=== PATIENT | male | born 1945 | race Caucasian/White ===

== ENCOUNTER 2020-12-04 09:53 | Inpatient (IN) | payer MEDICARE, SELFPAY ==
[2020-12-04] VITALS (8 sets, daily range): BP systolic 136–178; BP diastolic 67–81; PULSE 64–77; RESP 15–20; TEMP 36.8–37.2; O2SAT 97–100; BMI 24.3
--- NOTE | ~2020-12-04 | XR_ITS ---
EXAMINATION: XR CHEST CLINICAL INFORMATION: Stroke symptoms. COMPARISON: None TECHNIQUE: Frontal view of the chest was obtained. FINDINGS: No significant abnormality is noted involving the heart, lungs, mediastinum, bony thorax or soft tissues. XR/XR chest 1V IMPRESSION: Unremarkable chest examination.
--- NOTE | ~2020-12-04 | CT_ITS ---
EXAMINATION: CT ANGIOGRAM NECK WITH CONTRAST CT ANGIOGRAM BRAIN WITH CONTRAST CLINICAL INFORMATION: Right-sided numbness. COMPARISON: Noncontrast head CT performed just prior. TECHNIQUE: Test bolus sequences followed by intravenous administration 100 mL of Omnipaque 350. Helical imaging was performed in the axial plane from the thoracic inlet to the skull vertex. Delayed postcontrast imaging of the head was also performed. The data was processed at the mechanical engineering technologist workstation for generation of MIP sequences. Angled MIPs and volume rendered reformatted images were also generated at an offline 3D workstation. Stenoses are assessed in accordance with NASCET criteria unless otherwise indicated. This CT examination was performed using dose optimization techniques as appropriate, variously including the following: *Automated exposure control *Adjustment of mA and/or kV according to patient size (this includes techniques or standardized protocols for targeted exams where dose is matched to indication/reason for exam; i.e. extremities or head) *Use of iterative reconstruction technique DLP: 1556 mGy-cm FINDINGS: Head CT: There is no intracranial hemorrhage, large acute infarction, or mass lesion. The ventricles are normal in size and configuration without evidence of hydrocephalus. No abnormal enhancement is seen. The dural venous sinuses are normally opacified. The visualized paranasal sinuses and mastoid air cells are clear. Neck CTA: The aortic arch and great vessels are patent with mild atheromatous changes noted. Mild atheromatous changes are seen at the bilateral carotid bifurcations without associated stenosis. Calcific plaque narrows the origin of the right and left vertebral artery. The cervical segments of the vertebral arteries are otherwise patent. Head CTA: The intradural vertebral arteries and basilar artery are patent. The left TRANSPORTATION SECURITY SCREENER and right TRANSPORTATION SECURITY SCREENER are patent. Atheromatous changes are seen at the bilateral carotid siphons without significant stenosis. The ACAs and MCAs are patent with symmetric collaterals. No definite aneurysm is seen. 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 There is flap reconstruction of the right tongue. No abnormal enhancing soft tissue is seen. Nonenlarged submandibular station lymph nodes are seen (submandibular gland has been resected). Bilateral palatine tonsilloliths are noted. Mild degenerative changes are seen within the spine. CT/CT angio head neck stroke IMPRESSION: CT head: No intracranial hemorrhage or large acute infarction. CTA neck: Both vertebral artery origins are narrowed. No other stenosis is seen within the neck arteries. CTA head: No large vessel occlusion or significant stenosis within the intracranial circulation. Additional findings: Postoperative changes in the right neck and in the oral cavity. No suspicious adenopathy is seen. Continued ENT follow-up is recommended. This critical result was discussed with Dr. Howard on 12/04/2020 10:34 AM, and it was ascertained that the content and urgency of the report was understood at the time of direct communication.
--- NOTE | ~2020-12-04 | CT_ITS ---
EXAMINATION: CT HEAD WITHOUT CONTRAST (STROKE PROTOCOL) CLINICAL INFORMATION: Stroke protocol. Right-sided numbness. COMPARISON: None TECHNIQUE: Contiguous axial imaging was performed from the skull base to vertex without intravenous administration of contrast. This CT examination was performed using dose optimization techniques as appropriate, variously including the following: *Automated exposure control *Adjustment of mA and/or kV according to patient size (this includes techniques or standardized protocols for targeted exams where dose is matched to indication/reason for exam; i.e. extremities or head) *Use of iterative reconstruction technique DLP: 673 mGy-cm FINDINGS: There is no intracranial hemorrhage, hematoma, or extra-axial fluid collection. The ventricles are normal in size. There is no hydrocephalus, edema, or mass effect. The barrios-white matter differentiation appears symmetric. There is no acute infarct or mass lesion. The calvarium appears intact. There is no pneumocephalus or orbital emphysema. The visualized sinuses and middle ears and mastoid air cells show no significant mucosal thickening. There are no air-fluid levels. CT/CT head for stroke IMPRESSION: No acute intracranial process seen. This critical result was discussed with ER physician Dr. Eusebia Howard by phone at 10:12 AM. It was ascertained that the content and urgency of the report was understood at the time of direct communication.
--- NOTE | ~2020-12-04 | MR_ITS ---
EXAMINATION: MRI OF THE BRAIN WITHOUT CONTRAST CLINICAL INFORMATION: Right-sided sensory loss. COMPARISON: CT scan of the head and CTA of the head and neck earlier 12/04/2020. TECHNIQUE: MRI of the brain was obtained using routine sequences without contrast. FINDINGS: There is a small focus of restricted diffusion in the left thalamus, consistent with an area of acute infarct. There is no evidence of hemorrhage. No mass effect or midline shift is seen. The ventricles and sulci are commensurately prominent consistent with diffuse volume loss. Overall, brain parenchymal signal elsewhere is unremarkable. No extra-axial fluid collections are seen. The brainstem and cerebellum are normal. No pathologic magnetic susceptibility artifact is identified on the gradient refocused acquisition. The craniovertebral junction, marrow signal, and midline structures are normal. There is a 1.8 cm mass in the subcutaneous right supraorbital region laterally. The major intracranial flow-voids at the level of the upper [place] are preserved. The dural venous sinus flow-voids are maintained. The mastoid air cells and paranasal sinuses are well-aerated. MR/MR head/brain wo con IMPRESSION: 1. There is a small area of restricted diffusion consistent with an acute infarct in the left thalamus. There is no evidence of hemorrhagic transformation. No other restricted diffusion is demonstrated, and there is no evidence of hemorrhage elsewhere. 2. There is a soft tissue mass in the subcutaneous region the right supraorbital region laterally. Correlate clinically. 3. This critical result was discussed with Jessica Garrido by telephone on 12/04/2020 at 6:55 PM and it was ascertained that the content and urgency of the report was understood at the time of direct communication.
--- NOTE | 2020-12-04 09:57 | ECG_ITS ---
Test Reason : STROKE Blood Pressure : / mmHG Vent. Rate : 080 BPM Atrial Rate : 080 BPM P-R Int : 148 ms QRS Dur : 074 ms QT Int : 410 ms P-R-T Axes : 068 000 067 degrees QTc Int : 472 ms Normal sinus rhythm Normal ECG When compared with ECG of 25-APR-2017 16:32, No significant change was found Referred By: Eusebia Howard Electronically Signed By:Angel Ag
--- NOTE | 2020-12-04 09:59 | ED.NEUROSD ---
HPI - Neuro Symptoms/Deficit General Chief Complaint: Stroke Stated Complaint: RIGHT SIDE NUMBNESS Time Seen by Provider: 12/04/20 09:56 Source: patient and EMS Mode of arrival: EMS Limitations: no limitations History of Present Illness HPI Narrative: 75 yo male with hx of tongue cancer but denies any other past medical history - had R sided numbness for 6 hours yesterday he did not seek treatment, he then was working in the [employer] and he thinks around 8am he developed nausea and didn't feel well his R side of his body from arms to legs is numb no weakness no CP, no AC therapy Onset (ago): hour(s) (?8am but started yesterday and was present for 6 hours then fully resolved) Location: right arm and right leg History of same: Yes Severity: mild Quality: numb and tingling Relieving factors: none Exacerbating factors: none Context: sudden onset On Anticoagulants: No Associated symptoms: nausea/vomiting Treatments Prior to Arrival: none Related Data Home Medications Medication Instructions Recorded Confirmed ibuprofen 400 mg PO Q6H PRN 12/04/20 12/04/20 Allergies Allergy/AdvReac Type Severity Reaction Status Date / Time No Known Allergies Allergy Mild N/A Verified 12/04/20 10:35 Review of Systems Review of Systems: Constitutional : No Weight loss, No Fever, No Chills, No Fatigue, No Malaise ENT/Mouth : No sore throat, No Rhinorrhea Eyes: No Eye Pain, No Swelling, No Redness Cardiovascular : No Chest Pain, No SOB, No Dyspnea on Exertion, No Orthopnea, No Edema, No Palpitations Respiratory : No Cough, No Sputum, No Wheezing Gastrointestinal : No Nausea, No Vomiting, No Diarrhea, No Constipation, No abdominal Pain, No Hematochezia, No Melena Genitourinary : No Dysuria, No Urinary Frequency, No Hematuria, Musculoskeletal : No joint pain, No Myalgias, No Joint Swelling Skin : No Skin Lesions, No rash Neuro : No Weakness, pos Numbness, No Dizziness, No Headache Psych : No Anxiety/Panic, No Depression Heme/Lymph: No Bruising, No Bleeding,No Lymphadenopathy Endocrine : No Polyuria, No Polydipsia All other systems reviewed and are negative [facility] Past Medical History Attestation statement: The following information was validated with the patient. Medical History (Updated 12/04/20 @ 10:57 by Eusebia Howard DO) Tongue cancer Social History Social History (Updated 12/04/20 @ 10:05 by Eusebia Howadr DO) Alcohol intake: never Patient Tobacco Use Status: Former Tobacco user Advance Directives: Yes Advance Directives Information Provided: Yes Advance Directives on File: No Physical Exam Vital Signs: Vital Signs: Last Vital Signs Temp 98.5 F 12/04/20 10:24 Pulse 77 12/04/20 10:24 Resp 19 12/04/20 10:24 Pulse Ox 100 12/04/20 10:24 Body Mass Index 24.3 Appearance: Alert. Oriented X3. No acute distress. Eyes: Pupils equal, round and reactive to light. ENT: Pharynx normal. Neck: Normal inspection. Neck supple. CVS: Normal heart rate and rhythm. Pulses normal. Respiratory: No respiratory distress. Breath sounds normal. Abdomen: Soft and nontender. Skin: Skin warm and dry. Normal skin color. Normal skin turgor. Extremities: No lower extremity edema. No calf ttp Neuro: Oriented X 3. No motor deficit. reports R sided decreased sensation to touch from RUE to RLE, no drift Course Course Course Narrative: negative on dry CT scan 1012am call from Radiology call to Neurology 1013am - discussed with Dr. Quick no tPa at this time workup in ED and admit call from Radiology 1036 - negative CTA for LVO bethel admit for futher workup MDM - Neuro Symptoms/Deficit MDM Narrative Medical decision making narrative: 75 yo male with hx of tongue cancer but denies any other past medical history - had R sided numbness for 6 hours yesterday he did not seek treatment, he then was working in the [employer] and he thinks around 8am he developed nausea and didn't feel well his R side of his body from arms to legs is numb no weakness no CP, no AC therapy - possible TIA yesterday and now with another stroke like symptom his NIH is 1, will discuss with Neurology - stat CT CTA orders put in at this time Lab Data Result diagrams: 12/04/20 10:20 12/04/20 10:20 Labs: Lab Results 12/04/20 12/04/20 12/04/20 Range/Units 10:06 10:08 10:20 WBC 7.3 (4.8-10.8) X10*3/uL RBC 4.17 L (4.60-5.80) X10*6/uL Hgb 11.8 L (14.0-18.0) g/dl Hct 36.1 L (42-52) % MCV 86.6 (80-98) fL MCH 28.3 (27.0-33.0) pg MCHC 32.7 (31.0-36.0) g/dl RDW 12.1 (11.0-16.0) % Plt Count 366 (160-400) X10*3/uL MPV 9.1 L (9.4-12.4) fL Immature Gran % (Auto) 0.5 H (0.0-0.4) % Neut % (Auto) 69.1 (45-73) % Lymph % (Auto) 19.9 L (20-40) % [place] % (Auto) 8.6 (2-11) % Eos % (Auto) 1.5 (0-4) % Baso % (Auto) 0.4 (0-2) % Lymph # (Auto) 1.5 (1.2-4.9) X10*3/uL [place] # (Auto) 0.6 (0.1-1.2) X10*3/uL Eos # (Auto) 0.1 (0.0-0.4) X10*3/uL Baso # (Auto) 0.0 (0.0-0.2) X10*3/uL Abs Immat Gran (auto) 0.04 H (0.00-0.03) X10*3/uL Absolute Neuts (auto) 5.1 (2.0-8.3) X10*3/uL Absolute Nucleated RBC 0.000 (0.0-0.012) X10*3/uL Nucleated RBC % (auto) 0.0 (0.0-0.2) /100WBC PT (10.8-13.0) SEC Whole Blood PT 11.7 (11.1-13.5) sec INR (0.9-1.1) Whole Blood INR 1.0 (0.9-1.1) APTT (24.1-38.0) SEC Sodium (135-145) mmol/L Potassium (3.3-5.1) mmol/L Chloride (96-108) mmol/L Carbon Dioxide (22-29) mmol/L Anion Gap (12-20) BUN (9-16) mg/dL Creatinine (0.5-1.4) mg/dL Estim Creat Clear Calc Estimated GFR POC Glucose 142 H (60-115) mg/dL Random Glucose (60-115) mg/dL Calcium (8.4-10.2) mg/dL Magnesium (1.6-2.6) mg/dL Total Bilirubin (0.0-1.0) mg/dL Direct Bilirubin (0.0-0.5) mg/dL AST (5-37) U/L ALT (0-40) U/L Alkaline Phosphatase (39-117) U/L Troponin I High Sens (<3.5-35.0) ng/L Total Protein (6.5-8.0) g/dL Albumin (3.5-5.0) g/dL Lipase (8-78) U/L COVID-19 (JOCE) (Negative) COVID-19 Clin Com 12/04/20 12/04/20 12/04/20 Range/Units 10:20 10:20 10:20 WBC (4.8-10.8) X10*3/uL RBC (4.60-5.80) X10*6/uL Hgb (14.0-18.0) g/dl Hct (42-52) % MCV (80-98) fL MCH (27.0-33.0) pg MCHC (31.0-36.0) g/dl RDW (11.0-16.0) % Plt Count (160-400) X10*3/uL MPV (9.4-12.4) fL Immature Gran % (Auto) (0.0-0.4) % Neut % (Auto) (45-73) % Lymph % (Auto) (20-40) % [place] % (Auto) (2-11) % Eos % (Auto) (0-4) % Baso % (Auto) (0-2) % Lymph # (Auto) (1.2-4.9) X10*3/uL [place] # (Auto) (0.1-1.2) X10*3/uL Eos # (Auto) (0.0-0.4) X10*3/uL Baso # (Auto) (0.0-0.2) X10*3/uL Abs Immat Gran (auto) (0.00-0.03) X10*3/uL Absolute Neuts (auto) (2.0-8.3) X10*3/uL Absolute Nucleated RBC (0.0-0.012) X10*3/uL Nucleated RBC % (auto) (0.0-0.2) /100WBC PT 12.3 (10.8-13.0) SEC Whole Blood PT (11.1-13.5) sec INR 1.0 (0.9-1.1) Whole Blood INR (0.9-1.1) APTT 25.9 (24.1-38.0) SEC Sodium 137 (135-145) mmol/L Potassium 4.4 (3.3-5.1) mmol/L Chloride 104 (96-108) mmol/L Carbon Dioxide 22 (22-29) mmol/L Anion Gap 15 (12-20) BUN 22 H (9-16) mg/dL Creatinine 1.04 (0.5-1.4) mg/dL Estim Creat Clear Calc 63.3 Estimated GFR > 60 POC Glucose (60-115) mg/dL Random Glucose 147 H (60-115) mg/dL Calcium 8.9 (8.4-10.2) mg/dL Magnesium 1.8 (1.6-2.6) mg/dL Total Bilirubin 0.7 (0.0-1.0) mg/dL Direct Bilirubin 0.3 (0.0-0.5) mg/dL AST 13 (5-37) U/L ALT 9 (0-40) U/L Alkaline Phosphatase 57 (39-117) U/L Troponin I High Sens < 3.5 (<3.5-35.0) ng/L Total Protein 6.0 L (6.5-8.0) g/dL Albumin 3.7 (3.5-5.0) g/dL Lipase 16 (8-78) U/L COVID-19 (JOCE) (Negative) COVID-19 Clin Com 12/04/20 Range/Units 10:20 WBC (4.8-10.8) X10*3/uL RBC (4.60-5.80) X10*6/uL Hgb (14.0-18.0) g/dl Hct (42-52) % MCV (80-98) fL MCH (27.0-33.0) pg MCHC (31.0-36.0) g/dl RDW (11.0-16.0) % Plt Count (160-400) X10*3/uL MPV (9.4-12.4) fL Immature Gran % (Auto) (0.0-0.4) % Neut % (Auto) (45-73) % Lymph % (Auto) (20-40) % [place] % (Auto) (2-11) % Eos % (Auto) (0-4) % Baso % (Auto) (0-2) % Lymph # (Auto) (1.2-4.9) X10*3/uL [place] # (Auto) (0.1-1.2) X10*3/uL Eos # (Auto) (0.0-0.4) X10*3/uL Baso # (Auto) (0.0-0.2) X10*3/uL Abs Immat Gran (auto) (0.00-0.03) X10*3/uL Absolute Neuts (auto) (2.0-8.3) X10*3/uL Absolute Nucleated RBC (0.0-0.012) X10*3/uL Nucleated RBC % (auto) (0.0-0.2) /100WBC PT (10.8-13.0) SEC Whole Blood PT (11.1-13.5) sec INR (0.9-1.1) Whole Blood INR (0.9-1.1) APTT (24.1-38.0) SEC Sodium (135-145) mmol/L Potassium (3.3-5.1) mmol/L Chloride (96-108) mmol/L Carbon Dioxide (22-29) mmol/L Anion Gap (12-20) BUN (9-16) mg/dL Creatinine (0.5-1.4) mg/dL Estim Creat Clear Calc Estimated GFR POC Glucose (60-115) mg/dL Random Glucose (60-115) mg/dL Calcium (8.4-10.2) mg/dL Magnesium (1.6-2.6) mg/dL Total Bilirubin (0.0-1.0) mg/dL Direct Bilirubin (0.0-0.5) mg/dL AST (5-37) U/L ALT (0-40) U/L Alkaline Phosphatase (39-117) U/L Troponin I High Sens (<3.5-35.0) ng/L Total Protein (6.5-8.0) g/dL Albumin (3.5-5.0) g/dL Lipase (8-78) U/L COVID-19 (JOCE) Negative (Negative) COVID-19 Clin Com See Note ECG Data Attestation: I personally reviewed and interpreted this ECG as follows: ECG interpretation date: 12/04/20 ECG interpretation time: 10:28 Interpretation: Rate: 80 Rhythm: NSR [place]: normal Normal P waves. Normal RAYMUNDO. Normal QRS complex. ST T wave : normal no LISA qTC: normal prior studies: no acute ischemia The study has been interpreted contemporaneously by me. . NIH Stroke Scale Internal: Initial- Upon Arrival Level of Consciousness: Alert Level of Consciousness Questions: Answers both questions correctly Level of Consciousness Commands: Performs both tasks correctly Best Gaze: Normal Visual: No visual loss Facial Palsy: Normal Motor Arm (Right): No drift Motor Arm (Left): No drift Motor Leg (Right): No drift Motor Leg (Left): No drift Limb Ataxia: Absent Sensory: Mild to moderate sensory loss Best Language: No aphasia Dysarthia: Normal Extinction and Inattention: No abnormality Score: 1 Discharge Plan Discharge Clinical Impression: Numbness Patient Disposition: Admitted As Inpatient Prescriptions: No Action ibuprofen 200 mg Tablet 400 mg PO Q6H PRN (Reason: Pain) RF: 0
[2020-12-04 10:12] LABS: Prothrombin Time Whole Bld POC 11.7 sec (11.1-13.5)
[2020-12-04 10:13] LABS: Glucose, Whole Blood 142 mg/dL (60-115)
[2020-12-04] MEDS: iohexoL 350 MG/ML 100 ML INFUS..BTL IV (10:16)
[2020-12-04 10:23] LABS: MANUAL DIFF FLAG NO
[2020-12-04 10:26] LABS: Basophils Percent Auto 0.4 % (0-2); Eosinophils Absolute Auto 0.1 X10*3/uL (0.0-0.4); Eosinophils Percent Auto 1.5 % (0-4); Hematocrit 36.1 % (42-52); Hemoglobin 11.8 g/dl (14.0-18.0); Imm Gran Abs Auto 0.04 X10*3/uL (0.00-0.03); Imm Gran Pct Auto 0.5 % (0.0-0.4); Lymphocytes Absolute Auto 1.5 X10*3/uL (1.2-4.9); Lymphocytes Percent Auto 19.9 % (20-40); Mean Corpuscular HGB Conc 32.7 g/dl (31.0-36.0); Mean Corpuscular Hemoglobin 28.3 pg (27.0-33.0); Mean Corpuscular Volume 86.6 fL (80-98); Mean Platelet Volume 9.1 fL (9.4-12.4); Monocytes Absolute Auto 0.6 X10*3/uL (0.1-1.2); Monocytes Percent Auto 8.6 % (2-11); Neutrophils Absolute Auto 5.1 X10*3/uL (2.0-8.3); Neutrophils Percent Auto 69.1 % (45-73); Platelet Count 366 X10*3/uL (160-400); Red Blood Count 4.17 X10*6/uL (4.60-5.80); Red Cell Distribution Width 12.1 % (11.0-16.0); White Blood Count 7.3 X10*3/uL (4.8-10.8)
[2020-12-04 10:31] LABS: Prothrombin Time 12.3 SEC (10.8-13.0)
[2020-12-04 10:34] LABS: Partial Thromboplastin Time 25.9 SEC (24.1-38.0)
--- NOTE | 2020-12-04 10:37 | MHC.STROKE ---
Addendum entered by Ligia Dupree RN 12/05/20 10:37: I MET WITH THE PATIENT AND HIS , I PROVIDED A SCREEN SHOT OF THE LEFT THALAMIC STROKE AND DISCUSSED THE LOCATION AND CORRELATING SYMPTOMS. I REVIEWED POWER POINT SLIDES AND STROKE BOOKLET IT RELATES TO WHY STROKES HAPPEN, PROGNOSIS, RISK FACTORS AND RECOVERY. I ANSWERED ALL OF THEIR QUESTIONS. I EXPLAINED WHY HE NEEDS A STATIN AND ASPIRIN AND TO FOLLOW UP WITH HIS PCP. THEY ARE BOTH MOTIVATED TO MAKE CHANGES. Addendum entered by Ligia Dupree RN 12/04/20 10:46: CTA H/N NO LVO, NO INDICATION FOR THROMBECTOMY. I EXPLAINED THE PLAN OF CARE TO THE PATIENT. Original Note: [address] BRENNER THAT SHE WAS ACTIVATING STROKE PROTOCOL . PATIENT ARRIVED SHE EMS AT 0953, PRE-NOTIFIED AT 0945 OF RIGHT SIDED NUMBNESS/TINGLING ONSET AT 0800. 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 NIHSS = 1, DIRECT TO CT (DOOR-TO-CT = 3 MINUTES, AND CTA. NO BLEED, CTA PENDING. PATIENT STATED HE HAD THE SAME SYMPTOMS YESTERDAY WHILE WORKING AND HE WENT HOME AND LAID DOWN AND AFTER 6 HOURS THE SYMPTOMS WENT AWAY. DR RIVERO WAS NOTIFIED AND DUE TO NIHSS = 1 AND NON-DISABLING SYMPTOMS, HE WILL NOT BE ELIGIBLE FOR TPA (ALTEPLASE).
--- NOTE | 2020-12-04 10:42 | PC.NURSE ---
Pt alert, oriented X3. No neuro/motor deficits, VSS, PERRLA, LSCTA, no respiratory distress, abd soft non-tender, skin warm and dry, no apparent distress. Pt reports R sided numbness, weakness, tingling, and decreased sensation to touch from RUE to RLE. Per the pt this started on Tuesday and continued on during the week. Yesterday it lasted for 6hrs. Pt reports he does not take any prescriptive meds at home. IV line established, CT scan done at 1008 followed by CTA 7 mins after. Pt in room resting quietly, No apparent distress, CT scan results pending.
[2020-12-04 10:49] LABS: Alanine Aminotransferase 9 U/L (0-40); Albumin Level 3.7 g/dL (3.5-5.0); Alkaline Phosphatase 57 U/L (39-117); Anion Gap 15 (12-20); Aspartate Amino Transferase 13 U/L (5-37); Bilirubin Direct 0.3 mg/dL (0.0-0.5); Bilirubin Total 0.7 mg/dL (0.0-1.0); Blood Urea Nitrogen 22 mg/dL (9-16); Calcium 8.9 mg/dL (8.4-10.2); Carbon Dioxide 22 mmol/L (22-29); Chloride 104 mmol/L (96-108); Creatinine Clr Calc Pharmacy 63.3; Estimated Glomerular Filt Rate > 60; Glucose Random 147 mg/dL (60-115); Lipase 16 U/L (8-78); Magnesium 1.8 mg/dL (1.6-2.6); Potassium 4.4 mmol/L (3.3-5.1); Sodium 137 mmol/L (135-145)
[2020-12-04 10:50] LABS: IDNOW Serial# 9DD0AD1C
[2020-12-04 10:51] LABS: COVID-19 Test Negative (Negative)
[2020-12-04 10:52] LABS: Troponin-I High Sensitivity < 3.5 ng/L (<3.5-35.0)
[2020-12-04 11:05] LABS: Appearance Urine CLEAR; Color Urine YELLOW; Glucose Urine UA NEG (NEG); Leukocyte Esterase Urine NEG (NEG); Nitrite Urine NEG (NEG); Specific Gravity - Urine 1.025 (1.005-1.025); Urine Blood NEG (NEG); Urine Ketones 15 MG/DL (NEG); Urine Protein 1+ MG/DL (NEG-TRACE)
[2020-12-04 11:11] LABS: Mucus Urine TRACE /LPF; RBC Urine 0 /HPF (0); Squamous Epithelial Cell Urine TRACE /LPF
[2020-12-04] MEDS: Aspirin 325 MG TABLET PO (11:20)
[2020-12-04 12:17] LABS: Immature Retic Fraction 2.6 % (2.3-13.4); Reticulocyte Percent 1.3 % (0.5-1.8); Reticulocytes Absolute 0.051 X10*6/uL (0.026-0.095)
--- NOTE | 2020-12-04 12:17 | PM.IMHP ---
History of Present Illness Date of Service: 12/04/20 Chief Complaint: numbness 75yo M with history of tongue cancer, s/p excisional and reconstructive surgery, with no other medical conditions. He hasn't seen his primary medical doctor in years and is not on any chronic medications; he just takes ibuprofen and APAP for aches and pains. 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 He is right-handed and was able to continue using a power drill and did not have any motor weakness. The symptoms resolved after 6 hours. This morning, the numbness recurred in the same location around 8:00 while working outside. He developed nausea and vomited once. He drove home from [place] to [place], but en route, he did not feel safe driving all the way, so he pulled over at the fire station; 911 was called to transport him to the hospital. In the ED, CT of the head was negative for acute disease; CTA of the head and neck did not demonstrate any large-vessel occlusion. EKG was completely normal. He continues to feel numbness of the right side of his body and his NIHSS is 1. He denies any motor weakness, incoordination, visual loss, or vertigo. He denies fever, chills, dyspnea, chest pain, or palpitations. Neurology was called and recommended admission for CVA workup; tPA was not recommended. Review of Systems Review of Systems: Yes all other systems are reviewed and are negative [facility] Medical History (Updated 12/04/20 @ 12:25 by Jessica Garrido MD) Tongue cancer Pertinent family history: father of massive [place] in his 70s; mother of melanoma Surgical History (Updated 12/04/20 @ 12:23 by Jessica Garrido MD) History of cancer surgery Social History Alcohol intake: never Patient Tobacco Use Status: Former Tobacco user Smoked in Last 30 Days: No Use of substances other than those prescribed or required for medical reasons: No Advance Directives: Yes Advance Directives Information Provided: Yes Advance Directives on File: No Meds Allergies Allergy/AdvReac Type Severity Reaction Status Date / Time No Known Allergies Allergy Mild N/A Verified 12/04/20 10:35 Active Medications: Current Medications Generic Name Dose Route Start Last Admin Trade Name Freq PRN Reason Stop Dose Admin Acetaminophen 650 mg 12/04/20 12:13 Acetaminophen Supp 650 Mg Supp.Rect IL Q6H PRN Pain, Mild (Pain Scale 1-3) Aspirin 81 mg 12/05/20 09:00 Aspirin 81 Mg Tab.Chew PO DAILY [facility] Atorvastatin Calcium 40 mg 12/04/20 21:00 Atorvastatin Calcium 40 Mg Tablet PO BEDTIME [facility] Enoxaparin Sodium 40 mg 12/04/20 12:15 Enoxaparin Sodium 40 Mg/0.4 Ml Syringe SUBCUT Q24H [facility]IM[facility] Ondansetron HCl 4 mg 12/04/20 12:13 Ondansetron Hcl 4 Mg/2 Ml Vial IVPUSH Q8H PRN Nausea and Vomiting Pharmacy Consult 1 each 12/04/20 10:14 Consult Rx Perform Med Rec MISCELLANE ONCE PRN Consult order Home Medications Medication Instructions Recorded Confirmed Last Taken Type ibuprofen 400 mg PO Q6H PRN 12/04/20 12/04/20 Unknown History Physical Exam Vital Signs and Narrative: Vital Signs: Last Vital Signs Temp 98.5 F 12/04/20 10:56 Pulse 75 12/04/20 10:56 Resp 17 12/04/20 10:56 BP 152/67 H 12/04/20 10:56 Pulse Ox 99 12/04/20 10:56 Body Mass Index 24.3 Gen: in no acute distress HEENT: sclera anicteric, moist mucus membranes Neck: supple Lungs: clear to auscultation bilaterally Heart: regular rate and rhythm, no murmurs Abd: soft, non-tender, non-distended Ext: no edema Skin: warm/well-perfused Neuro: alert and oriented x3, no facial droop, no pronator drift, no motor weakness, sensation to light touch decreased on the R side of the body and face, no dysmetria Psych: appropriate affect Results Labs CBC and Chem 7: 12/04/20 10:20 12/04/20 10:20 Labs: Laboratory Results - last 24 hr 12/04/20 12/04/20 12/04/20 10:06 10:08 10:20 MCV 86.6 MCH 28.3 MCHC 32.7 RDW 12.1 Plt Count 366 MPV 9.1 L Immature Gran % (Auto) 0.5 H Neut % (Auto) 69.1 Lymph % (Auto) 19.9 L [place] % (Auto) 8.6 Eos % (Auto) 1.5 Baso % (Auto) 0.4 Lymph # (Auto) 1.5 [place] # (Auto) 0.6 Eos # (Auto) 0.1 Baso # (Auto) 0.0 Abs Immat Gran (auto) 0.04 H Absolute Neuts (auto) 5.1 Absolute Nucleated RBC 0.000 Nucleated RBC % (auto) 0.0 PT Whole Blood PT 11.7 INR Whole Blood INR 1.0 APTT Anion Gap Estim Creat Clear Calc Estimated GFR POC Glucose 142 H Random Glucose Calcium Magnesium Total Bilirubin Direct Bilirubin AST ALT Alkaline Phosphatase Troponin I High Sens Total Protein Albumin Lipase Urine Color Urine Appearance Urine pH Ur Specific [place] Urine Protein Urine Glucose (UA) Urine Ketones Urine Blood Urine Nitrite Ur Leukocyte Esterase Urine RBC Urine WBC Ur Squamous Epith Cells Urine Bacteria Urine Mucus COVID-19 (JOCE) COVID-19 [facility] Com 12/04/20 12/04/20 12/04/20 10:20 10:20 10:20 MCV MCH MCHC RDW Plt Count MPV Immature Gran % (Auto) Neut % (Auto) Lymph % (Auto) [place] % (Auto) Eos % (Auto) Baso % (Auto) Lymph # (Auto) [place] # (Auto) Eos # (Auto) Baso # (Auto) Abs Immat Gran (auto) Absolute Neuts (auto) Absolute Nucleated RBC Nucleated RBC % (auto) PT 12.3 Whole Blood PT INR 1.0 Whole Blood INR APTT 25.9 Anion Gap 15 Estim Creat Clear Calc 63.3 Estimated GFR > 60 POC Glucose Random Glucose 147 H Calcium 8.9 Magnesium 1.8 Total Bilirubin 0.7 Direct Bilirubin 0.3 AST 13 ALT 9 Alkaline Phosphatase 57 Troponin I High Sens < 3.5 Total Protein 6.0 L Albumin 3.7 Lipase 16 Urine Color Urine Appearance Urine pH Ur Specific [place] Urine Protein Urine Glucose (UA) Urine Ketones Urine Blood Urine Nitrite Ur Leukocyte Esterase Urine RBC Urine WBC Ur Squamous Epith Cells Urine Bacteria Urine Mucus COVID-19 (JOCE) COVID-19 [facility] Com 12/04/20 12/04/20 10:20 11:00 MCV MCH MCHC RDW Plt Count MPV Immature Gran % (Auto) Neut % (Auto) Lymph % (Auto) [place] % (Auto) Eos % (Auto) Baso % (Auto) Lymph # (Auto) [place] # (Auto) Eos # (Auto) Baso # (Auto) Abs Immat Gran (auto) Absolute Neuts (auto) Absolute Nucleated RBC Nucleated RBC % (auto) PT Whole Blood PT INR Whole Blood INR APTT Anion Gap Estim Creat Clear Calc Estimated GFR POC Glucose Random Glucose Calcium Magnesium Total Bilirubin Direct Bilirubin AST ALT Alkaline Phosphatase Troponin I High Sens Total Protein Albumin Lipase Urine Color YELLOW Urine Appearance CLEAR Urine pH 6.0 Ur Specific [place] 1.025 Urine Protein 1+ H Urine Glucose (UA) NEG Urine Ketones 15 Urine Blood NEG Urine Nitrite NEG Ur Leukocyte Esterase NEG Urine RBC 0 Urine WBC 1-4 Ur Squamous Epith Cells TRACE Urine Bacteria NONE Urine Mucus TRACE COVID-19 (JOCE) Negative COVID-19 Clin Com See Note Imaging Radiologist's Impressions: Impressions Head CT 12/04/20 09:56 IMPRESSION: No acute intracranial process seen. This critical result was discussed with ER physician Dr. Eusebia Howard by phone at 10:12 AM. It was ascertained that the content and urgency of the report was understood at the time of direct communication. Chest X-Ray 12/04/20 09:57 IMPRESSION: Unremarkable chest examination. Head/Neck CTA 12/04/20 09:57 IMPRESSION: CT head: No intracranial hemorrhage or large acute infarction. CTA neck: Both vertebral artery origins are narrowed. No other stenosis is seen within the neck arteries. CTA head: No large vessel occlusion or significant stenosis within the intracranial circulation. Additional findings: Postoperative changes in the right neck and in the oral cavity. No suspicious adenopathy is seen. Continued ENT follow-up is recommended. This critical result was discussed with Dr. Howard on 12/04/2020 10:34 AM, and it was ascertained that the content and urgency of the report was understood at the time of direct communication. 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, s/p excisional/reconstructive surgery, presenting with 2 episodes of sensory loss on the right side of his body suspicious for lacunar pure sensory stroke # suspected CVA - admit to [facility], monitor on telemetry, obtain MRI, check TTE, check lipids + A1c, start aspirin + atorvastatin, consult Neuro, PT/OT evaluations # anemia, normocytic anemia - check retics, LDH, B12, FA, iron studies, FOBT; recheck CBC in am # VTE ppx - LMWH # code - full Quality Stroke Does the patient have a stroke diagnosis?: Yes Reason for No Anti-thrombotic by Day Two: N/A - Med Ordered VTE Prior VTE?: No VTE Risk Level:: Medical - moderate - high VTE Device Contraindication: N/A - Device Ordered VTE Drug Contraindication: N/A - Med Ordered
[2020-12-04 12:38] LABS: Estimated Average Glucose 114 mg/dL; Hemoglobin A1c % 5.6 %; Iron 85 mcg/dL (45-160); Lactate Dehydrogenase 135 U/L (118-273); Percent Iron Saturation 38 % (15-50); Total Iron Binding Capacity 223 mcg/dL (228-428); Unsaturated Iron Binding 138 ug/dL
[2020-12-04 12:58] LABS: Ferritin 221 ng/mL (20-250)
--- NOTE | 2020-12-04 13:44 | PC.NURSE ---
Report given to receiving nurse RICK Pascual.
[2020-12-04 14:30] LABS: Folate 14.9 ng/mL (> or = 4.0); Vitamin B12 360 pg/mL (200-900)
--- NOTE | 2020-12-04 15:32 | P.CNNE_ITS ---
History of Present Illness Data of Consult Service Date: 12/04/20 Primary Care Provider: Unknown Physician 75 years old man with past medical history of tongue cancer but no history of hypertension or diabetes came to hospital with right-sided numbness. He said that it initially started couple of days ago that got better and then restarted this morning. Hold right side was numb and tingly but not weak. There was no headache. There was no obvious speech or language problem. He was evaluated in emergency room and because of timing issues and minimal symptoms he was not considered a candidate for intravenous tPA for acute stroke. Review of Systems Review of Systems: No recent cold or flu-like illness or trauma or exposure to new medicine. He denied any significant alcohol use. [facility] Past Medical History Medical History Tongue cancer Surgical History Surgical History History of cancer surgery Social History Social History Household Members: Spouse and Children Alcohol intake: never Patient Tobacco Use Status: Former Tobacco user Smoked in Last 30 Days: No Use of substances other than those prescribed or required for medical reasons: No Have you been hit, kicked, punched, or otherwise hurt by someone within the past year? If so, by whom?: No Do you feel safe in your current relationship?: Yes Is there a partner from a previous relationship who is making you feel unsafe now?: No Are you made to feel afraid or neglected: No Spiritual Healthcare Practices: catholic on tuesday Advance Directives: No Advance Directives Information Provided: Yes Advance Directives on File: No Do you have thoughts of harming others: None Do you have a plan to hurt others: No Plan Recently lost weight without trying: No Meds Allergies Allergy/AdvReac Type Severity Reaction Status Date / Time No Known Allergies Allergy Mild N/A Verified 12/04/20 10:35 Active Medications: Current Medications Generic Name Dose Route Start Last Admin Trade Name Freq PRN Reason Stop Dose Admin Acetaminophen 650 mg 12/04/20 12:13 Acetaminophen Supp 650 Mg Supp.Rect GA Q6H PRN Pain, Mild (Pain Scale 1-3) Aspirin 81 mg 12/05/20 09:00 Aspirin 81 Mg Tab.Chew PO DAILY NIMCO Atorvastatin Calcium 40 mg 12/04/20 21:00 Atorvastatin Calcium 40 Mg Tablet PO BEDTIME NIMCO Enoxaparin Sodium 40 mg 12/04/20 12:15 Enoxaparin Sodium 40 Mg/0.4 Ml Syringe SUBCUT Q24H [facility] Ondansetron HCl 4 mg 12/04/20 12:13 Ondansetron Hcl 4 Mg/2 Ml Vial IVPUSH Q8H PRN Nausea and Vomiting Pharmacy Consult 1 each 12/04/20 10:14 Consult Rx Perform Med Rec MISCELLANE ONCE PRN Consult order Home Medications Medication Instructions Recorded Confirmed Last Taken Type ibuprofen 400 mg PO Q6H PRN 12/04/20 12/04/20 Unknown History Physical Exam Vital Signs: Vital Signs: Last Vital Signs Temp 98.8 F 12/04/20 15:18 Pulse 67 12/04/20 15:18 Resp 15 12/04/20 15:18 BP 150/74 H 12/04/20 15:18 Pulse Ox 97 12/04/20 15:18 Body Mass Index 24.3 He was alert and awake with normal spontaneity of speech fluency comprehension and affect. Pupils were equal and reactive to light and extraocular muscles were intact. Visual tolbert are full to threat. Face was symmetrical. There was no pronator drift. Deep tendon reflexes were trace to absent with flexor plantars. With double simultaneous stimulation he had noted the right-sided touch. He was able to enunciate different sounds with no significant dysarthria. His tongue revealed previous transplanted surgery. Results Labs CBC & Chem 7: 12/04/20 10:20 12/04/20 10:20 Labs: Short CBC 12/04/20 Range/Units 10:20 WBC 7.3 (4.8-10.8) X10*3/uL Hgb 11.8 L (14.0-18.0) g/dl Hct 36.1 L (42-52) % Plt Count 366 (160-400) X10*3/uL BMP 12/04/20 10:20 Sodium 137 Potassium 4.4 Chloride 104 Carbon Dioxide 22 BUN 22 H Creatinine 1.04 Calcium 8.9 Liver Function 12/04/20 Range/Units 10:20 Total Bilirubin 0.7 (0.0-1.0) mg/dL Direct Bilirubin 0.3 (0.0-0.5) mg/dL AST 13 (5-37) U/L ALT 9 (0-40) U/L Alkaline Phosphatase 57 (39-117) U/L Albumin 3.7 (3.5-5.0) g/dL Urine 12/04/20 Range/Units 11:00 Urine Color YELLOW Urine Appearance CLEAR Urine pH 6.0 (5.0-8.0) Ur Specific [place] 1.025 (1.005-1.025) Urine Protein 1+ H (NEG-TRACE) MG/DL Urine Glucose (UA) NEG (NEG) MG/DL His head CT without contrast did not reveal any significant acute or chronic abnormality. CTA revealed bilateral vertebral artery origin stenosis but otherwise no significant abnormality. Assessment and Plan (1) Stroke: Status: Acute 75 years old man who probably had a left medial thalamic small ischemic infarct. This type of infarct typically can cause hemibody numbness. CT did n ot reveal any significant abnormality. A noncontrast MRI can help to make a diagnosis. In the meantime I would recommend blood pressure control, anti- platelet agent and checking his lipid profile. Procedures Date of Service Date of Service: 12/04/20
[2020-12-04] MEDS: Enoxaparin Sodium 40 MG/0.4 ML SYRINGE SUBCUT (16:24)
[2020-12-04] MEDS: Atorvastatin Calcium 40 MG TABLET PO (21:49)
[2020-12-05 03:22] VITALS: BP 165/80; PULSE 79; RESP 17; TEMP 36.6; O2SAT 98
[2020-12-05 06:28] LABS: Hematocrit 37.8 % (42-52); Hemoglobin 12.2 g/dl (14.0-18.0); Mean Corpuscular HGB Conc 32.3 g/dl (31.0-36.0); Mean Corpuscular Hemoglobin 28.4 pg (27.0-33.0); Mean Corpuscular Volume 88.1 fL (80-98); Mean Platelet Volume 9.8 fL (9.4-12.4); Platelet Count 356 X10*3/uL (160-400); Red Blood Count 4.29 X10*6/uL (4.60-5.80); Red Cell Distribution Width 12.5 % (11.0-16.0); White Blood Count 8.3 X10*3/uL (4.8-10.8)
[2020-12-05 07:10] LABS: Cholesterol 216 mg/dL; HDL Cholesterol 50 mg/dL; LDL Cholesterol Calculated 153 mg/dl; Triglycerides 65 mg/dL
[2020-12-05 07:57] VITALS: BP 174/78; PULSE 60; RESP 20; TEMP 36.6; O2SAT 97
[2020-12-05] MEDS: Aspirin 81 MG TAB.CHEW PO (08:15)
--- NOTE | 2020-12-05 09:42 | MHC.CM.PN ---
pt lives c his in their home. he reports that he is independent in his care. 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 pt 's says his can help him should he have any needs, this will include a ride home at [place]. pt denies the need for vna at [place]. cm to cont. to follow.
[2020-12-05 11:44] VITALS: BP 152/74; PULSE 63; RESP 18; TEMP 36.7; O2SAT 97
[2020-12-05] MEDS: Enoxaparin Sodium 40 MG/0.4 ML SYRINGE SUBCUT (12:16)
--- NOTE | 2020-12-05 12:55 | CA_ITS ---
Transthoracic Echocardiogram Patient (Last, First, Middle): Cleve Burns, Gender: Male Date of : 1945 Age: 75 Procedure Date: 12/05/2020 Procedure Type: Transthoracic Echocardiogram Location: [facility] Height: 177.8 cm Weight: 76.66 kg BSA: 1.94 m2 Heart Rate: bpm BP: 165 / 80 mmHg Theatrical Variety Agent: Referring MD: Jessica Garrido MD Symptoms: CVA Study Quality: Good ECG Rhythm: Sinus Conclusions: - Normal left ventricular size, thickness, systolic function, and wall motion. - Normal right ventricular cavity size and systolic function. Findings Left Ventricle Normal left ventricular size, thickness, systolic function, and wall motion. The visually estimated ejection fraction is between 50-55%. Diastolic function is normal for age. Right Ventricle Normal right ventricular cavity size and systolic function. Atria Both atria are normal in size. Aortic Valve The aortic valve structure and function is likely normal. There is no aortic valve stenosis. There is no aortic valve regurgitation. Mitral Valve There is mild mitral annular calcification. There is no mitral valve regurgitation. There is no mitral valve stenosis. Pulmonic Valve The pulmonic valve is likely normal. Tricuspid Valve Normal tricuspid valve structure and function. There is trace tricuspid valve regurgitation. Normal right atrial pressure. There is no evidence of pulmonary hypertension. Great Vessels All visible segments of the aorta are normal in size. Venous The inferior vena cava is normal in size and collapses greater than 50% with inspiration. Pericardium/Pleural There is no evidence of pericardial effusion. Prior Study Comparison No prior study available for comparison. Measurements 2D Linear Measurements IVSd: 0.97 0.6-0.9/0.6-1.0 cm LVIDd: 4.28 3.9-5.3/4.2-5.9 cm LVIDd Index: 2.21 2.4-3.2/2.2-3.1 cm/m2 LVIDs: 2.73 2.0-3.6 cm LVPWd: 0.99 0.7-1.1 cm Ao Root: 3.30 2.1-3.5 cm LA Diam: 3.40 2.7-3.8/3.0-4.0 cm LAIDs Index: 1.75 1.5-2.3 cm/m2 LV Mass: 171.64 67-162/88-224 g LV Mass Index: 88.47 43-95/49-115 g/m2 LVOT Diam: 2.00 3.0+(-)1.3 cm Mitral Valve MV Pk E: 0.61 MV PK A: 0.81 MV Decel Time: 236.00 E/A: 0.80 E'Lateral: 6.85 E'Medial: 6.53 E/E' Med: 9.30 E/E' Lat: 8.90 PHT: 69.00 MVA PHT: 3.19 Decel Dawson: 2.58 Aortic Valve AoV Pk Marcel: 1.26 AoV Mn Marcel: 0.72 AoV VTI: 0.29 AoV Pk Grad: 6.00 Aov Mn Grad: 3.00 TAJ Cont.VTI: 2.08 LVOT LVOT Pk Marcel: 0.73 LVOT Mn Marcel: 0.43 LVOT VTI: 0.19 LVOT Pk Grad: 2.00 LVOT Mn Grad: 1.00 LVOT Diam: 2.00 LVOT Area: 3.14 Diastolic Function MV Pk E: 0.61 MV Pk A: 0.81 E/A: 0.80 E'Medial: 6.53 E/E' Med: 9.30 E' Laterial: 6.85 E/E' Lat: 8.90 Tricuspid Valve TR Pk Marcel: 2.26 TR Pk Grad: 20.00 RA Press: 3.00 RVSP: 23.00 Great Vessels Aorta Ao Root-2D: 3.30 2.0-3.7 cm Ao Asc: 3.30 2.1-3.4 cm Pulmonary Valve PV Pk Marcel: 0.86 Peak PV Grad: 3.00 Updated in Other Vendor System with Status of Final Angel Ag MD electronically signed on 12/05/2020 3:10:32 PM with status of Final
--- NOTE | 2020-12-05 14:10 | PM.DS ---
DS: Providers Provider Date of Service: 12/05/20 Date of admission: 12/04/20 12:15 Primary care physician: Jm Hastings MD Consults: 12/04/20 12:01 Consult to Neurology Routine Consulting Provider: [facility] Reason for consultation: pure sensory stroke DS: Diagnosis Discharge Diagnosis (1) Stroke: Status: Acute (2) Essential hypertension: Status: Acute (3) Hyperlipidemia: Status: Acute (4) Anemia: Status: Acute DS: Medications Discharge Medications Home Medications: Home Medications Medication Instructions Recorded Confirmed ibuprofen 400 mg PO Q6H PRN 12/04/20 12/04/20 Previous Rx's Medication Instructions Recorded aspirin 81 mg PO DAILY #30 tab 12/05/20 atorvastatin 80 mg PO BEDTIME #30 tab 12/05/20 lisinopril 5 mg PO DAILY #30 tab 12/05/20 DS: Summary Hospital Course Hospital Course: From my admission history and physical, 12/04/20: 75yo M with history of tongue cancer, s/p excisional and reconstructive surgery, with no other medical conditions. He hasn't seen his primary medical doctor in years and is not on any chronic medications; he just takes ibuprofen and APAP for aches and pains. 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 He is right-handed and was able to continue using a power drill and did not have any motor weakness. The symptoms resolved after 6 hours. This morning, the numbness recurred in the same location around 8:00 while working outside. He developed nausea and vomited once. He drove home from [place] to [place], but en route, he did not feel safe driving all the way, so he pulled over at the fire station; 911 was called to transport him to the hospital. In the ED, CT of the head was negative for acute disease; CTA of the head and neck did not demonstrate any large-vessel occlusion. EKG was completely normal. He continues to feel numbness of the right side of his body and his NIHSS is 1. He denies any motor weakness, incoordination, visual loss, or vertigo. He denies fever, chills, dyspnea, chest pain, or palpitations. Neurology was called and recommended admission for CVA workup; tPA was not recommended. The patient was [place] [facility] MRI confirmed a small thalamic infarct, neuroanatomically correlating to his stroke symptoms. His numbness improved and per PT and OT evaluations, no outpatient therapy is indicated. He was started on aspirin for secondary prevention. He did not have evidence of DM2. He does have dyslipidemia. A high-intensity statin was initiated [atorvastatin 80 mg qhs]. He also had persistently elevated blood pressure and was started on lisinopril upon discharge. He was found to have a mild normocytic anemia; workup for iron, B12, and folate deficiency was negative. He should follow up with his primary care doctor in 1-2 weeks, repeat labs [CBCd and BMP] in 2 weeks, and consider outpatient colon cancer screening. Time Spent with Patient Time attestation: Total time spent providing and/or coordinating discharge services: 45 Discharge coordination time: Greater than 30 minutes Quality: Stroke Does the patient have a stroke diagnosis?: Yes Reason for No Anti-thrombotic at DC: N/A - Med Ordered Reason for No Anticoagulant at DC: Not indicated Reason Not Initiating IV-Tpa: Drug treatment not indicated Reason for No Anti-thrombotic by Day Two: N/A - Med Ordered Reason for No Statin at DC: N/A - Med Ordered Physical Exam Vital Signs: Vital Signs: Last Vital Signs Temp 98.0 F 12/05/20 11:44 Pulse 63 12/05/20 11:44 Resp 18 12/05/20 11:44 BP 152/74 H 12/05/20 11:44 Pulse Ox 97 12/05/20 11:44 Body Mass Index 24.3 Gen: in no acute distress HEENT: sclera anicteric, moist mucus membranes Neck: supple Lungs: clear to auscultation bilaterally Heart: regular rate and rhythm, no murmurs Abd: soft, non-tender, non-distended Ext: no edema Skin: warm/well-perfused Neuro: alert and oriented x3, no facial droop, no pronator drift, no motor weakness, sensation to light touch decreased on the R side of the body and face, no dysmetria Psych: appropriate affect DS: Data Data Completed and Pending Completed studies during hospitalization [Text1]: Laboratory Results WBC 8.3 X10*3/uL (4.8-10.8) 12/05/20 05:23 RBC 4.29 X10*6/uL (4.60-5.80) L 12/05/20 05:23 Hgb 12.2 g/dl (14.0-18.0) L 12/05/20 05:23 Hct 37.8 % (42-52) L 12/05/20 05:23 MCV 88.1 fL (80-98) 12/05/20 05:23 MCH 28.4 pg (27.0-33.0) 12/05/20 05:23 MCHC 32.3 g/dl (31.0-36.0) 12/05/20 05:23 RDW 12.5 % (11.0-16.0) 12/05/20 05:23 Plt Count 356 X10*3/uL (160-400) 12/05/20 05:23 MPV 9.8 fL (9.4-12.4) 12/05/20 05:23 Immature Gran % (Auto) 0.5 % (0.0-0.4) H 12/04/20 10:20 Neut % (Auto) 69.1 % (45-73) 12/04/20 10:20 Lymph % (Auto) 19.9 % (20-40) L 12/04/20 10:20 [place] % (Auto) 8.6 % (2-11) 12/04/20 10:20 Eos % (Auto) 1.5 % (0-4) 12/04/20 10:20 Baso % (Auto) 0.4 % (0-2) 12/04/20 10:20 Lymph # (Auto) 1.5 X10*3/uL (1.2-4.9) 12/04/20 10:20 [place] # (Auto) 0.6 X10*3/uL (0.1-1.2) 12/04/20 10:20 Eos # (Auto) 0.1 X10*3/uL (0.0-0.4) 12/04/20 10:20 Baso # (Auto) 0.0 X10*3/uL (0.0-0.2) 12/04/20 10:20 Abs Immat Gran (auto) 0.04 X10*3/uL (0.00-0.03) H 12/04/20 10:20 Absolute Neuts (auto) 5.1 X10*3/uL (2.0-8.3) 12/04/20 10:20 Absolute Nucleated RBC 0.000 X10*3/uL (0.0-0.012) 12/05/20 05:23 Nucleated RBC % (auto) 0.0 /100WBC (0.0-0.2) 12/05/20 05:23 Absolute Retic 0.051 X10*6/uL (0.026-0.095) 12/04/20 10:20 Percent Retic 1.3 % (0.5-1.8) 12/04/20 10:20 Immature Retic Fraction 2.6 % (2.3-13.4) 12/04/20 10:20 Retic Hgb Equivalent 33.0 pg (30.0-35.0) 12/04/20 10:20 PT 12.3 SEC (10.8-13.0) 12/04/20 10:20 Whole Blood PT 11.7 sec (11.1-13.5) 12/04/20 10:08 INR 1.0 (0.9-1.1) 12/04/20 10:20 Whole Blood INR 1.0 (0.9-1.1) 12/04/20 10:08 APTT 25.9 SEC (24.1-38.0) 12/04/20 10:20 Sodium 137 mmol/L (135-145) 12/04/20 10:20 Potassium 4.4 mmol/L (3.3-5.1) 12/04/20 10:20 Chloride 104 mmol/L (96-108) 12/04/20 10:20 Carbon Dioxide 22 mmol/L (22-29) 12/04/20 10:20 Anion Gap 15 (12-20) 12/04/20 10:20 BUN 22 mg/dL (9-16) H 12/04/20 10:20 Creatinine 1.04 mg/dL (0.5-1.4) 12/04/20 10:20 Estim Creat Clear Calc 63.3 12/04/20 10:20 Estimated GFR > 60 12/04/20 10:20 POC Glucose 142 mg/dL (60-115) H 12/04/20 10:06 Random Glucose 147 mg/dL (60-115) H 12/04/20 10:20 Estimat Average Glucose 114 mg/dL 12/04/20 10:20 Hemoglobin A1c % 5.6 % 12/04/20 10:20 Calcium 8.9 mg/dL (8.4-10.2) 12/04/20 10:20 Magnesium 1.8 mg/dL (1.6-2.6) 12/04/20 10:20 Iron 85 mcg/dL (45-160) 12/04/20 10:20 TIBC 223 mcg/dL (228-428) L 12/04/20 10:20 % Saturation 38 % (15-50) 12/04/20 10:20 Unsat Iron Binding 138 ug/dL 12/04/20 10:20 Ferritin 221 ng/mL (20-250) 12/04/20 10:20 Total Bilirubin 0.7 mg/dL (0.0-1.0) 12/04/20 10:20 Direct Bilirubin 0.3 mg/dL (0.0-0.5) 12/04/20 10:20 AST 13 U/L (5-37) 12/04/20 10:20 ALT 9 U/L (0-40) 12/04/20 10:20 Alkaline Phosphatase 57 U/L (39-117) 12/04/20 10:20 Lactate Dehydrogenase 135 U/L (118-273) 12/04/20 10:20 Troponin I High Sens < 3.5 ng/L (<3.5-35.0) 12/04/20 10:20 Total Protein 6.0 g/dL (6.5-8.0) L 12/04/20 10:20 Albumin 3.7 g/dL (3.5-5.0) 12/04/20 10:20 Triglycerides 65 mg/dL 12/05/20 05:23 Cholesterol 216 mg/dL 12/05/20 05:23 LDL Cholesterol, Calc 153 mg/dl 12/05/20 05:23 HDL Cholesterol 50 mg/dL 12/05/20 05:23 Lipase 16 U/L (8-78) 12/04/20 10:20 Vitamin B12 360 pg/mL (200-900) 12/04/20 10:20 Folate 14.9 ng/mL (> or = 4.0) 12/04/20 10:20 Urine Color YELLOW 12/04/20 11:00 Urine Appearance CLEAR 12/04/20 11:00 Urine pH 6.0 (5.0-8.0) 12/04/20 11:00 Ur Specific [place] 1.025 (1.005-1.025) 12/04/20 11:00 Urine Protein 1+ MG/DL (NEG-TRACE) H 12/04/20 11:00 Urine Glucose (UA) NEG MG/DL (NEG) 12/04/20 11:00 Urine Ketones 15 MG/DL (NEG) 12/04/20 11:00 Urine Blood NEG (NEG) 12/04/20 11:00 Urine Nitrite NEG (NEG) 12/04/20 11:00 Ur Leukocyte Esterase NEG (NEG) 12/04/20 11:00 Urine RBC 0 /HPF (0) 12/04/20 11:00 Urine WBC 1-4 /HPF (0-4) 12/04/20 11:00 Ur Squamous Epith Cells TRACE /LPF 12/04/20 11:00 Urine Bacteria NONE /LPF 12/04/20 11:00 Urine Mucus TRACE /LPF 12/04/20 11:00 COVID-19 (JOCE) Negative (Negative) 12/04/20 10:20 COVID-19 Clin Com See Note 12/04/20 10:[address] 12/04/20 09:56 IMPRESSION: No acute intracranial process seen. This critical result was discussed with ER physician Dr. Eusebia Howard by phone at 10:12 AM. It was ascertained that the content and urgency of the report was understood at the time of direct communication. Chest X-Ray 12/04/20 09:57 IMPRESSION: Unremarkable chest examination. Head/Neck CTA 12/04/20 09:57 IMPRESSION: CT head: No intracranial hemorrhage or large acute infarction. CTA neck: Both vertebral artery origins are narrowed. No other stenosis is seen within the neck arteries. CTA head: No large vessel occlusion or significant stenosis within the intracranial circulation. Additional findings: Postoperative changes in the right neck and in the oral cavity. No suspicious adenopathy is seen. Continued ENT follow-up is recommended. This critical result was discussed with Dr. Howard on 12/04/2020 10:34 AM, and it was ascertained that the content and urgency of the report was understood at the time of direct communication. Brain MRI 12/04/20 16:57 IMPRESSION: 1. There is a small area of restricted diffusion consistent with an acute infarct in the left thalamus. There is no evidence of hemorrhagic transformation. No other restricted diffusion is demonstrated, and there is no evidence of hemorrhage elsewhere. 2. There is a soft tissue mass in the subcutaneous region the right supraorbital region laterally. Correlate clinically. 3. This critical result was discussed with Jessica Garrido by telephone on 12/04/2020 at 6:55 PM and it was ascertained that the content and urgency of the report was understood at the time of direct communication. TTE 12/05/20 - Normal left ventricular size, thickness, systolic function, and wall motion. - Normal right ventricular cavity size and systolic function. Discharge Plan Discharge Patient Disposition: Home, Self-Care Discharge Diagnosis: stroke Referrals: Jm Hastings MD [Physician] - 1 Week Discharge Medications: New aspirin 81 mg Tablet,Chewable 81 mg PO DAILY Qty: 30 RF: 0 lisinopril 5 mg tablet 5 mg PO DAILY Qty: 30 RF: 0 atorvastatin 80 mg tablet 80 mg PO BEDTIME Qty: 30 RF: 0 Continued ibuprofen 200 mg Tablet 400 mg PO Q6H PRN (Reason: Pain) RF: 0 Discharge Orders: Discharge Order (Routine); Ordered 12/05/20 Ordered By: Jessica Garrido Diet: other Activity on Discharge: As tolerated Stand Alone Forms: Patient Portal Discharge page Other Ambulatory Orders: Basic Metabolic Panel (Routine) Timeframe: 2 Weeks Facility: [facility] - Location: Laboratory Ordered By: Jessica Garrido Complete Blood Count Auto Diff (Routine) Timeframe: 2 Weeks Facility: [facility] - Location: Laboratory Ordered By: Jessica Garrido Care Plan Goals: recovery from minor stroke prevention of future strokes and other vascular events Health Concerns: stroke hyperlipidemia hypertension anemia Plan of Treatment: avoid using power tools until numbness has resolved follow a Mediterranean diet take aspirin 81 mg daily for prevention of strokes and heart attacks take atorvastatin 80 mg every night to lower cholesterol and prevent strokes and heart attacks take lisinopril 5 mg daily to lower blood pressure to prevent strokes and heart attacks; check labs [basic metabolic panel] in 1 week recheck labs [complete blood count] in 2 weeks and consider referral from primary care doctor for colonoscopy Assessment: as above Patient Instructions: Ischemic Stroke (DC), Hypertension (DC), Hyperlipidemia (DC), Mediterranean Diet (DC)
[2020-12-06 08:02] LABS: LDL Cholesterol Direct 153 mg/dL (<100)
[2020-12-06 08:51] LABS: Lyme Abs Screen <0.90 index
== END 2020-12-05 16:25 | disposition home or self-care (01) | DRG 66 ==
LOC: HO.ED 10:57 → HO.EDOVER 12:21 → HO.IMC 12:34
PROVIDERS: Admitting Provider Family Medicine; Emergency Provider Emergency Medicine; Visit Provider Family Medicine
DX: I63.89 Other cerebral infarction (principal); R20.0 Anesthesia of skin; R29.701 NIHSS score 1; D64.9 Anemia, unspecified; Z20.822 Contact with and (suspected) exposure to COVID-19; Z85.810 Personal history of malignant neoplasm of tongue; Z87.891 Personal history of nicotine dependence; Z79.1 Long term (current) use of non-steroidal anti-inflammatories (NSAID); Z79.899 Other long term (current) drug therapy
CPT/HCPCS: 36415; 70450; 70496; 70498; 70551; 71045; 80048; 80061; 80076; 81001; 82607; 82728; 82746; 82947; 83036; 83540; 83615; 83690; 83721; 83735; 84484; 85025; 85027; 85045; 85610; 85730; 86617; 86618; 87635; 93005; 93306; 97162; 97166; 99284; J1650; Q9967

== ENCOUNTER 2020-12-19 08:45 | Outpatient (REF) | payer MEDICARE, SELFPAY ==
[2020-12-19 09:21] LABS: MANUAL DIFF FLAG NO
[2020-12-19 09:24] LABS: Basophils Absolute Auto 0.1 X10*3/uL (0.0-0.2); Basophils Percent Auto 0.8 % (0-2); Eosinophils Absolute Auto 0.6 X10*3/uL (0.0-0.4); Eosinophils Percent Auto 5.6 % (0-4); Hematocrit 40.4 % (42-52); Hemoglobin 13.5 g/dl (14.0-18.0); Imm Gran Abs Auto 0.09 X10*3/uL (0.00-0.03); Imm Gran Pct Auto 0.8 % (0.0-0.4); Lymphocytes Absolute Auto 3.2 X10*3/uL (1.2-4.9); Lymphocytes Percent Auto 28.4 % (20-40); Mean Corpuscular HGB Conc 33.4 g/dl (31.0-36.0); Mean Corpuscular Hemoglobin 29.2 pg (27.0-33.0); Mean Corpuscular Volume 87.3 fL (80-98); Mean Platelet Volume 9.5 fL (9.4-12.4); Monocytes Absolute Auto 0.9 X10*3/uL (0.1-1.2); Monocytes Percent Auto 7.8 % (2-11); Neutrophils Absolute Auto 6.4 X10*3/uL (2.0-8.3); Neutrophils Percent Auto 56.6 % (45-73); Platelet Count 415 X10*3/uL (160-400); Red Blood Count 4.63 X10*6/uL (4.60-5.80); Red Cell Distribution Width 12.1 % (11.0-16.0); White Blood Count 11.4 X10*3/uL (4.8-10.8)
[2020-12-19 09:51] LABS: Anion Gap 13 (12-20); Blood Urea Nitrogen 25 mg/dL (9-16); Calcium 9.9 mg/dL (8.4-10.2); Carbon Dioxide 30 mmol/L (22-29); Chloride 104 mmol/L (96-108); Estimated Glomerular Filt Rate > 60; Glucose Random 106 mg/dL (60-115); Potassium 5.2 mmol/L (3.3-5.1); Sodium 142 mmol/L (135-145)
== END 2020-12-19 08:46 | disposition home or self-care (01) ==
LOC: HO.LAB 08:45
PROVIDERS: PCP Internal Medicine; Visit Provider Family Medicine
DX: I10 Essential (primary) hypertension (principal); D64.9 Anemia, unspecified
CPT/HCPCS: 36415; 80048; 85025

== ENCOUNTER 2024-07-30 11:27 | Observation (INO) | payer MEDICARE, SELFPAY ==
--- NOTE | ~2024-07-30 | XR_ITS ---
CLINICAL HISTORY: fall, lateral hip pain 3 view, pelvis and right hip Comparison: None Findings: AP pelvis and AP and lateral views of the right hip although images of the right femur essentially in the same projection which limits detail. As such, no apparent fracture or dislocation. No significant arthritic changes in either hip. Intact pubic rami and SI joints. Intact sacral arcuate lines. Surgical clips over the right scrotum and over the left femur. Otherwise soft tissues intact. Impression: No apparent fracture or dislocation. Technical limitation as all images of the right femur in the same projection. Surgical changes as noted. This document has been electronically signed by: Alfred Matias MD on 07/30/2024 12:24:01
--- NOTE | ~2024-07-30 | CT_ITS ---
CLINICAL HISTORY: pain, fall, unable to weight bear CT of the right hip without contrast. No prior CT. Findings: There is an acute fracture of the right pubic body extending to the adjacent portion of the superior and inferior pubic rami. There is minimal displacement. No other fractures are seen. There are mild degenerative changes in the hip. There is a 1.5 cm bladder diverticulum on the right. Impression: Acute fracture of the right pubic body as described. This document has been electronically signed by: Zan Camacho MD on 07/30/2024 16:55:08
--- NOTE | ~2024-07-30 | CT_ITS ---
CLINICAL HISTORY: fall with head strike CT cervical spine without contrast Comparison: CT - CT ANGIO HEAD NECK STROKE - 12/04/20 10:21 EDT Findings: No acute fracture or traumatic subluxation. Normal vertebral body height and precervical soft tissue thickness. Cervical lordosis maintained. Generalized degenerative changes throughout with partial sparing at C 4-5. No marked mass effect on the thecal sac at any level. No critical stenosis. No facet subluxation. No acute appearing abnormality in the included skull base structures or paracervical soft tissues. Note is made of distended upper esophagus with retained contents. Correlation for dysphagia. Distal obstruction or stricture cannot be excluded. Otherwise, no acute process evident in the apical lungs. Impression: No acute fracture or traumatic subluxation. Generalized degenerative changes. No marked mass effect on the thecal sac. Nonspecific esophageal distention and retained contents. Correlation for dysphagia. Distal stricture, achalasia or mass all considered. This document has been electronically signed by: Alfred Matias MD on 07/30/2024 12:59:17
--- NOTE | ~2024-07-30 | CT_ITS ---
CLINICAL HISTORY: fall with head strike CT head without contrast Comparison: MR - MR HEAD/BRAIN WO CON - 12/04/20 16:[address] - CT ANGIO HEAD NECK STROKE - 12/04/20 10:[address]/REG - CT HEAD FOR STROKE - 12/04/20 09:56 EDT Findings: No intra-axial mass, midline shift, hydrocephalus, or acute hemorrhage. No significant atrophy-like change or white matter disease. Slight mucoperiosteal thickening in the anterior ethmoids. Otherwise paranasal sinuses and mastoids clear. The orbits are unremarkable. There is no acute fracture. IMPRESSION: 1. No acute intracranial findings. This document has been electronically signed by: Alfred Matias MD on 07/30/2024 12:53:47
--- NOTE | 2024-07-30 11:29 | ED.GENADULT ---
HPI - General Adult General Chief complaint: Fall Stated complaint: FALL HEAD STRIKE Time Seen by Provider: 07/30/24 11:28 Source: patient, family, EMS, RN notes reviewed and old records reviewed Mode of arrival: EMS Limitations: no limitations History of Present Illness ED Provider: Nga HPI narrative: Patient is a 79-year-old male with history of HTN, HLD, anemia presenting to the emergency department with complaint of right hip pain after a slip and fall on ice prior to arrival. He fell onto his buttocks first, then hit the back of his head. Denies loss of consciousness. Not anticoagulated but on ASA. Denies head, neck or back pain, arrives in c-collar. MD complaint: hip pain Onset (ago): minute(s) Related Data Home Medications ?Medication ?Instructions ?Recorded ?Confirmed ibuprofen 200 mg tablet 400 mg PO Q6H PRN Pain 12/04/20 12/04/20 Previous Rx's ?Medication ?Instructions ?Recorded aspirin 81 mg chewable tablet 81 mg PO DAILY #30 tabs 12/05/20 atorvastatin 80 mg tablet 80 mg PO BEDTIME #30 tabs 12/05/20 lisinopril 5 mg tablet 5 mg PO DAILY #30 tabs 12/05/20 Allergies Allergy/AdvReac Type Severity Reaction Status Date / Time No Known Allergies Allergy Mild N/A Verified 07/30/24 11:36 Review of Systems Review of Systems: As per HPI Yes all other systems are reviewed and are negative Constitutional: Constitutional: Reports as per HPI [facility] Past Medical History Medical History (Updated 07/30/24 @ 16:06 by Cande Sylvester NP) Essential hypertension Stroke Numbness Tongue cancer Surgical History History of cancer surgery Social History Social History Household Members: Spouse and Children Alcohol intake: never Patient Tobacco Use Status: Former Tobacco user Smoked in Last 30 Days: No Use of substances other than those prescribed or required for medical reasons: No Advance Directives: No Advance Directives Information Provided: Yes Do you have a plan to hurt others: No Plan service: No Current occupational status: employed Physical Exam ED Vital Signs: Vital Signs - 24 hr 07/30/24 11:32 07/30/24 11:37 07/30/24 15:35 Temperature 98.1 F 98.1 F 98.6 F Pulse Rate 67 67 83 Respiratory Rate 18 18 18 Blood Pressure 126/78 126/78 99/51 L Pulse Oximetry 94 94 98 Oxygen Delivery Method Room Air Room Air Room Air BMI result Body Mass Index 27.8 Vital signs have been reviewed and appear to be correct. Blood pressure normal. Heart rate normal. Respiratory rate normal. Temperature normal. Oxygen saturation normal. Const General: cooperative, healthy appearing and no acute distress Orientation/consciousness: oriented to person, oriented to place, oriented to time and patient oriented x3 Limitations: no limitations HENMT Head: Yes normocephalic and Yes atraumatic Ears: external ears normal General nose exam: Normal external nose present Face and sinus: Yes face symmetric Mouth: oropharynx normal and moist mucous membranes Throat: Yes uvula midline Eyes Pupils: Equal, round and reactive pupils present Neck Neck: Yes normal visual inspection and Yes supple Resp Effort & Inspection: normal respiratory effort and able to speak in complete sentences Auscultation: clear to auscultation bilaterally Cardio Rate: regular rate Rhythm: regular rhythm Heart sounds: S1 normal heart sound present and S2 normal heart sound present GI Palpation (GI): Soft to palpation and nontender Auscultation: normoactive bowel sounds General: Yes no CVA tenderness Back/Spine/Pelvis Back: no CVA tenderness Cervical Spine: collar present Thoracic/Lumbar Spine: thoracic and lumbar spine normal to inspection, No thoracic spinal tenderness and No lumbar spinal tenderness Pelvis: no pain with anterior-posterior compression and no pain with lateral compression Skin General skin exam: elasticity normal and turgor normal Neuro General: oriented to person, oriented to place, oriented to time, patient oriented x3, tone normal, moves all extremities, Normal light touch and pain sensation, no focal motor deficits, CN's II-XI intact bilaterally and deep tendon reflexes 2+ bilaterally Cranial nerves: Yes Equal, round and reactive pupils present Cognition (Neuro): normal cognition Motor exam (neuro): 5/5 motor strength present throughout, Normal motor muscle tone present throughout and Motor abnormalities not present Extrem General: Yes full ROM, Yes no pedal edema and Yes no calf tenderness Right lower extremity: hip/thigh Details: tenderness Location: of the hip Location: laterally Psych Mental Status: mental status grossly normal Affect: normal affect Thought process: Normal thought process present Course Reevaluation(s) Reevaluation #1: Patient attempted ambulation after Tylenol and ibuprofen, was unable to ambulate due to pain and became nauseated. Zofran and CT hip ordered. Time: 15:46 Medications Administered Discontinued Medications Generic Name Dose Route Start Last Admin Trade Name Kyrie PRN Reason Stop Dose Admin Acetaminophen 975 mg 07/30/24 13:32 07/30/24 14:32 Acetaminophen 325 Mg Tablet PO 07/30/24 13:33 975 mg ONCE ONE Administration Ibuprofen 400 mg 07/30/24 13:32 07/30/24 14:32 Ibuprofen 400 Mg Tablet PO 07/30/24 13:33 400 mg ONCE ONE Administration Ondansetron HCl 4 mg 07/30/24 15:31 07/30/24 15:37 Ondansetron Odt 4 Mg Tab.Rapdis TRANSLINGU 07/30/24 15:32 4 mg ONCE ONE Administration Medical Decision Making Medical Decision Making [facility] Narrative: Patient is a 79-year-old male with history of HTN, HLD, anemia presenting to the emergency department with complaint of right hip pain after a slip and fall on ice prior to arrival. On exam patient is awake, A+Ox3, VS WNL, afebrile, normal neurological exam without focal deficits, physical exam findings as above. Given reported symptoms and physical exam findings, initial differential includes but is not limited to right hip fracture vs contusion, ICH, skull or cervical vertebral fracture or subluxation. CT head and c-spine notable for no evidence of ICH, skull or cervical vertebral fracture or subluxation. Xray hip without overt fracture but exam limited. My interpretation is in agreement with the radiologist's interpretation. Medicated patient with Tylenol and ibuprofen, attempted ambulation. Patient became nauseated due to pain and was unable to weight bear. CT hip ordered. Patient signed out to JAY Luque pending CT. Differential Diagnosis Differential Diagnoses: The differential diagnosis associated with the presentation includes As per [facility] Admission/Observation Consideration of admission/observation: Escalation of care including admission/observation considered Independent Interpretation I performed an independent interpretation of an: Plain X-Ray and CT Scan Radiology Impression Discussion of test interpretation with radiology: I have reviewed the radiologist's reading. Radiologist Impression: Impression: No apparent fracture or dislocation. Technical limitation as all images of the right femur in the same projection. IMPRESSION: 1. No acute intracranial findings. mpression: No acute fracture or traumatic subluxation. Generalized degenerative changes. No marked mass effect on the thecal sac. Nonspecific esophageal distention and retained contents. Correlation for dysphagia. Distal stricture, achalasia or mass all considered. Independent Historian Clinical information obtained from an independent historian. History obtained from or confirmed by: Spouse External Record Review External record reviewed: Inpatient record, Office record and Outpatient record Discharge Plan Discharge Clinical Impression: Acute pain of right hip, Fall Patient Disposition: Still a Patient Prescriptions: No Action ibuprofen 200 mg Tablet 400 mg PO Q6H PRN (Reason: Pain) aspirin 81 mg Tablet,Chewable 81 mg PO DAILY Qty: 30 0RF lisinopril 5 mg tablet 5 mg PO DAILY Qty: 30 0RF atorvastatin 80 mg tablet 80 mg PO BEDTIME Qty: 30 0RF Print Language: Hungarian
[2024-07-30 11:30] VITALS: BP 122/64; PULSE 70
[2024-07-30 11:32] VITALS: BP 126/78; PULSE 67; RESP 18; TEMP 36.7; O2SAT 94; BMI 27.8
[2024-07-30 11:37] VITALS: BP 126/78; PULSE 67; RESP 18; TEMP 36.7; O2SAT 94
--- OUTSIDE RECORDS SUMMARY | 2024-07-30 12:24 | XMS_ITS | Clinical Summary ---
Author Organization [facility] Address [address] [place] [address] Care Team Providers Care [employer]iler Name Role Phone Jm Hastings MD Primary Care Provider [phone] Allergies No known active allergies Medications No known medications Active Problems Problem Noted Date Diagnosed Date Tongue cancer 09/20/2017 Family History Medical History Relation Name Comments Cancer Mother bone Heart disease Sister Kidney disease Sister Relation Name Status Comments Father Mother Sister Alive Social History Tobacco Use Types Packs/Day Years Used Date Smoking Tobacco: Former Smokeless Tobacco: Never Alcohol Use Standard Drinks/Week Comments Yes 0 (1 standard drink = 0.6 oz pur e alcohol) Sex and Gender Information Value Date Recorded Sex Assigned at Not on file Gender Identity Not on file Sexual Orientation Not on file Last Filed Vital Signs Vital Sign Reading Time Taken Comments Blood Pressure 140/66 09/19/2017 2:08 PM EDT Pulse 71 09/19/2017 2:08 PM EDT Temperature - - Respiratory Rate - - Oxygen Saturation - - Inhaled Oxygen Concentration - - Weight 72.9 kg (160 lb 12.8 oz) 09/19/2017 2:08 PM EDT Height 177.8 cm (5' 10 ) 08/19/2017 2:05 PM EST Body Mass Index 23.07 08/19/2017 2:05 PM EST Plan of Treatment Health Maintenance Due Date Last Done Comments Hepatitis C Screening 1945 COVID-19 Vaccine (#1) 1950 Pneumococcal Vaccine (1 of 2 - PCV) 1951 Depression Screening 1957 Preventative Health Evaluation 1963 DTap / Tdap / Td (1 - Tdap) 1964 Shingrix-Zoster Vaccine (1 of 2) 1964 Fall Risk Assessment 2010 RSV Adult > 60+ Yrs or Pregn ant (1 - 1-dose 75+ series) 2020 Influenza Vaccine (#1) 2024 Hepatitis B Vaccines Aged Out No long er eligible based on patient's age to complete this topic RSV Ped < 20 months Aged Out No longe r eligible based on patient's age to complete this topic Care Teams [employer] Relationship Specialty Start Date End Date Jm Hastings MD PCP - General Internal Medicine 08/19/17
--- OUTSIDE RECORDS SUMMARY | 2024-07-30 12:24 | XMS_ITS | Clinical Summary ---
Author Organization [facility] [address] [facility] Address [address], [place] Phone Care Team Providers Care Lease Administration Supervisor Name Role Phone Jm Hatsings MD Primary Care Provider [phone] Allergies No known active allergies Medications amLODIPine (NORVASC) 2.5 mg tablet Take 1 tablet (2.5 mg total) by mouth 1 (one) time each day. 4 Active aspirin 81 mg chewable tablet Chew 1 tablet (81 mg total) 1 (one) time each day. Active lisinopriL (PRINIVIL,ZESTR IL) 20 mg tablet Take 1 tablet by mouth once daily 90 tablet 1 4 Active atorvastatin (LIPITOR) 80 mg tablet Take 1 tablet by mouth once daily 90 tablet 1 5 Active atorvastatin (LIPITOR) 80 mg tablet Take 1 tablet (80 mg total) by mouth 1 (one) time each day. 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 Tongue cancer 09/20/2017 Encounters Date Type Department Care Team Description 06/07/2024 9:30 AM EST Office Visit Adult Medicine [facility] [address], [place] [phone] Jm Hastings MD Essential hypertension (Primary Dx); Anemia, unspecified type; Hypercholesteremia; Chronic kidney disease, unspecified CKD stage; History of tongue cancer; Hyperglycemia from Last 3 Months Immunizations Name Administration Dates Next Due Influenza trivalent, 0.5mL ( Fluad) 65yo and older 03/30/2023,03/19/2022,02/20/2021,2019,05/12/2016 Pneumococcal conjugate 13 va lent (Prevnar 13, PCV13) 2mo and older 09/29/2017 Pneumococcal conjugate 20 va lent (Prevnar 20, PCV 20) 2mo and older 09/22/2022 Td Tetanus diptheria (Tdvax) 7yo and older 08/11/2017 Tdap Tetanus diptheria acell ular pertussis (Boostrix; Adacel) 7yo and older 06/21/2022,08/11/2017 Zoster recombinant (Shingrix ) 19yo and older 09/22/2022 Surgical History Surgery Date Site/Laterality Comments KNEE SURGERY PROCEDURE: HISTORICAL KNEE SURGERY OTHER SURGICAL HISTORY PROCEDURE: MN CLOSURE INTESTINAL CUTANEOUS FISTULA MOUTH SURGERY PROCEDURE: ORAL SURGERY PROCEDURE; COMMENT: tongue surgery VASECTOMY PROCEDURE: HISTORICAL VASECTOMY Medical History Medical History Date Comments Tobacco use DX:Tobacco use Family History Medical History Relation Name Comments Heart attack Father from [place] at age 72 Other: bone ca Mother Other: heart disease Sister pace francisco acuña Other: kidney disease Sister on HD Relation Name Status Comments Father Mother Sister Alive Social History Tobacco Use Types Packs/Day Years Used Date Smoking Tobacco: Former Smokeless Tobacco: Never Tobacco Cessation:Counseling Given: Not Answered Alcohol Use Standard Drinks/Week Comments Yes 0 (1 standard drink = 0.6 oz pur e alcohol) Sex and Gender Information Value Date Recorded Sex Assigned at Not on file Legal Sex Male 7:37 PM EST Gender Identity Not on file Sexual Orientation Not on file Obstetrics History Last Filed Vital Signs Vital Sign Reading Time Taken Comments Blood Pressure 122/62 06/07/2024 9:25 AM EST Pulse 80 06/07/2024 9:25 AM EST Temperature 36 ??C (96.8 ??F) 06/07/2024 9:25 AM EST Respiratory Rate 20 06/07/2024 9:25 AM EST Oxygen Saturation - - Inhaled Oxygen Concentration - - Weight 85.3 kg (188 lb) 06/07/2024 9:25 AM EST Height 175.3 cm (5' 9 ) 06/07/2024 9:25 AM EST Body Mass Index 27.76 06/07/2024 9:25 AM EST Plan of Treatment Upcoming Encounters Date Type Department Care Team (Late st Contact Info) Description 12/11/2024 8:30 AM EDT Office Visit Adult Medicine [facility] [address] [place] [phone] Jm Hastings MD [address] [place] [address] Health Maintenance Due Date Last Done Comments Hepatitis C Screening 05/22/2022 Social Influencers of Health Screening 05/22/2022 Depression Screening 01/04/2025 01/05/2024 Falls Risk Assessment 01/04/2025 01/05/2024 Medicare Annual Wellness Visit 01/04/2025 01/05/2024 Hypertension/CHF/CAD Annual BMP Blood Test 06/07/2025 06/07/2024, 01/03/2024, 01/03/2024 Cholesterol Screening (Lipid Panel) 08/02/2028 08/02/2023 DTaP,Tdap,and Td Vaccines (4 - Td or Tdap) 06/21/2032 06/21/2022, 08/11/2017, 08/11/2017 Pneumococcal Vaccine: 50+ Years Completed 09/22/2022, 09/29/2017 Zoster Vaccines Completed 11/24/2022, 09/22/2022 COVID-19 Vaccine Completed 03/14/2024, , 03/19/2022, Additional history exists Influenza Vaccine Completed 03/14/2024, , 03/19/2022, Additional history exists RSV Immunization Patients 60+ Years Old Completed 03/14/2024 HIB Vaccines Aged Out No longer eligi ble based on patient's age to complete this topic HPV Vaccines Aged Out No longer eligi ble based on patient's age to complete this topic Hepatitis A Vaccines Aged Out No long er eligible based on patient's age to complete this topic Hepatitis B Vaccines Aged Out No long er eligible based on patient's age to complete this topic IPV Vaccines Aged Out No longer eligi ble based on patient's age to complete this topic MMR Vaccines Aged Out No longer eligi ble based on patient's age to complete this topic Meningococcal ACWY Vaccine Aged Out N o longer eligible based on patient's age to complete this topic Meningococcal B Vacine Aged Out No lo nger eligible based on patient's age to complete this topic RSV Immunization Patients Under 20 months Aged Out No longer eligible based on patient's age to complete this topic Varicella Vaccines Aged Out No longer eligible based on patient's age to complete this topic Procedures Procedure Name Priority Date/Time Associated Diagnosis Comments CBC WITH AUTO DIFFERENTIAL Routine 06/07/2024 10:19 AM EST Anemia, unspecified type BASIC METABOLIC PANEL Routine 06/07/2024 10:19 AM EST Essential hypertension Chronic kidney disease, unspecified CKD stage Hyperglycemia HEMOGLOBIN A1C Routine 06/07/2024 10:19 AM EST Hyperglycemia CBC AND DIFFERENTIAL Routine 06/07/2024 10:19 AM EST Anemia, unspecified type DEPRESSION SCREENING Routine 01/05/2024 FALLS RISK ASSESSMENT Routine 01/05/2024 LIPID PANEL Routine 08/02/2023 from Last 3 Months or Most Recently Relevant to Health Maintenance Results * (ABNORMAL) CBC auto differential (06/07/2024 10:19 AM EST) WBC 11.6(H) 4.8 - 10.8 K/mcL LAB HEMETOLOGY METHOD 06/07/2024 11:51 AM EST [facility] RBC 4.70 4.50 - 5.50 M/mcL LAB HEMETOLOGY METHOD 06/07/2024 11:51 AM EST [facility] Hemoglobin 13.6 13.5 - 17.5 g/dL LAB HEMETOLOGY METHOD 06/07/2024 11:51 AM EST [facility] Hematocrit 42.0 42.0 - 54.0 % LAB HEMETOLOGY METHOD 06/07/2024 11:51 AM [facility] MCV 88.8 79.0 - 98.0 FL LAB HEMETOLOGY METHOD 06/07/2024 11:51 AM [facility] MCH 28.8 27.0 - 32.0 pcg LAB HEMETOLOGY METHOD 06/07/2024 11:51 AM [facility] MCHC 32.4 32.0 - 37.0 g/dL LAB HEMETOLOGY METHOD 06/07/2024 11:51 AM [facility] RDW 13.0 11.0 - 15.0 % LAB HEMETOLOGY METHOD 06/07/2024 11:51 AM [facility] Platelets 416(H) 130 - 400 K/mcL LAB HEMETOLOGY METHOD 06/07/2024 11:51 AM [facility] MPV 10.3 7.0 - 11.0 FL LAB HEMETOLOGY METHOD 06/07/2024 11:51 AM [facility] NRBC 0.0 <1.0 % LAB HEMETOLOGY METHOD 06/07/2024 11:51 AM [facility] NRBC Absolute 0.00 <0.10 K/mcL LAB HEMETOLOGY METHOD 06/07/2024 11:51 AM [facility] Neutrophils Relative 58.6 % LAB HEMETOLOGY METHOD 06/07/2024 11:51 AM [facility] Lymphocytes Relative 25.7 % LAB HEMETOLOGY METHOD 06/07/2024 11:51 AM [facility] Monocytes Relative 9.7 % LAB HEMETOLOGY METHOD 06/07/2024 11:51 AM [facility] Eosinophils Relative 4.6 % LAB HEMETOLOGY METHOD 06/07/2024 11:51 AM [facility] Basophils Relative 0.8 % LAB HEMETOLOGY METHOD 06/07/2024 11:51 AM EST [facility] Immature Granulocytes Relative 0.6 % LAB HEMETOLOGY METHOD 06/07/2024 11:51 AM EST [facility] Neutrophils Absolute 6.83 1.50 - 7.00 K/mcL LAB HEMETOLOGY METHOD 06/07/2024 11:51 AM EST [facility] Lymphocytes Absolute 2.99 1.00 - 5.00 K/mcL LAB HEMETOLOGY METHOD 06/07/2024 11:51 AM EST [facility] Monocytes Absolute 1.13(H) 0.20 - 1.00 K/mcL LAB HEMETOLOGY METHOD 06/07/2024 11:51 AM EST [facility] Eosinophils Absolute 0.53(H) 0.00 - 0.50 K/mcL LAB HEMETOLOGY METHOD 06/07/2024 11:51 AM EST [facility] Basophils Absolute 0.09 0.00 - 0.20 K/mcL LAB HEMETOLOGY METHOD 06/07/2024 11:51 AM EST [facility] Immature Granulocytes Absolute 0.07(H) 0.00 - 0.03 K/mcL LAB HEMETOLOGY METHOD 06/07/2024 11:51 AM EST [facility] Blood Venous blood specimen / Unknown Venipuncture / Unknown 06/07/2024 10:19 AM EST 06/07/2024 10:19 AM EST us Jm Hastings MD LAB BLOOD ORDERABLES Final Resul t [facility] [address] [place] [address], * Hemoglobin A1c (06/07/2024 10:19 AM EST) Hemoglobin A1C 6.2 <6.5 % LAB CHEMISTRY METHOD 06/07/2024 2:13 PM [facility] Mean Bld Glu Estim. 131 mg/dL LAB CHEMISTRY METHOD 06/07/2024 2:13 PM [facility] Blood Venous blood specimen / Unknown Venipuncture / Unknown 06/07/2024 10:19 AM EST 06/07/2024 10:19 AM EST us Jm Hastings MD LAB BLOOD ORDERABLES Final Resul t [facility] [address] [place] [address], [place] [phone] * (ABNORMAL) Basic metabolic panel (06/07/2024 10:19 AM EST) Sodium 144 133 - 145 mmol/L LAB CHEMISTRY METHOD 06/07/2024 12:06 PM [facility] Potassium 4.3 3.5 - 5.5 mmol/L LAB CHEMISTRY METHOD 06/07/2024 12:06 PM [facility] Chloride 110 96 - 110 mmol/L LAB CHEMISTRY METHOD 06/07/2024 12:06 PM [facility] CO2 30 21 - 32 mmol/L LAB CHEMISTRY METHOD 06/07/2024 12:06 PM [facility] Anion Gap 4 3 - 11 LAB CHEMISTRY METHOD 06/07/2024 12:06 PM [facility] Glucose 102(H) 70 - 100 mg/dL LAB CHEMISTRY METHOD 06/07/2024 12:06 PM [facility] BUN 27(H) 5 - 25 mg/dL LAB CHEMISTRY METHOD 06/07/2024 12:06 PM [facility] Creatinine 1.19 0.70 - 1.30 mg/dL LAB CHEMISTRY METHOD 06/07/2024 12:06 PM [facility] eGFR 63 >=60 mL/min/1. 73m2 LAB CHEMISTRY METHOD 06/07/2024 12:06 PM EST [facility] Comment:Calculation based on the??Chronic Kidney Disease Epidemiology Collaboration (CKD-EPI) equation refit??without adjustment for race. BUN/Creatinine Ratio 22.7 LAB CHEMISTRY METHOD 06/07/2024 12:06 PM EST [facility] Calcium 9.2 8.5 - 10.5 mg/dL LAB CHEMISTRY METHOD 06/07/2024 12:06 PM EST [facility] Blood Venous blood specimen / Unknown Venipuncture / Unknown 06/07/2024 10:19 AM EST 06/07/2024 10:19 AM EST Jm Hastings MD LAB BLOOD ORDERABLES Final Resul t [facility] [address] [place] [address], * Falls Risk Assessment (01/05/2024) Falls Risk Assessment abstracted Historical Alma Rosa [facility] Final Result * Depression Screening (01/05/2024) Depression Screening abstracted Edna Provider HEALTH MAINTENANCE Final Result * Lipid panel (08/02/2023) LDL/HDL Ratio 3 0 - 4 Triglycerides 72 0 - 150 mg/dL Cholesterol 138 0 - 200 mg/dL HDL 51 >=40 mg/dL LDL Cholesterol 73 0 - 100 mg/dL Blood Venous blood specimen / Unknown Edna St MD LAB BLOOD ORDERABLES Laine l Result from Last 3 Months or Most Recently Relevant to Health Maintenance Insurance MEDICARE [facility] Care Teams Lease Administration Supervisor Relationship Specialty Start Date End Date Jm Hastings MD [address] [place] [address] PCP - General Internal Medicine 06/28/17
[2024-07-30] MEDS: Ibuprofen 400 MG TABLET PO (14:32)
[2024-07-30] MEDS: Acetaminophen 325 MG TABLET 975 MG PO (14:32)
--- NOTE | 2024-07-30 15:31 | MHC.EDTECH ---
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
[2024-07-30 15:35] VITALS: BP 99/51; PULSE 83; RESP 18; TEMP 37; O2SAT 98
[2024-07-30] MEDS: Ondansetron ODT 4 MG TAB.RAPDIS TRANSLINGU (15:37)
[2024-07-30 17:48] LABS: Basophils Absolute Auto 0.1 X10*3/uL (0.0-0.2); Basophils Percent Auto 0.2 % (0-2); Hematocrit 37.9 % (42.0-52.0); Hemoglobin 12.8 g/dl (14.0-18.0); Imm Gran Abs Auto 0.15 X10*3/uL (0.00-0.03); Imm Gran Pct Auto 0.7 % (0.0-0.4); Lymphocytes Absolute Auto 1.3 X10*3/uL (1.2-4.9); Lymphocytes Percent Auto 6.2 % (20-40); Mean Corpuscular HGB Conc 33.8 g/dl (31.0-36.0); Mean Corpuscular Hemoglobin 29.2 pg (27.0-33.0); Mean Corpuscular Volume 86.5 fL (80.0-98.0); Mean Platelet Volume 9.1 fL (9.4-12.4); Monocytes Absolute Auto 1.5 X10*3/uL (0.1-1.2); Monocytes Percent Auto 7.5 % (2-11); Neutrophils Absolute Auto 17.3 x10*3/uL (2.0-8.3); Neutrophils Percent Auto 85.4 % (45-73); Platelet Count 319 X10*3/uL (160-400); Red Blood Count 4.38 X10*6/uL (4.60-5.80); Red Cell Distribution Width 13.2 % (11.0-16.0); SCAN SMEAR FLAG 1; White Blood Count 20.3 X10*3/uL (4.8-10.8)
[2024-07-30 17:55] LABS: Prothrombin Time 11.3 SEC (10.9-12.4)
[2024-07-30 18:04] LABS: Alanine Aminotransferase 40 U/L (0-40); Albumin Level 3.7 g/dL (3.5-5.0); Alkaline Phosphatase 83 U/L (39-117); Anion Gap 13 (12-20); Aspartate Amino Transferase 37 U/L (5-37); Bilirubin Total 0.9 mg/dL (0.0-1.0); Blood Urea Nitrogen 27 mg/dL (9-16); Calcium 9.3 mg/dL (8.4-10.2); Carbon Dioxide 23 mmol/L (22-29); Chloride 112 mmol/L (96-108); Creatinine Clr Calc Pharmacy 54.9; Estimated Glomerular Filt Rate 60; Glucose Random 115 mg/dL (60-115); Lipase 21 U/L (8-78); Potassium 5.1 mmol/L (3.3-5.1); Sodium 143 mmol/L (135-145); Total Protein 6.8 g/dL (6.5-8.0)
[2024-07-30 18:06] LABS: MANUAL DIFF FLAG SCAN
[2024-07-30 18:27] LABS: SLIDE REVIEW VERIFIED
[2024-07-30 18:39] VITALS: BP 132/71; PULSE 90; RESP 16; O2SAT 94
[2024-07-30 20:40] VITALS: BP 117/40; PULSE 90; RESP 18; O2SAT 91
--- NOTE | 2024-07-30 21:07 | PM.IMHP ---
History of Present Illness Date of Service: 07/30/24 Chief Complaint: Fall This is a 79-year-old male with pertinent history of hypertension, mixed hyperlipidemia who presents to the emergency department for evaluation after a fall. Patient states he slipped and fell on ice prior to arrival. He has been having right hip pain since the fall. Did not lose consciousness prior to the fall. No jerking movement of extremities. No tongue bite, urinary or bowel incontinence. No chest pain or palpitations prior to the fall. Patient fell on his buttocks and then hit his head. No fever, chills, chest pain, palpitations, cough, nausea, vomiting, difficulty with swallowing, abdominal pain, changes in urinary or bowel habits. In the emergency department, imaging with acute fracture of right pubic body. Orthopedic surgery was consulted who requested admission [facility] Medical History Essential hypertension Stroke Numbness Tongue cancer Pertinent family history: No family history of early CAD Surgical History History of cancer surgery Social History Household Members: Spouse and Children Alcohol intake: never Patient Tobacco Use Status: Former Tobacco user Smoked in Last 30 Days: No Use of substances other than those prescribed or required for medical reasons: No Advance Directives: No Advance Directives Information Provided: Yes Do you have a plan to hurt others: No Plan service: No Current occupational status: employed Meds Allergies Allergy/AdvReac Type Severity Reaction Status Date / Time No Known Allergies Allergy Mild N/A Verified 07/30/24 11:36 Home Medications ?Medication ?Instructions ?Recorded ?Confirmed ?Last Taken ?Type ibuprofen 200 mg tablet 400 mg PO Q6H PRN Pain 12/04/20 12/04/20 Unknown History Physical Exam Vital Signs and Narrative: Vital Signs: Last Vital Signs Temp 98.6 F 07/30/24 15:35 Pulse 90 07/30/24 20:40 Resp 18 07/30/24 20:40 BP 117/40 L 07/30/24 20:40 Pulse Ox 91 L 07/30/24 20:40 O2 Del Method Room Air 07/30/24 20:40 BMI result Body Mass Index 27.8 Middle-aged male lying in bed in no distress Neck supple, no JVD Regular rate and rhythm, S1-S2 heard Regular breath sounds bilaterally, no wheezing or crackles appreciated Abdomen soft nontender, no guarding, no rigidity Patient is awake, alert and oriented to self, place, time and person ; no focal motor deficit Psych: Normal mood No pedal edema Results Labs 07/30/24 17:40 07/30/24 17:40 Labs: Laboratory Results - last 24 hr 07/30/24 17:40 MCV 86.5 MCH 29.2 MCHC 33.8 RDW 13.2 Plt Count 319 MPV 9.1 L Immature Gran % (Auto) 0.7 H Neut % (Auto) 85.4 H Lymph % (Auto) 6.2 L [place] % (Auto) 7.5 Eos % (Auto) 0.0 Baso % (Auto) 0.2 Lymph # (Auto) 1.3 [place] # (Auto) 1.5 H Eos # (Auto) 0.0 Baso # (Auto) 0.1 Abs Immat Gran (auto) 0.15 H Absolute Neuts (auto) 17.3 H Absolute Nucleated RBC 0.000 Nucleated RBC % (auto) 0.0 Smear Tech's Comments VERIFIED PT 11.3 INR 1.0 Anion Gap 13 Estim Creat Clear Calc 54.9 Estimated GFR 60 Random Glucose 115 Calcium 9.3 D Total Bilirubin 0.9 AST 37 ALT 40 Alkaline Phosphatase 83 Total Protein 6.8 Albumin 3.7 Lipase 21 Blood Type A Negative Antibody Screen NEGATIVE Assessment and Plan (1) Closed pelvic fracture: Status: Acute Plan This is a 79-year-old male with pertinent history of hypertension, mixed hyperlipidemia who presents to the emergency department for evaluation after a fall. #. Acute right pubic body fracture due to mechanical fall: Dr. Spann, ortho was consulted in the ER who wanted the patient to be admitted and be evaluated by ortho in a.m.. Nonweightbearing. Tramadol p.r.n.. Consulted physical therapy to evaluate and treat. #. Hypertension: Continue home antihypertensives #. Mixed hyperlipidemia: On statin #. Leukocytosis, reactive: No signs or symptoms of infection. UA pending #. Nonspecific esophageal distention on imaging: Patient without dysphagia or odynophagia DVT prophylaxis: Lovenox Full code Quality Stroke Does the patient have a stroke diagnosis?: No VTE Prior VTE?: No VTE Risk Level:: Medical - moderate - high VTE Device Contraindication: Treatment Not Indicated VTE Drug Contraindication: N/A - Med Ordered
--- NOTE | 2024-07-30 22:15 | PHA.MEDREC ---
Addendum entered by Aristeo Yanes RPh 07/30/24 22:37: Reviewed by [facility] Original Note: Pharmacy Consult ? Medication Reconciliation Pharmacy has completed the medication reconciliation. Spoke with patient to confirm medications. He last took his medications yesterday night.
--- NOTE | 2024-07-30 22:38 | PC.NURSE ---
per dr madyson rush to receive Lovenox injection while admitted in hospital
[2024-07-30] MEDS: Acetaminophen 325 MG TABLET 650 MG PO (22:41)
[2024-07-30] MEDS: Enoxaparin Sodium 40 MG/0.4 ML SYRINGE SUBCUT (22:42)
[2024-07-31 02:15] VITALS: BP 129/68; PULSE 97; RESP 16; TEMP 36.9; O2SAT 92
[2024-07-31] MEDS: 0.9 % Sodium Chloride Flush 3 ML SYRINGE IVFLUSH ×5 (02:19→19:56)
[2024-07-31 03:03] VITALS: BMI 27.2
[2024-07-31 03:15] VITALS: BP 137/64; PULSE 90; RESP 16; TEMP 36.7; O2SAT 93
[2024-07-31] MEDS: traMADoL HCL 50 MG TABLET 25 MG PO ×2 (03:19→09:59)
[2024-07-31 07:18] LABS: Anion Gap 15 (12-20); Blood Urea Nitrogen 29 mg/dL (9-16); Calcium 8.9 mg/dL (8.4-10.2); Carbon Dioxide 23 mmol/L (22-29); Chloride 111 mmol/L (96-108); Estimated Glomerular Filt Rate > 60; Glucose Random 104 mg/dL (60-115); Potassium 4.6 mmol/L (3.3-5.1); Sodium 144 mmol/L (135-145)
[2024-07-31 07:40] VITALS: BP 121/67; PULSE 79; RESP 16; TEMP 36.9; O2SAT 92
--- NOTE | 2024-07-31 08:06 | P.PNIM_ITS ---
Subjective Subjective Date of Service: 07/31/24 Interval History: pelvic fracture Review of Systems has significant pain no other c/o Physical Exam 2 Vital Signs: Vital Signs: Last Vital Signs Temp 98.4 F 07/31/24 07:40 Pulse 79 07/31/24 07:40 Resp 16 07/31/24 07:40 BP 121/67 07/31/24 07:40 Pulse Ox 92 07/31/24 07:40 O2 Del Method Room Air 07/31/24 07:40 BMI result Body Mass Index 27.2 Awake alert x3 Regular rate and rhythm, S1-S2 heard Regular breath sounds bilaterally. Abdomen soft nontender, no guarding, no rigidity neuro: no focal motor deficit Psych: Normal mood No pedal graeme Objective Data Active Medications Acetaminophen (Acetaminophen 325 Mg Tablet) 650 mg PO Q6H PRN PRN Reason: Pain, Mild 1-3,fever,headache Last Admin: 07/30/24 22:41 Dose: 650 mg Documented By: ASHISH Amlodipine Besylate (Amlodipine Besylate 2.5 Mg Tablet) 2.5 mg PO BEDTIME NIMCO; Protocol Aspirin (Aspirin 81 Mg Tab.Chew) 81 mg PO BEDTIME NIMCO Atorvastatin Calcium (Atorvastatin Calcium 80 Mg Tablet) 80 mg PO BEDTIME NIMCO Calcium Carbonate (Calcium Carbonate 750 Mg Tab.Chew) 750 mg PO Q4H PRN PRN Reason: Heartburn Enoxaparin Sodium (Enoxaparin Sodium 40 Mg/0.4 Ml Syringe) 40 mg SUBCUT Q24H [facility] Last Admin: 07/30/24 22:42 Dose: 40 mg Documented By: ASHISH Lisinopril (Lisinopril 20 Mg Tablet) 20 mg PO BEDTIME NIMCO; Protocol Magnesium Hydroxide (Milk Of Magnesia 30 Ml Oral.Susp) 30 ml PO DAILY PRN PRN Reason: Constipation Melatonin (Melatonin 3 Mg Tablet) 6 mg PO BEDTIME PRN PRN Reason: Insomnia Ondansetron HCl (Ondansetron Hcl 4 Mg/2 Ml Vial) 4 mg IVPUSH Q8H PRN PRN Reason: Nausea and Vomiting Sodium Chloride (0.9 % Sodium Chloride Flush 3 Ml Syringe) 3 ml IVFLUSH QSHIFT [facility] Last Admin: 07/31/24 07:39 Dose: 3 ml Documented By: TEAGAN Tramadol HCl (Tramadol Hcl 50 Mg Tablet) 25 mg PO Q6H PRN PRN Reason: Pain, Severe (Pain Scale 7-10) Last Admin: 07/31/24 03:19 Dose: 25 mg Documented By: IMAN Labs 07/31/24 07:20 07/31/24 06:37 Labs: Laboratory Results - last 24 hr 07/30/24 07/31/24 17:40 06:37 MCV 86.5 MCH 29.2 MCHC 33.8 RDW 13.2 Plt Count 319 MPV 9.1 L Immature Gran % (Auto) 0.7 H Neut % (Auto) 85.4 H Lymph % (Auto) 6.2 L [place] % (Auto) 7.5 Eos % (Auto) 0.0 Baso % (Auto) 0.2 Lymph # (Auto) 1.3 [place] # (Auto) 1.5 H Eos # (Auto) 0.0 Baso # (Auto) 0.1 Abs Immat Gran (auto) 0.15 H Absolute Neuts (auto) 17.3 H Absolute Nucleated RBC 0.000 Nucleated RBC % (auto) 0.0 Smear Tech's Comments VERIFIED PT 11.3 INR 1.0 Anion Gap 13 15 Estim Creat Clear Calc 54.9 52.0 Estimated GFR 60 > 60 Random Glucose 115 104 Calcium 9.3 D 8.9 Total Bilirubin 0.9 AST 37 ALT 40 Alkaline Phosphatase 83 Total Protein 6.8 Albumin 3.7 Lipase 21 Blood Type A Negative Antibody Screen NEGATIVE Assessment and Plan (1) Closed pelvic fracture: Status: Acute (2) Fall: Status: Acute Assessment and Plan: 79-year-old male with pertinent history of hypertension, mixed hyperlipidemia who presents to the emergency department for evaluation after a fall. Acute right pubic body fracture due to mechanical fall: seen by ortho rec:should be toe-touch weight-bearing on right lower extremity Will likely require rehab placement, Tramadol p.r.n., po oxycodone added, Pt /ot eval Hypertension: Continue home antihypertensives Mixed hyperlipidemia: On statin Leukocytosis, reactive: No signs or symptoms of infection. UA negative wbc improving Nonspecific esophageal distention on imaging: Patient without dysphagia or odynophagia. further workup outpatient. DVT prophylaxis: Lovenox . Full code. ongoing need for stay- Acute right pubic body fracture due to mechanical fall: seen by ortho rec:should be toe-touch weight-bearing on right lower extremity: pain control, pt/ot eval. Quality Stroke Does the patient have a stroke diagnosis?: No VTE Prior VTE?: No VTE Risk Level:: Medical - moderate - high VTE Device Contraindication: Treatment Not Indicated VTE Drug Contraindication: N/A - Med Ordered
[2024-07-31 08:33] LABS: MANUAL DIFF FLAG NO
[2024-07-31 08:40] LABS: Basophils Absolute Auto 0.1 X10*3/uL (0.0-0.2); Basophils Percent Auto 0.5 % (0-2); Eosinophils Absolute Auto 0.3 X10*3/uL (0.0-0.4); Eosinophils Percent Auto 2.6 % (0-4); Hematocrit 36.5 % (42.0-52.0); Imm Gran Abs Auto 0.08 X10*3/uL (0.00-0.03); Imm Gran Pct Auto 0.6 % (0.0-0.4); Lymphocytes Absolute Auto 2.3 X10*3/uL (1.2-4.9); Mean Corpuscular HGB Conc 32.9 g/dl (31.0-36.0); Mean Corpuscular Volume 88.2 fL (80.0-98.0); Monocytes Absolute Auto 1.5 X10*3/uL (0.1-1.2); Monocytes Percent Auto 11.4 % (2-11); Neutrophils Absolute Auto 8.7 x10*3/uL (2.0-8.3); Neutrophils Percent Auto 66.9 % (45-73); Platelet Count 322 X10*3/uL (160-400); Red Blood Count 4.14 X10*6/uL (4.60-5.80); Red Cell Distribution Width 13.5 % (11.0-16.0)
[2024-07-31 08:47] LABS: Appearance Urine Clear; Color Urine Yellow; Glucose Urine UA Negative (Negative); Leukocyte Esterase Urine Negative (Negative); Nitrite Urine Negative (Negative); Specific Gravity - Urine 1.025 (1.005-1.025); Urine Blood Negative (Negative); Urine Ketones Trace mg/dL (Negative); Urine Protein Negative (Neg-Trace)
[2024-07-31 08:53] LABS: Bacteria Urine None Seen (None Seen); Hyaline Casts Urine 0-2 /LPF (0-2); RBC Urine 0-2 /HPF (0-2); Squamous Epithelial Cell Urine 0-2 /HPF (0-2); WBC Urine 0-5 /HPF (0-5)
--- NOTE | 2024-07-31 11:54 | MHC.CM.PN ---
pt lives with had no sevies referrals to acute rehabs per pt receommendation asked md for ot an[place]ina
--- NOTE | 2024-07-31 12:13 | P.CONOP_ITS ---
History of Present Illness [facility] Consult date: 07/31/24 Chief complaint: Fall Narrative: 79-year-old male admitted to the hospital after a fall X-rays and CT scan obtained in the ED revealed pubic rami fracture of the right- sided pelvis Patient does report pain in this area when medications wear off Pain otherwise well managed Patient has been nonweightbearing on the right lower extremity since injury No acute events overnight No other acute complaints or concerns at this time Review of Systems 2 Review of Systems: Yes all other systems are reviewed and are negative [facility] Past Medical History Medical History Essential hypertension Stroke Numbness Tongue cancer Surgical History Surgical History History of cancer surgery Social History Social History Household Members: Spouse and Children Alcohol intake: never Patient Tobacco Use Status: Former Tobacco user service: No Current occupational status: employed Meds Allergies Allergy/AdvReac Type Severity Reaction Status Date / Time No Known Allergies Allergy Mild N/A Verified 07/30/24 11:36 Active Medications: Current Medications Acetaminophen (Acetaminophen 325 Mg Tablet) 650 mg PO Q6H PRN PRN Reason: Pain, Mild 1-3,fever,headache Last Admin: 07/30/24 22:41 Dose: 650 mg Amlodipine Besylate (Amlodipine Besylate 2.5 Mg Tablet) 2.5 mg PO BEDTIME NIMCO; Protocol Aspirin (Aspirin 81 Mg Tab.Chew) 81 mg PO BEDTIME NIMCO Atorvastatin Calcium (Atorvastatin Calcium 80 Mg Tablet) 80 mg PO BEDTIME NIMCO Calcium Carbonate (Calcium Carbonate 750 Mg Tab.Chew) 750 mg PO Q4H PRN PRN Reason: Heartburn Enoxaparin Sodium (Enoxaparin Sodium 40 Mg/0.4 Ml Syringe) 40 mg SUBCUT Q24H NIMCO Last Admin: 07/30/24 22:42 Dose: 40 mg Lisinopril (Lisinopril 20 Mg Tablet) 20 mg PO BEDTIME NIMCO; Protocol Magnesium Hydroxide (Milk Of Magnesia 30 Ml Oral.Susp) 30 ml PO DAILY PRN PRN Reason: Constipation Melatonin (Melatonin 3 Mg Tablet) 6 mg PO BEDTIME PRN PRN Reason: Insomnia Ondansetron HCl (Ondansetron Hcl 4 Mg/2 Ml Vial) 4 mg IVPUSH Q8H PRN PRN Reason: Nausea and Vomiting Oxycodone HCl (Oxycodone Hcl Immed Release 5 Mg Tablet) 5 mg PO Q4H PRN PRN Reason: Pain, Severe (Pain Scale 7-10) Sodium Chloride (0.9 % Sodium Chloride Flush 3 Ml Syringe) 3 ml IVFLUSH QSHIFT [facility] Last Admin: 07/31/24 07:39 Dose: 3 ml Tramadol HCl (Tramadol Hcl 50 Mg Tablet) 25 mg PO Q6H PRN PRN Reason: Pain, Moderate(Pain Scale 4-6) Home Medications ?Medication ?Instructions ?Recorded ?Confirmed ?Last Taken ?Type acetaminophen 500 mg tablet 1,000 mg PO Q6H PRN Pain (Scale 07/30/24 07/30/24 Unknown History Score 1-3) amlodipine 2.5 mg tablet 2.5 mg PO BEDTIME 07/30/24 07/30/24 07/29/24 History aspirin 81 mg chewable tablet 81 mg PO BEDTIME 07/30/24 07/30/24 07/29/24 History lisinopril 20 mg tablet 20 mg PO BEDTIME 07/30/24 07/30/24 07/29/24 History Physical Exam 2 Vital Signs: Vital Signs: Last Vital Signs Temp 98.4 F 07/31/24 07:40 Pulse 79 07/31/24 07:40 Resp 16 07/31/24 07:40 BP 121/67 07/31/24 07:40 Pulse Ox 92 07/31/24 07:40 O2 Del Method Room Air 07/31/24 07:40 BMI result Body Mass Index 27.2 Extrem: Other: Patient's right hip, proximal leg, pelvic region normal to inspection No evidence of surrounding erythema, ecchymosis No evidence of infection Patient is able to flex and extend the digits of the left foot without difficulty Compartments soft, nontender Distal sensation intact Capillary refill brisk Results Labs 07/31/24 07:20 07/31/24 06:37 Labs: Abnormal lab results 07/30/24 07/31/24 07/31/24 Range/Units 17:40 06:37 07:20 WBC 20.3 H 13.0 H (4.8-10.8) X10*3/uL RBC 4.38 L 4.14 L (4.60-5.80) X10*6/uL Hgb 12.8 L 12.0 L (14.0-18.0) g/dl Hct 37.9 L 36.5 L (42.0-52.0) % MPV 9.1 L (9.4-12.4) fL Immature Gran % (Auto) 0.7 H 0.6 H (0.0-0.4) % Neut % (Auto) 85.4 H (45-73) % Lymph % (Auto) 6.2 L 18.0 L (20-40) % [place] % (Auto) 11.4 H (2-11) % [place] # (Auto) 1.5 H 1.5 H (0.1-1.2) X10*3/uL Abs Immat Gran (auto) 0.15 H 0.08 H (0.00-0.03) X10*3/uL Absolute Neuts (auto) 17.3 H 8.7 H (2.0-8.3) x10*3/uL Chloride 112 H 111 H (96-108) mmol/L BUN 27 H 29 H (9-16) mg/dL H & H 07/30/24 07/31/24 Range/Units 17:40 07:20 Hgb 12.8 L 12.0 L (14.0-18.0) g/dl Hct 37.9 L 36.5 L (42.0-52.0) % Coagulation 07/30/24 Range/Units 17:40 INR 1.0 (0.9-1.1) All other labs normal. Diagnostic results Hip x-ray: report reviewed and image reviewed Hip CT: report reviewed and image reviewed Assessment and Plan (1) Fracture of pubic ramus: Status: Acute Plan 1. Pubic rami fracture of right sided pelvis No evidence of instability Date of injury 07/30/2024 Imaging and patient are discussed with Dr. Spann, and a collaborative treatment plan was formed Patient should be toe-touch weight-bearing on right lower extremity Will likely require rehab placement Continue with all other recommendations per Medicine Procedures Date of Service Date of Service: 07/31/24
[2024-07-31] MEDS: oxyCODONE HCl Immed Release 5 MG TABLET PO ×2 (12:14→18:39)
[2024-07-31 16:00] VITALS: BP 127/78; PULSE 84; RESP 16; TEMP 36.9
[2024-07-31] MEDS: Omeprazole 20 MG CAPSULE.DR PO (16:05)
[2024-07-31 19:22] VITALS: BP 117/68; PULSE 73; RESP 20; TEMP 37.1; O2SAT 94
[2024-07-31] MEDS: amLODIPine Besylate 2.5 MG TABLET PO (19:54)
[2024-07-31] MEDS: Enoxaparin Sodium 40 MG/0.4 ML SYRINGE SUBCUT (19:55)
[2024-07-31] MEDS: Atorvastatin Calcium 80 MG TABLET PO (19:55)
[2024-07-31] MEDS: Aspirin 81 MG TAB.CHEW PO (19:55)
[2024-07-31] MEDS: lisinopriL 20 MG TABLET PO (19:55)
[2024-07-31 23:24] VITALS: BP 114/62; PULSE 78; RESP 16; TEMP 36.4; O2SAT 93
[2024-08-01] MEDS: Omeprazole 20 MG CAPSULE.DR PO (05:56)
[2024-08-01] MEDS: 0.9 % Sodium Chloride Flush 3 ML SYRINGE IVFLUSH (07:13)
[2024-08-01] MEDS: oxyCODONE HCl Immed Release 5 MG TABLET PO ×2 (07:22→12:46)
[2024-08-01 07:51] VITALS: BP 107/56; PULSE 71; RESP 16; TEMP 36.9; O2SAT 92
--- NOTE | 2024-08-01 08:37 | MHC.CM.PN ---
pt dcd [facility]
--- NOTE | 2024-08-01 11:10 | MHC.CM.PN ---
pt going to [facility] at [facility] today family is agreeable and notifed
--- NOTE | 2024-08-01 11:30 | P.DS_ITS ---
DS: Providers Provider Date of Service: 08/01/24 Date of admission: 07/30/24 21:06 Date of discharge: 08/01/24 Primary care physician: Jm Hastings MD Consults: 07/30/24 21:07 Consult to Orthopedics Routine Consulting Provider: [facility] Reason for consultation: fall, pelvic fracture Attending physician on discharge: Joana Barragan Discharging clinician: Joana Barragan DS: Diagnosis Discharge Diagnosis (1) Closed pelvic fracture: Status: Acute (2) Fall: Status: Acute DS: Summary Hospital Course Hospital Course: HPI:79-year-old male with pertinent history of hypertension, mixed hyperlipidemia who presents to the emergency department for evaluation after a fall. Patient states he slipped and fell on ice prior to arrival. He has been having right hip pain since the fall. Did not lose consciousness prior to the fall. No jerking movement of extremities. No tongue bite, urinary or bowel incontinence. No chest pain or palpitations prior to the fall. Patient fell on his buttocks and then hit his head. No fever, chills, chest pain, palpitations, cough, nausea, vomiting, difficulty with swallowing, abdominal pain, changes in urinary or bowel habits. In the emergency department, imaging with acute fracture of right pubic body. Orthopedic surgery was consulted who requested admission. Hospital course: Acute right pubic body fracture due to mechanical fall: Dr. Spann, ortho was consulted in the ER who wanted the patient to be admitted and be evaluated by ortho in a.m.. Nonweightbearing. Tramadol p.r.n.. Consulted physical therapy to evaluate and treat. Leukocytosis, reactive: improving , No signs or symptoms of infection. UA negative. Nonspecific esophageal distention on cervial spine ct imaging( please see detailed report in imaging section): Patient without dysphagia or odynophagia- further workup outpatient with pcp( discussed with GI Dr meeks -patient is asymptomatic). added po ppi. Above management discussed with the patient and his at bedside in detail length they both understand and in agreement with the above plan, time spent 40 minute. Time Attestation Total time managing care of this patient today: 40 mintues. Discharge Coordination Time (in mins): 40 min Quality: Safe Use of Opioids Does Pt have an Active Cancer Diagnosis on the Problem List?: No Quality: Stroke Does the patient have a stroke diagnosis?: No Physical Exam Vital Signs: Vital Signs: Last Vital Signs Temp 98.4 F 08/01/24 07:51 Pulse 71 08/01/24 07:51 Resp 16 08/01/24 07:51 BP 107/56 L 08/01/24 07:51 Pulse Ox 92 08/01/24 07:51 O2 Del Method Room Air 08/01/24 07:51 BMI result Body Mass Index 27.2 Appearance: Alert.? Oriented X3. cvs: rrr, [id number] . res: clear to auscultation ,no rhonchii or wheezing abd: no rebound or guarding ,nt, bs present. ext pulses present , no cyanosis ,Patient is able to flex and extend the digits of the left foot without difficulty. neuro: axo3 , nonfocal. DS: Data Additional Comments Additional comments: head ct: IMPRESSION: 1. No acute intracranial findings. c-spine ct: Impression: No acute fracture or traumatic subluxation. Generalized degenerative changes. No marked mass effect on the thecal sac. Nonspecific esophageal distention and retained contents. Correlation for dysphagia. Distal stricture, achalasia or mass all considered. hip ct: Findings: There is an acute fracture of the right pubic body extending to the adjacent portion of the superior and inferior pubic rami. There is minimal displacement. No other fractures are seen. There are mild degenerative changes in the hip. There is a 1.5 cm bladder diverticulum on the right. Impression: Acute fracture of the right pubic body as described. Discharge Plan Discharge Anticipated Discharge Date/Time: 08/01/24 11:25 Patient Disposition: Xfer Other Discharge Diagnosis: pelvic fracture -need acute rehab Referrals: [facility] [Other] - 1 Week Jm Hastings MD [Primary Care Provider] - 1 Week Discharge Medications: New acetaminophen 325 mg Tablet 650 mg PO Q6H PRN (Reason: Pain, Mild 1-3,Fever,Headache) Qty: 1 0RF tramadol 50 mg Tablet 25 mg PO Q6H PRN (Reason: Pain, Moderate(Pain Scale 4-6)) Qty: 20 0RF magnesium hydroxide [Milk of Magnesia] 400 mg/5 mL Suspension 30 ml PO DAILY PRN (Reason: Constipation) Qty: 1 0RF omeprazole 20 mg Capsule,Delayed Release(Dr/Ec) 20 mg PO BID@0630,1630 Qty: 1 0RF docusate sodium [Colace] 100 mg capsule 100 mg PO BID PRN (Reason: constipation) Qty: 1 0RF Continued atorvastatin 80 mg tablet 80 mg PO BEDTIME Qty: 30 0RF lisinopril 20 mg tablet 20 mg PO BEDTIME amlodipine 2.5 mg tablet 2.5 mg PO BEDTIME acetaminophen 500 mg Tablet 1,000 mg PO Q6H PRN (Reason: Pain (Scale Score 1-3)) aspirin 81 mg tablet,chewable 81 mg PO BEDTIME Discharge Orders: Discharge Order (Routine); Ordered 08/01/24 Ordered By: Joana Barragan Diet: Advance to usual diet Activity on Discharge: As tolerated Stand Alone Forms: Patient Portal Discharge page Print Language: Nepali Care Plan Goals: Patient admitted to the hospital status post fall mechanical-patient started on pain medication, bowel regimen and consulted Orthopedics, ortho recommended :Patient should be toe-touch weight-bearing on right lower extremity,Will likely require rehab placement. Seen by PT recommended acute rehab. Health Concerns: As above. Plan of Treatment: As above. Assessment: as above. Patient Instructions: Pelvic Fracture (DC)
[2024-08-01 15:26] VITALS: BP 135/63; PULSE 86; RESP 17; TEMP 37.4; O2SAT 93
== END 2024-08-01 15:44 | disposition other institution (70) ==
LOC: HO.ED 20:32 → HO.EDOVER 21:17 → HO.S3 07-31 02:08
PROVIDERS: Physician Assistant; Admitting Provider Student in an Organized Health Care Education/Training Program; Emergency Provider Emergency Medicine; PCP Internal Medicine; Visit Provider Internal Medicine
DX: S32.511A Fracture of superior rim of right pubis, initial encounter for closed fracture (principal); S32.591A Other specified fracture of right pubis, initial encounter for closed fracture; S09.90XA Unspecified injury of head, initial encounter; W00.0XXA Fall on same level due to ice and snow, initial encounter; Y93.9 Activity, unspecified; Y92.9 Unspecified place or not applicable; Y99.9 Unspecified external cause status; M25.551 Pain in right hip; I10 Essential (primary) hypertension; E78.5 Hyperlipidemia, unspecified; D72.829 Elevated white blood cell count, unspecified
CPT/HCPCS: 36415; 70450; 72125; 73502; 73700; 80048; 80053; 81001; 83690; 85025; 85610; 86850; 86900; 86901; 96372; 97162; 97166; 97530; 99221; 99285; J1650

== ENCOUNTER → 2024-07-30 11:38 | Outpatient (BNV) | payer MEDICARE, SELFPAY | PROVIDERS: Emergency Provider Emergency Medicine; Visit Provider Radiology Diagnostic Radiology | DX: M50.30 Other cervical disc degeneration, unspecified cervical region (principal); S32.501A Unspecified fracture of right pubis, initial encounter for closed fracture; S09.90XA Unspecified injury of head, initial encounter; W19.XXXA Unspecified fall, initial encounter | CPT/HCPCS: 73700 ==

== ENCOUNTER → 2024-07-30 21:06 | Outpatient (BNV) | payer MEDICARE, SELFPAY | PROVIDERS: Admitting Provider Student in an Organized Health Care Education/Training Program; Emergency Provider Emergency Medicine | DX: S32.591A Other specified fracture of right pubis, initial encounter for closed fracture (principal) | CPT/HCPCS: 99221 ==

== ENCOUNTER → 2024-07-30 21:06 | Outpatient (BNV) | payer MEDICARE, SELFPAY | PROVIDERS: Admitting Provider Student in an Organized Health Care Education/Training Program; Emergency Provider Emergency Medicine; Visit Provider Student in an Organized Health Care Education/Training Program | DX: S32.9XXA Fracture of unspecified parts of lumbosacral spine and pelvis, initial encounter for closed fracture (principal); W19.XXXA Unspecified fall, initial encounter | CPT/HCPCS: 99222; 99231; 99239 ==

== ENCOUNTER 2024-08-17 09:36 | Outpatient (REF) | payer MEDICARE, SELFPAY ==
--- NOTE | ~2024-08-17 | XR_ITS ---
EXAMINATION: XR PELVIS 1-2 VIEWS HISTORY: M25.559 - Pain in unspecified hip COMPARISON: Comparison is made with the prior examination dated 07/30/2024. Correlation is also made with a CT of the right hip dated 07/30/2024. FINDINGS: Single AP view of the pelvis is submitted. The patient's known fracture of the right pubis is not well visualized on plain film. Joint space is maintained. The soft tissues are unremarkable. XR/XR pelvis 1-2V IMPRESSION: The patient's known fracture of the right humerus is not well visualized. Electronically signed by: Roderick Cowan MD 08/20/2024 02:10 PM EDT
== END 2024-08-17 09:37 | disposition home or self-care (01) ==
LOC: HO.HOSX 09:36
PROVIDERS: Visit Provider Physician Assistant
DX: S32.591A Other specified fracture of right pubis, initial encounter for closed fracture (principal); M25.559 Pain in unspecified hip
CPT/HCPCS: 72170; 99202

== ENCOUNTER 2024-08-17 12:09 | Outpatient (AMB) | payer MEDICARE, SELFPAY ==
--- NOTE | 2024-08-17 12:40 | MHC.OFFVIS ---
Intake Visit Reasons: FC- Pubic Ramus Fracture 07/31/24 Intake Note: Cleve is a 79 year old male who presents today with a wheel chair and his partner for a evaluation of his right pubic ramus fracture, DOI 07/30/24. 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 He states that his pain at the moment is near his buttocks and towards his lower back. Allergies No Known Allergies Allergy (Mild, Verified 08/17/24 12:48) N/A HPI HPI FC- Pubic Ramus Fracture 07/31/24: Details: 79-year-old gentleman presents to the office today for an injury he sustained on 07/31/2024 when he fell landing on his buttock region. He was seen in the emergency department where x-rays were obtained and he was found to have a pubic rami fracture. He was referred to our office for ortho eval. [facility]LY [facility], [facility] Medical History Essential hypertension Stroke Numbness Tongue cancer Surgical History History of cancer surgery Social History Household Members: Spouse and Children Alcohol intake: never Patient Tobacco Use Status: Former Tobacco user service: No Current occupational status: employed Review of Systems Const All systems reviewed & are unremarkable except as noted in HPI and below Physical Exam Const General: cooperative and no acute distress Orientation/consciousness: patient oriented x3 Resp Effort & Inspection: normal respiratory effort and able to speak in complete sentences Cardio Peripheral pulses: Peripheral pulses 2+ throughout Neuro General: patient oriented x3 Extrem Other: Patient is resting comfortably in a wheelchair. He can perform active and passive range of motion of the right leg without pain. No tenderness to palpation along the groin region. Office Procedures AMB Fracture Care Fracture Billing Code: Fracture Billing Code Results Reviewed Results Reviewed: Impression: Acute fracture of the right pubic body as described. Assessment & Plan Assessment & Plan (1) Fracture of pubic ramus: Code(s): S32.599A - Other specified fracture of unspecified pubis, initial encounter for closed fracture Category: Medical Plan: He can weightbear as tolerated with a walker. He will work on gait training and strengthening exercises. If he develops any new symptoms such as pain or difficulty with ambulation while walking he will contact our office otherwise follow up in 4-6 weeks with x-rays. Coding Level of Care Code New Pt Level 3 (35376) Complex EM visit Add On G2211 Diagnoses Fracture of pubic ramus S32.599A CPT Codes Fracture Care - Fracture Billing Code: Fracture Billing Code ([id number])
--- OUTSIDE RECORDS SUMMARY | 2024-08-17 13:53 | XMS_ITS | Clinical Summary ---
Author Organization Unknown Care Team Providers Care Slab Polisher Name Role Phone ETELVINA GUTIERREZ ACTIVE UNTIL 12/10/2022, ZHONGPAPI Unavailable Unavailable GIANNA RN, ARACELIS Unavailable Unavailab penny SIDDIQUI PT, DEBORAH Unavailable Unavailable DICK [employer] MAKER HAND, OSIEL Unavailable Unavailable READING OT, KODAK Unavailable Unavailable CONDINO LOG MARKER/ESCOBAR, RUDOLPH Unavailable Unav ailable Payers Payer Name Policy Type Policy Number Effective Date Expira tion Date MEDICARE.NGS.PDGM [id number] Problems Condition Name Condition Details Condition Category Status Onset Date Resolution Date Last Treatment Date Treating Clinician Comments FRACTURE OF UNSP PART OF NECK OF RIGHT FEMUR, INIT Active 08-15 00:00: 00 Allergies, Adverse Reactions, Alerts Allergy Name Allergy Type Status Severity Reaction(s) Onset Date Inactive Date Treating Clinician Comments NO KNOWN ALLERGIES Propensity to adverse reactions Active 08-16 12:30: 03 Vital Signs Vital Name Observation Time Observation Value Commen ts Temperature 2024-08-16 13:15:00.000 98 [degF] BMI (%) 2024-08-16 12:54:08.000 26 kg/m2 Height 2024-08-16 12:53:52.000 69 [in_us] Pulse 2024-08-16 13:15:00.000 78 /min O2 Saturation (%) 2024-08-16 13:15:00.000 96 % Respirations 2024-08-16 13:15:00.000 18 /min Weight (lbs) 2024-08-16 12:54:08.000 179 [lb_av] Systolic Blood Pressure 2024-08-16 13:15:00.000 104 mm [Hg] Diastolic Blood Pressure 2024-08-16 13:15:00.000 60 mm [Hg] Plan of Treatment Planned Activity Planned Date Details Comments Future Scheduled Test RN TO OBSE RVE, ASSESS, EVALUATE, AND DEVELOP AN INDIVIDUALIZED PLAN OF CARE. AGENCY MAY ACCEPT ORDERS FROM CONSULTING PHYSICIANS. RN TO OBSERVE AND ASSESS, BUTTER FAT TESTER/3RD GRADE READING TEACHER TO OBSERVE FOR RISK FOR FALLS AND INSTRUCT IN FALL PREVENTION, HOME SAFETY, MEDICATION MANAGEMENT, INFECTION PREVENTION, AND NUTRITION MANAGEMENT. RN/BUTTER FAT TESTER/3RD GRADE READING TEACHER NURSE MAY PERFORM O2 SATURATION LEVEL ON ADMISSION AND PRN FOR RN TO ASSESS/BUTTER FAT TESTER TO OBSERVE PATIENT, WITH NOTIFICATION TO THE PHYSICIAN IF SATURATION IS 90% IN THE ABSENCE OF MORE SPECIFIC PARAMETERS FROM THE PHYSICIAN. AGENCY MAY PERFORM A RESUMPTION OF CARE VISIT FOLLOWING ANY HOSPITAL ADMISSION. RN/BUTTER FAT TESTER/3RD GRADE READING TEACHER TO MONITOR CO-MORBID CONDITIONS LISTED ON THE PLAN OF CARE AND ANY NEW CONDITIONS THAT PRESENT THEMSELVES DURING THIS EPISODE TO IDENTIFY CHANGES AND INTERVENE TO MINIMIZE COMPLICATIONS. [code = RN TO OBSERVE, ASSESS, EVALUATE, AND DEVELOP AN INDIVIDUALIZED PLAN OF CARE. AGENCY MAY ACCEPT ORDERS FROM CONSULTING PHYSICIANS. RN TO OBSERVE AND ASSESS, BUTTER FAT TESTER/3RD GRADE READING TEACHER TO OBSERVE FOR RISK FOR FALLS AND INSTRUCT IN FALL PREVENTION, HOME SAFETY, MEDICATION MANAGEMENT, INFECTION PREVENTION, AND NUTRITION MANAGEMENT. RN/BUTTER FAT TESTER/3RD GRADE READING TEACHER NURSE MAY PERFORM O2 SATURATION LEVEL ON ADMISSION AND PRN FOR RN TO ASSESS/BUTTER FAT TESTER TO OBSERVE PATIENT, WITH NOTIFICATION TO THE PHYSICIAN IF SATURATION IS 90% IN THE ABSENCE OF MORE SPECIFIC PARAMETERS FROM THE PHYSICIAN. AGENCY MAY PERFORM A RESUMPTION OF CARE VISIT FOLLOWING ANY HOSPITAL ADMISSION. RN/BUTTER FAT TESTER/3RD GRADE READING TEACHER TO MONITOR CO-MORBID CONDITIONS LISTED ON THE PLAN OF CARE AND ANY NEW CONDITIONS THAT PRESENT THEMSELVES DURING THIS EPISODE TO IDENTIFY CHANGES AND INTERVENE TO MINIMIZE COMPLICATIONS.] Future Scheduled Test MEDICATION MANAGEMENT; RN/BUTTER FAT TESTER/3RD GRADE READING TEACHER TO REVIEW MEDICATIONS FOR INTERACTIONS, EFFECTIVENESS OF DRUG THERAPY, AND SIGNS/SYMPTOMS OF ADVERSE REACTIONS. MAY INSTRUCT AND REINFORCE MEDICATION TEACHING RELATED TO THE USE OF MEDICATIONS, DOSAGE, FREQUENCY, PURPOSE, SIDE EFFECTS, AND TO REPORT COMPLICATIONS. [code = MEDICATION MANAGEMENT; RN/BUTTER FAT TESTER/3RD GRADE READING TEACHER TO REVIEW MEDICATIONS FOR INTERACTIONS, EFFECTIVENESS OF DRUG THERAPY, AND SIGNS/SYMPTOMS OF ADVERSE REACTIONS. MAY INSTRUCT AND REINFORCE MEDICATION TEACHING RELATED TO THE USE OF MEDICATIONS, DOSAGE, FREQUENCY, PURPOSE, SIDE EFFECTS, AND TO REPORT COMPLICATIONS.] Future Scheduled Test RISK FOR H OSPITALIZATION; RN TO ASSESS/TEACH, 3RD GRADE READING TEACHER/BUTTER FAT TESTER TO OBSERVE/TEACH PATIENT/CAREGIVER ON RISK FOR HOSPITALIZATION/EMERGENCY ROOM VISITS, TEACH SIGNS AND SYMPTOMS THAT PUT PATIENT AT RISK, WHEN TO NOTIFY NURSE/PHYSICIAN OF COMPLICATIONS/DECLINE, AND WHEN TO CALL 911. [code = RISK FOR HOSPITALIZATION; RN TO ASSESS/TEACH, 3RD GRADE READING TEACHER/BUTTER FAT TESTER TO OBSERVE/TEACH PATIENT/CAREGIVER ON RISK FOR HOSPITALIZATION/EMERGENCY ROOM VISITS, TEACH SIGNS AND SYMPTOMS THAT PUT PATIENT AT RISK, WHEN TO NOTIFY NURSE/PHYSICIAN OF COMPLICATIONS/DECLINE, AND WHEN TO CALL 911.] Future Scheduled Test CARDIOVASC ULAR SYSTEM; RN TO ASSESS/TEACH, BUTTER FAT TESTER/3RD GRADE READING TEACHER TO OBSERVE/TEACH RELATED TO ALTERED CARDIOVASCULAR STATUS TO MINIMIZE COMPLICATIONS AND REDUCE HOSPITALIZATION. [code = CARDIOVASCULAR SYSTEM; RN TO ASSESS/TEACH, BUTTER FAT TESTER/3RD GRADE READING TEACHER TO OBSERVE/TEACH RELATED TO ALTERED CARDIOVASCULAR STATUS TO MINIMIZE COMPLICATIONS AND REDUCE HOSPITALIZATION.] Future Scheduled Test HYPERTENSI ON MANAGEMENT; RN TO ASSESS AND TEACH, BUTTER FAT TESTER/3RD GRADE READING TEACHER TO OBSERVE AND TEACH WARNING SIGNS AND SYMPTOMS TO AVOID HOSPITALIZATION. [code = HYPERTENSION MANAGEMENT; RN TO ASSESS AND TEACH, BUTTER FAT TESTER/3RD GRADE READING TEACHER TO OBSERVE AND TEACH WARNING SIGNS AND SYMPTOMS TO AVOID HOSPITALIZATION.] Future Scheduled Test SKIN INTEG RITY RN TO ASSESS AND TEACH, BUTTER FAT TESTER/3RD GRADE READING TEACHER TO OBSERVE AND TEACH INTEGUMENTARY STATUS TO IDENTIFY CHANGES AND INTERVENE TO MINIMIZE COMPLICATIONS. PROVIDE SKILLED TEACHING OF GENERAL WOUND AND SKIN CARE AND PREVENTION RELATED TO ACTUAL ALTERED SKIN INTEGRITY [code = SKIN INTEGRITY RN TO ASSESS AND TEACH, BUTTER FAT TESTER/3RD GRADE READING TEACHER TO OBSERVE AND TEACH INTEGUMENTARY STATUS TO IDENTIFY CHANGES AND INTERVENE TO MINIMIZE COMPLICATIONS. PROVIDE SKILLED TEACHING OF GENERAL WOUND AND SKIN CARE AND PREVENTION RELATED TO ACTUAL ALTERED SKIN INTEGRITY ] Future Scheduled Test PAIN MANAG EMENT; RN TO ASSESS AND TEACH, 3RD GRADE READING TEACHER/BUTTER FAT TESTER TO OBSERVE AND TEACH AND PROVIDE EDUCATION ON PAIN MANAGEMENT TECHNIQUES. [code = PAIN MANAGEMENT; RN TO ASSESS AND TEACH, 3RD GRADE READING TEACHER/BUTTER FAT TESTER TO OBSERVE AND TEACH AND PROVIDE EDUCATION ON PAIN MANAGEMENT TECHNIQUES.] Future Scheduled Test FALL REDUC TION MANAGEMENT; RN TO ASSESS AND OBSERVE, BUTTER FAT TESTER/3RD GRADE READING TEACHER TO OBSERVE FALL RISK FACTORS AND EDUCATE PATIENT/CAREGIVER ON STRATEGIES TO MINIMIZE THE RISK OF FALLING. [code = FALL REDUCTION MANAGEMENT; RN TO ASSESS AND OBSERVE, BUTTER FAT TESTER/3RD GRADE READING TEACHER TO OBSERVE FALL RISK FACTORS AND EDUCATE PATIENT/CAREGIVER ON STRATEGIES TO MINIMIZE THE RISK OF FALLING.] Goal Patient Goal - G ET BACK TO BEING INDEPENDENT Goal Provider Goal - A PLAN OF CARE WILL BE ESTABLISHED THAT MEETS THE PATIENTS NEEDS. PATIENT WILL DEMONSTRATE OXYGEN SATURATION WITHIN NORMAL LIMITS OR PATIENTS OPTIMAL LEVEL ESTABLISHED BY THE PHYSICIAN THROUGHOUT CARE. CHANGES TO CO-MORBID CONDITIONS AND ANY NEW CONDITIONS WILL BE IDENTIFIED AND REPORTED TO THE PHYSICIAN. Goal Provider Goal - PATIENT/CAREGIVER TO VERBALIZE, AND CONSISTENTLY DEMONSTRATE EFFECTIVE, SAFE MANAGEMENT OF MEDICATION INCLUDING KNOWLEDGE OF EFFECTIVENESS, POTENTIAL SIDE EFFECTS AND DRUG REACTIONS AND WHEN TO CONTACT THE APPROPRIATE CARE PROVIDER. PATIENT/CAREGIVER WILL BE ABLE TO VERBALIZE UNDERSTANDING OF MEDICATION REGIMEN AND ACCURATELY TAKE MEDICATIONS PRESCRIBED WITHOUT ADVERSE EFFECTS BY EOE Goal Provider Goal - PATIENT/CAREGIVER WILL VERBALIZE UNDERSTANDING OF SIGNS AND SYMPTOMS THAT PUT THE PATIENT AT RISK FOR HOSPITALIZATION /EMERGENCY ROOM VISITS, WHEN TO NOTIFY NURSE/PHYSICIAN OF COMPLICATIONS/DECLINE AND WHEN TO CALL 911. Goal Provider Goal - PATIENT / CAREGIVER WILL VERBALIZE/DEMONSTRATE UNDERSTANDING OF MEASURES TO MANAGE ALTERED CARDIOVASCULAR STATUS BY EOE. Goal Provider Goal - PATIENT / CAREGIVER WILL VERBALIZE/DEMONSTRATE AN ABILITY TO ADHERE TO SELF-MANAGEMENT OF HTN TO MINIMIZE COMPLICATIONS AND AVOID HOSPITALIZATION BY END OF EPISODE. Goal Provider Goal - CHANGES IN SKIN INTEGRITY STATUS WILL BE IDENTIFIED AND REPORTED TO THE PHYSICIAN FOR PROMPT INTERVENTION. PATIENT / CAREGIVER WILL VERBALIZE/DEMONSTRATE ADEQUATE KNOWLEDGE OF INTEGUMENTARY STATUS AND APPROPRIATE MEASURES TO PROMOTE SKIN INTEGRITY AND PREVENT INJURY BY EOE Goal Provider Goal - PATIENT / CAREGIVER WILL VERBALIZE / DEMONSTRATE UNDERSTANDING OF PAIN CONTROL MEASURES BY EOE Goal Provider Goal - PATIENT/CAREGIVER WILL VERBALIZE/DEMONSTRATE UNDERSTANDING OF FALL RISK FACTORS AND IMPLEMENT STRATEGIES TO MINIMIZE FALL RISK. PATIENT/CAREGIVER WILL VERBALIZE/DEMONSTRATE AN ABILITY TO ADHERE TO FALL REDUCTION SELF-MANAGEMENT AND LIFE-STYLE CHANGES BY EOE Encounters Start Date/Time End Date/Time Encounter Type Admission Type Attending [facility] Care Department Encounter ID Discharge Date Discharge Status Discharge Condition Discharge Reason Percent Goals Met 2024-08-16 00:00:00 2024-10-14 00:00:00 Outpatient NEW ADMISSION HELEN KATZELLE [facility] [id number] 100.00
--- OUTSIDE RECORDS SUMMARY | 2024-08-17 13:53 | XMS_ITS ---
Author Organization [address] Address [address] [place] [id number] Phone Care Team Providers Care Airport Ramp Agent Name Role Phone Jm Hastings MD Primary Care Provider [phone] Transitional Care Management Status:Ongoing (Active) Start date:08/15/2024 Enrollment date:08/16/2024 Enrollment reason:Identified using hospital discharge data Case Team Name Relationship Phone Mirna Matta LPN Care Manager(Responsible Staf f) Continued Care and Services Coordination
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
--- OUTSIDE RECORDS SUMMARY | 2024-08-17 13:53 | XMS_ITS | Encounter Summary ---
Author Organization [facility] [place] [address] Care Team Providers Care Master Rigger Name Role Phone Jm Hastings MD Primary Care Provider [phone] Encounter Details Date Type Department Care Team (Latest Contact Info) Description 08/01/2024 4:15 PM EST - 08/15/2024 11:00 AM [facility] Hospital Encounter [facility] Inpatient Rehab [address] [place] [address] Pauline Batista, DO [address] [place] [address] Discharge Disposition: Home-Health Care Svc Social History Tobacco Use Types Packs/Day Years [...] PM EST documented as of this encounter Last Filed Vital Signs Vital Sign Reading Time Taken Comments Blood Pressure 115/72 08/15/2024 8:49 AM EST Pulse 87 08/15/2024 8:49 AM EST Temperature 36.5 ??C (97.7 ??F) 08/15/2024 8:49 AM ES T Respiratory Rate 18 08/15/2024 8:49 AM EST Oxygen Saturation 96% 08/15/2024 8:49 AM EST Inhaled Oxygen Concentration - - Weight 81.6 kg (179 lb 12.8 oz) 08/11/2024 9:15 AM EST Height - - Body Mass Index 26.63 08/01/2024 11:14 AM EST documented in this encounter Discharge Summaries * Matty Vega OT - 08/14/2024 2:36 PM EST OCCUPATIONAL THERAPY Recommending toilet safety frame If patient plans to shower in tub, recommending tub transfer bench, other valdovinos recommending sponge bathing only. Matty Vega OTR/L * JAY Sheridan - 08/14/2024 2:31 PM EST Images from the original note were not included. PHYSICAL MEDICINE AND REHABILITATION Discharge Summary Patient Name: Cleve Burns Date of : 1945 Sex: Male Admit Date/Time: 08/01/2024 4:15 PM Discharge Date: 08/15/24 HPI: From H&P: This is a 79-year-old male past medical history significant for hypertension, anemia,hyperlipidemia who presented to [facility] emergency department on 07/30/2024 for complaints of right hip pain status post slip and fall on ice prior to arrival. X-ray of the hip without overt fracture but the exam was limited so a CT of the hip was obtained. CT scan of the hip showed acute fracture of the right pubic body extending to the adjacent portion of the superior and inferior pubic rami. Minimal displacement. No other fractures were seen. Case was discussed with orthopedics Dr. Spann who recommended orthopedic evaluation And hospital admission. He was seen by the orthopedic team and was deemed to be a nonsurgical candidate they recommended toe-touch weightbearing to right lower extremity and rehab placement. He was stabilized and sent to this facility on 08/01/2024 for physical therapy, occupational therapy and nursing care. HOSPITAL COURSE: #Impaired mobility and self-care -Secondary to slip and fall and fracture -Continue PT/OT and nursing care #Right superior and inferior pubic rami fractures -evaluated by [facility] JAY Wilkerson & Dr Spann -Non surgical management -TTWB to E -continue therapies -Follow up with [facility] after discharge #Left buttock pain -CT pelvis completed 08/08 redemonstrated right superior and inferior pubic rami fracture with no additional pelvic fracture or hip fracture appreciated -continue pain control as outlined below #Pain management -Acetaminophen 975mg Q8H -Lidocaine patch daily -Oxycodone 5mg Q6H PRN --> 08/07 changed to 5 mg Q4H due to increased pain -Flexeril 5mg TID started 08/05 -Gabapentin 200 mg BID started 08/09 #Hypertension -ASA 81 mg daily -Amlodipine 2.5 mg nightly discontinued on 08/13 due to hypotension -Lisinopril 20 mg nightly #Hyperlipidemia -Atorvastatin 80 mg nightly #GERD -Protonix 40 mg daily #Bladder diverticulum -patient was noted to have a 1.5 cm bladder diverticulum on the right on CT pelvis 07/30/[address] [facility] --> redemonstrated on CT pelvis 08/08/24 -Patient will need to follow-up with PCP after discharge for further management #Bowel management -Colace 100mg BID -Senna 2 tabs QHS #DVT ppx: Lovenox 40mg daily (will need to continue until follow up with Ortho after discharge due to TTWB to RLE) PHYSICAL EXAMINATION: Vitals: 08/13/24 2157 08/13/24 2327 08/14/24 0843 08/14/24 1242 BP: (!) 152/81 (!) 146/99 134/75 97/72 BP Location: Right arm Right arm Patient Position: Lying Sitting Lying Pulse: 81 88 Resp: 16 16 Temp: 36.5 ??C (97.7 ??F) 36.5 ??C (97.7 ??F) TempSrc: Oral Oral SpO2: 96% 100% Weight: General: Alert, in no acute cardiopulmonary distress. Mental Status: Oriented to person, place and time. Normal affect. Head: Normocephalic. Eyes: Extraocular muscles grossly intact. Ear, Nose and Throat: Oropharynx clear, mucous membranes moist. Ears and nose without masses, lesions or deformities. Neck: Supple, Trachea midline. Respiratory: Clear to auscultation and percussion. No wheezing, rales or rhonchi. Cardiovascular: Heart sounds normal. No thrills. Regular rate and rhythm, no murmurs, rubs or gallops. Gastrointestinal: Abdomen soft, non-tender, non-distended. Normal bowel sounds. Neurologic: Cranial nerves II-XII grossly intact. Negative clonus bilaterally. Moves all extremities spontaneously. Sensation intact bilaterally. Skin: No rashes or lesions. No petechiae or purpura. No edema. Musculoskeletal: No cyanosis or clubbing. No gross deformities. Normal range of motion. Antigravitystrength all 4 extremities. FUNCTIONAL STATUS: PT: PT PLAN: Patient discharged from this level of care, therapist recommending home PT once discharged from this level of care. Pt has progressed to mod I mobility, using RW for household distances and wheelchair for community mobility and negotiating ramp. Pt is limited by pain in left buttock/hip with prolonged standing and gait, due to TTWB RLE and previous impairments to LLE. Recommending home PT services to continue to progress strength, balance and mobility. OT: Plan Treatment Interventions: ADL retraining, Functional transfer training, UE strengthening/ROM, Endurance training OT Plan: Skilled OT OT Frequency : 5-7 days per week OT Duration of Sessions: 90 min per day OT Treatments per day: 1 time per day OT - Evaluation Status: Complete OT Discharge Recommendations: (TBD at d/c) Equipment Recommended: (TBD at d/c) LABS: Lab Results Component Value Date WBC 9.2 08/07/2024 RBC 3.80 (L) 08/07/2024 HGB 11.0 (L) 08/07/2024 HCT 33.3 (L) 08/07/2024 MCV 88.1 08/07/2024 MCHC 33.0 08/07/2024 RDW 13.2 08/07/2024 PLT 392 08/07/2024 MPV 9.5 08/07/2024 NRBC 0.0 08/07/2024 DIFF Lab Results Component Value Date LYMPHOPCT 23.7 08/02/2024 NEUTROABS 6.90 08/02/2024 LYMPHSABS 2.91 08/02/2024 MONOABS 1.40 (H) 08/02/2024 EOSABS 0.85 (H) 08/02/2024 BASOSABS 0.09 08/02/2024 IMMGRANABS 0.14 (H) 08/02/2024 RETIC No results found for: RETIC , RETICCTPCT Lab Results Component Value Date NA 138 08/07/2024 K 4.6 08/07/2024 CL 106 08/07/2024 CO2 30 08/07/2024 GLUCOSE 105 (H) 08/07/2024 BUN 17 08/07/2024 CREATININE 1.11 08/07/2024 CALCIUM 9.0 08/07/2024 PROT 6.3 08/02/2024 ALBUMIN 3.1 (L) 08/02/2024 BILITOT 1.2 08/02/2024 AST 21 08/02/2024 ALT 28 08/02/2024 ALKPHOS 75 08/02/2024 EGFR 68 08/07/2024 IMAGING: CT Pelvis wo Contrast [[id number]] Collected: 08/08/24 1627 Order Status: Completed Updated: 08/08/24 1637 Narrative: History: Left buttock pain status post fall. Known right pubic fracture. Comparison: There are no comparison images available at this time. Technique: Helical volumetric imaging of the bony pelvis was performed, to include both hips. DLP: 648.85 mGy/cm [employer] VCT Iterative reconstruction technique Findings: Acute, nondisplaced fractures of the right superior and inferior pubic rami are noted. The pelvic bones are otherwise intact. No sacral fracture is identified. The sacroiliac joints are well-maintained. There is moderate loss of cartilage space in both hips. The femoral head contours are smooth. Thereis no evidence of a hip fracture. There is no significant hematoma formation associated with the right pubic ramus fractures. A smallbladder diverticulum is noted and there is mild, diffuse thickening of the bladder wall, a finding suggesting chronic bladder outlet obstruction. The prostate is enlarged. Diverticulosis of the partially imaged colon is noted. Impression: Impression: 1. Acute, nondisplaced right pubic ramus fractures. 2. No additional pelvic fracture identified. 3. No evidence of hip fracture. DISCHARGE MEDICATIONS: Your medication list ASK your doctor about these medications Instructions Last Dose Given Next Dose Due acetaminophen 325 mg tablet Commonly known as: TYLENOL Take 2 tablets (650 mg total) by mouth every 6 (six) hours if needed for mild pain. amLODIPine 2.5 mg tablet Commonly known as: NORVASC Take 1 tablet (2.5 mg total) by mouth at bedtime. aspirin 81 mg chewable tablet Chew 1 tablet (81 mg total) at bedtime. atorvastatin 80 mg tablet Commonly known as: LIPITOR Take 1 tablet by mouth once daily docusate sodium 100 mg capsule Commonly known as: COLACE Take 1 capsule (100 mg total) by mouth 2 (two) times a day if needed for constipation. lisinopriL 20 mg tablet Commonly known as: PRINIVIL,ZESTRIL Take 1 tablet by mouth once daily magnesium hydroxide 400 mg/5 mL suspension Commonly known as: MILK OF MAGNESIA Take 30 mL by mouth 1 (one) time each day if needed for constipation. omeprazole OTC 20 mg EC tablet Commonly known as: PriLOSEC OTC Take 1 tablet (20 mg total) by mouth 2 (two) times a day. Do not crush, chew, or split. traMADoL 25 mg tablet Take 25 mg by mouth every 6 (six) hours if needed (mod pain). Max Daily Amount: 100 mg DISCHARGE RECOMMENDATIONS: Code Status: Full Code - Default Diet: regular Weight Bearing Precautions: right lower extremity toe touch weight bearing Wound Care Instructions: n/a Patient/PCP Follow Up Instructions: Lovenox has been sent to your pharmacy, continue this medication until your follow up with orthopedics DISCHARGE FOLLOW UP APPOINTMENTS: Go to [facility] Tuesday 10:15am [address] [facility] phone [phone] fax [phone] Aug 27 Hospital Follow-Up with Viviana Hastings MD Tuesday 1:30 PM (Arrive by 1:15 PM) [address] [address] Dec 11 Follow-Up with Viviana Hastings MD Tuesday 8:30 AM (Arrive by 8:15 AM) Please bring your insurance card and/or Information, photo ID, a copy of your current medication list and a copayment if required by your insurance company [address] [address] Cosigned by Pauline Batista DO at 08/15/2024 10:08 AM EST Associated attestation - Pauline Batista DO - 08/15/2024 10:08 AM EST Patient hemodynamically and functionally stable for discharge. Agree with discharge summary as documented by PA aside from the following: Medication list and discharge summary is incorrect. The following medications will be continued on discharge: Tylenol 975 every 8 hours Aspirin 81 mg nightly Atorvastatin 80 mg nightly Cyclobenzaprine 5 mg 3 times daily Colace 100 mg twice daily Enoxaparin 40 mg daily Gabapentin 200 mg twice daily Lidocaine patch daily Lisinopril 20 mg nightly Pantoprazole 40 mg daily Senna 2 tabs nightly Oxycodone 5 mg every 4 hours as needed x 5 days Patient was incidentally noted to have a 1.5 cm bladder diverticulum on CT pelvis 07/[address] [facility]. This was redemonstrated on CT pelvis completed 08/08. Patient will need to follow-up with PCP after discharge for further management. Continuing [facility]ustodial Medical Care [facility] Services: Home Health Services Address: [address] [place] [address], [address], [address], [facility] [address] Instructions: [facility] will contact you within 24-48hrs to schedule a home visit, If you do not hear from [facility] please call [phone]. Services: Long-Term,Occupational Therapy,Physical therapy and a Home Health Aide. documented in this encounter Discharge Instructions * Attachments The following attachments cannot be sent through Care Everywhere. * Enoxaparin Injectable Solution (ENOXAPARIN - INJECTION) (Lithuanian) documented in this encounter Medications at Time of Discharge acetaminophen (TYLENOL) 325 mg tablet Take 3 tablets (975 mg total) by mouth every 8 (eight) hours for 10 days. 30 tablet 08/14/2024 5 aspirin 81 mg chewable tabletIndications:pr evention of cerebrovascular accident Chew 1 tablet (81 mg total) at bedtime. 30 each 08/14/2024 5 atorvastatin (LIPITOR) 80 mg tablet Take 1 tablet (80 mg total) by mouth at bedtime. 30 each 08/14/2024 5 cyclobenzaprine (FLEXERIL) 5 mg tablet Take 1 tablet (5 mg total) by mouth 3 (three) times a day. 30 tablet 08/14/2024 5 docusate sodium (COLACE) 100 mg capsule Take 1 capsule (100 mg total) by mouth 2 (two) times a day. 60 each 08/14/2024 5 enoxaparin (LOVENOX) 40 mg/0.4 mL syringeIndications:d eep vein thrombosis prevention Inject 0.4 mL (40 mg total) under the skin 1 (one) time each day for 2 days. 2 each 08/15/2024 5 gabapentin (NEURONTIN) 100 mg capsule Take 2 capsules (200 mg total) by mouth 2 (two) times a day. 120 each 11 08/14/2024 6 lidocaine 4 % patch Apply 1 patch topically 1 (one) time each day. 30 each 08/15/2024 5 lisinopriL (PRINIVIL,ZESTRIL) 20 mg tablet Take 1 tablet (20 mg total) by mouth at bedtime. 30 each 08/14/2024 5 oxyCODONE (ROXICODONE) 5 mg immediate release tablet Take 1 tablet (5 mg total) by mouth every 4 (four) hours if needed for severe pain or moderate pain for up to 5 days. Max Daily Amount: 30 mg 15 tablet 08/14/2024 5 pantoprazole (PROTONIX) 40 mg EC tablet Take 1 tablet (40 mg total) by mouth 1 (one) time each day before breakfast. Do not crush, chew, or split. 30 each 08/15/2024 5 senna (SENOKOT) 8.6 mg tablet Take 2 tablets (17.2 mg total) by mouth at bedtime. 60 each 08/14/2024 6 documented as of this encounter Ordered Prescriptions Prescription Sig Dispense Quantity Refills Last Filled Start Date End Date senna (SENOKOT) 8.6 mg tablet Take 2 tablets (17.2 mg total) by mouth at bedtime. 60 each 08/14/2024 6 oxyCODONE (ROXICODONE) 5 mg immediate release tablet Take 1 tablet (5 mg total) by mouth every 4 (four) hours if needed for severe pain or moderate pain for up to 5 days. Max Daily Amount: 30 mg 15 tablet 08/14/2024 5 lidocaine 4 % patch Apply 1 patch topically 1 (one) time each day. 30 each 08/15/2024 5 gabapentin (NEURONTIN) 100 mg capsule Take 2 capsules (200 mg total) by mouth 2 (two) times a day. 120 each 08/14/2024 6 enoxaparin (LOVENOX) 40 mg/0.4 mL syringeIndications:d eep vein thrombosis prevention Inject 0.4 mL (40 mg total) under the skin 1 (one) time each day for 2 days. 2 each 08/15/2024 5 cyclobenzaprine (FLEXERIL) 5 mg tablet Take 1 tablet (5 mg total) by mouth 3 (three) times a day. 30 tablet 08/14/2024 5 pantoprazole (PROTONIX) 40 mg EC tablet Take 1 tablet (40 mg total) by mouth 1 (one) time each day before breakfast. Do not crush, chew, or split. 30 each 08/15/2024 5 lisinopriL (PRINIVIL,ZESTRIL) 20 mg tablet Take 1 tablet (20 mg total) by mouth at bedtime. 30 each 08/14/2024 5 docusate sodium (COLACE) 100 mg capsule Take 1 capsule (100 mg total) by mouth 2 (two) times a day. 60 each 08/14/2024 5 atorvastatin (LIPITOR) 80 mg tablet Take 1 tablet (80 mg total) by mouth at bedtime. 30 each 08/14/2024 5 aspirin 81 mg chewable tabletIndications:pr evention of cerebrovascular accident Chew 1 tablet (81 mg total) at bedtime. 30 each 08/14/2024 5 acetaminophen (TYLENOL) 325 mg tablet Take 3 tablets (975 mg total) by mouth every 8 (eight) hours for 10 days. 30 tablet 08/14/2024 5 documented in this encounter Discharge Disposition Disposition Code Departure Means Destination Comment s [place] [facility] documented in this encounter Progress Notes * JAY Sheridan - 08/14/2024 2:31 PM EST Images from the original note were not included. PHYSICAL MEDICINE AND REHABILITATION Documentation of Face to Face Encounter Patient Name: Cleve Burns Date of : 1945 Sex: Male Addendum to Home Health Plan of Care 1. Date of Face to Face Encounter: I certify that this patient is under my care and that I, or an allowed non-physician practitioner working with me, had a [id number] encounter with the patient on the date specified below. Medicare's allowed non-physician practitioners are PAs, sanding line operator, CNSs, and nurse midwives. Month/Day/Year: 08/14/24 2. The encounter with the patient was in whole, or in part, for the following medical condition, which is the primary reason for home health care. List Medical Conditions: hypertension, anemia, hyperlipidemia , recent right superior and inferioirpubic rami fx 3. Based on clinical findings of this encounter, I certify the following services are medically necessary. [ X ] Nursing [X ] Physical Therapy [ X] Occupational Therapy [ ] Speech Therapy [ X ] Home Health Aide [ ] Hha 4. Based on clinical findings of this encounter, the patient has a need for these skilled services because: [ ] Wound assessment and/or care. [ X ] Monitoring anticoagulant therapy. [ X ] Medication management. [ ] Teaching: Heart failure management. [ ] Teaching: Diabetes mellitus management. [ ] Teaching: COPD management. [ X ] Assessment of functional deficits and home safety evaluation. [ ] Therapeutic exercises. [ X ] Gait training. [ X ] ADL training. [ ] Therapeutic exercise to improve swallowing. [ ] Therapeutic exercise to improve language function. [ ] Therapeutic exercise to improve cognitive function. [ ] Intermediation in the delivery of necessary services. [X ] Assessment of home and social environment and its conduciveness toward promoting health, safety, and wellbeing. 5. Based on clinical findings of this encounter, I certify this patient meets the definition of homebound (i.e. absences from home require considerable & taxing effort, are infrequent and of short duration, usually related to medical reasons/mu-ism services) because: [X ] Unsteady gait with significant risk of falls. [ ] Requires assistive device for safe ambulation [ ] Requires assistance of another person for safe ambulation. [ ] Nonambulatory: Confined to bed or chair. [ ] Dyspnea with minimal exertion. [ X ] Limited endurance secondary to medical conditions listed above. [ ] Cognitive impairment. Cosigned by Pauline Batista DO at 08/15/2024 10:08 AM EST Associated attestation - Pauline Batista DO - 08/15/2024 10:08 AM EST Agree with face to face note as documented by JAY. * JAY Sheridan - 08/14/2024 12:43 PM EST Images from the original note were not included. [facility] Daily Progress Note Patient name: Cleve Burns : 1945 SUBJECTIVE: Patient seen and examined at bedside today. No acute events overnight. Denies headaches, dizziness,shortness of breath, chest pain, nausea, constipation. Reports that pain is stable. Today patient has not been complaining of dizziness and has felt much better after amlodipine was stopped. Offers no complaints at this time and is beyond excited to go home OBJECTIVE: Vitals: 08/13/24 2157 08/13/24 2327 08/14/24 0843 08/14/24 1242 BP: (!) 152/81 (!) 146/99 134/75 97/72 BP Location: Right arm Right arm Patient Position: Lying Sitting Lying Pulse: 81 88 Resp: 16 16 Temp: 36.5 ??C (97.7 ??F) 36.5 ??C (97.7 ??F) TempSrc: Oral Oral SpO2: 96% 100% Weight: Physical Examination: General: Alert, in no acute cardiopulmonary distress. Mental Status: Oriented to person, place and time. Normal affect. Head: Normocephalic. Eyes: Extraocular muscles grossly intact. Ear, Nose and Throat: Oropharynx clear, mucous membranes moist. Ears and nose without masses, lesions or deformities. Neck: Supple, Trachea midline. Respiratory: Clear to auscultation and percussion. No wheezing, rales or rhonchi. Cardiovascular: Heart sounds normal. No thrills. Regular rate and rhythm, no murmurs, rubs or gallops. Gastrointestinal: Abdomen soft, non-tender, non-distended. Normal bowel sounds. Neurologic: Cranial nerves II-XII grossly intact. Negative clonus bilaterally. Moves all extremities spontaneously. Sensation intact bilaterally. Skin: No rashes or lesions. No petechiae or purpura. No edema. Musculoskeletal: No cyanosis or clubbing. No gross deformities. Normal range of motion. Antigravitystrength all 4 extremities. CURRENT INPATIENT MEDICATIONS: Current Facility-Administered Medications: acetaminophen (TYLENOL) tablet 975 mg, 975 mg, oral, q8h NIMCO, Pauline Batista DO, 975 mg at 08/14/24 0537 aspirin chewable tablet 81 mg, 81 mg, oral, Nightly, Magdi Torres, PA, 81 mg at 08/13/242155 atorvastatin (LIPITOR) tablet 80 mg, 80 mg, oral, Nightly, Magdi Torres, PA, 80 mg at 08/13/24 2156 bisacodyL (DULCOLAX) suppository 10 mg, 10 mg, rectal, Daily PRN, Magdi Torres, PA, 10 mg at 08/02/242017 cyclobenzaprine (FLEXERIL) tablet 5 mg, 5 mg, oral, TID, Kymberly Segal, CORE JAVA ENGINEER, 5 mg at 08/14/24 0848 docusate sodium (COLACE) capsule 100 mg, 100 mg, oral, BID, Magdi Torres, PA, 100 mg at 848 enoxaparin (LOVENOX) injection 40 mg, 40 mg, subcutaneous, Daily, Magdi Torres, PA, 40 mg at 08/14/24 0848 gabapentin (NEURONTIN) capsule 200 mg, 200 mg, oral, BID, Magdi Torres, PA, 200 mg at 08/14/24 0848 lidocaine 4 % patch 1 patch, 1 patch, Topical, Daily, Pauline Batista DO, 1 patch at 08/14/24 0849 lisinopriL (PRINIVIL,ZESTRIL) tablet 20 mg, 20 mg, oral, Nightly, Magdi Torres, PA, 20 mg at 08/13/24 2157 magnesium hydroxide (MILK OF MAGNESIA) 400 mg/5 mL suspension 30 mL, 30 mL, oral, Daily PRN, Magdi Torres, PA, 30 mL at 08/02/24 0855 ondansetron ODT (ZOFRAN-ODT) disintegrating tablet 4 mg, 4 mg, oral, q8h PRN, Magdi Torres, PA, 4 mg at 08/02/24 1328 oxyCODONE (ROXICODONE) immediate release tablet 5 mg, 5 mg, oral, q4h PRN, JAY Sheridan, 5 mg at 08/14/24 0848 pantoprazole (PROTONIX) EC tablet 40 mg, 40 mg, oral, q AM AC, JAY Sheridan, 40 mg at 08/14/24 0537 senna (SENOKOT) tablet 17.2 mg, 2 tablet, oral, Nightly, Pauline Batista DO, 17.2 mg at 08/13/24 2158 LABS: Lab Results Component Value Date WBC 9.2 08/07/2024 RBC 3.80 (L) 08/07/2024 HGB 11.0 (L) 08/07/2024 HCT 33.3 (L) 08/07/2024 MCV 88.1 08/07/2024 MCHC 33.0 08/07/2024 RDW 13.2 08/07/2024 PLT 392 08/07/2024 MPV 9.5 08/07/2024 NRBC 0.0 08/07/2024 DIFF Lab Results Component Value Date LYMPHOPCT 23.7 08/02/2024 NEUTROABS 6.90 08/02/2024 LYMPHSABS 2.91 08/02/2024 MONOABS 1.40 (H) 08/02/2024 EOSABS 0.85 (H) 08/02/2024 BASOSABS 0.09 08/02/2024 IMMGRANABS 0.14 (H) 08/02/2024 RETIC No results found for: RETIC , RETICCTPCT Lab Results Component Value Date NA 138 08/07/2024 K 4.6 08/07/2024 CL 106 08/07/2024 CO2 30 08/07/2024 GLUCOSE 105 (H) 08/07/2024 BUN 17 08/07/2024 CREATININE 1.11 08/07/2024 CALCIUM 9.0 08/07/2024 PROT 6.3 08/02/2024 ALBUMIN 3.1 (L) 08/02/2024 BILITOT 1.2 08/02/2024 AST 21 08/02/2024 ALT 28 08/02/2024 ALKPHOS 75 08/02/2024 EGFR 68 08/07/2024 IMPRESSION & PLAN: #Impaired mobility and self-care -Secondary to slip and fall and fracture -Continue PT/OT and nursing care #Right superior and inferior pubic rami fractures -evaluated by [facility] JAY Wilkerson & Dr Spann -Non surgical management -TTWB to RLE -continue therapies -Follow up with [facility] after discharge #Left buttock pain -CT pelvis completed 08/08 redemonstrated right superior and inferior pubic rami fracture with no additional pelvic fracture or hip fracture appreciated -continue pain control as outlined below #Pain management -Acetaminophen 975mg Q8H -Lidocaine patch daily -Oxycodone 5mg Q6H PRN --> 08/07 changed to 5 mg Q4H due to increased pain -Flexeril 5mg TID started 08/05 -Gabapentin 200 mg BID started 08/09 #Hypertension -ASA 81 mg daily -Amlodipine 2.5 mg nightly discontinued on 08/13 due to hypotension -Lisinopril 20 mg nightly #Hyperlipidemia -Atorvastatin 80 mg nightly #GERD -Protonix 40 mg daily #Bladder diverticulum -patient was noted to have a 1.5 cm bladder diverticulum on the right on CT pelvis 07/30/[address] [facility] --> redemonstrated on CT pelvis 08/08/24 -Patient will need to follow-up with PCP after discharge for further management #Bowel management -Colace 100mg BID -Senna 2 tabs QHS #DVT ppx: Lovenox 40mg daily (will need to continue until follow up with Ortho after discharge due to TTWB to RLE) Cosigned by Pauline Batista DO at 08/14/2024 4:20 PM EST Associated attestation - Pauline Batista DO - 08/14/2024 4:20 PM EST Agree with progress note, assessment, and plan as documented by PA. * Matty Vega OT - 08/14/2024 12:30 PM EST [facility] Occupational Therapy Discharge Note 08/14/24 Patient: Cleve Burns : 1945 Age: 79 y.o. Gender: male Diagnosis: Pubic bone fracture (CMS/HCC) Primary Rehab (Etiologic) Diagnosis: Patient Active Problem List Diagnosis Anemia Essential hypertension Hypercholesteremia Thalamic stroke (CMS/HCC) Tongue cancer (CMS/HCC) Pubic bone fracture (CMS/HCC) PMH: Past Medical History: Diagnosis Date CVA (cerebral vascular accident) (CMS/HCC) Tobacco use DX:Tobacco use Tongue cancer (CMS/HCC) PSH: Past Surgical History: Procedure Laterality Date KNEE SURGERY PROCEDURE: HISTORICAL KNEE SURGERY MOUTH SURGERY PROCEDURE: ORAL SURGERY PROCEDURE; COMMENT: tongue surgery OTHER SURGICAL HISTORY PROCEDURE: LA CLOSURE INTESTINAL CUTANEOUS FISTULA VASECTOMY PROCEDURE: HISTORICAL VASECTOMY Allergies: has No Known Allergies. Precautions: Precautions Medical Precautions: Fall Risk Safety Interventions: Call arevalo within reach RUE Weight Bearing Status: Full LUE Weight Bearing Status: Full RLE Weight Bearing Status: Toe Touch LLE Weight Bearing Status: Full Vitals: BP: 132/75 Heart Rate: (!) 116 Pain: Pain Assessment: 0-10 Pain Score: 3 Pain Type: Acute pain Pain Location: Buttocks Pain Orientation: Left Patient Subjective: I don't know if she got the frame yet. Session Summary from 08/14/24 D/c julietaal completed, see below. CAMS Discharge Is there evidence of an acute change in mental status from the patient's baseline?: No (08/14/24 1230 : Matty Vega OT) Inattention: Behavior not present (08/14/24 1230 : Matty Vega OT) Disorganized thinking: Behavior not present (08/14/24 1230 : Matty Vega OT) Altered level of consciousness: Behavior not present (08/14/24 1230 : Matty Vega OT) BIMS Discharge 12 (08/14/24 1230 : Matty Vega OT) Hearing, Speech, and Vision- Discharge Hearing, Speech, and Vision Ability to Hear: Adequate Ability to See in Adequate Light: Adequate Expression of Ideas and Wants: Without difficulty Understanding Verbal and Non-Verbal Content: Understands FUNCTIONAL STATUS ADL ASSIST Eating Assistance Needed: Independent Oral Hygiene Oral Hygiene Assistance Needed: Independent CARE Score - Oral Hygiene: 6 Toileting Toileting Hygiene Assistance Needed: Independent Physical Assistance Level: No physical assistance Comment: safety frame and RW CARE Score - Toileting Hygiene: 6 Bathing Shower/Bathe Self Assistance Needed: Independent Physical Assistance Level: No physical assistance Comment: sponge bathing from w/c level. CARE Score - Shower/Bathe Self: 6 UE Dressing Upper Body Dressing Assistance Needed: Independent CARE Score - Upper Body Dressin LE Dressing Lower Body Dressing Assistance Needed: Independent Physical Assistance Level: No physical assistance Comment: RW for UE support during stand. CARE Score - Lower Body Dressin Footwear Putting On/Taking Off Footwear Assistance Needed: Independent Physical Assistance Level: No physical assistance CARE Score - Putting On/Taking Off Footwear: 6 Toilet Transfer Assistance Needed: Independent Tub/Shower Transfer S with use of tub bench Equipment Provided: recommended toilet safety frame, pt unsure if obtained yesterday, educatedon obtaining from [employer] or [employer] as an option prior to d/c. Pt opting to sponge bath at home, thus declining tub bench at this time. ADL Comments: Pt has progressed to mod I with ADLs including sponge bathing. Pt able to perform light greyson prep/snack retrieval from w/c, recommending assist for heavy meal prep from , pt agreeable. Vision: no changes in vision since admission. Perception: Perception Inattention/Neglect: Appears intact Initiation: Appears intact Motor Planning: Appears intact Proprioception: Proprioception Proprioception: No apparent deficits Sensation: Sensation Light Touch: No apparent deficits Sensation Comments: pt reports no numbness or tingling anywhere. Hand Function: Hand Function Gross Grasp: Functional Coordination: Coordination Coordination: Functional Balance: Static sitting balance Static Sitting Balance Static Sitting-Level of Assistance: Independent Dynamic sitting balance Dynamic Sitting Balance Dynamic Sitting-Level of Assistance: Independent Static standing balance Static Standing Balance Static Standing-Level of Assistance: Independent Dynamic standing balance Dynamic Standing Balance Dynamic Standing-Level of Assistance: Independent UPPER EXTREMITY ASSESSMENTS RUE Assessment RUE Assessment: Within Functional Limits RUE Strength R Shoulder Flexion: 4+/5 R Shoulder ABduction: 4+/5 R Elbow Flexion: 5/5 R Elbow Extension: 5/5 R Wrist Flexion: 4+/5 R Wrist Extension: 4+/5 LUE Assessment LUE Assessment: Within Functional Limits LUE Strength L Shoulder Flexion: 4+/5 L Shoulder ABduction: 4+/5 L Elbow Flexion: 5/5 L Elbow Extension: 5/5 L Wrist Flexion: 4+/5 L Wrist Extension: 4+/5 STANDARDIZED TESTS Right Hand Strength - Social Services (lbs) Handle Setting 2: 84 lbs Right Hand Strength - Pinch (lbs) Lateral: 19 lbs Three Jaw Sajan: 17.5 lbs Left Hand Strength - Social Services (lbs) Handle Setting 2: 87 lbs Left Hand Strength - Pinch (lbs) Lateral: 16 lbs Three Jaw Sajan: 18 lbs Procedures/Interventions: D/c re-eval - 15 minutes ADLs/IADLs Self Care/Home Management (ADLs) Time Entry: 45 Pt in elevated supine upon arrival agreeable to participation. Elevated supine>sit mod I. SPT noAD with cues for TDWB R LE. Pt propelled self to shower stall. Functional amb at RW >< showerstall mod I. Pt doffed pants and shirt with mod I with use of RW in stand. Pt bathed entirely seated with use of hand held shower with S, weight shifting to bathe buttocks. Post shower, STS at RW, with cues for use of RW, to dry buttocks. Once back in room pt retrieved clothing from closet mod I w/c level. Pt donned shirt mod I, and LB clothing mod I, with use of RW in stand. Vitals assessed postshower, see above. Pt propelled self from room><gym mod I. Once back in room pt set self up at bed and performed SPT no AD mod I. Sit>supine mod I. Bed alarm on and call arevalo in reach. Therapeutic Exercise Therapeutic Exercise Time Entry: 30 Pt engaged in UB there ex to increase Overall strength and endurance for ADL/IADLs and functional mobility. Pt performed 10 reps x4 of shoulder abduction, overhead press, elbow flexion, overhead elbow extension, and shoulder flexion, with use of 3 lb dumbbells. Rest breaks taken throughout. OT Plan OT Discharge Recommendations: Home OT Equipment Recommended: Toilet safety frame, Tub transfer bench OT - OK to Discharge: Yes Goals: Encounter Problems Encounter Problems (Active) Template: Occupational Therapy Problem: OT Short Term Goals Dates: Start: 08/02/24 Goal: Patient will perform toileting with STAND BY ASSIST without adaptive devices as appropriate. Dates: Start: 08/02/24 Expected End: 08/09/24 Outcomes Date/Time User Outcome 08/09/24 123Tona Vega OT Progressing Goal: Patient will perform bathing with STAND BY ASSIST without adaptive devices as appropriate. Dates: Start: 08/02/24 Expected End: 08/09/24 Outcomes Date/Time User Outcome 08/09/24 Calin Vega OT Progressing Goal: Patient will perform Lower body dressing with MINIMAL ASSIST using adaptive/assistive devicesas appropriate. (Resolved) Dates: Start: 08/02/24 Expected End: 08/09/24 Resolved: 08/09/24 Outcomes Date/Time User Outcome 08/09/24 123Tona Vega OT Completed Goal: Patient will complete toilet transfers with with MINIMAL ASSIST using least restrictive assistive device (Resolved) Dates: Start: 08/02/24 Expected End: 08/09/24 Resolved: 08/09/24 Outcomes Date/Time User Outcome 08/09/24 123Tona Vega OT Completed Goal: Patient will complete Tub Transfer with with MODERATE ASSIST using least restrictive assistive device (Resolved) Dates: Start: 08/02/24 Expected End: 08/09/24 Resolved: 08/09/24 Outcomes Date/Time User Outcome 08/09/24 1235 Matty Vega OT Completed Encounter Problems (Resolved) Template: Occupational Therapy Problem: OT Template Fitter Goals Dates: Start: 08/02/24 Resolved: 08/14/24 Goal: Patient will perform toileting at a MODIFIED INDEPENDENT level without adaptive devices as appropriate. (Resolved) Dates: Start: 08/02/24 Expected End: 08/16/24 Resolved: 08/14/24 Outcomes Date/Time User Outcome 08/14/24 1301 Matty Vega OT Completed Goal: Patient will perform bathing at a MODIFIED INDEPENDENT level using adaptive devices as appropriate. (Resolved) Dates: Start: 08/02/24 Expected End: 08/16/24 Resolved: 08/14/24 Outcomes Date/Time User Outcome 08/14/24 1301 Matty Vega OT Completed Goal: Patient will perform Lower body dressing at a MODIFIED INDEPENDENT level using adaptive/assistive devices as appropriate. (Resolved) Dates: Start: 08/02/24 Expected End: 08/16/24 Resolved: 08/14/24 Outcomes Date/Time User Outcome 08/14/24 1301 Matty Vega OT Completed Goal: Patient will complete toilet transfers with at a MODIFIED INDEPENDENT level using least restrictive assistive device (Resolved) Dates: Start: 08/02/24 Expected End: 08/16/24 Resolved: 08/14/24 Outcomes Date/Time User Outcome 08/14/24 1301 Matty Vega OT Completed Goal: Patient will complete Tub Transfer with with SUPERVISION using least restrictive assistive device (Resolved) Dates: Start: 08/02/24 Expected End: 08/16/24 Resolved: 08/14/24 Outcomes Date/Time User Outcome 08/14/24 1301 Matty Vega OT Completed OT Assessment OT Assessment OT Assessment Results: Decreased ADL status, Decreased endurance, Decreased functional mobility, Decreased IADLs Prognosis: Good Evaluation/Treatment Tolerance: Patient tolerated treatment well Comments: (pt has progressed to mod I with ADLs including sponge bathing. reccomending toilet safety frame. pt declining tub bench, agreeable to sponge bathing only.) Medical Staff Made Aware: No Comments: request for pain meds. Education Documentation How to Obtain Needed DME, taught by Matty Vega OT at 08/14/2024 1:34 PM. Learner: Patient Readiness: Acceptance Method: Explanation, Demonstration Response: Verbalizes Understanding, Demonstrated Understanding Body Mechanics, taught by Matty Vega OT at 08/14/2024 1:34 PM. Learner: Patient Readiness: Acceptance Method: Explanation, Demonstration Response: Verbalizes Understanding, Demonstrated Understanding Precautions, taught by Matty Vega OT at 08/14/2024 1:34 PM. Learner: Patient Readiness: Acceptance Method: Explanation, Demonstration Response: Verbalizes Understanding, Demonstrated Understanding ADL Training, taught by Matty Vega OT at 08/14/2024 1:34 PM. Learner: Patient Readiness: Acceptance Method: Explanation, Demonstration Response: Verbalizes Understanding, Demonstrated Understanding Education Comments No comments found. 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 * Yesenia Vasquez PT - 08/14/2024 8:30 AM EST [facility] Physical Therapy Discharge Evaluation Note 08/14/24 Patient: Cleve Burns : 1945 Age: 79 y.o. Gender: male Primary Language: Lithuanian Diagnosis: Pubic bone fracture (CMS/HCC) HPI: see EMR Past Medical History: Diagnosis Date CVA (cerebral vascular accident) (CMS/HCC) Tobacco use DX:Tobacco use Tongue cancer (CMS/HCC) Past Surgical History: Procedure Laterality Date KNEE SURGERY PROCEDURE: HISTORICAL KNEE SURGERY MOUTH SURGERY PROCEDURE: ORAL SURGERY PROCEDURE; COMMENT: tongue surgery OTHER SURGICAL HISTORY PROCEDURE: LA CLOSURE INTESTINAL CUTANEOUS FISTULA VASECTOMY PROCEDURE: HISTORICAL VASECTOMY Allergies: has No Known Allergies. Precautions: Medical Precautions: Fall Risk Safety Interventions: Call arevalo within reach RUE Weight Bearing Status: Full LUE Weight Bearing Status: Full RLE Weight Bearing Status: Toe Touch LLE Weight Bearing Status: Full SUBJECTIVE I'm excited to be back home Home Living: Type of Home: House Lives With: Spouse, Son (Pts son lives with them part-time (T,W,R) pts son spends other days with his gf) Home Adaptive Equipment: Crutches Home Layout: Two level Home Access: Stairs to enter without rails Entrance Stairs-Rails: None Entrance Stairs-Number of Steps: 3 Bathroom Shower/Tub: Tub/shower unit (on first floor) Bathroom Toilet: Handicapped height Bathroom Equipment: Grab bars in shower Pain: Pain Assessment: 0-10 Pain Score: 2 Pain Location: Hip Pain Orientation: Left OBJECTIVE General Observation: Pt in bed upon arrival, agreeable to PT. Cognition/Communication: Orientation Level: Oriented X4 Vitals: BP: 134/75 Heart Rate: 88 SpO2: 100 % Skin: Defer to nursing documentation Sensation: Light Touch: No apparent deficits Proprioception: Proprioception: No apparent deficits Perception: Inattention/Neglect: Appears intact Coordination: Coordination: Functional Balance: Static Sitting Balance Static Sitting-Level of Assistance: Supervision or touching assistance Dynamic Sitting Balance Dynamic Sitting-Level of Assistance: Supervision or touching assistance Static Standing Balance Static Standing-Level of Assistance: Partial/moderate assistance Dynamic Standing Balance Dynamic Standing-Level of Assistance: Partial/moderate assistance Strength: RLE NT- TTWB, at least 3/5 with full movement against gravity LLE grossly 4/5 Range of Motion: WFL Edema: none QUALITY INDICATORS SCORING: Bed Mobility Roll Left and Right Assistance Needed: Independent Physical Assistance Level: No physical assistance CARE Score - Roll Left and Right: 6 Sit to Lying Assistance Needed: Independent Physical Assistance Level: No physical assistance CARE Score - Sit to Lyin Lying to Sitting on Side of Bed Assistance Needed: Independent Physical Assistance Level: No physical assistance CARE Score - Lying to Sitting on Side of Bed: 6 Transfers Sit to Stand Assistance Needed: Independent Physical Assistance Level: No physical assistance Comment: RW CARE Score - Sit to Stand: 6 Chair/Bhm-sv-Gkhej Transfer Assistance Needed: Independent Physical Assistance Level: No physical assistance Comment: RW CARE Score - Chair/Gcs-ld-Tfhbm Transfer: 6 Toilet Transfer Assistance Needed: Independent Physical Assistance Level: No physical assistance Comment: RW CARE Score - Toilet Transfer: 6 Car Transfer Assistance Needed: Independent Comment: RW CARE Score - Car Transfer: 6 Ambulation Walk 10 Feet Assistance Needed: Independent Physical Assistance Level: No physical assistance Comment: RW Reason if not Attempted: Safety concerns CARE Score - Walk 10 Feet: 6 Walk 50 Feet with Two Turns Assistance Needed: Independent Physical Assistance Level: No physical assistance Comment: RW Reason if not Attempted: Safety concerns CARE Score - Walk 50 Feet with Two Turns: 6 Walk 150 Feet Comment: pt tolerating up to 70', limite by pain with further distances Reason if not Attempted: Refused to perform CARE Score - Walk 150 Feet: 7 Walking 10 Feet on Uneven Surfaces Assistance Needed: Independent Physical Assistance Level: No physical assistance Comment: RW CARE Score - Walking 10 Feet on Uneven Surfaces: 6 Stairs 1 Step (Curb) Assistance Needed: Physical assistance Physical Assistance Level: 25% or less Comment: RW CARE Score - 1 Step (Curb): 3 4 Steps Comment: unable to maintain TTWB RLE Reason if not Attempted: Safety concerns CARE Score - 4 Steps: 88 12 Steps Comment: unable to maintain TTWB RLE Reason if not Attempted: Safety concerns CARE Score - 12 Steps: 88 Concession Manager Object Picking Up Object Assistance Needed: Independent Physical Assistance Level: No physical assistance 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 Uses a Wheelchair/Scooter?: Yes Wheel 50 Feet with Two Turns Assistance Needed: Independent CARE Score - Wheel 50 Feet with Two Turns: 6 Type of Wheelchair/Scooter: Manual Wheel 150 Feet Assistance Needed: Independent CARE Score - Wheel 150 Feet: 6 Type of Wheelchair/Scooter: Manual PT TREATMENT PROVIDED TODAY: Therapeutic Activity Therapeutic Activity Time Entry: 60 Pt received in bed, agreeable to PT. Supine > sit mod I. Pt donning pants mod I, standing to RW to hike over hips. Mod I transfer with RW to wheelchair. Mod I wheelchair mobility to the gym. Mod Itransfer with RW to mat table. Sit <> supine mod I. Gait with RW x90' to hallway bench, pt able to reach one hand back to sit on low surface, decreased eccentric control noted due to low height. Pt completing toileting mod I, able to negotiate small threshold in bathroom, no safety frame overtoilet but pt using L grab bar. Wheelchair mobility to patient lounge. Pt ambulating with RW on carpeting, releasing one UE to reach for objects to challenge standing balance, completed supervision. Pt transferring in and out of recliner, mod I. Wheelchair > room. Mod I SPT no AD to bed. Sit > supine mod I. Pt left in bed with alarm set, call arevalo within reach and all needs met. Therapeutic Exercise Therapeutic Exercise Therapeutic Exercise Time Entry: 15 3x10 hip abd/add AROM 3x10 heel slides AROM 3x10 LAQ AROM PT ASSESSMENT: Pt has progressed to mod I mobility, using RW for household distances and wheelchair for community mobility and negotiating ramp. Pt is limited by pain in left buttock/hip with prolonged standing andgait, due to TTWB RLE and previous impairments to LLE. Recommending home PT services to continue toprogress strength, balance and mobility. PT PLAN: Patient discharged from this level of care, therapist recommending home PT once discharged from this level of care. Goals: Encounter Problems Encounter Problems (Active) There are no active problems. Encounter Problems (Resolved) Template: Physical Therapy Problem: PT Template Fitter Goals Dates: Start: 08/02/24 Resolved: 08/14/24 Goal: Mod I bed mobility (Resolved) Dates: Start: 08/02/24 Expected End: 08/16/24 Resolved: 08/13/24 Outcomes Date/Time User Outcome 08/13/24 Esau Vasquez PT Completed Goal: Mod I transfers LRAD (Resolved) Dates: Start: 08/02/24 Expected End: 08/16/24 Resolved: 08/14/24 Outcomes Date/Time User Outcome 08/14/24 08Jaqueline Vasquez PT Completed Goal: Mod I gait x10' with RW (Resolved) Dates: Start: 08/02/24 Expected End: 08/16/24 Resolved: 08/14/24 Outcomes Date/Time User Outcome 08/14/24 08Jaqueline Vasquez PT Completed Goal: Mod I wheelchair mobility x150' (Resolved) Dates: Start: 08/02/24 Expected End: 08/16/24 Resolved: 08/13/24 Outcomes Date/Time User Outcome 08/13/24 08Guanako Vasquez PT Completed Goal: Pt will negotiate x3 stairs no railings partial A (Resolved) Dates: Start: 08/02/24 Expected End: 08/16/24 Resolved: 08/14/24 Outcomes Date/Time User Outcome 08/14/24 08Jaqueline Vasquez PT Adequate for Discharge Problem: PT Short Term Goals Dates: Start: 08/02/24 Resolved: 08/14/24 Goal: Supervision bed mobility (Resolved) Dates: Start: 08/02/24 Expected End: 08/09/24 Resolved: 08/14/24 Outcomes Date/Time User Outcome 08/14/24 08Jaqueline Vasquez PT Completed Goal: Steadying A transfers LRAD (Resolved) Dates: Start: 08/02/24 Expected End: 08/09/24 Resolved: 08/05/24 Outcomes Date/Time User Outcome 08/05/24 1533 Yesenia Vasquez PT Completed Goal: Assess gait (Resolved) Dates: Start: 08/02/24 Expected End: 08/09/24 Resolved: 08/05/24 Outcomes Date/Time User Outcome 08/05/24 1533 Yesenia Vasquez PT Completed Goal: Assess stairs (Resolved) Dates: Start: 08/02/24 Expected End: 08/09/24 Resolved: 08/05/24 Outcomes Date/Time User Outcome 08/05/24 1533 Yesenia Vasquez PT Completed Goal: Supervision transfers LRAD (Resolved) Dates: Start: 08/05/24 Expected End: 08/12/24 Resolved: 08/13/24 Description: Outcomes Date/Time User Outcome 08/13/24 0812 Yesenia Vasquez PT Completed Goal: Supervision gait x20' (Resolved) Dates: Start: 08/05/24 Expected End: 08/12/24 Resolved: 08/13/24 Description: Outcomes Date/Time User Outcome 08/13/24 0812 Yesenia Vasquez PT Completed Education Documentation Precautions, taught by Yesenia Vasquez PT at 08/14/2024 10:01 AM. Learner: Patient Readiness: Eager Method: Explanation, Demonstration Response: Verbalizes Understanding, Demonstrated Understanding Comment: Gait, standing balance, transfers, TTWB Mobility Training, taught by Yesenia Vasquez PT at 08/14/2024 10:01 AM. Learner: Patient Readiness: Eager Method: Explanation, Demonstration Response: Verbalizes Understanding, Demonstrated Understanding Comment: Gait, standing balance, transfers, TTWB Education Comments No comments found. Session Start/Stop Time: 829 1000 Therapy Minutes Physical Therapy PT Individual: 90 * Pauline Batista DO - 08/13/2024 9:55 PM EST Images from the original note were not included. [facility] Daily Progress Note Patient name: Cleve Burns : 1945 SUBJECTIVE: Patient seen and examined at bedside today. No acute events overnight. Denies headaches, dizziness,shortness of breath, chest pain, nausea, constipation. Reports that pain is stable. Episode of dizziness with PT today. BP in the 70s. Quickly improved to 120s upon laying down. Amlodipine discontinued and PO fluids recommended. TEAM CONFERENCE: I was present and participated in team meeting today. I agree with team conferenceplan as documented in alternate note today. Please refer to team conference note for further details. OBJECTIVE: Vitals: 08/13/24 1235 08/13/24 1246 08/13/24 1249 08/13/24 1611 BP: 108/57 106/58 121/71 137/86 BP Location: Patient Position: Lying Sitting Standing Pulse: 74 83 98 78 Resp: 18 Temp: 36.6 ??C (97.9 ??F) TempSrc: SpO2: 98% 99% 99% 99% Weight: Physical Examination: General: Alert, in no acute cardiopulmonary distress. Mental Status: Oriented to person, place and time. Normal affect. Head: Normocephalic. Eyes: Extraocular muscles grossly intact. Ear, Nose and Throat: Oropharynx clear, mucous membranes moist. Ears and nose without masses, lesions or deformities. Neck: Supple, Trachea midline. Respiratory: Clear to auscultation and percussion. No wheezing, rales or rhonchi. Cardiovascular: Heart sounds normal. No thrills. Regular rate and rhythm, no murmurs, rubs or gallops. Gastrointestinal: Abdomen soft, non-tender, non-distended. Normal bowel sounds. Neurologic: Cranial nerves II-XII grossly intact. Negative clonus bilaterally. Moves all extremities spontaneously. Sensation intact bilaterally. Skin: No rashes or lesions. No petechiae or purpura. No edema. Musculoskeletal: No cyanosis or clubbing. No gross deformities. Normal range of motion. Antigravitystrength all 4 extremities. CURRENT INPATIENT MEDICATIONS: Current Facility-Administered Medications: acetaminophen (TYLENOL) tablet 975 mg, 975 mg, oral, q8h [facility], 975 mg at 08/13/24 1427 aspirin chewable tablet 81 mg, 81 mg, oral, Nightly, JAY Sheridan, 81 mg at 08/12/24 2201 atorvastatin (LIPITOR) tablet 80 mg, 80 mg, oral, Nightly, Magdi Dominguezbb, PA, 80 mg at 08/12/242158 bisacodyL (DULCOLAX) suppository 10 mg, 10 mg, rectal, Daily PRN, Magdi Dominguezbb, PA, 10 mg at 08/02/242017 cyclobenzaprine (FLEXERIL) tablet 5 mg, 5 mg, oral, TID, Kymberly Segal, CORE JAVA ENGINEER, 5 mg at 08/13/24 1427 docusate sodium (COLACE) capsule 100 mg, 100 mg, oral, BID, Magdi Torres, PA, 100 mg at 803 enoxaparin (LOVENOX) injection 40 mg, 40 mg, subcutaneous, Daily, Magdi Torres, PA, 40 mg at 08/13/24 0803 gabapentin (NEURONTIN) capsule 200 mg, 200 mg, oral, BID, Magdi Torres, PA, 200 mg at 08/13/24 0803 lidocaine 4 % patch 1 patch, 1 patch, Topical, Daily, Pauline Batista, , 1 patch at 08/13/24 0803 lisinopriL (PRINIVIL,ZESTRIL) tablet 20 mg, 20 mg, oral, Nightly, Magdi Torres, PA, 20 mg at 08/12/24 215 magnesium hydroxide (MILK OF MAGNESIA) 400 mg/5 mL suspension 30 mL, 30 mL, oral, Daily PRN, Magdi Torres, PA, 30 mL at 08/02/24 0855 ondansetron ODT (ZOFRAN-ODT) disintegrating tablet 4 mg, 4 mg, oral, q8h PRN, Magdi Dominguezbb, PA, 4 mg at 08/02/24 1328 oxyCODONE (ROXICODONE) immediate release tablet 5 mg, 5 mg, oral, q4h PRN, Magdi Dominguezbb, PA, 5 mg at 08/13/24 0803 pantoprazole (PROTONIX) EC tablet 40 mg, 40 mg, oral, q AM AC, Magdi Dominguezbb, PA, 40 mg at 08/13/24 0534 senna (SENOKOT) tablet 17.2 mg, 2 tablet, oral, Nightly, Pauline Molina Lynne, DO, 17.2 mg at 08/12/242 LABS: Lab Results Component Value Date WBC 9.2 08/07/2024 RBC 3.80 (L) 08/07/2024 HGB 11.0 (L) 08/07/2024 HCT 33.3 (L) 08/07/2024 MCV 88.1 08/07/2024 MCHC 33.0 08/07/2024 RDW 13.2 08/07/2024 PLT 392 08/07/2024 MPV 9.5 08/07/2024 NRBC 0.0 08/07/2024 DIFF Lab Results Component Value Date LYMPHOPCT 23.7 08/02/2024 NEUTROABS 6.90 08/02/2024 LYMPHSABS 2.91 08/02/2024 MONOABS 1.40 (H) 08/02/2024 EOSABS 0.85 (H) 08/02/2024 BASOSABS 0.09 08/02/2024 IMMGRANABS 0.14 (H) 08/02/2024 RETIC No results found for: RETIC , RETICCTPCT Lab Results Component Value Date NA 138 08/07/2024 K 4.6 08/07/2024 CL 106 08/07/2024 CO2 30 08/07/2024 GLUCOSE 105 (H) 08/07/2024 BUN 17 08/07/2024 CREATININE 1.11 08/07/2024 CALCIUM 9.0 08/07/2024 PROT 6.3 08/02/2024 ALBUMIN 3.1 (L) 08/02/2024 BILITOT 1.2 08/02/2024 AST 21 08/02/2024 ALT 28 08/02/2024 ALKPHOS 75 08/02/2024 EGFR 68 08/07/2024 IMPRESSION & PLAN: #Impaired mobility and self-care -Secondary to slip and fall and fracture -Continue PT/OT and nursing care #Right superior and inferior pubic rami fractures -evaluated by [facility] JAY Wilkerson & Dr Spann -Non surgical management -TTWB to RLE -continue therapies -Follow up with [facility] after discharge #Left buttock pain -CT pelvis completed 08/08 redemonstrated right superior and inferior pubic rami fracture with no additional pelvic fracture or hip fracture appreciated -continue pain control as outlined below #Pain management -Acetaminophen 975mg Q8H -Lidocaine patch daily -Oxycodone 5mg Q6H PRN --> 08/07 changed to 5 mg Q4H due to increased pain -Flexeril 5mg TID started 08/05 -Gabapentin 200 mg BID started 08/09 #Hypertension -ASA 81 mg daily -Amlodipine 2.5 mg nightly discontinued on 08/13 due to hypotension -Lisinopril 20 mg nightly #Hyperlipidemia -Atorvastatin 80 mg nightly #GERD -Protonix 40 mg daily #Bladder diverticulum -patient was noted to have a 1.5 cm bladder diverticulum on the right on CT pelvis 07/30/[address] [facility] --> redemonstrated on CT pelvis 08/08/24 -Patient will need to follow-up with PCP after discharge for further management #Bowel management -Colace 100mg BID -Senna 2 tabs QHS #DVT ppx: Lovenox 40mg daily (will need to continue until follow up with Ortho after discharge due to TTWB to RLE) * Marquez Yancey LCSW - 08/13/2024 3:11 PM EST Team Meeting: Met with pt at bedside to review post team recommendations. No barriers identified in team meeting.Pt will discharge home on Tuesday 08/15 with [facility] for RN PT OT and [employer]ING [employer] services. Family training completed today and car transfer training with no issues. Pt is SUPV approaching MOD I. Wheel chair has been ordered and will be delivered to home address. Pt had no questions or concerns at this time. Pt looking forward to discharge. * Queta Soto, PT - 08/13/2024 1:09 PM EST [facility] Physical Therapy Treatment Note 08/13/2024 Patient: Cleve Burns : 1945 Age: 79 y.o. Gender: male Primary Language: Lithuanian Diagnosis: Pubic bone fracture ([facility]/HCC) Past Medical History: Diagnosis Date CVA (cerebral vascular accident) ([facility]/HCC) Tobacco use DX:Tobacco use Tongue cancer ([facility]/HCC) Past Surgical History: Procedure Laterality Date KNEE SURGERY PROCEDURE: HISTORICAL KNEE SURGERY MOUTH SURGERY PROCEDURE: ORAL SURGERY PROCEDURE; COMMENT: tongue surgery OTHER SURGICAL HISTORY PROCEDURE: LA CLOSURE INTESTINAL CUTANEOUS FISTULA VASECTOMY PROCEDURE: HISTORICAL VASECTOMY Allergies: has No Known Allergies. Precautions: Medical Precautions: Fall Risk Safety Interventions: Call arevalo within reach RUE Weight Bearing Status: Full LUE Weight Bearing Status: Full RLE Weight Bearing Status: Toe Touch LLE Weight Bearing Status: Full SUBJECTIVE Pt report: Thanks for coming by Pain: Pain Assessment: 0-10 Pain Score: 0 - No pain OBJECTIVE General Observation: Supine in bed agreeable to participating. Vitals: BP: 121/71 Heart Rate: 98 SpO2: 99 % Procedure/Treatment: Therapeutic Activities: Therapeutic Activity Time Entry: 15 Pt supine in bed agreeable to PT session. Therapist assessing orthostatic vital signs. Per pt he rarely gets dizzy like this, reporting every couple of months. Pt completed bed mobility, supine to sitting EOB, SUP. Pt completed STS to RW ,SUP adherence to WB precaution in standing. Defer to flow sheet and grid for orthostatic BP. Pt educated to ring call arevalo or alert staff if he feels lightheaded or dizzy. Pt verbalized understanding. SUP for sit to supine. PT left supine in bed, call arevalo in reach, bed alarm on, all needs met. Therapist updating RICK Spencer on vital signs, and primary therapistYesenia PT. Position BP HR O2 Sats Supine 108/57 74 98% RA Sitting 106/58 83 99% RA Standing 121/71 100 98% RA Comments: Pt asymptomatic, reporting no dizziness or lightheadedness. Education: Education Documentation Precautions, taught by Queta Soto PT at 08/13/2024 1:18 PM. Learner: Patient Readiness: Acceptance Method: Explanation, Demonstration Response: Demonstrated Understanding, Verbalizes Understanding Comment: Orthostatic BP Mobility Training, taught by Queta Soto PT at 08/13/2024 1:18 PM. Learner: Patient Readiness: Acceptance Method: Explanation, Demonstration Response: Demonstrated Understanding, Verbalizes Understanding Comment: Orthostatic BP Education Comments No comments found. ASSESSMENT Pt did not demonstrate orthostatic hypotension during assessment. Equipment: TBD Plan of Care Plan Treatment/Interventions: Functional transfer training, LE strengthening/ROM, Endurance training, Patient/family training, Bed mobility, Gait training, Balance training PT Plan: Skilled PT PT Frequency: 5 days per week PT Duration of Sessions: 90 min per day PT Treatments per day: 1 time per day Problems/Goals Goals: Encounter Problems Encounter Problems (Active) Template: Physical Therapy Problem: PT Chcf Goals Dates: Start: 08/02/24 Goal: Mod I bed mobility (Resolved) Dates: Start: 08/02/24 Expected End: 08/16/24 Resolved: 08/13/24 Outcomes Date/Time User Outcome 08/13/24 08Guanako Vasquez, PT Completed Goal: Mod I transfers LRAD Dates: Start: 08/02/24 Expected End: 08/16/24 Outcomes Date/Time User Outcome 08/13/24 08Guanako Vasquez PT Progressing Goal: Mod I gait x10' with RW Dates: Start: 08/02/24 Expected End: 08/16/24 Outcomes Date/Time User Outcome 08/13/24 08Guanako Vasquez PT Progressing Goal: Mod I wheelchair mobility x150' (Resolved) Dates: Start: 08/02/24 Expected End: 08/16/24 Resolved: 08/13/24 Outcomes Date/Time User Outcome 08/13/24 08Guanako Vasquez, PT Completed Goal: Pt will negotiate x3 stairs no railings partial A Dates: Start: 08/02/24 Expected End: 08/16/24 Outcomes Date/Time User Outcome 08/13/24 08Guanako Vasquez PT Progressing Problem: PT Short Term Goals Dates: Start: 08/02/24 Goal: Supervision bed mobility Dates: Start: 08/02/24 Expected End: 08/09/24 Outcomes Date/Time User Outcome 08/13/24 08Guanako Vasquez, PT Progressing Goal: Steadying A transfers LRAD (Resolved) Dates: Start: 08/02/24 Expected End: 08/09/24 Resolved: 08/05/24 Outcomes Date/Time User Outcome 08/05/24 1533 Yesenia Vasquez PT Completed Goal: Assess gait (Resolved) Dates: Start: 08/02/24 Expected End: 08/09/24 Resolved: 08/05/24 Outcomes Date/Time User Outcome 08/05/24 1533 Yesenia Vasquez PT Completed Goal: Assess stairs (Resolved) Dates: Start: 08/02/24 Expected End: 08/09/24 Resolved: 08/05/24 Outcomes Date/Time User Outcome 08/05/24 1533 Yesenia Vasquez PT Completed Goal: Supervision transfers LRAD (Resolved) Dates: Start: 08/05/24 Expected End: 08/12/24 Resolved: 08/13/24 Description: Outcomes Date/Time User Outcome 08/13/24 0812 Yesenia Vasquez PT Completed Goal: Supervision gait x20' (Resolved) Dates: Start: 08/05/24 Expected End: 08/12/24 Resolved: 08/13/24 Description: Outcomes Date/Time User Outcome 08/13/24 08Guanako Vasquez PT Completed Encounter Problems (Resolved) There are no resolved problems. Session Start/Stop Time: 1235 1250 Therapy Minutes Physical Therapy PT Individual: 15 * Yesenia Vasquez PT - 08/13/2024 9:20 AM EST [facility] Physical Therapy Treatment Note 08/13/2024 Patient: Cleve Burns : 1945 Age: 79 y.o. Gender: male Primary Language: Lithuanian Diagnosis: Pubic bone fracture (CMS/HCC) Past Medical History: Diagnosis Date CVA (cerebral vascular accident) (CMS/HCC) Tobacco use DX:Tobacco use Tongue cancer (CMS/HCC) Past Surgical History: Procedure Laterality Date KNEE SURGERY PROCEDURE: HISTORICAL KNEE SURGERY MOUTH SURGERY PROCEDURE: ORAL SURGERY PROCEDURE; COMMENT: tongue surgery OTHER SURGICAL HISTORY PROCEDURE: LA CLOSURE INTESTINAL CUTANEOUS FISTULA VASECTOMY PROCEDURE: HISTORICAL VASECTOMY Allergies: has No Known Allergies. Precautions: Medical Precautions: Fall Risk Safety Interventions: Call arevalo within reach RUE Weight Bearing Status: Full LUE Weight Bearing Status: Full RLE Weight Bearing Status: Toe Touch LLE Weight Bearing Status: Full SUBJECTIVE Pt report: I'm getting very dizzy Pain: Pain Assessment: 0-10 Pain Score: 3 Pain Location: Buttocks Pain Orientation: Left OBJECTIVE General Observation: Pt received Vitals: BP: 112/64 Heart Rate: 97 SpO2: 96 % Procedure/Treatment: Therapeutic Activities: Therapeutic Activity Time Entry: 90 Pt received in bed, his present for family training. Confirmed equipment order for [employer] and Get for wheelchair, anticipated delivery to patient's home tomorrow. Supine > sit mod I. Transfer with RW to wheelchair supervision. Pt propelling wheelchair downstairs. Completed car transfer with RW supervision/mod I. Returned to room, standing at walker to remove coat, supervision, keeping one hand on walker while removing coat, adhering to TTWB RLE. Mod I wheelchair mobility to the gym. Ptambulating over mat to simulate uneven surfaces, supervision with RW. Pt using straw hat machine operator to picking table worker object from ground, mod I in standing at walker. Pt ambulating with RW x70' supervision/mod I, limited by pain in left buttock region with further distances. Pt participating in standing balance activity playing game of [employer], releasing LUE from walker to throw bradford bags, completed supervision while adhering to TTWB RLE throughout. Completed second round, releasing LUE from walker to picking table worker bradford bag, passing to right hand, then using right hand to throw, supervision. Pt with improving tolerance for pain with static standing and improving standing balance, able to stand with either RUE or LUE support. Pt completing seated therex, 3x10 LAQ, AP and hip flexion. Pt reporting onset of dizziness and feeling clammy, pt looking pale. Pt transported back to room, steadying A SPT to bed. Sit >supine supervision. BP 78/54, HR 65, pt nauseous, improving with supine positioning x3 min. BP improved to 112/64, HR 97. RN and Dr. Batista notified. Pt left in bed with alarm set, call arevalo within reach and all needs met. Education: Education Documentation Precautions, taught by Yesenia Vasquez PT at 08/13/2024 11:21 AM. Learner: Family, Patient Readiness: Acceptance Method: Explanation, Demonstration Response: Verbalizes Understanding, Demonstrated Understanding, Needs Reinforcement Comment: bed mobility, car transfers, gait, standing balance, TTWB RLE Mobility Training, taught by Yesenia Vasquez PT at 08/13/2024 11:21 AM. Learner: Family, Patient Readiness: Acceptance Method: Explanation, Demonstration Response: Verbalizes Understanding, Demonstrated Understanding, Needs Reinforcement Comment: bed mobility, car transfers, gait, standing balance, TTWB RLE Education Comments No comments found. ASSESSMENT PT Assessment PT Assessment Results: Decreased strength, Decreased range of motion, Decreased endurance, Impairedbalance, Decreased mobility, Impaired gait, Orthopedic restrictions, Pain Prognosis: Good Evaluation/Treatment Tolerance: Patient limited by pain Comments: Pt with improved pain tolerance today, however towards end of session pt orthostatic. Equipment: TBD Plan of Care Plan Treatment/Interventions: Functional transfer training, LE strengthening/ROM, Endurance training, Patient/family training, Bed mobility, Gait training, Balance training PT Plan: Skilled PT PT Frequency: 5 days per week PT Duration of Sessions: 90 min per day PT Treatments per day: 1 time per day Problems/Goals Goals: Encounter Problems Encounter Problems (Active) Template: Physical Therapy Problem: PT Template Fitter Goals Dates: Start: 08/02/24 Goal: Mod I bed mobility (Resolved) Dates: Start: 08/02/24 Expected End: 08/16/24 Resolved: 08/13/24 Outcomes Date/Time User Outcome 08/13/24 Esau Vasquez PT Completed Goal: Mod I transfers LRAD Dates: Start: 08/02/24 Expected End: 08/16/24 Outcomes Date/Time User Outcome 08/13/24 Esau Vasquez, PT Progressing Goal: Mod I gait x10' with RW Dates: Start: 08/02/24 Expected End: 08/16/24 Outcomes Date/Time User Outcome 08/13/24 Esau Vasquez PT Progressing Goal: Mod I wheelchair mobility x150' (Resolved) Dates: Start: 08/02/24 Expected End: 08/16/24 Resolved: 08/13/24 Outcomes Date/Time User Outcome 08/13/24 Esau Vasquez PT Completed Goal: Pt will negotiate x3 stairs no railings partial A Dates: Start: 08/02/24 Expected End: 08/16/24 Outcomes Date/Time User Outcome 08/13/24 08Guanako Vasquez PT Progressing Problem: PT Short Term Goals Dates: Start: 08/02/24 Goal: Supervision bed mobility Dates: Start: 08/02/24 Expected End: 08/09/24 Outcomes Date/Time User Outcome 08/13/24 0812 Yesenia Vasquez PT Progressing Goal: Steadying A transfers LRAD (Resolved) Dates: Start: 08/02/24 Expected End: 08/09/24 Resolved: 08/05/24 Outcomes Date/Time User Outcome 08/05/24 1533 Yesenia Vasquez PT Completed Goal: Assess gait (Resolved) Dates: Start: 08/02/24 Expected End: 08/09/24 Resolved: 08/05/24 Outcomes Date/Time User Outcome 08/05/24 1533 Yesenia Vasquez PT Completed Goal: Assess stairs (Resolved) Dates: Start: 08/02/24 Expected End: 08/09/24 Resolved: 08/05/24 Outcomes Date/Time User Outcome 08/05/24 1533 Yesenia Vasquez PT Completed Goal: Supervision transfers LRAD (Resolved) Dates: Start: 08/05/24 Expected End: 08/12/24 Resolved: 08/13/24 Description: Outcomes Date/Time User Outcome 08/13/24 08Guanako Vasquez PT Completed Goal: Supervision gait x20' (Resolved) Dates: Start: 08/05/24 Expected End: 08/12/24 Resolved: 08/13/24 Description: Outcomes Date/Time User Outcome 08/13/24 08Guanako Vasquez PT Completed Encounter Problems (Resolved) There are no resolved problems. Session Start/Stop Time: 919 1050 Therapy Minutes Physical Therapy PT Individual: 90 * Ebony Marquis - 08/13/2024 8:45 AM EST Social Work Note Integrated Photo Checker And Assembler: DX: Adjustment DO: Met with PT this morning briefly as his was in for her visit and training. He reports to be feeling better and the pain is minimizing which is great. He was in good spirits and is looking forward to going home in two days. Will monitor. Ebony Marquis MS Clinician * Matty Vega OT - 08/13/2024 7:00 AM EST [facility] Occupational Therapy Treatment Note 08/13/24 Patient: Cleve Burns : 1945 Age: 79 y.o. Gender: male Diagnosis: Pubic bone fracture (CMS/HCC) Primary Rehab (Etiologic) Diagnosis: Patient Active Problem List Diagnosis Anemia Essential hypertension Hypercholesteremia Thalamic stroke (CMS/HCC) Tongue cancer (CMS/HCC) Pubic bone fracture (CMS/HCC) PMH: Past Medical History: Diagnosis Date CVA (cerebral vascular accident) (CMS/HCC) Tobacco use DX:Tobacco use Tongue cancer (CMS/HCC) PSH: Past Surgical History: Procedure Laterality Date KNEE SURGERY PROCEDURE: HISTORICAL KNEE SURGERY MOUTH SURGERY PROCEDURE: ORAL SURGERY PROCEDURE; COMMENT: tongue surgery OTHER SURGICAL HISTORY PROCEDURE: LA CLOSURE INTESTINAL CUTANEOUS FISTULA VASECTOMY PROCEDURE: HISTORICAL VASECTOMY Allergies: has No Known Allergies. Precautions: Precautions Medical Precautions: Fall Risk Safety Interventions: Call arevalo within reach RUE Weight Bearing Status: Full LUE Weight Bearing Status: Full RLE Weight Bearing Status: Toe Touch LLE Weight Bearing Status: Full Vitals: BP: 125/74 Heart Rate: 72 Pain: Pain Assessment Pain Assessment: 0-10 Pain Score: 3 Pain Type: Acute pain Pain Location: Buttocks Pain Orientation: Left Subjective: no pain right now (in bed). Procedures/Interventions: ADLs/IADLs Self Care/Home Management (ADLs) Time Entry: 90 Pt in elevated supine upon arrival agreeable to participation. Vitals assessed see above. Elevated supine>Sit EOB mod I. SPT at RW with S. Pt performed oral hygiene from w/c mod I. Pt propelled self into bathroom despite cues for amb to simulate home. SPT w/c><toilet with simulated safety frame, at RW with S. Toileting performed with distant S. Pt propelled self room >< shower mod I. SPT w/c><shower chair at RW with S. Pt doffed UB clothing mod I, and LB clothing with S, sitting to remove from around feet. Pt bathed entirely seated with use of hand held shower, weight shifting to bathe buttocks. At end of shower STS with UE support on grab bar verbal cues for maintaining TDWB on R LE, pt able to correct. Once back in room pt retrieved clothing mod I w/c level. UB dressing mod I. LB dressing partial A this date for balance, as pt removed B UE from walker to hike pants, despite cues, with posterior LB.Educated on important of sustained unilateral UE support on walker during LB self care. Pt engaged in medication management task with use of pill box, recommending use of pill box due to increased number of medications as pt taking previously. Educated on strategies for medications that he already placed into pill box as an indicator that they have already been placed. Withuse of AM/PM pill box pt placed all pills into pill box with use of printed medication list/schedule with 100% accuracy. Educated that one AM med was to be taken prior to breakfast. Pt reports that he does have a pill box at home. Pt one TID afternoon medication, reporting he will keep separate. RN in for medication administration. Pt able to recall purpose of all medications except for2, education provided on purpose. End of session SPT no AD S with UE support on arm rest/bed rail. Sit>Supine mod I. Bed alarm on and call arevalo in reach. OT Assessment OT Assessment OT Assessment Results: Decreased ADL status, Decreased endurance, Decreased IADLs, Decreased functional mobility Prognosis: Good Evaluation/Treatment Tolerance: Patient tolerated treatment well Comments: Pt progressing to mod I with ADLs. pt reports that looking to obtain toilet safety frame today. Pt reports plan to wait to obtain tub bench and do sponge bathing, and can obtain if he changes his mind. initial cues for maintaining TDWB during STS. Medical Staff Made Aware: Yes Comments: request for pain meds. OT Plan Plan Treatment Interventions: ADL retraining, Functional transfer training, UE strengthening/ROM, Endurance training OT Plan: Skilled OT OT Frequency : 5-7 days per week OT Duration of Sessions: 90 min per day OT Treatments per day: 1 time per day OT - Evaluation Status: Complete OT Discharge Recommendations: (TBD at d/c) Equipment Recommended: (TBD at d/c) Goals: Encounter Problems Encounter Problems (Active) Template: Occupational Therapy Problem: OT Chcf Goals Dates: Start: 08/02/24 Goal: Patient will perform toileting at a MODIFIED INDEPENDENT level without adaptive devices as appropriate. Dates: Start: 08/02/24 Expected End: 08/16/24 Goal: Patient will perform bathing at a MODIFIED INDEPENDENT level using adaptive devices as appropriate. Dates: Start: 08/02/24 Expected End: 08/16/24 Goal: Patient will perform Lower body dressing at a MODIFIED INDEPENDENT level using adaptive/assistive devices as appropriate. Dates: Start: 08/02/24 Expected End: 08/16/24 Goal: Patient will complete toilet transfers with at a MODIFIED INDEPENDENT level using least restrictive assistive device Dates: Start: 08/02/24 Expected End: 08/16/24 Goal: Patient will complete Tub Transfer with with SUPERVISION using least restrictive assistive device Dates: Start: 08/02/24 Expected End: 08/16/24 Problem: OT Short Term Goals Dates: Start: 08/02/24 Goal: Patient will perform toileting with STAND BY ASSIST without adaptive devices as appropriate. Dates: Start: 08/02/24 Expected End: 08/09/24 Outcomes Date/Time User Outcome 08/09/24 1235 Matty Vega OT Progressing Goal: Patient will perform bathing with STAND BY ASSIST without adaptive devices as appropriate. Dates: Start: 08/02/24 Expected End: 08/09/24 Outcomes Date/Time User Outcome 08/09/24 1235 Matty Vega OT Progressing Goal: Patient will perform Lower body dressing with MINIMAL ASSIST using adaptive/assistive devicesas appropriate. (Resolved) Dates: Start: 08/02/24 Expected End: 08/09/24 Resolved: 08/09/24 Outcomes Date/Time User Outcome 08/09/24 1235 Matty Vega OT Completed Goal: Patient will complete toilet transfers with with MINIMAL ASSIST using least restrictive assistive device (Resolved) Dates: Start: 08/02/24 Expected End: 08/09/24 Resolved: 08/09/24 Outcomes Date/Time User Outcome 08/09/24 1235 Matty Vega OT Completed Goal: Patient will complete Tub Transfer with with MODERATE ASSIST using least restrictive assistive device (Resolved) Dates: Start: 08/02/24 Expected End: 08/09/24 Resolved: 08/09/24 Outcomes Date/Time User Outcome 08/09/24 1235 Matty Vega OT Completed Encounter Problems (Resolved) There are no resolved problems. Education Documentation ADL Training, taught by Matty Vega OT at 08/13/2024 8:18 AM. Learner: Patient Readiness: Acceptance Method: Explanation, Demonstration, Handout Response: Verbalizes Understanding, Demonstrated Understanding, Needs Reinforcement Precautions, taught by Matty Vega OT at 08/13/2024 8:18 AM. Learner: Patient Readiness: Acceptance Method: Explanation, Demonstration, Handout Response: Verbalizes Understanding, Demonstrated Understanding, Needs Reinforcement Body Mechanics, taught by Matty Vega OT at 08/13/2024 8:18 AM. Learner: Patient Readiness: Acceptance Method: Explanation, Demonstration, Handout Response: Verbalizes Understanding, Demonstrated Understanding, Needs Reinforcement Home Safety, taught by Matty Vega OT at 08/13/2024 8:18 AM. Learner: Patient Readiness: Acceptance Method: Explanation, Demonstration, Handout Response: Verbalizes Understanding, Demonstrated Understanding, Needs Reinforcement Use of Pill Box, taught by Matty Vega OT at 08/13/2024 8:18 AM. Learner: Patient Readiness: Acceptance Method: Explanation, Demonstration, Handout Response: Verbalizes Understanding, Demonstrated Understanding, Needs Reinforcement Discharge Medications Including Name, Dose, Route, Use, Side Effects and Managment of Missed Doses,taught by Matty Vega OT at 08/13/2024 8:18 AM. Learner: Patient Readiness: Acceptance Method: Explanation, Demonstration, Handout Response: Verbalizes Understanding, Demonstrated Understanding, Needs Reinforcement Education Comments No comments found. Start/Stop Time OT Time Calculation OT Start Time: 0700 OT Stop Time: 0830 OT Time Calculation (min): 90 min Therapy Minutes: Occupational Therapy OT Individual: 90 * SHAWN Figueroa - 08/12/2024 12:24 PM EST [facility] Occupational Therapy Treatment Note 08/12/24 Patient: Cleve Burns : 1945 Age: 79 y.o. Gender: male Diagnosis: Pubic bone fracture (CMS/HCC) Primary Rehab (Etiologic) Diagnosis: Patient Active Problem List Diagnosis Anemia Essential hypertension Hypercholesteremia Thalamic stroke (CMS/HCC) Tongue cancer (CMS/HCC) Pubic bone fracture (CMS/HCC) PMH: Past Medical History: Diagnosis Date CVA (cerebral vascular accident) (CMS/HCC) Tobacco use DX:Tobacco use Tongue cancer (CMS/HCC) PSH: Past Surgical History: Procedure Laterality Date KNEE SURGERY PROCEDURE: HISTORICAL KNEE SURGERY MOUTH SURGERY PROCEDURE: ORAL SURGERY PROCEDURE; COMMENT: tongue surgery OTHER SURGICAL HISTORY PROCEDURE: LA CLOSURE INTESTINAL CUTANEOUS FISTULA VASECTOMY PROCEDURE: HISTORICAL VASECTOMY Allergies: has No Known Allergies. Precautions: Precautions Medical Precautions: Fall Risk Safety Interventions: Call arevalo within reach RUE Weight Bearing Status: Full LUE Weight Bearing Status: Full RLE Weight Bearing Status: Toe Touch LLE Weight Bearing Status: Full Vitals: BP: 117/82 Heart Rate: 110 Pain: Pain Assessment Pain Assessment: No/denies pain Pain Score: 0 - No pain Subjective: I want to stay off my leg as much as possible today to not induce pain in my buttocks region. Procedures/Interventions: Pt sitting in w/c at start of session, amenable to therapy at this time. Vitals taken in sitting, see above. Pt propelled self independently to gym, able to navigate obstacles independently. Pt participated in there-ex, see below for details. Pt propelled self back to room, requested to return to bed for rest break before PT, completed SPT with use of arm rests of chair and bed railings with SBA.Pt completed bed mobility with supervision. Call arevalo and bed alarm in place at end of session, allneeds met at this time. Therapeutic Exercise Therapeutic Exercise Time Entry: 30 Therapeutic Exercise Activity 1: 3 sets of 10 reps of throwing 5# medicine ball, focusing on core engagement. Pt able to throw and catch in all directions. Therapeutic Exercise Activity 2: 5 # dowel, shoulder press, 10 reps each side, 3 sets each side Therapeutic Exercise Activity 3: 5# dumbbell bicep curl, 10 reps each side, 3 sets each side Therapeutic Exercise Activity 4: 5 # shoulder horizontal abduction/adduction, 10 reps each side, 1 set each side. OT Assessment OT Assessment OT Assessment Results: Decreased ADL status, Decreased endurance, Decreased IADLs, Decreased functional mobility Prognosis: Good Evaluation/Treatment Tolerance: Patient tolerated treatment well Comments: Pt progressing with ALDs, cues X1 for maintaining TDWB. [facility], pt provided with printed handout. Medical Staff Made Aware: Yes Comments: request for pain meds OT Plan Plan Treatment Interventions: ADL retraining, Functional transfer training, UE strengthening/ROM, Endurance training OT Plan: Skilled OT OT Frequency : 5-7 days per week OT Duration of Sessions: 90 min per day OT Treatments per day: 1 time per day OT - Evaluation Status: Complete OT Discharge Recommendations: (TBD at d/c) Equipment Recommended: (TBD at d/c) Goals: Encounter Problems Encounter Problems (Active) Template: Occupational Therapy Problem: OT Template Fitter Goals Dates: Start: 08/02/24 Goal: Patient will perform toileting at a MODIFIED INDEPENDENT level without adaptive devices as appropriate. Dates: Start: 08/02/24 Expected End: 08/16/24 Goal: Patient will perform bathing at a MODIFIED INDEPENDENT level using adaptive devices as appropriate. Dates: Start: 08/02/24 Expected End: 08/16/24 Goal: Patient will perform Lower body dressing at a MODIFIED INDEPENDENT level using adaptive/assistive devices as appropriate. Dates: Start: 08/02/24 Expected End: 08/16/24 Goal: Patient will complete toilet transfers with at a MODIFIED INDEPENDENT level using least restrictive assistive device Dates: Start: 08/02/24 Expected End: 08/16/24 Goal: Patient will complete Tub Transfer with with SUPERVISION using least restrictive assistive device Dates: Start: 08/02/24 Expected End: 08/16/24 Problem: OT Short Term Goals Dates: Start: 08/02/24 Goal: Patient will perform toileting with STAND BY ASSIST without adaptive devices as appropriate. Dates: Start: 08/02/24 Expected End: 08/09/24 Outcomes Date/Time User Outcome 08/09/24 1235 Matty Vega OT Progressing Goal: Patient will perform bathing with STAND BY ASSIST without adaptive devices as appropriate. Dates: Start: 08/02/24 Expected End: 08/09/24 Outcomes Date/Time User Outcome 08/09/24 1235 Matty Vega OT Progressing Goal: Patient will perform Lower body dressing with MINIMAL ASSIST using adaptive/assistive devicesas appropriate. (Resolved) Dates: Start: 08/02/24 Expected End: 08/09/24 Resolved: 08/09/24 Outcomes Date/Time User Outcome 08/09/24 123Tona Vega OT Completed Goal: Patient will complete toilet transfers with with MINIMAL ASSIST using least restrictive assistive device (Resolved) Dates: Start: 08/02/24 Expected End: 08/09/24 Resolved: 08/09/24 Outcomes Date/Time User Outcome 08/09/24 1235 Matty Vega OT Completed Goal: Patient will complete Tub Transfer with with MODERATE ASSIST using least restrictive assistive device (Resolved) Dates: Start: 08/02/24 Expected End: 08/09/24 Resolved: 08/09/24 Outcomes Date/Time User Outcome 08/09/24 1235 Matty Vega OT Completed Encounter Problems (Resolved) There are no resolved problems. Education Documentation Home Exercise Program, taught by SHAWN Figueroa at 08/12/2024 12:24 PM. Learner: Patient Readiness: Acceptance Method: Explanation, Demonstration Response: Verbalizes Understanding, Demonstrated Understanding Precautions, taught by SHAWN Figueroa at 08/12/2024 12:24 PM. Learner: Patient Readiness: Acceptance Method: Explanation, Demonstration Response: Verbalizes Understanding, Demonstrated Understanding Body Mechanics, taught by SHAWN Figueroa at 08/12/2024 12:24 PM. Learner: Patient Readiness: Acceptance Method: Explanation, Demonstration Response: Verbalizes Understanding, Demonstrated Understanding Education Comments No comments found. Start/Stop Time OT Time Calculation OT Start Time: 0930 OT Stop Time: 1000 OT Time Calculation (min): 30 min Therapy Minutes: Occupational Therapy OT Individual: 30 * Jaylen Landeros, TAIL EDGER - 08/12/2024 11:35 AM EST [facility] Physical Therapy Treatment Note 08/12/2024 Patient: Cleve Burns : 1945 Age: 79 y.o. Gender: male Primary Language: Lithuanian Diagnosis: Pubic bone fracture (CMS/HCC) Past Medical History: Diagnosis Date CVA (cerebral vascular accident) (CMS/HCC) Tobacco use DX:Tobacco use Tongue cancer (CMS/HCC) Past Surgical History: Procedure Laterality Date KNEE SURGERY PROCEDURE: HISTORICAL KNEE SURGERY MOUTH SURGERY PROCEDURE: ORAL SURGERY PROCEDURE; COMMENT: tongue surgery OTHER SURGICAL HISTORY PROCEDURE: LA CLOSURE INTESTINAL CUTANEOUS FISTULA VASECTOMY PROCEDURE: HISTORICAL VASECTOMY Allergies: has No Known Allergies. Precautions: Medical Precautions: Fall Risk Safety Interventions: Call arevalo within reach, Bed alarm, Chair alarm RUE Weight Bearing Status: Full LUE Weight Bearing Status: Full RLE Weight Bearing Status: Toe Touch LLE Weight Bearing Status: Full NURSING RECOMMENDATIONS Bed Mobility: Transfers: Ambulation: SUBJECTIVE Pt report: I don't mind doing a little bit on the weekend. OBJECTIVE General Observation: Patient sleeping in bed, easily woken and willing to participate. General/Functional Assessments: Procedure/Treatment: Therapeutic Activities: Therapeutic Activity Time Entry: 30 Supine to sit with SBA. Sit to stand and gait with RW with close supervision 25' x 3. Seated bilateral LAQs 3 x 10. Sit to supine with SBA. Supine ankle pumps, hip/knee flexion/extension - 3 x 10. ASSESSMENT Good adherence to R TTWB during gait. Equipment: TBD Plan of Care Plan Treatment/Interventions: Functional transfer training, LE strengthening/ROM, Endurance training, Patient/family training, Bed mobility, Gait training, Balance training PT Plan: Skilled PT PT Frequency: 5 days per week PT Duration of Sessions: 90 min per day PT Treatments per day: 1 time per day Problems/Goals Goals: Encounter Problems Encounter Problems (Active) Template: Physical Therapy Problem: PT Chcf Goals Dates: Start: 08/02/24 Goal: Mod I bed mobility Dates: Start: 08/02/24 Expected End: 08/16/24 Outcomes Date/Time User Outcome 08/05/24 1533 Yesenia Vasquez, PT Progressing Goal: Mod I transfers LRAD Dates: Start: 08/02/24 Expected End: 08/16/24 Outcomes Date/Time User Outcome 08/05/24 1533 Yesenia Vasquez PT Progressing Goal: Mod I gait x10' with RW Dates: Start: 08/02/24 Expected End: 08/16/24 Outcomes Date/Time User Outcome 08/05/24 1533 Yesenia Vasquez PT Progressing Goal: Mod I wheelchair mobility x150' Dates: Start: 08/02/24 Expected End: 08/16/24 Outcomes Date/Time User Outcome 08/05/24 1533 Yesenia Vasquez PT Progressing Goal: Pt will negotiate x3 stairs no railings partial A Dates: Start: 08/02/24 Expected End: 08/16/24 Outcomes Date/Time User Outcome 08/05/24 1533 Yesenia Vasquez, PT Progressing Problem: PT Short Term Goals Dates: Start: 08/02/24 Goal: Supervision bed mobility Dates: Start: 08/02/24 Expected End: 08/09/24 Outcomes Date/Time User Outcome 08/05/24 1533 Yesenia Vasquez, PT Progressing Goal: Steadying A transfers LRAD (Resolved) Dates: Start: 08/02/24 Expected End: 08/09/24 Resolved: 08/05/24 Outcomes Date/Time User Outcome 08/05/24 1533 Yesenia Vasquez, PT Completed Goal: Assess gait (Resolved) Dates: Start: 08/02/24 Expected End: 08/09/24 Resolved: 08/05/24 Outcomes Date/Time User Outcome 08/05/24 1533 Yesenia Vasquez, PT Completed Goal: Assess stairs (Resolved) Dates: Start: 08/02/24 Expected End: 08/09/24 Resolved: 08/05/24 Outcomes Date/Time User Outcome 08/05/24 1533 Yesenia Vasquez, PT Completed Goal: Supervision transfers LRAD Dates: Start: 08/05/24 Expected End: 08/12/24 Description: Goal: Supervision gait x20' Dates: Start: 08/05/24 Expected End: 08/12/24 Description: Encounter Problems (Resolved) There are no resolved problems. Session Start/Stop Time: 1100 1130 Therapy Minutes Physical Therapy PT Individual: 30 * Catie Swan PT - 08/11/2024 12:24 PM EST [facility] Physical Therapy Treatment Note 08/11/2024 Patient: Cleve Burns : 1945 Age: 79 y.o. Gender: male Lithuanian Diagnosis: Pubic bone fracture (CMS/HCC) Past Medical History: Diagnosis Date CVA (cerebral vascular accident) (CMS/HCC) Tobacco use DX:Tobacco use Tongue cancer (CMS/HCC) Past Surgical History: Procedure Laterality Date KNEE SURGERY PROCEDURE: HISTORICAL KNEE SURGERY MOUTH SURGERY PROCEDURE: ORAL SURGERY PROCEDURE; COMMENT: tongue surgery OTHER SURGICAL HISTORY PROCEDURE: LA CLOSURE INTESTINAL CUTANEOUS FISTULA VASECTOMY PROCEDURE: HISTORICAL VASECTOMY Allergies: has No Known Allergies. Precautions: Medical Precautions: Fall Risk Safety Interventions: Call arevalo within reach, Bed alarm, Chair alarm RUE Weight Bearing Status: Full LUE Weight Bearing Status: Full RLE Weight Bearing Status: Toe Touch LLE Weight Bearing Status: Full SUBJECTIVE Pt report: I am feeling ready to go home when they release me in a few days Pain: Pain Assessment: 0-10 Pain Score: 5 - Moderate pain Pain Location: Buttocks Pain Orientation: Left Pain Descriptors: Aching OBJECTIVE General Observation: Patient lying in bed, agreeable to participating in PT General/Functional Assessments: Activity Tolerance Endurance: Endurance does not limit participation in activity Procedure/Treatment: Therapeutic Activities: Therapeutic Activity Time Entry: 30 Bed mobility supine to sit at EOB Ind Patient donning pants at EOB with sup and Sup to stand at walker level to pull up pants Transfer sit to stand from w/c and bed with sup Stand pivot transfers to left and Right with sup GT with wwalker approx 25 x 3 with sup-patient keeping right LE hooked behind on left during gait and Ind uncrosses before sitting as instructed 08/10/24 Education: Education Documentation No documentation found. Education Comments No comments found. ASSESSMENT PT Assessment Evaluation/Treatment Tolerance: Patient tolerated treatment well Patient progressing well with functional mobility Equipment: tbd Plan of Care Plan Treatment/Interventions: Functional transfer training, LE strengthening/ROM, Endurance training, Patient/family training, Bed mobility, Gait training, Balance training PT Plan: Skilled PT PT Frequency: 5 days per week PT Duration of Sessions: 90 min per day PT Treatments per day: 1 time per day Problems/Goals Goals: Encounter Problems Encounter Problems (Active) Template: Physical Therapy Problem: PT Chcf Goals Dates: Start: 08/02/24 Goal: Mod I bed mobility Dates: Start: 08/02/24 Expected End: 08/16/24 Outcomes Date/Time User Outcome 08/05/24 1533 Yesenia Vasquez PT Progressing Goal: Mod I transfers LRAD Dates: Start: 08/02/24 Expected End: 08/16/24 Outcomes Date/Time User Outcome 08/05/24 1533 Yesenia Vasquez, PT Progressing Goal: Mod I gait x10' with RW Dates: Start: 08/02/24 Expected End: 08/16/24 Outcomes Date/Time User Outcome 08/05/24 1533 Yesenia Vasquez PT Progressing Goal: Mod I wheelchair mobility x150' Dates: Start: 08/02/24 Expected End: 08/16/24 Outcomes Date/Time User Outcome 08/05/24 John Vasquez PT Progressing Goal: Pt will negotiate x3 stairs no railings partial A Dates: Start: 08/02/24 Expected End: 08/16/24 Outcomes Date/Time User Outcome 08/05/24 153Morgan Vasquez PT Progressing Problem: PT Short Term Goals Dates: Start: 08/02/24 Goal: Supervision bed mobility Dates: Start: 08/02/24 Expected End: 08/09/24 Outcomes Date/Time User Outcome 08/05/24 John Vasquez PT Progressing Goal: Steadying A transfers LRAD (Resolved) Dates: Start: 08/02/24 Expected End: 08/09/24 Resolved: 08/05/24 Outcomes Date/Time User Outcome 08/05/24 153Mogran Vasquez PT Completed Goal: Assess gait (Resolved) Dates: Start: 08/02/24 Expected End: 08/09/24 Resolved: 08/05/24 Outcomes Date/Time User Outcome 08/05/24 John Vasquez PT Completed Goal: Assess stairs (Resolved) Dates: Start: 08/02/24 Expected End: 08/09/24 Resolved: 08/05/24 Outcomes Date/Time User Outcome 08/05/24 John Vasquez PT Completed Goal: Supervision transfers LRAD Dates: Start: 08/05/24 Expected End: 08/12/24 Description: Goal: Supervision gait x20' Dates: Start: 08/05/24 Expected End: 08/12/24 Description: Encounter Problems (Resolved) There are no resolved problems. Session Start/Stop Time: 829 09 Therapy Minutes Physical Therapy PT Individual: 30 * Yluissa Patel RN - 08/11/2024 2:31 AM EST Pt used call arevalo and stated I wanted too long to use the urinal. Pt incontinent urine onto underwear and juan ramon shirt. Pt requested to use BR. Pt required walker and supervision to ambulate putting right foot behind left leg. Pt did not bear any weight onto RLE, though TTWB. Pt given clean shirt/underwear and donned independently. Pt independent with skin care. Denies pain. SCD boots on. Bed alarm on. Call arevalo within reach. * Maribel Pritchard PTA - 08/10/2024 4:18 PM EST [facility] Physical Therapy Treatment Note 08/10/2024 Patient: Cleve Burns : 1945 Age: 79 y.o. Gender: male Primary Language: Lithuanian Diagnosis: Pubic bone fracture (CMS/HCC) Past Medical History: Diagnosis Date CVA (cerebral vascular accident) (CMS/HCC) Tobacco use DX:Tobacco use Tongue cancer (CMS/HCC) Past Surgical History: Procedure Laterality Date KNEE SURGERY PROCEDURE: HISTORICAL KNEE SURGERY MOUTH SURGERY PROCEDURE: ORAL SURGERY PROCEDURE; COMMENT: tongue surgery OTHER SURGICAL HISTORY PROCEDURE: LA CLOSURE INTESTINAL CUTANEOUS FISTULA VASECTOMY PROCEDURE: HISTORICAL VASECTOMY Allergies: has No Known Allergies. Precautions: Medical Precautions: Fall Risk Safety Interventions: Call arevalo within reach, Chair alarm RUE Weight Bearing Status: Full LUE Weight Bearing Status: Full RLE Weight Bearing Status: Toe Touch LLE Weight Bearing Status: Full SUBJECTIVE Pt report: ok,Im ready. Pain: Pain Assessment: 0-10 Pain Score: 3 Pain Type: Acute pain Pain Location: Back Pain Orientation: Left Procedure/Treatment: Therapeutic Activities: Therapeutic Activity Time Entry: 60 Therapeutic Activity 1: pt in bed t beginning of session, Mod I bed mob supine to sit. Ind donlauraker sitting on EOB. bed to w/c to left without AD steadying assist maintaining TTWB. In w/c mobroom to/from gym and to/form porch over threshold. xfers sit to stand to w/w steadying and pt amb with w/w steadying 15-20' x 5, pt hookling right foot behind LLE during amb, cues to uncross LEs before sitting. xfers w/c to/from armchair without AD steadying x 4 and cues for hand placements. w/c tobed without AD steadying assist. and Therapeutic Exercise: Therapeutic Exercise Time Entry: 30 Therapeutic Exercise Activity 1: supine APs x 20, QS 3 x 10 reps, using glide sheet BLE knee flex 3x 10 reps, ABD/ADDs 2 x 10 reps, sitting 3# RLE active LLE LAQs 3 x 10 reps, with orange theraband ABDs 3 x 10 reps, with green theraband knee flex 3 x 10 reps. Education: Education Documentation Precautions, taught by Maribel Pritchard PTA at 08/10/2024 4:18 PM. Learner: Patient Readiness: Acceptance Method: Explanation, Demonstration Response: Verbalizes Understanding, Demonstrated Understanding, Needs Reinforcement Mobility Training, taught by Maribel Pritchard PTA at 08/10/2024 4:18 PM. Learner: Patient Readiness: Acceptance Method: Explanation, Demonstration Response: Verbalizes Understanding, Demonstrated Understanding, Needs Reinforcement Education Comments No comments found. ASSESSMENT PT Assessment Comments: reinforcement for hand placements and safety during xfers without AD. Plan of Care Plan Treatment/Interventions: Functional transfer training, LE strengthening/ROM, Endurance training, Patient/family training, Bed mobility, Gait training, Balance training PT Plan: Skilled PT PT Frequency: 5 days per week PT Duration of Sessions: 90 min per day PT Treatments per day: 1 time per day Problems/Goals Goals: Encounter Problems Encounter Problems (Active) Template: Physical Therapy Problem: PT Chcf Goals Dates: Start: 08/02/24 Goal: Mod I bed mobility Dates: Start: 08/02/24 Expected End: 08/16/24 Outcomes Date/Time User Outcome 08/05/24 1533 Yesenia Vasquez PT Progressing Goal: Mod I transfers LRAD Dates: Start: 08/02/24 Expected End: 08/16/24 Outcomes Date/Time User Outcome 08/05/24 153 Yesenia Vasquez PT Progressing Goal: Mod I gait x10' with RW Dates: Start: 08/02/24 Expected End: 08/16/24 Outcomes Date/Time User Outcome 08/05/24 153 Yesenia Vasquez PT Progressing Goal: Mod I wheelchair mobility x150' Dates: Start: 08/02/24 Expected End: 08/16/24 Outcomes Date/Time User Outcome 08/05/24 153Morgan Vasquez PT Progressing Goal: Pt will negotiate x3 stairs no railings partial A Dates: Start: 08/02/24 Expected End: 08/16/24 Outcomes Date/Time User Outcome 08/05/24 153Morgan Vasquez PT Progressing Problem: PT Short Term Goals Dates: Start: 08/02/24 Goal: Supervision bed mobility Dates: Start: 08/02/24 Expected End: 08/09/24 Outcomes Date/Time User Outcome 08/05/24 153Morgan Vasquez PT Progressing Goal: Steadying A transfers LRAD (Resolved) Dates: Start: 08/02/24 Expected End: 08/09/24 Resolved: 08/05/24 Outcomes Date/Time User Outcome 08/05/24 1533 Yesenia Vasquez PT Completed Goal: Assess gait (Resolved) Dates: Start: 08/02/24 Expected End: 08/09/24 Resolved: 08/05/24 Outcomes Date/Time User Outcome 08/05/24 153Morgan Vasquez PT Completed Goal: Assess stairs (Resolved) Dates: Start: 08/02/24 Expected End: 08/09/24 Resolved: 08/05/24 Outcomes Date/Time User Outcome 08/05/24 153Morgan Vasquez PT Completed Goal: Supervision transfers LRAD Dates: Start: 08/05/24 Expected End: 08/12/24 Description: Goal: Supervision gait x20' Dates: Start: 08/05/24 Expected End: 08/12/24 Description: Encounter Problems (Resolved) There are no resolved problems. Session Start/Stop Time: 1330 1500 Therapy Minutes Physical Therapy PT Individual: 90 * JAY Watts - 08/10/2024 12:50 PM EST Images from the original note were not included. PEGGY CONSULT PROGRESS NOTE Date: 08/10/2024 Author: JAY Watts Patient ID: Cleve Burns is a 79 y.o. male : 1945 MR#: [id number] SUBJECTIVE Subjective Pt seen, no c/o Moving bowels Pain improved ALL: Patient has no known allergies. REVIEW OF SYSTEMS: Review of Systems ROS: CHEST: no sob, coughing HEART: no chest pain, orthopnea GI: no abd pain, or N/V. : No dysuria or frequency EXT: no leg pain or swelling Current Medications: acetaminophen, 975 mg, oral, q8h NMICO amLODIPine, 2.5 mg, oral, Nightly aspirin, 81 mg, oral, Nightly atorvastatin, 80 mg, oral, Nightly cyclobenzaprine, 5 mg, oral, TID docusate sodium, 100 mg, oral, BID enoxaparin, 40 mg, subcutaneous, Daily gabapentin, 200 mg, oral, BID lidocaine, 1 patch, Topical, Daily lisinopriL, 20 mg, oral, Nightly pantoprazole, 40 mg, oral, q AM AC senna, 2 tablet, oral, Nightly PRN medications: bisacodyL, magnesium hydroxide, ondansetron (ZOFRAN-ODT) disintegrating tablet, oxyCODONE OBJECTIVE Objective PHYSICAL EXAM Physical Exam General: conscious alert no acute distress HEENT: pupils are equal round and reactive. extraocular movements are grossly intact lungs clear to auscultation, no wheezing or crackles noted heart regular rate and rhythm, no murmur or rubs abdomen soft nontender nondistended positive bowel sounds Musculoskeletal: No gross deformity to joints extremities without edema, erythema or calf tenderness neuro: non-focal skin: no rashes or lesions. psych: mood stable appearing, good eye contact. Last Recorded Vitals: BP 110/74 (BP Location: Right arm, Patient Position: Sitting) Pulse 95 Temp 36.6 ??C (97.9 ??F)(Oral) Resp 16 Wt 83.7 kg (184 lb 9.6 oz) BMI 27.34 kg/m?? Lab Results: LABS HEMATOLOGY Lab Results Component Value Date WBC 9.2 08/07/2024 HGB 11.0 (L) 08/07/2024 HCT 33.3 (L) 08/07/2024 MCV 88.1 08/07/2024 PLT 392 08/07/2024 CHEMISTRY Lab Results Component Value Date GLUCOSE 105 (H) 08/07/2024 NA 138 08/07/2024 K 4.6 08/07/2024 CO2 30 08/07/2024 CL 106 08/07/2024 BUN 17 08/07/2024 CREATININE 1.11 08/07/2024 EGFR 68 08/07/2024 CALCIUM 9.0 08/07/2024 ANIONGAP 2 (L) 08/07/2024 No results found for: TROPONINT Imaging: Last Images reviewed CT Pelvis wo Contrast Narrative: History: Left buttock pain status post fall. Known right pubic fracture. Comparison: There are no comparison images available at this time. Technique: Helical volumetric imaging of the bony pelvis was performed, to include both hips. DLP: 648.85 mGy/cm [employer] VCT Iterative reconstruction technique Findings: Acute, nondisplaced fractures of the right superior and inferior pubic rami are noted. The pelvic bones are otherwise intact. No sacral fracture is identified. The sacroiliac joints are well-maintained. There is moderate loss of cartilage space in both hips. The femoral head contours are smooth. Thereis no evidence of a hip fracture. There is no significant hematoma formation associated with the right pubic ramus fractures. A smallbladder diverticulum is noted and there is mild, diffuse thickening of the bladder wall, a finding suggesting chronic bladder outlet obstruction. The prostate is enlarged. Diverticulosis of the partially imaged colon is noted. Impression: Impression: 1. Acute, nondisplaced right pubic ramus fractures. 2. No additional pelvic fracture identified. 3. No evidence of hip fracture. Telebatool THOMPSON ([id number]) -------- FINAL REPORT -------- Dictated By: Cece Meade Dictated Date: 08/08/2024 16:27 ET Assigned Physician: Cece Meade Reviewed and Electronically Signed By: Cece Meade Signed Date: 08/08/2024 16:32 ET Workstation ID: [id number] Transcribed By: Self Edit Transcribed Date: 08/08/2024 16:27 ET ASSESSMENT & PLAN Pelvic fracture right pubic rami Mechanical fall on the ice States pain is well-controlled when not moving Left buttock pain ongoing pain limiting his therapy Defer to Dr. Batista Will likely need further imaging to assess area Pain medication oxycodone, Flexeril lidocaine patch CT of the pelvis no new fractures noted on the left side Known right sided pelvic fracture New onset nausea with pain episode Zofran as needed Presume related to constipation as well as tramadol/milk of magnesia on an empty stomach resolved Closed head injury Patient reports that he hit his head when he fell. No LOC. Clinically appropriate No headaches no nausea CT of the head no acute intracranial findings. CT of the C-spine showed nonspecific esophageal distention and retained contents. Correlation for dysphagia. Distal stricture or achalasia or mass are all considered. No evidence of dysphagia. Recommend follow-up with PCP for further management Hypertension Lisinopril 20mg qd Norvasc 2.5mg qd Stable range Hyperlipidemia Continue statin Chronic anemia H/H stable Prerenal azotemia BUN 26 creatinine 1.28 Resolved 1.11 Mild leukocytosis Resolved, WBC 9.2 Likely reactive. Lovenox 40mg sc daily DAILY CARE CHECKLIST VTE Prophylaxis: On Lovenox per PMR Diet: Dietary Orders (From admission, onward) Start Ordered 08/01/24 170 Adult diet [facility]; General; Regular Diet effective now Question Answer Comment Location [facility] Diet Type (req) General General Diet Regular 08/01/241706 Resuscitation: Full Code - Default PCP: MD Rosemary Wright PA * Pauline Batista, DO - 08/10/2024 11:43 AM EST Images from the original note were not included. [facility] Daily Progress Note Patient name: Cleve Burns : 1945 SUBJECTIVE: Patient seen and examined at bedside today. No acute events overnight. Denies headaches, dizziness,shortness of breath, chest pain, nausea, constipation. Reports continued left buttock pain. CT pelvis results reviewed with him today. Participating in therapies: Gait with RW 10'x3 and 20'x1 supervision, adhering to TTWB RLE throughout. Pt with improved eccentric control sitting, able to reach both hands back to arm rests. OBJECTIVE: Vitals: 08/09/24 2144 08/09/24 2326 08/10/24 0852 08/10/24 0933 BP: 125/63 (!) 142/78 133/72 110/74 BP Location: Right arm Right arm Patient Position: Sitting Sitting Pulse: 84 99 95 Resp: 16 Temp: 36.5 ??C (97.7 ??F) 36.6 ??C (97.9 ??F) TempSrc: Oral Oral SpO2: 97% 97% Weight: Physical Examination: General: Alert, in no acute cardiopulmonary distress. Mental Status: Oriented to person, place and time. Normal affect. Head: Normocephalic. Eyes: Extraocular muscles grossly intact. Ear, Nose and Throat: Oropharynx clear, mucous membranes moist. Ears and nose without masses, lesions or deformities. Neck: Supple, Trachea midline. Respiratory: Clear to auscultation and percussion. No wheezing, rales or rhonchi. Cardiovascular: Heart sounds normal. No thrills. Regular rate and rhythm, no murmurs, rubs or gallops. Gastrointestinal: Abdomen soft, non-tender, non-distended. Normal bowel sounds. Neurologic: Cranial nerves II-XII grossly intact. Negative clonus bilaterally. Moves all extremities spontaneously. Sensation intact bilaterally. Skin: No rashes or lesions. No petechiae or purpura. No edema. Musculoskeletal: No cyanosis or clubbing. No gross deformities. Normal range of motion. Antigravitystrength all 4 extremities. CURRENT INPATIENT MEDICATIONS: Current Facility-Administered Medications: acetaminophen (TYLENOL) tablet 975 mg, 975 mg, oral, q8h [facility], Pauline Batista DO, 975 mg at 08/10/24 05 amLODIPine (NORVASC) tablet 2.5 mg, 2.5 mg, oral, Nightly, JAY Sheridan, 2.5 mg at 08/09/242143 aspirin chewable tablet 81 mg, 81 mg, oral, Nightly, JAY Sheridan, 81 mg at 08/09/24 214 atorvastatin (LIPITOR) tablet 80 mg, 80 mg, oral, Nightly, JAY Sheridan, 80 mg at 08/09/242141 bisacodyL (DULCOLAX) suppository 10 mg, 10 mg, rectal, Daily PRN, JAY Sheridan, 10 mg at 08/02/242017 cyclobenzaprine (FLEXERIL) tablet 5 mg, 5 mg, oral, TID, Kymberly Segal NP, 5 mg at 08/10/24 0932 docusate sodium (COLACE) capsule 100 mg, 100 mg, oral, BID, Magdi Torres, PA, 100 mg at enoxaparin (LOVENOX) injection 40 mg, 40 mg, subcutaneous, Daily, Magdi Torres, PA, 40 mg at 08/10/24 0931 gabapentin (NEURONTIN) capsule 200 mg, 200 mg, oral, BID, Magdi Torres, PA, 200 mg at 08/10/24 0932 lidocaine 4 % patch 1 patch, 1 patch, Topical, Daily, Pauline Batista DO, 1 patch at 08/10/24 0933 lisinopriL (PRINIVIL,ZESTRIL) tablet 20 mg, 20 mg, oral, Nightly, Magdi Torres, PA, 20 mg at 08/09/24 214 magnesium hydroxide (MILK OF MAGNESIA) 400 mg/5 mL suspension 30 mL, 30 mL, oral, Daily PRN, Magdi Torres, PA, 30 mL at 08/02/24 0855 ondansetron ODT (ZOFRAN-ODT) disintegrating tablet 4 mg, 4 mg, oral, q8h PRN, Magdi Torres, PA, 4 mg at 08/02/24 1328 oxyCODONE (ROXICODONE) immediate release tablet 5 mg, 5 mg, oral, q4h PRN, Magdi Torres, PA, 5 mg at 08/10/24 0932 pantoprazole (PROTONIX) EC tablet 40 mg, 40 mg, oral, q AM AC, Magdi Torres, PA, 40 mg at 08/10/24 0513 senna (SENOKOT) tablet 17.2 mg, 2 tablet, oral, Nightly, Pauline Batista DO, 17.2 mg at 08/09/24 2141 LABS: Lab Results Component Value Date WBC 9.2 08/07/2024 RBC 3.80 (L) 08/07/2024 HGB 11.0 (L) 08/07/2024 HCT 33.3 (L) 08/07/2024 MCV 88.1 08/07/2024 MCHC 33.0 08/07/2024 RDW 13.2 08/07/2024 PLT 392 08/07/2024 MPV 9.5 08/07/2024 NRBC 0.0 08/07/2024 DIFF Lab Results Component Value Date LYMPHOPCT 23.7 08/02/2024 NEUTROABS 6.90 08/02/2024 LYMPHSABS 2.91 08/02/2024 MONOABS 1.40 (H) 08/02/2024 EOSABS 0.85 (H) 08/02/2024 BASOSABS 0.09 08/02/2024 IMMGRANABS 0.14 (H) 08/02/2024 RETIC No results found for: RETIC , RETICCTPCT Lab Results Component Value Date NA 138 08/07/2024 K 4.6 08/07/2024 CL 106 08/07/2024 CO2 30 08/07/2024 GLUCOSE 105 (H) 08/07/2024 BUN 17 08/07/2024 CREATININE 1.11 08/07/2024 CALCIUM 9.0 08/07/2024 PROT 6.3 08/02/2024 ALBUMIN 3.1 (L) 08/02/2024 BILITOT 1.2 08/02/2024 AST 21 08/02/2024 ALT 28 08/02/2024 ALKPHOS 75 08/02/2024 EGFR 68 08/07/2024 IMPRESSION & PLAN: #Impaired mobility and self-care -Secondary to slip and fall and fracture -Continue PT/OT and nursing care #Right superior and inferior pubic rami fractures -evaluated by [facility] JAY Wilkerson & Dr Spann -Non surgical management -TTWB to RLE -continue therapies -Follow up with [facility] after discharge #Left buttock pain -CT pelvis completed 08/08 redemonstrated right superior and inferior pubic rami fracture with no additional pelvic fracture or hip fracture appreciated -continue pain control as outlined below #Pain management -Acetaminophen 975mg Q8H -Lidocaine patch daily -Oxycodone 5mg Q6H PRN --> 08/07 changed to 5 mg Q4H due to increased pain -Flexeril 5mg TID started 08/05 -Gabapentin 200 mg BID started 08/09 #Hypertension -ASA 81 mg daily -Amlodipine 2.5 mg nightly -Lisinopril 20 mg nightly #Hyperlipidemia -Atorvastatin 80 mg nightly #GERD -Protonix 40 mg daily #Bladder diverticulum -patient was noted to have a 1.5 cm bladder diverticulum on the right on CT pelvis 07/30/[address] [facility] --> redemonstrated on CT pelvis 08/08/24 -Patient will need to follow-up with PCP after discharge for further management #Bowel management -Colace 100mg BID -Senna 2 tabs QHS #DVT ppx: Lovenox 40mg daily (will need to continue until follow up with Ortho after discharge due to TTWB to RLE) * Tobias Harden RN - 08/10/2024 10:19 AM EST Step by step lovenox education provided, hand out provided to pt * Matty Vega OT - 08/10/2024 8:30 AM EST [facility] Occupational Therapy Treatment Note 08/10/24 Patient: Cleve Burns : 1945 Age: 79 y.o. Gender: male Diagnosis: Pubic bone fracture (CMS/HCC) Primary Rehab (Etiologic) Diagnosis: Patient Active Problem List Diagnosis Anemia Essential hypertension Hypercholesteremia Thalamic stroke (CMS/HCC) Tongue cancer (CMS/HCC) Pubic bone fracture (CMS/HCC) PMH: Past Medical History: Diagnosis Date CVA (cerebral vascular accident) (CMS/HCC) Tobacco use DX:Tobacco use Tongue cancer (CMS/HCC) PSH: Past Surgical History: Procedure Laterality Date KNEE SURGERY PROCEDURE: HISTORICAL KNEE SURGERY MOUTH SURGERY PROCEDURE: ORAL SURGERY PROCEDURE; COMMENT: tongue surgery OTHER SURGICAL HISTORY PROCEDURE: LA CLOSURE INTESTINAL CUTANEOUS FISTULA VASECTOMY PROCEDURE: HISTORICAL VASECTOMY Allergies: has No Known Allergies. Precautions: Precautions Medical Precautions: Fall Risk Safety Interventions: Call arevalo within reach, Chair alarm RUE Weight Bearing Status: Full LUE Weight Bearing Status: Full RLE Weight Bearing Status: Toe Touch LLE Weight Bearing Status: Full Vitals: BP: 133/72 Heart Rate: 99 Pain: Pain Assessment Pain Assessment: 0-10 Pain Score: 5 - Moderate pain Pain Location: Hip Pain Orientation: Left Subjective: My pain is not too bad yet, I haven't had pain meds. Procedures/Interventions: ADLs/IADLs Self Care/Home Management (ADLs) Time Entry: 60 Pt in elevated supine upon arrival, agreeable to planned shower. Elevated supine>Sit EOB S. STS at RW S with good carryover of hand placement. Functional amb into bathroom at S. Toileting including txfer with simulated safety frame with S. From w/c level pt performed oral hygiene with mod I. Pt confirming able to sit on toilet to brush teeth at home. Pt propelled self from room><gym mod I. Short distance amb into ADL bathroom S with RW. Tub txfer with use of tub bench S. Pt doffed LB clothing with S in stand, seated to remove from around feet. doffed UB clothing with clean up A. Pt bathed entirely seated on tub bench with use of hand held shower, weight shifting to bathe buttocks. Pt dressed in joel to return to room. Txfer out of tub via tub bench S. Seated pt donned Socks with ZALDIVAR. STS from tub bench with verbal cues for maintaining TDWB R LE. Short distance amb back to w/c S with RW. Seated rest break taken. Once back in room pt reporting that will set clothing out at home for him and he will retreivethem from w/c level. Pt retrieved clothing from closet w/c level mod I. UB dressing mod I. LB dressing with overall S in stand to hike over hips. Pt requesting pain medication, due to increased pain.RN notified and in to medicate pt. Pt provided with handout for toilet safety frame as recommendingone for home to increase safety and ensure adherence to TDWB. Pt educated on where to obtain from including local community resources. Pt agreeable. Therapeutic Exercise Therapeutic Exercise Time Entry: 30 Pt provided with printed HEP to perform UB there ex in down time from therapy with theraband. Pt already issued a blue level 4 theraband. Pt able to read and interpret HEP with min verbal cues for initial reps for achieving target movement/correct body mechanics. Pt able to carryover, post initial cues. Pt performed 10 reps X3 of shoulder horizontal abd, shoulder flexion, and shoulder diagonals. 10 reps X1 of elbow flexion and elbow extension due to time. End of session SPT w/c>bed no AD UE support on arm rest and bed rail with S. Sit>Supine S. Bed alarm on and call arevalo in reach. OT Assessment OT Assessment OT Assessment Results: Decreased ADL status, Decreased endurance, Decreased IADLs, Decreased functional mobility Prognosis: Good Evaluation/Treatment Tolerance: Patient limited by pain, Patient tolerated treatment well Comments: Pt progressing with ALDs, cues X1 for maintaining TDWB. [facility], pt provided with printed handout. Medical Staff Made Aware: Yes Comments: request for pain meds OT Plan Plan Treatment Interventions: ADL retraining, Functional transfer training, UE strengthening/ROM, Endurance training OT Plan: Skilled OT OT Frequency : 5-7 days per week OT Duration of Sessions: 90 min per day OT Treatments per day: 1 time per day OT - Evaluation Status: Complete OT Discharge Recommendations: (TBD at d/c) Equipment Recommended: (TBD at d/c) Goals: Encounter Problems Encounter Problems (Active) Template: Occupational Therapy Problem: OT Template Fitter Goals Dates: Start: 08/02/24 Goal: Patient will perform toileting at a MODIFIED INDEPENDENT level without adaptive devices as appropriate. Dates: Start: 08/02/24 Expected End: 08/16/24 Goal: Patient will perform bathing at a MODIFIED INDEPENDENT level using adaptive devices as appropriate. Dates: Start: 08/02/24 Expected End: 08/16/24 Goal: Patient will perform Lower body dressing at a MODIFIED INDEPENDENT level using adaptive/assistive devices as appropriate. Dates: Start: 08/02/24 Expected End: 08/16/24 Goal: Patient will complete toilet transfers with at a MODIFIED INDEPENDENT level using least restrictive assistive device Dates: Start: 08/02/24 Expected End: 08/16/24 Goal: Patient will complete Tub Transfer with with SUPERVISION using least restrictive assistive device Dates: Start: 08/02/24 Expected End: 08/16/24 Problem: OT Short Term Goals Dates: Start: 08/02/24 Goal: Patient will perform toileting with STAND BY ASSIST without adaptive devices as appropriate. Dates: Start: 08/02/24 Expected End: 08/09/24 Outcomes Date/Time User Outcome 08/09/24 123Tona Vega OT Progressing Goal: Patient will perform bathing with STAND BY ASSIST without adaptive devices as appropriate. Dates: Start: 08/02/24 Expected End: 08/09/24 Outcomes Date/Time User Outcome 08/09/24 123Tona Vega OT Progressing Goal: Patient will perform Lower body dressing with MINIMAL ASSIST using adaptive/assistive devicesas appropriate. (Resolved) Dates: Start: 08/02/24 Expected End: 08/09/24 Resolved: 08/09/24 Outcomes Date/Time User Outcome 08/09/24 Calin Vega OT Completed Goal: Patient will complete toilet transfers with with MINIMAL ASSIST using least restrictive assistive device (Resolved) Dates: Start: 08/02/24 Expected End: 08/09/24 Resolved: 08/09/24 Outcomes Date/Time User Outcome 08/09/24 123Tona Vega OT Completed Goal: Patient will complete Tub Transfer with with MODERATE ASSIST using least restrictive assistive device (Resolved) Dates: Start: 08/02/24 Expected End: 08/09/24 Resolved: 08/09/24 Outcomes Date/Time User Outcome 08/09/24 Calin Vega OT Completed Encounter Problems (Resolved) There are no resolved problems. Education Documentation Safe Use of DME, taught by Matty Vega OT at 08/10/2024 9:31 AM. Learner: Patient Readiness: Acceptance Method: Handout Response: Verbalizes Understanding, Demonstrated Understanding The Cost of DME, Purchase and Rental, taught by Matty Vega OT at 08/10/2024 9:31 AM. Learner: Patient Readiness: Acceptance Method: Handout Response: Verbalizes Understanding, Demonstrated Understanding How to Obtain Needed DME, taught by Matty Vega OT at 08/10/2024 9:31 AM. Learner: Patient Readiness: Acceptance Method: Handout Response: Verbalizes Understanding, Demonstrated Understanding Home Exercise Program, taught by Matty Vega OT at 08/10/2024 9:31 AM. Learner: Patient Readiness: Acceptance Method: Handout Response: Verbalizes Understanding, Demonstrated Understanding Home Safety, taught by Matty Vega OT at 08/10/2024 9:31 AM. Learner: Patient Readiness: Acceptance Method: Handout Response: Verbalizes Understanding, Demonstrated Understanding Body Mechanics, taught by Matty Vega OT at 08/10/2024 9:31 AM. Learner: Patient Readiness: Acceptance Method: Handout Response: Verbalizes Understanding, Demonstrated Understanding Precautions, taught by Matty Vega OT at 08/10/2024 9:31 AM. Learner: Patient Readiness: Acceptance Method: Handout Response: Verbalizes Understanding, Demonstrated Understanding ADL Training, taught by Matty Vega OT at 08/10/2024 9:31 AM. Learner: Patient Readiness: Acceptance Method: Handout Response: Verbalizes Understanding, Demonstrated Understanding Education Comments No comments found. Start/Stop Time OT Time Calculation OT Start Time: 0830 OT Stop Time: 1000 OT Time Calculation (min): 90 min Therapy Minutes: Occupational Therapy OT Individual: 90 * Yulissa Patel RN - 08/10/2024 1:18 AM EST Pt awake, watching TV. States states usually awake until midnight. SCD boots on. Denies pain. Bed alarm on. Call arevalo within reach. * Spike Barlow RN - 08/09/2024 12:46 PM EST Oxycodone given 1245. Pt noted left buttocks pain 08/20. Pt was on the way to therapy. Lorraine S. * JAY Sheridan - 08/09/2024 12:45 PM EST Images from the original note were not included. [facility] Daily Progress Note Patient name: Cleve Burns : 1945 SUBJECTIVE: Patient seen and examined at bedside today. No acute events overnight. Denies headaches, dizziness,shortness of breath, chest pain, nausea, constipation. Patient continues to complain of left buttocks pain that comes on suddenly and when it comes on it prevents him from moving due to severity of pain. I again went over CT results with him and educated that there were no new findings. Discussed pain control options will try gabapentin 200 mg BID OBJECTIVE: Vitals: 08/08/24 1530 08/08/24 2100 08/09/24 0518 08/09/24 1234 BP: 109/61 126/68 121/70 116/65 BP Location: Right arm Right arm Right arm Patient Position: Lying Pulse: 83 85 77 87 Resp: 18 16 Temp: 36.9 ??C (98.4 ??F) 36.5 ??C (97.7 ??F) 36.5 ??C (97.7 ??F) TempSrc: Temporal Oral Oral SpO2: 95% 97% 95% Weight: Physical Examination: General: Alert, in no acute cardiopulmonary distress. Mental Status: Oriented to person, place and time. Normal affect. Head: Normocephalic. Eyes: Extraocular muscles grossly intact. Ear, Nose and Throat: Oropharynx clear, mucous membranes moist. Ears and nose without masses, lesions or deformities. Neck: Supple, Trachea midline. Respiratory: Clear to auscultation and percussion. No wheezing, rales or rhonchi. Cardiovascular: Heart sounds normal. No thrills. Regular rate and rhythm, no murmurs, rubs or gallops. Gastrointestinal: Abdomen soft, non-tender, non-distended. Normal bowel sounds. Neurologic: Cranial nerves II-XII grossly intact. Negative clonus bilaterally. Moves all extremities spontaneously. Sensation intact bilaterally. Skin: No rashes or lesions. No petechiae or purpura. No edema. Musculoskeletal: No cyanosis or clubbing. No gross deformities. Normal range of motion. Antigravitystrength all 4 extremities. CURRENT INPATIENT MEDICATIONS: Current Facility-Administered Medications: acetaminophen (TYLENOL) tablet 975 mg, 975 mg, oral, q8h Pauline RINALDI DO, 975 mg at 08/09/24 0536 amLODIPine (NORVASC) tablet 2.5 mg, 2.5 mg, oral, Nightly, Magdi Torres, PA, 2.5 mg at 08/08/242111 aspirin chewable tablet 81 mg, 81 mg, oral, Nightly, Prestonta Melissa, PA, 81 mg at 08/08/242110 atorvastatin (LIPITOR) tablet 80 mg, 80 mg, oral, Nightly, Magdi Torres, PA, 80 mg at 08/08/242110 bisacodyL (DULCOLAX) suppository 10 mg, 10 mg, rectal, Daily PRN, Magdi Torres, PA, 10 mg at 08/02/242017 cyclobenzaprine (FLEXERIL) tablet 5 mg, 5 mg, oral, TID, Kymberly Segal, CORE JAVA ENGINEER, 5 mg at 08/09/24817 docusate sodium (COLACE) capsule 100 mg, 100 mg, oral, BID, Magdi Torres, PA, 100 mg at 818 enoxaparin (LOVENOX) injection 40 mg, 40 mg, subcutaneous, Daily, Magdi Torres, PA, 40 mg at 08/09/24 0819 lidocaine 4 % patch 1 patch, 1 patch, Topical, Daily, Pauline Batista, DO, 1 patch at 08/09/2418 lisinopriL (PRINIVIL,ZESTRIL) tablet 20 mg, 20 mg, oral, Nightly, Magdi Torres, PA, 20 mg at 08/08/242111 magnesium hydroxide (MILK OF MAGNESIA) 400 mg/5 mL suspension 30 mL, 30 mL, oral, Daily PRN, Magdi Torres, PA, 30 mL at 08/02/24 0855 ondansetron ODT (ZOFRAN-ODT) disintegrating tablet 4 mg, 4 mg, oral, q8h PRN, Magdi Dominguezbb, PA, 4 mg at 08/02/24 1328 oxyCODONE (ROXICODONE) immediate release tablet 5 mg, 5 mg, oral, q4h PRN, Magdi Torres, PA, 5 mg at 08/09/24 1243 pantoprazole (PROTONIX) EC tablet 40 mg, 40 mg, oral, q AM AC, JAY Sheridan, 40 mg at 08/09/24 0537 senna (SENOKOT) tablet 17.2 mg, 2 tablet, oral, Nightly, Pauline Batista DO, 17.2 mg at 08/08/24 2111 LABS: Lab Results Component Value Date WBC 9.2 08/07/2024 RBC 3.80 (L) 08/07/2024 HGB 11.0 (L) 08/07/2024 HCT 33.3 (L) 08/07/2024 MCV 88.1 08/07/2024 MCHC 33.0 08/07/2024 RDW 13.2 08/07/2024 PLT 392 08/07/2024 MPV 9.5 08/07/2024 NRBC 0.0 08/07/2024 DIFF Lab Results Component Value Date LYMPHOPCT 23.7 08/02/2024 NEUTROABS 6.90 08/02/2024 LYMPHSABS 2.91 08/02/2024 MONOABS 1.40 (H) 08/02/2024 EOSABS 0.85 (H) 08/02/2024 BASOSABS 0.09 08/02/2024 IMMGRANABS 0.14 (H) 08/02/2024 RETIC No results found for: RETIC , RETICCTPCT Lab Results Component Value Date NA 138 08/07/2024 K 4.6 08/07/2024 CL 106 08/07/2024 CO2 30 08/07/2024 GLUCOSE 105 (H) 08/07/2024 BUN 17 08/07/2024 CREATININE 1.11 08/07/2024 CALCIUM 9.0 08/07/2024 PROT 6.3 08/02/2024 ALBUMIN 3.1 (L) 08/02/2024 BILITOT 1.2 08/02/2024 AST 21 08/02/2024 ALT 28 08/02/2024 ALKPHOS 75 08/02/2024 EGFR 68 08/07/2024 IMPRESSION & PLAN: #Impaired mobility and self-care -Secondary to slip and fall and fracture -Continue PT/OT and nursing care #Right superior and inferior pubic rami fractures -evaluated by [facility] JAY Wilkerson & Dr Spann -Non surgical management -TTWB to RLE -continue therapies -Follow up with [facility] after discharge #Left buttock pain -CT pelvis completed 08/08 redemonstrated right superior and inferior pubic rami fracture with no additional pelvic fracture or hip fracture appreciated -continue pain control as outlined below #Pain management -Acetaminophen 975mg Q8H -Lidocaine patch daily -Oxycodone 5mg Q6H PRN --> 08/07 changed to 5 mg Q4H due to increased pain -Flexeril 5mg TID started 08/05 -Gabapentin 200 mg BID started 08/09 #Hypertension -ASA 81 mg daily -Amlodipine 2.5 mg nightly -Lisinopril 20 mg nightly #Hyperlipidemia -Atorvastatin 80 mg nightly #GERD -Protonix 40 mg daily #Bladder diverticulum -patient was noted to have a 1.5 cm bladder diverticulum on the right on CT pelvis 07/30/[address] [facility] --> redemonstrated on CT pelvis 08/08/24 -Patient will need to follow-up with PCP after discharge for further management #Bowel management -Colace 100mg BID -Senna 2 tabs QHS #DVT ppx: Lovenox 40mg daily Cosigned by Pauline Batista DO at 08/09/2024 9:58 PM EST Associated attestation - Pauline Batista DO - 08/09/2024 9:58 PM EST Agree with progress note, assessment, and plan as documented by PA. * Matty Vega OT - 08/09/2024 12:30 PM EST [facility] Occupational Therapy Treatment Note 08/09/24 Patient: Cleve Burns : 1945 Age: 79 y.o. Gender: male Diagnosis: Pubic bone fracture (CMS/HCC) Primary Rehab (Etiologic) Diagnosis: Patient Active Problem List Diagnosis Anemia Essential hypertension Hypercholesteremia Thalamic stroke (CMS/HCC) Tongue cancer (CMS/HCC) Pubic bone fracture (CMS/HCC) PMH: Past Medical History: Diagnosis Date CVA (cerebral vascular accident) (CMS/HCC) Tobacco use DX:Tobacco use Tongue cancer (CMS/HCC) PSH: Past Surgical History: Procedure Laterality Date KNEE SURGERY PROCEDURE: HISTORICAL KNEE SURGERY MOUTH SURGERY PROCEDURE: ORAL SURGERY PROCEDURE; COMMENT: tongue surgery OTHER SURGICAL HISTORY PROCEDURE: LA CLOSURE INTESTINAL CUTANEOUS FISTULA VASECTOMY PROCEDURE: HISTORICAL VASECTOMY Allergies: has No Known Allergies. Precautions: Precautions Medical Precautions: Fall Risk Safety Interventions: Call arevalo within reach, Chair alarm RUE Weight Bearing Status: Full LUE Weight Bearing Status: Full RLE Weight Bearing Status: Toe Touch LLE Weight Bearing Status: Full Pain: Pain Assessment Pain Assessment: 0-10 Pain Score: 3 Pain Type: Acute pain Pain Location: Buttocks Pain Orientation: Left Subjective: Yes I am getting a ramp. Procedures/Interventions: ADLs/IADLs Self Care/Home Management (ADLs) Time Entry: 30 Pt in elevated supine upon arrival, agreeable to participation. Elevated supine>Sit EOB S. Functional amb at RW from bed>bathroom SBA with verbal cues for hand placement during STS. Pt txfer totoilet with ue of grab bar S. SBA clothing management. While seated pt able to void. STS from toilet with use of simulated toilet safety frame S. Pt releasing B UE from walker to hike pants, cues forunilateral UE support on maintain TDWB R LE. Once seated on bed RN present for pain medication administration. SPT from bed>w/c at RW with S while maintaining TDWB. Pt reports that tub bench will fit into bathroom and handout was given to his . Pt report that he may not purchase tub bench, and sponge bathe only at home. Therapeutic Activity Therapeutic Activity Time Entry: 30 Pt engaged in there act to target standing balance and adherence to TDWB with unilateral UE releasefrom walker to simulate skills for LB self care tasks. In stand at RW, pt tasked with assembling magnetic puzzle on vertical white board with unilateral supported. Pt able to maintain TDWB/NWB R LE, even with R UE release from RW. Pt with max standing tolerance of 2 min 50 seconds across trials. Nomore than close S for balance. Pt engaged in additional task to target endurance with ambulation on carpeted surfaces with RW. In lounge pt engaged in scavenger groves at RW with 1 seated rest break and retrieved rings placed outside MARCELA, therapist transporting gathered rings. No more than S for balance. Pt propelled self back to room, mod I. SPT w/c>bed with UE support on arm rest/bed rail S. Sit>Supine with S. Bed alarm on and call arevalo in reach. Therapeutic Exercise Therapeutic Exercise Time Entry: 30 In gym pt engaged in UB there ex to increased UB strength and overall endurance as pt relies heavily on UB strength for mobility with RW. With 2 lb dumbbells, pt performed 10 reps X3 of over head press, shoulder flexion, shoulder abduction and 20 alternating punches (chest press). With 3 lb dumbbells pt performed 10 reps X3 of elbow flexion. Rest breaks taken throughout. OT Assessment OT Assessment OT Assessment Results: Decreased ADL status, Decreased safe judgment during ADL, Decreased endurance, Decreased functional mobility, Decreased IADLs Prognosis: Good Evaluation/Treatment Tolerance: Patient tolerated treatment well Comments: pt limited by pain initially, thus acitivty modifications utilized. Pt with plan to shower tomorrow. OT Plan Plan Treatment Interventions: ADL retraining, Functional transfer training, UE strengthening/ROM, Endurance training OT Plan: Skilled OT OT Frequency : 5-7 days per week OT Duration of Sessions: 90 min per day OT Treatments per day: 1 time per day OT - Evaluation Status: Complete OT Discharge Recommendations: (TBD at d/c) Equipment Recommended: (TBD at d/c) Goals: Encounter Problems Encounter Problems (Active) Template: Occupational Therapy Problem: OT Chcf Goals Dates: Start: 08/02/24 Goal: Patient will perform toileting at a MODIFIED INDEPENDENT level without adaptive devices as appropriate. Dates: Start: 08/02/24 Expected End: 08/16/24 Goal: Patient will perform bathing at a MODIFIED INDEPENDENT level using adaptive devices as appropriate. Dates: Start: 08/02/24 Expected End: 08/16/24 Goal: Patient will perform Lower body dressing at a MODIFIED INDEPENDENT level using adaptive/assistive devices as appropriate. Dates: Start: 08/02/24 Expected End: 08/16/24 Goal: Patient will complete toilet transfers with at a MODIFIED INDEPENDENT level using least restrictive assistive device Dates: Start: 08/02/24 Expected End: 08/16/24 Goal: Patient will complete Tub Transfer with with SUPERVISION using least restrictive assistive device Dates: Start: 08/02/24 Expected End: 08/16/24 Problem: OT Short Term Goals Dates: Start: 08/02/24 Goal: Patient will perform toileting with STAND BY ASSIST without adaptive devices as appropriate. Dates: Start: 08/02/24 Expected End: 08/09/24 Outcomes Date/Time User Outcome 08/09/24 1235 Matty Vega OT Progressing Goal: Patient will perform bathing with STAND BY ASSIST without adaptive devices as appropriate. Dates: Start: 08/02/24 Expected End: 08/09/24 Outcomes Date/Time User Outcome 08/09/24 1235 Matty Vega OT Progressing Goal: Patient will perform Lower body dressing with MINIMAL ASSIST using adaptive/assistive devicesas appropriate. (Resolved) Dates: Start: 08/02/24 Expected End: 08/09/24 Resolved: 08/09/24 Outcomes Date/Time User Outcome 08/09/24 1235 Matty Vega OT Completed Goal: Patient will complete toilet transfers with with MINIMAL ASSIST using least restrictive assistive device (Resolved) Dates: Start: 08/02/24 Expected End: 08/09/24 Resolved: 08/09/24 Outcomes Date/Time User Outcome 08/09/24 1235 Matty Vega OT Completed Goal: Patient will complete Tub Transfer with with MODERATE ASSIST using least restrictive assistive device (Resolved) Dates: Start: 08/02/24 Expected End: 08/09/24 Resolved: 08/09/24 Outcomes Date/Time User Outcome 08/09/24 1235 Matty Vega OT Completed Encounter Problems (Resolved) There are no resolved problems. Education Documentation How to Obtain Needed DME, taught by Matty Vega OT at 08/09/2024 1:09 PM. Learner: Patient Readiness: Acceptance Method: Explanation, Demonstration Response: Verbalizes Understanding, Demonstrated Understanding ADL Training, taught by Matty Vega OT at 08/09/2024 1:09 PM. Learner: Patient Readiness: Acceptance Method: Explanation, Demonstration Response: Verbalizes Understanding, Demonstrated Understanding Precautions, taught by Matty Vega OT at 08/09/2024 1:09 PM. Learner: Patient Readiness: Acceptance Method: Explanation, Demonstration Response: Verbalizes Understanding, Demonstrated Understanding Body Mechanics, taught by Matty Vega OT at 08/09/2024 1:09 PM. Learner: Patient Readiness: Acceptance Method: Explanation, Demonstration Response: Verbalizes Understanding, Demonstrated Understanding Home Safety, taught by Matty Vega OT at 08/09/2024 1:09 PM. Learner: Patient Readiness: Acceptance Method: Explanation, Demonstration Response: Verbalizes Understanding, Demonstrated Understanding Education Comments No comments found. Start/Stop Time OT Time Calculation OT Start Time: 1230 OT Stop Time: 1400 OT Time Calculation (min): 90 min Therapy Minutes: Occupational Therapy OT Individual: 90 * Ebony Marquis - 08/09/2024 10:30 AM EST Social Work Note Integrated Photo Checker And Assembler: DX: Adjustment DO: Met with PT this morning introduced self and the services. Met pt at bedside. Assessed the PT mood and behaviors, he denied any SI or self harm thoughts or behaviors. PT also denied any anxiety or depression. He reports that things have been going well with the exception of the pain he feels in hisback side. He sleeps ok and eats fairly no concerns at this time. Will monitor. Ebony Marquis MS Clinician * Yesenia Vasquez, PT - 08/09/2024 8:30 AM EST [facility] Physical Therapy Treatment Note 08/09/2024 Patient: Cleve Burns : 1945 Age: 79 y.o. Gender: male Primary Language: Lithuanian Diagnosis: Pubic bone fracture (CMS/HCC) Past Medical History: Diagnosis Date CVA (cerebral vascular accident) (CMS/HCC) Tobacco use DX:Tobacco use Tongue cancer (CMS/HCC) Past Surgical History: Procedure Laterality Date KNEE SURGERY PROCEDURE: HISTORICAL KNEE SURGERY MOUTH SURGERY PROCEDURE: ORAL SURGERY PROCEDURE; COMMENT: tongue surgery OTHER SURGICAL HISTORY PROCEDURE: LA CLOSURE INTESTINAL CUTANEOUS FISTULA VASECTOMY PROCEDURE: HISTORICAL VASECTOMY Allergies: has No Known Allergies. Precautions: Medical Precautions: Fall Risk Safety Interventions: Call arevalo within reach, Chair alarm RUE Weight Bearing Status: Full LUE Weight Bearing Status: Full RLE Weight Bearing Status: Toe Touch LLE Weight Bearing Status: Full SUBJECTIVE Pt report: I'll just have my son build the ramp Pain: Pain Assessment: 0-10 Pain Score: 7 Pain Location: Pelvis Pain Orientation: Left OBJECTIVE General Observation: Pt in bed, agreeable to PT. Vitals: BP: 115/64 Heart Rate: 89 SpO2: 96 % Procedure/Treatment: Therapeutic Activities: Therapeutic Activity Time Entry: 90 Pt received in bed. Supine > sit supervision. Pt dez mace IND. Supervision transfer with RW to wheelchair. Mod I wheelchair mobility to the gym. Pt providing measurements for steps at secondary entrance, 28 depth for platform step. Pt unable to fit wheelchair on platform step. Recommended either smaller chair with armrests to allow pt to stand to walker on step, or using ramp. Pt deciding to use ramp for home, reporting he will have his son put together existing ramp prior to discharge. Pt to follow up with family to ensure everything is set prior to discharge. Brought pt downstairs, pt able to both descend and ascend ramp in wheelchair mod I, reporting his ramp at home is appro ximately same incline. Pt returning to gym. Gait with RW 10'x3 and 20'x1 supervision, adhering to TTWB RLE throughout. Pt with improved eccentric control sitting, able to reach both hands back to armrests. Pt completing LE exercises, 3x10 LAQ, unable to tolerate hip flexion due to pain in left buttocks. Pt returning back to room. Supervision stand pivot transfer no AD to bed. Sit > supine partial A for lower extremities. At end of session, pt left in bed with alarm set, call arevalo within reach and all needs met. Education: Education Documentation Precautions, taught by Yesenia Vasquez PT at 08/09/2024 12:27 PM. Learner: Patient Readiness: Acceptance Method: Explanation, Demonstration Response: Verbalizes Understanding, Demonstrated Understanding, Needs Reinforcement Comment: ramps, stairs, transfers, standing balance Mobility Training, taught by Yesenia Vasquez PT at 08/09/2024 12:27 PM. Learner: Patient Readiness: Acceptance Method: Explanation, Demonstration Response: Verbalizes Understanding, Demonstrated Understanding, Needs Reinforcement Comment: ramps, stairs, transfers, standing balance Education Comments No comments found. ASSESSMENT PT Assessment PT Assessment Results: Decreased strength, Decreased range of motion, Decreased endurance, Impairedbalance, Decreased mobility, Impaired gait, Orthopedic restrictions, Pain Prognosis: Good Evaluation/Treatment Tolerance: Patient limited by pain Comments: Ongoing problem solving for stairs, determined ramp is safest and easiest option for home Equipment: TBD Plan of Care Plan Treatment/Interventions: Functional transfer training, LE strengthening/ROM, Endurance training, Patient/family training, Bed mobility, Gait training, Balance training PT Plan: Skilled PT PT Frequency: 5 days per week PT Duration of Sessions: 90 min per day PT Treatments per day: 1 time per day Problems/Goals Goals: Encounter Problems Encounter Problems (Active) Template: Physical Therapy Problem: PT Template Fitter Goals Dates: Start: 08/02/24 Goal: Mod I bed mobility Dates: Start: 08/02/24 Expected End: 08/16/24 Outcomes Date/Time User Outcome 08/05/24 1533 Yesenia Vasquez PT Progressing Goal: Mod I transfers LRAD Dates: Start: 08/02/24 Expected End: 08/16/24 Outcomes Date/Time User Outcome 08/05/24 153 Yesenia Vasquez, PT Progressing Goal: Mod I gait x10' with RW Dates: Start: 08/02/24 Expected End: 08/16/24 Outcomes Date/Time User Outcome 08/05/24 1533 Yesenia Vasquez PT Progressing Goal: Mod I wheelchair mobility x150' Dates: Start: 08/02/24 Expected End: 08/16/24 Outcomes Date/Time User Outcome 08/05/24 1533 Yesenia Vasquez PT Progressing Goal: Pt will negotiate x3 stairs no railings partial A Dates: Start: 08/02/24 Expected End: 08/16/24 Outcomes Date/Time User Outcome 08/05/24 153 Yesenia Vasquez PT Progressing Problem: PT Short Term Goals Dates: Start: 08/02/24 Goal: Supervision bed mobility Dates: Start: 08/02/24 Expected End: 08/09/24 Outcomes Date/Time User Outcome 08/05/24 1533 Yesenia Vasquez PT Progressing Goal: Steadying A transfers LRAD (Resolved) Dates: Start: 08/02/24 Expected End: 08/09/24 Resolved: 08/05/24 Outcomes Date/Time User Outcome 08/05/24 1533 Yesenia Vasquez PT Completed Goal: Assess gait (Resolved) Dates: Start: 08/02/24 Expected End: 08/09/24 Resolved: 08/05/24 Outcomes Date/Time User Outcome 08/05/24 1533 Yesenia Vasquez PT Completed Goal: Assess stairs (Resolved) Dates: Start: 08/02/24 Expected End: 08/09/24 Resolved: 08/05/24 Outcomes Date/Time User Outcome 08/05/24 1533 Yesenia Vasquez PT Completed Goal: Supervision transfers LRAD Dates: Start: 08/05/24 Expected End: 08/12/24 Description: Goal: Supervision gait x20' Dates: Start: 08/05/24 Expected End: 08/12/24 Description: Encounter Problems (Resolved) There are no resolved problems. Session Start/Stop Time: 829 1000 Therapy Minutes Physical Therapy PT Individual: 90 * Yulissa Patel RN - 08/09/2024 1:58 AM EST Pt awake, watching TV while this RN rounding at 0000. SCD boots on. Call arevalo within reach. Bed alarm on. * Pauline Batista DO - 08/08/2024 8:11 PM EST Images from the original note were not included. [facility] Daily Progress Note Patient name: Cleve Burns : 1945 SUBJECTIVE: Patient seen and examined at bedside today. No acute events overnight. Denies headaches, dizziness,shortness of breath, chest pain, nausea, constipation. Reporting continued left buttock pain. Due to patient's continued left buttock pain which remains severe and limits his ability to progress in therapies CT pelvis ordered to assess for left pelvic fracture. CT pelvis completed today and redemonstrated right superior and inferior pubic rami fracturewith no additional pelvic fracture or hip fracture appreciated. Participating in therapies: Completed stand pivot transfer to wheelchair on platform step to simulate doorway step at home, pt requiring max A, not adhering to TTWB OBJECTIVE: Vitals: 08/08/24 0554 08/08/24 0705 08/08/24 0840 08/08/24 1530 BP: (!) 142/70 123/73 105/57 109/61 BP Location: Left arm Patient Position: Sitting Pulse: 73 96 83 Resp: 18 18 Temp: 36.4 ??C (97.5 ??F) 36.9 ??C (98.4 ??F) TempSrc: Oral Temporal SpO2: 97% 95% Weight: Physical Examination: General: Alert, in no acute cardiopulmonary distress. Mental Status: Oriented to person, place and time. Normal affect. Head: Normocephalic. Eyes: Extraocular muscles grossly intact. Ear, Nose and Throat: Oropharynx clear, mucous membranes moist. Ears and nose without masses, lesions or deformities. Neck: Supple, Trachea midline. Respiratory: Clear to auscultation and percussion. No wheezing, rales or rhonchi. Cardiovascular: Heart sounds normal. No thrills. Regular rate and rhythm, no murmurs, rubs or gallops. Gastrointestinal: Abdomen soft, non-tender, non-distended. Normal bowel sounds. Neurologic: Cranial nerves II-XII grossly intact. Negative clonus bilaterally. Moves all extremities spontaneously. Sensation intact bilaterally. Skin: No rashes or lesions. No petechiae or purpura. No edema. Musculoskeletal: No cyanosis or clubbing. No gross deformities. Normal range of motion. Antigravitystrength all 4 extremities. CURRENT INPATIENT MEDICATIONS: Current Facility-Administered Medications: acetaminophen (TYLENOL) tablet 975 mg, 975 mg, oral, q8h Pauline RINALDI DO, 975 mg at 08/08/24 1425 amLODIPine (NORVASC) tablet 2.5 mg, 2.5 mg, oral, Nightly, JAY Sheridan, 2.5 mg at 08/07/24 2203 aspirin chewable tablet 81 mg, 81 mg, oral, Nightly, Magdi Torres, PA, 81 mg at 08/07/242202 atorvastatin (LIPITOR) tablet 80 mg, 80 mg, oral, Nightly, Magdi Torres, PA, 80 mg at 08/07/242202 bisacodyL (DULCOLAX) suppository 10 mg, 10 mg, rectal, Daily PRN, Magdi Torres, PA, 10 mg at 08/02/242017 cyclobenzaprine (FLEXERIL) tablet 5 mg, 5 mg, oral, TID, Kymberly Segal, CORE JAVA ENGINEER, 5 mg at 08/08/24 1425 docusate sodium (COLACE) capsule 100 mg, 100 mg, oral, BID, Magdi Torres PA, 100 mg at 844 enoxaparin (LOVENOX) injection 40 mg, 40 mg, subcutaneous, Daily, Magdi Torres, PA, 40 mg at 08/08/24 0844 lidocaine 4 % patch 1 patch, 1 patch, Topical, Daily, Pauline Batista, DO, 1 patch at 08/08/24 0843 lisinopriL (PRINIVIL,ZESTRIL) tablet 20 mg, 20 mg, oral, Nightly, Magdi Torres PA, 20 mg at 08/07/24 220 magnesium hydroxide (MILK OF MAGNESIA) 400 mg/5 mL suspension 30 mL, 30 mL, oral, Daily PRN, Magdi Torres PA, 30 mL at 08/02/24 0855 ondansetron ODT (ZOFRAN-ODT) disintegrating tablet 4 mg, 4 mg, oral, q8h PRN, Magdi Torres, PA, 4 mg at 08/02/24 1328 oxyCODONE (ROXICODONE) immediate release tablet 5 mg, 5 mg, oral, q4h PRN, Magdi Torres, PA, 5 mg at 08/08/24 0554 pantoprazole (PROTONIX) EC tablet 40 mg, 40 mg, oral, q AM AC, Magdi Torres, PA, 40 mg at 08/08/24 0554 senna (SENOKOT) tablet 17.2 mg, 2 tablet, oral, Nightly, Pauline Batista, DO, 17.2 mg at 08/07/24 2203 LABS: Lab Results Component Value Date WBC 9.2 08/07/2024 RBC 3.80 (L) 08/07/2024 HGB 11.0 (L) 08/07/2024 HCT 33.3 (L) 08/07/2024 MCV 88.1 08/07/2024 MCHC 33.0 08/07/2024 RDW 13.2 08/07/2024 PLT 392 08/07/2024 MPV 9.5 08/07/2024 NRBC 0.0 08/07/2024 DIFF Lab Results Component Value Date LYMPHOPCT 23.7 08/02/2024 NEUTROABS 6.90 08/02/2024 LYMPHSABS 2.91 08/02/2024 MONOABS 1.40 (H) 08/02/2024 EOSABS 0.85 (H) 08/02/2024 BASOSABS 0.09 08/02/2024 IMMGRANABS 0.14 (H) 08/02/2024 RETIC No results found for: RETIC , RETICCTPCT Lab Results Component Value Date NA 138 08/07/2024 K 4.6 08/07/2024 CL 106 08/07/2024 CO2 30 08/07/2024 GLUCOSE 105 (H) 08/07/2024 BUN 17 08/07/2024 CREATININE 1.11 08/07/2024 CALCIUM 9.0 08/07/2024 PROT 6.3 08/02/2024 ALBUMIN 3.1 (L) 08/02/2024 BILITOT 1.2 08/02/2024 AST 21 08/02/2024 ALT 28 08/02/2024 ALKPHOS 75 08/02/2024 EGFR 68 08/07/2024 IMPRESSION & PLAN: #Impaired mobility and self-care -Secondary to slip and fall and fracture -Continue PT/OT and nursing care #Right superior and inferior pubic rami fractures -evaluated by [facility] JAY Wilkerson & Dr Spann -Non surgical management -TTWB to RLE -continue therapies -Follow up with [facility] after discharge #Left buttock pain -CT pelvis completed 08/08 redemonstrated right superior and inferior pubic rami fracture with no additional pelvic fracture or hip fracture appreciated -continue pain control as outlined below #Pain management -Acetaminophen 975mg Q8H -Lidocaine patch daily -Oxycodone 5mg Q6H PRN --> 08/07 changed to 5 mg Q4H due to increased pain -Flexeril 5mg TID started 08/05 #Hypertension -ASA 81 mg daily -Amlodipine 2.5 mg nightly -Lisinopril 20 mg nightly #Hyperlipidemia -Atorvastatin 80 mg nightly #GERD -Protonix 40 mg daily #Bladder diverticulum -patient was noted to have a 1.5 cm bladder diverticulum on the right on CT pelvis 07/30/[address] [facility] --> redemonstrated on CT pelvis 08/08/24 -Patient will need to follow-up with PCP after discharge for further management #Bowel management -Colace 100mg BID -Senna 2 tabs QHS #DVT ppx: Lovenox 40mg daily * Rosemary Daly RD - 08/08/2024 5:27 PM EST 08/08/2024 @ 5:27 PM EST Nutrition Initial Assessment Reason for RD Intervention: Assessment Type: Nutrition Trigger Reason for Assessment: LOS Anthropometrics: Weight: 83.7 kg (184 lb 9.6 oz) Weight Method: Actual BMI (Calculated): 27.3 BMI Class: Overweight IBW (lbs): 160 Current Diet and Supplements: Dietary Orders (From admission, onward) Start Ordered 08/01/241706 Adult diet [facility]; General; Regular Diet effective now Question Answer Comment Location [facility] Diet Type (req) General General Diet Regular 08/01/241706 History of presenting illness: Patient is a 79 y.o. male with a history of Past Medical History: Diagnosis Date CVA (cerebral vascular accident) (CMS/HCC) Tobacco use DX:Tobacco use Tongue cancer (CMS/HCC) Past Surgical History: Procedure Laterality Date KNEE SURGERY PROCEDURE: HISTORICAL KNEE SURGERY MOUTH SURGERY PROCEDURE: ORAL SURGERY PROCEDURE; COMMENT: tongue surgery OTHER SURGICAL HISTORY PROCEDURE: LA CLOSURE INTESTINAL CUTANEOUS FISTULA VASECTOMY PROCEDURE: HISTORICAL VASECTOMY admitted 08/01/2024 with Pubic bone fracture (CMS/HCC). Food/Nutrition History: Previous Diet / Nutrition Education / Counseling: Pt reports fair appetite and intake at home. Usually eats 2 meals per day and grazes later at night. Does not follow therapeutic diet restrictions. No reported food allergies. Denies issues with chewing/swallowing. States weight has been stable at ~183 lb. Appetite TAIL EDGER: Good Intake TAIL EDGER: Stable Weight History: Wt Readings from Last 10 Encounters: 08/05/24 83.7 kg (184 lb 9.6 oz) 06/07/24 85.3 kg (188 lb) 01/05/24 83.9 kg (185 lb) 08/23/23 83 kg (183 lb) 08/04/23 84.4 kg (186 lb) 06/30/23 87.2 kg (192 lb 3.2 oz) 02/23/23 82.6 kg (182 lb) 12/23/22 84.8 kg (187 lb) 06/21/22 84.3 kg (185 lb 12.8 oz) 12/10/21 81.6 kg (179 lb 14.4 oz) Subjective Assessment: Pt seen for length of stay assessment. Pt admitted for pelvic fracture after having a mechanical fall on ice. PO intake improved over past several days- consuming 100% of meals per courier delivery driver. Reviewed preferences with pt and updated in [place]. Last BM 08/07. Nutrition-Related Lab Values: Results from last 7 days Lab Units 08/07/24 0613 08/04/24 0603 08/02/24 0547 SODIUM mmol/L 138 < > 137 POTASSIUM mmol/L 4.6 < > 4.3 CHLORIDE mmol/L 106 < > 104 CO2 mmol/L 30 < > 29 BUN mg/dL 17 < > 26* CREATININE mg/dL 1.11 < > 1.28 EGFR mL/min/1.73m2 68 < > 57* CALCIUM mg/dL 9.0 < > 8.6 BILIRUBIN TOTAL mg/dL -- -- 1.2 ALK PHOS unit/L -- -- 75 ALT unit/L -- -- 28 AST unit/L -- -- 21 GLUCOSE mg/dL 105* < > 99 WBC AUTO K/mcL 9.2 < > 12.3* < > = values in this interval not displayed. No results found for: LIPASE Medications: acetaminophen, 975 mg, oral, q8h NIMCO amLODIPine, 2.5 mg, oral, Nightly aspirin, 81 mg, oral, Nightly atorvastatin, 80 mg, oral, Nightly cyclobenzaprine, 5 mg, oral, TID docusate sodium, 100 mg, oral, BID enoxaparin, 40 mg, subcutaneous, Daily lidocaine, 1 patch, Topical, Daily lisinopriL, 20 mg, oral, Nightly pantoprazole, 40 mg, oral, q AM AC senna, 2 tablet, oral, Nightly CONTINUOUS: PRN medications: bisacodyL, magnesium hydroxide, ondansetron (ZOFRAN-ODT) disintegrating tablet, oxyCODONE Food/Nutrition-Current Status: Intake Type: P.O. Appetite: Good Intake Amount (%): 75-100% Intake Assessment: Adequate Nutrition Focused Physical Findings: Overall Appearance: No findings of muscle or fat depletion Nerves and Cognition: Alert, Oriented Skin: Skin intact per courier delivery driver Nutrition Diagnosis: Code Type: None Identified Status: New Diagnosis: No Acute Nutrition Dx Nutrition Interventions: Diet Order, Meals/Snacks -Continue with regular diet -Monitor adequacy of PO intake; consider offering snacks/supplements if pt consuming <65% of meals on follow up. - Encouraged pt to select meals with commercial loan assistant daily to optimize PO intake -Follow weights, labs, I/O. Goals: Patient will consume greater than or equal to 75% meals., Monitor/control glucose levels, Electrolytes within normal range., Maintain weight., Stooling appropriately., and Maintain skin integrity. Monitoring/Evaluation: Fluid/Beverage Intake, Food Intake, Weight, Diet Order, Gastrointestinal Profile Follow Up: Nutrition Priority Level: Low Please consult nutrition if needed sooner. RD remains available and will continue to follow. Signature: Rosemary Daly RD * Pauline Batista DO - 08/08/2024 12:56 PM EST Imaging reports from [facility] obtained. Patient underwent pelvic x-ray on 07/30/2024. No apparent fracture or dislocation. Technical limitation in all images noted. Patient underwent right hip CT on 07/30/2024. Showed acute fracture of the right pubic body extending to the adjacent portion of the superior and inferior pubic rami with minimal displacement. Due to patient's continued left buttock pain which remains severe and limits his ability to progress in therapies we will obtain CT of the pelvis for further evaluation. Patient and his were in agreement with this when discussed at bedside today. Of note patient was noted to have a 1.5 cm bladder diverticulum on the right on CT pelvis 07/30/2024. Will need to follow-up with PCP after discharge for further management. * Yesenia Vasquez, PT - 08/08/2024 9:30 AM EST [facility] Physical Therapy Treatment Note 08/08/2024 Patient: Cleve Burns : 1945 Age: 79 y.o. Gender: male Primary Language: Lithuanian Diagnosis: Pubic bone fracture (CMS/HCC) Past Medical History: Diagnosis Date CVA (cerebral vascular accident) (CMS/HCC) Tobacco use DX:Tobacco use Tongue cancer (CMS/HCC) Past Surgical History: Procedure Laterality Date KNEE SURGERY PROCEDURE: HISTORICAL KNEE SURGERY MOUTH SURGERY PROCEDURE: ORAL SURGERY PROCEDURE; COMMENT: tongue surgery OTHER SURGICAL HISTORY PROCEDURE: LA CLOSURE INTESTINAL CUTANEOUS FISTULA VASECTOMY PROCEDURE: HISTORICAL VASECTOMY Allergies: has No Known Allergies. Precautions: Medical Precautions: Fall Risk Safety Interventions: Call arevalo within reach, Chair alarm RUE Weight Bearing Status: Full LUE Weight Bearing Status: Full RLE Weight Bearing Status: Toe Touch LLE Weight Bearing Status: Full SUBJECTIVE Pt report: I'll do whatever you tell me to do Pain: Pain Assessment: 0-10 Pain Score: 3 Pain Location: Pelvis Pain Orientation: Left OBJECTIVE General Observation: Pt in bed, agreeable to PT. Vitals: BP: 115/64 Heart Rate: 89 SpO2: 96 % Procedure/Treatment: Therapeutic Activities: Therapeutic Activity Time Entry: 90 Pt received in bed. Supine > sit supervision. Pt dez mace IND. Steadying A SPT bed >wheelchair no AD. Mod I wheelchair mobility to the gym. Pt able to remove leg rests. Pt using RW tocomplete posterior step up to 3 step, then sitting on chair no armrests on platform step behind, steadying A. Pt requiring partial A to stand from chair no armrests. Pt reporting he will be able to fit walker at an angle to get it closer, repositioned walker, pt able to stand partial A but safer and better adherence to TTWB RLE. Step down with RW, transfer to wheelchair steadying A. Pt then transferring to chair no armrests with RW, partial A to lower to chair due to poor eccentric control with no armrests. Completed stand pivot transfer to wheelchair on platform step to simulate doorway step at home, pt requiring max A, not adhering to TTWB. Pt using RW to stand from wheelchair to floor, transfer to wheelchair steadying A. Discussed alternative methods for stairs, not recommending pt complete pivot transfers for 3 AYAZ due to poor ability to stand from chair no armrests and adhere to WB restrictions. Recommended either ramp, 2 person bump up steps in wheelchair, or trialing differententrance with posterior step up with RW and sitting back in wheelchair on doorway. Called pt's , she was agreeable to clearing space to use alternative entrance with 2 AYAZ. Pt then completing post erior step up to 6 platform step, steadying A to step up, however partial Ax2 for balance when transitioning walker up/down step, pt unable to adhere to TTWB. Requested measurements of stairs for secondary entrance, ongoing training and recommendations for stairs to occur. Arranged family trainingMon 08/13 at 9:30 for PT. Mod I wheelchair mobility back to room. Pt remaining up in wheelchair with c hair alarm set call arevalo within reach, and all needs met. Education: Education Documentation Precautions, taught by Yesenia Vasquez PT at 08/08/2024 2:27 PM. Learner: Patient Readiness: Acceptance Method: Demonstration, Explanation Response: Verbalizes Understanding, Demonstrated Understanding, Needs Reinforcement Comment: stairs, transfers, standing balance Mobility Training, taught by Yesenia Vasquez PT at 08/08/2024 2:27 PM. Learner: Patient Readiness: Acceptance Method: Demonstration, Explanation Response: Verbalizes Understanding, Demonstrated Understanding, Needs Reinforcement Comment: stairs, transfers, standing balance Education Comments No comments found. ASSESSMENT PT Assessment PT Assessment Results: Decreased strength, Decreased range of motion, Decreased endurance, Impairedbalance, Decreased mobility, Impaired gait, Orthopedic restrictions, Pain Prognosis: Good Evaluation/Treatment Tolerance: Patient limited by pain Comments: Pt's biggest barrier is stairs, ongoing problem solving to occur to determine safest method for stairs. Equipment: TBD Plan of Care Plan Treatment/Interventions: Functional transfer training, LE strengthening/ROM, Endurance training, Patient/family training, Bed mobility, Gait training, Balance training PT Plan: Skilled PT PT Frequency: 5 days per week PT Duration of Sessions: 90 min per day PT Treatments per day: 1 time per day Problems/Goals Goals: Encounter Problems Encounter Problems (Active) Template: Physical Therapy Problem: PT Chcf Goals Dates: Start: 08/02/24 Goal: Mod I bed mobility Dates: Start: 08/02/24 Expected End: 08/16/24 Outcomes Date/Time User Outcome 08/05/24 1533 Yesenia Vasquez, PT Progressing Goal: Mod I transfers LRAD Dates: Start: 08/02/24 Expected End: 08/16/24 Outcomes Date/Time User Outcome 08/05/24 1533 Yesenia Vasquez, PT Progressing Goal: Mod I gait x10' with RW Dates: Start: 08/02/24 Expected End: 08/16/24 Outcomes Date/Time User Outcome 08/05/24 153Morgan Vasquez, PT Progressing Goal: Mod I wheelchair mobility x150' Dates: Start: 08/02/24 Expected End: 08/16/24 Outcomes Date/Time User Outcome 08/05/24 153Morgan Vasquez, PT Progressing Goal: Pt will negotiate x3 stairs no railings partial A Dates: Start: 08/02/24 Expected End: 08/16/24 Outcomes Date/Time User Outcome 08/05/24 1533 Yesenia Vasquez, PT Progressing Problem: PT Short Term Goals Dates: Start: 08/02/24 Goal: Supervision bed mobility Dates: Start: 08/02/24 Expected End: 08/09/24 Outcomes Date/Time User Outcome 08/05/24 1533 Yesenia Vasquez, PT Progressing Goal: Steadying A transfers LRAD (Resolved) Dates: Start: 08/02/24 Expected End: 08/09/24 Resolved: 08/05/24 Outcomes Date/Time User Outcome 08/05/24 1533 Yesenia Vasquez PT Completed Goal: Assess gait (Resolved) Dates: Start: 08/02/24 Expected End: 08/09/24 Resolved: 08/05/24 Outcomes Date/Time User Outcome 08/05/24 1533 Yesenia Vasquez PT Completed Goal: Assess stairs (Resolved) Dates: Start: 08/02/24 Expected End: 08/09/24 Resolved: 08/05/24 Outcomes Date/Time User Outcome 08/05/24 1533 Yesenia Vasquez PT Completed Goal: Supervision transfers LRAD Dates: Start: 08/05/24 Expected End: 08/12/24 Description: Goal: Supervision gait x20' Dates: Start: 08/05/24 Expected End: 08/12/24 Description: Encounter Problems (Resolved) There are no resolved problems. Session Start/Stop Time: 0930 1100 Therapy Minutes Physical Therapy PT Individual: 90 * Yesenia Vasquez PT - 08/08/2024 7:58 AM EST Images from the original note were not included. [facility] [address] [place] [id number] Dept: [phone] Patient: Cleve Burns : 1945 Age: 79 y.o. Gender: male Room Number: [id number] Diagnosis: Pubic bone fracture (CMS/HCC) No diagnosis found. Past Medical History: Diagnosis Date CVA (cerebral vascular accident) (CMS/HCC) Tobacco use DX:Tobacco use Tongue cancer (CMS/HCC) Past Surgical History: Procedure Laterality Date KNEE SURGERY PROCEDURE: HISTORICAL KNEE SURGERY MOUTH SURGERY PROCEDURE: ORAL SURGERY PROCEDURE; COMMENT: tongue surgery OTHER SURGICAL HISTORY PROCEDURE: LA CLOSURE INTESTINAL CUTANEOUS FISTULA VASECTOMY PROCEDURE: HISTORICAL VASECTOMY Allergies: has No Known Allergies. Precautions: Medical Precautions: Fall Risk Safety Interventions: Call arevalo within reach, Chair alarm RUE Weight Bearing Status: Full LUE Weight Bearing Status: Full RLE Weight Bearing Status: Toe Touch LLE Weight Bearing Status: Full Patient presenting to IRF with pubic bone fracture. Patient to benefit from use of wheelchair upon discharge from this level of care to navigate household distances and complete ADLs upon discharge from this level of care. Patient is unable to safely ambulate household distances with no device, axillary crutches, single point cane, quad cane, rolling walker or rollator. Patient to benefit from 18 inch wide wheelchair, with elevating leg rests, removable arm rests , and gel-foam cushion . * Matty Vega, OT - 08/08/2024 7:00 AM EST [facility] Occupational Therapy Treatment Note 08/08/24 Patient: Cleve Burns : 1945 Age: 79 y.o. Gender: male Diagnosis: Pubic bone fracture (CMS/HCC) Primary Rehab (Etiologic) Diagnosis: Patient Active Problem List Diagnosis Anemia Essential hypertension Hypercholesteremia Thalamic stroke (CMS/HCC) Tongue cancer (CMS/HCC) Pubic bone fracture (CMS/HCC) PMH: Past Medical History: Diagnosis Date CVA (cerebral vascular accident) (CMS/HCC) Tobacco use DX:Tobacco use Tongue cancer (CMS/HCC) PSH: Past Surgical History: Procedure Laterality Date KNEE SURGERY PROCEDURE: HISTORICAL KNEE SURGERY MOUTH SURGERY PROCEDURE: ORAL SURGERY PROCEDURE; COMMENT: tongue surgery OTHER SURGICAL HISTORY PROCEDURE: LA CLOSURE INTESTINAL CUTANEOUS FISTULA VASECTOMY PROCEDURE: HISTORICAL VASECTOMY Allergies: has No Known Allergies. Precautions: Precautions Medical Precautions: Fall Risk Safety Interventions: Call arevalo within reach, Chair alarm RUE Weight Bearing Status: Full LUE Weight Bearing Status: Full RLE Weight Bearing Status: Toe Touch LLE Weight Bearing Status: Full Vitals: BP: 123/73 Heart Rate: 73 Pain: Pain Assessment Pain Assessment: 0-10 Pain Score: 4 Pain Type: Acute pain Pain Location: (posterior L pelvis) Subjective: I don't have much pain since I haven't moved yet. Procedures/Interventions: ADLs/IADLs Self Care/Home Management (ADLs) Time Entry: 60 Pt awake in elevated supine upon arrival, vitals assess, see above. Elevated supine>Sit EOB S. SPT from bed>w/c with steadying A at RW, verbal cues for safe hand placement. Pt retrieved clothing from w/c level mod I. Pt propelled self into bathroom and positioned self at toilet S. SPT at RW steadying A, with use of toilet safety frame, while adhering to TDWB R LE. In stand pt able to hike pa nts down with steadying A. Seated on toilet pt donned/doffed UB clothing with mod I. Pt thread B LEs through pants while seated. STS from toilet steadying A, and pt hiked pants over hips with L UE with increased time. Pt with good carryover of hiking pants up prior to stand. From w/c pt washed faceand performed oral hygiene with mod I. Pt propelled self to ADL kitchen to make tea from w/c level. Pt reports that his microwave is aboveoven, however will assist as needed. Educated on placing commonly used items within reach fromw/c level. With all items placed within reach, pt tasked with making cup of tea in microwave. Cues X1 for locking breaks while reaching, with good carryover following initial cue. Assist to open micro wave when water began to boil over. Assist to transport hot tea to table. Pt educated on recommendation of having assist to transport hot items, but able to transport small packaged items INDEPENDENTLY from w/c. While pt ate breakfast, education provided on current medications. Pt able to recall 4 medication that he was taking prior and their scheduled, however unable to recall names of medications. Education provided on name, dose, and schedule. Deferred questions regarding medications to RN. Educated thtRN will provided updated printout of meds prior to d/c and that pt will remain on same schedule when he discharges and any changes will be made by PCP. Pt educated that he will be responsible for obtaining tub txfer bench for home, provided with printed handout, and educated on options for purchase/obtaining through online or community resources. [facility] be able to use during txfer to toilet. Functional amb into bathroom, txfer to toilet with RW and R UE support on grab bar. Pt relying heavily on grab bar during sit, educated that [facility] may not offer that much support. STS from toilet with R UE support on grab bar, steadying A, maintaining TDWB. Trial second trial with pushing from toilet bobbi LUE and R UE on grab bar, pt reporting difficulty maintaining TDWB. Therapeutic Activity Therapeutic Activity Time Entry: 30 Pt engaged in there act to target dynamic standing balance with unilateral UE release while maintaining TDWB R LE. In stand pt tasked with retrieving bradford bag posteriorly/and from w/c seat, then tossing to anterior target. Steadying A throughout, pt able to maintain TDWB RLE. Standing tolerance limited by pain. Pt increased to 6/10. Pt tossing bradfodr bags with L UE to allow R UE support on RW to maintain TDWB. During second trial pt retrieved bradford bags from outside MARCELA on L with steadying A, one instance of tipping walker, steadying A to correct. Pt propelled self to room mod I. Pt tasked with performing Squat pivot txfer from w/c>bed with LUE on arm rest and R UE on bed rail with partial A, pt able to maintain R LE TDWB. Sit>supine with partial A for L LE. Bed in elevated supine bed alarm on and call arevalo in reach. OT Assessment OT Assessment OT Assessment Results: Decreased ADL status, Decreased safe judgment during ADL, Decreased endurance, Decreased functional mobility, Decreased IADLs Prognosis: Good Evaluation/Treatment Tolerance: Patient tolerated 90 min treatment session well. Pt appears to havemore pain with static standing than with ambulation. Ongoing assessment for mook CUI. Recommending tub txfer bench. OT Plan Plan Treatment Interventions: ADL retraining, Functional transfer training, UE strengthening/ROM, Endurance training OT Plan: Skilled OT OT Frequency : 5-7 days per week OT Duration of Sessions: 90 min per day OT Treatments per day: 1 time per day OT - Evaluation Status: Complete OT Discharge Recommendations: (TBD at d/c) Equipment Recommended: (TBD at d/c) Goals: Encounter Problems Encounter Problems (Active) Template: Occupational Therapy Problem: OT Chcf Goals Dates: Start: 08/02/24 Goal: Patient will perform toileting at a MODIFIED INDEPENDENT level without adaptive devices as appropriate. Dates: Start: 08/02/24 Expected End: 08/16/24 Goal: Patient will perform bathing at a MODIFIED INDEPENDENT level using adaptive devices as appropriate. Dates: Start: 08/02/24 Expected End: 08/16/24 Goal: Patient will perform Lower body dressing at a MODIFIED INDEPENDENT level using adaptive/assistive devices as appropriate. Dates: Start: 08/02/24 Expected End: 08/16/24 Goal: Patient will complete toilet transfers with at a MODIFIED INDEPENDENT level using least restrictive assistive device Dates: Start: 08/02/24 Expected End: 08/16/24 Goal: Patient will complete Tub Transfer with with SUPERVISION using least restrictive assistive device Dates: Start: 08/02/24 Expected End: 08/16/24 Problem: OT Short Term Goals Dates: Start: 08/02/24 Goal: Patient will perform toileting with STAND BY ASSIST without adaptive devices as appropriate. Dates: Start: 08/02/24 Expected End: 08/09/24 Goal: Patient will perform bathing with STAND BY ASSIST without adaptive devices as appropriate. Dates: Start: 08/02/24 Expected End: 08/09/24 Goal: Patient will perform Lower body dressing with MINIMAL ASSIST using adaptive/assistive devicesas appropriate. Dates: Start: 08/02/24 Expected End: 08/09/24 Goal: Patient will complete toilet transfers with with MINIMAL ASSIST using least restrictive assistive device Dates: Start: 08/02/24 Expected End: 08/09/24 Goal: Patient will complete Tub Transfer with with MODERATE ASSIST using least restrictive assistive device Dates: Start: 08/02/24 Expected End: 08/09/24 Encounter Problems (Resolved) There are no resolved problems. Education Documentation Safe Use of DME, taught by Matty Vega OT at 08/08/2024 12:28 PM. Learner: Patient Readiness: Acceptance Method: Explanation, Demonstration Response: Verbalizes Understanding, Demonstrated Understanding The Cost of DME, Purchase and Rental, taught by Matty Vega OT at 08/08/2024 12:28 PM. Learner: Patient Readiness: Acceptance Method: Explanation, Demonstration Response: Verbalizes Understanding, Demonstrated Understanding How to Obtain Needed DME, taught by Matty Vega OT at 08/08/2024 12:28 PM. Learner: Patient Readiness: Acceptance Method: Explanation, Demonstration Response: Verbalizes Understanding, Demonstrated Understanding Home Safety, taught by Matty Vega OT at 08/08/2024 12:28 PM. Learner: Patient Readiness: Acceptance Method: Explanation, Demonstration Response: Verbalizes Understanding, Demonstrated Understanding Home Modifications, taught by Matty Vega OT at 08/08/2024 12:28 PM. Learner: Patient Readiness: Acceptance Method: Explanation, Demonstration Response: Verbalizes Understanding, Demonstrated Understanding Use of Pill Box, taught by Matty Vega OT at 08/08/2024 12:28 PM. Learner: Patient Readiness: Acceptance Method: Explanation, Demonstration Response: Verbalizes Understanding, Demonstrated Understanding Discharge Medications Including Name, Dose, Route, Use, Side Effects and Managment of Missed Doses,taught by Matty Vega OT at 08/08/2024 12:28 PM. Learner: Patient Readiness: Acceptance Method: Explanation, Demonstration Response: Verbalizes Understanding, Demonstrated Understanding Body Mechanics, taught by Matty Vega OT at 08/08/2024 12:28 PM. Learner: Patient Readiness: Acceptance Method: Explanation, Demonstration Response: Verbalizes Understanding, Demonstrated Understanding Precautions, taught by Matty Vega OT at 08/08/2024 12:28 PM. Learner: Patient Readiness: Acceptance Method: Explanation, Demonstration Response: Verbalizes Understanding, Demonstrated Understanding ADL Training, taught by Matty Vega OT at 08/08/2024 12:28 PM. Learner: Patient Readiness: Acceptance Method: Explanation, Demonstration Response: Verbalizes Understanding, Demonstrated Understanding Education Comments No comments found. Start/Stop Time OT Time Calculation OT Start Time: 0700 OT Stop Time: 0830 OT Time Calculation (min): 90 min Therapy Minutes: Occupational Therapy OT Individual: 90 * JAY Sheridan - 08/07/2024 2:19 PM EST Images from the original note were not included. [facility] Daily Progress Note Patient name: Cleve Burns : 1945 SUBJECTIVE: Patient seen and examined at bedside today. No acute events overnight. Denies headaches, dizziness,shortness of breath, chest pain, nausea, constipation. Reports left buttock pain and feels like he isnt making progress he would like me to revaluate his pain regimen. I explained to him I can change is 5 mg oxycodone from 5 mg Q6 H to 5 mg Q 4 H. He is also on flexeril and acetaminophen for pain. Will continue to monitor Labs from today 08/07 reviewed showing no acute abnormalities. OBJECTIVE: Vitals: 08/06/24 2041 08/07/24 0534 08/07/24 0729 08/07/24 1230 BP: 121/67 128/71 133/75 121/62 BP Location: Right arm Right arm Right arm Patient Position: Sitting Lying Lying Pulse: 72 72 75 83 Resp: 16 16 Temp: 36.9 ??C (98.4 ??F) 36.4 ??C (97.5 ??F) TempSrc: Oral Oral SpO2: 95% 96% Weight: Physical Examination: General: Alert, in no acute cardiopulmonary distress. Mental Status: Oriented to person, place and time. Normal affect. Head: Normocephalic. Eyes: Extraocular muscles grossly intact. Ear, Nose and Throat: Oropharynx clear, mucous membranes moist. Ears and nose without masses, lesions or deformities. Neck: Supple, Trachea midline. Respiratory: Clear to auscultation and percussion. No wheezing, rales or rhonchi. Cardiovascular: Heart sounds normal. No thrills. Regular rate and rhythm, no murmurs, rubs or gallops. Gastrointestinal: Abdomen soft, non-tender, non-distended. Normal bowel sounds. Neurologic: Cranial nerves II-XII grossly intact. Negative clonus bilaterally. Moves all extremities spontaneously. Sensation intact bilaterally. Skin: No rashes or lesions. No petechiae or purpura. No edema. Musculoskeletal: No cyanosis or clubbing. No gross deformities. Normal range of motion. Antigravitystrength all 4 extremities. CURRENT INPATIENT MEDICATIONS: Current Facility-Administered Medications: acetaminophen (TYLENOL) tablet 975 mg, 975 mg, oral, q8h Pauline RINALDI DO, 975 mg at 08/07/24 1405 amLODIPine (NORVASC) tablet 2.5 mg, 2.5 mg, oral, Nightly, JAY Sheridan, 2.5 mg at 08/06/242041 aspirin chewable tablet 81 mg, 81 mg, oral, Nightly, JAY Sheridan, 81 mg at 08/06/242041 atorvastatin (LIPITOR) tablet 80 mg, 80 mg, oral, Nightly, Magdi Torres, PA, 80 mg at 08/06/242040 bisacodyL (DULCOLAX) suppository 10 mg, 10 mg, rectal, Daily PRN, Magdi Torres, PA, 10 mg at 08/02/242017 cyclobenzaprine (FLEXERIL) tablet 5 mg, 5 mg, oral, TID, Kymberly Segal, CORE JAVA ENGINEER, 5 mg at 08/07/24 1405 docusate sodium (COLACE) capsule 100 mg, 100 mg, oral, BID, Magdi Torres, PA, 100 mg at 808 enoxaparin (LOVENOX) injection 40 mg, 40 mg, subcutaneous, Daily, Magdi Torres, PA, 40 mg at 08/07/24 0808 lidocaine 4 % patch 1 patch, 1 patch, Topical, Daily, Pauline Batista DO, 1 patch at 08/07/24 0807 lisinopriL (PRINIVIL,ZESTRIL) tablet 20 mg, 20 mg, oral, Nightly, Magdi Torres, PA, 20 mg at 08/06/24 204 magnesium hydroxide (MILK OF MAGNESIA) 400 mg/5 mL suspension 30 mL, 30 mL, oral, Daily PRN, Magdi Torres, PA, 30 mL at 08/02/24 0855 ondansetron ODT (ZOFRAN-ODT) disintegrating tablet 4 mg, 4 mg, oral, q8h PRN, Magdi Torres, PA, 4 mg at 08/02/24 1328 oxyCODONE (ROXICODONE) immediate release tablet 5 mg, 5 mg, oral, q4h PRN, Magdi Torres, PA, 5 mg at 08/07/24 1410 pantoprazole (PROTONIX) EC tablet 40 mg, 40 mg, oral, q AM AC, Magdi Torres, PA, 40 mg at 08/07/24 0519 senna (SENOKOT) tablet 17.2 mg, 2 tablet, oral, Nightly, Pauline Batista DO, 17.2 mg at 08/06/242040 LABS: Lab Results Component Value Date WBC 9.2 08/07/2024 RBC 3.80 (L) 08/07/2024 HGB 11.0 (L) 08/07/2024 HCT 33.3 (L) 08/07/2024 MCV 88.1 08/07/2024 MCHC 33.0 08/07/2024 RDW 13.2 08/07/2024 PLT 392 08/07/2024 MPV 9.5 08/07/2024 NRBC 0.0 08/07/2024 DIFF Lab Results Component Value Date LYMPHOPCT 23.7 08/02/2024 NEUTROABS 6.90 08/02/2024 LYMPHSABS 2.91 08/02/2024 MONOABS 1.40 (H) 08/02/2024 EOSABS 0.85 (H) 08/02/2024 BASOSABS 0.09 08/02/2024 IMMGRANABS 0.14 (H) 08/02/2024 RETIC No results found for: RETIC , RETICCTPCT Lab Results Component Value Date NA 138 08/07/2024 K 4.6 08/07/2024 CL 106 08/07/2024 CO2 30 08/07/2024 GLUCOSE 105 (H) 08/07/2024 BUN 17 08/07/2024 CREATININE 1.11 08/07/2024 CALCIUM 9.0 08/07/2024 PROT 6.3 08/02/2024 ALBUMIN 3.1 (L) 08/02/2024 BILITOT 1.2 08/02/2024 AST 21 08/02/2024 ALT 28 08/02/2024 ALKPHOS 75 08/02/2024 EGFR 68 08/07/2024 IMPRESSION & PLAN: #Impaired mobility and self-care -Secondary to slip and fall and fracture -Continue PT/OT and nursing care #Right pubic body fracture -evaluated by [facility] JAY Wilkerson & Dr Spann -Non surgical management -TTWB to RLE -continue therapies -Follow up with [facility] after discharge #Pain management -Acetaminophen 975mg Q8H -Lidocaine patch daily -Oxycodone 5mg Q6H PRN --> 08/07 changed to 5 mg Q4H due to increased pain -Flexeril 5mg TID started 08/05 #Hypertension -ASA 81 mg daily -Amlodipine 2.5 mg nightly -Lisinopril 20 mg nightly #Hyperlipidemia -Atorvastatin 80 mg nightly #GERD -Protonix 40 mg daily #Bowel management -Colace 100mg BID -Senna 2 tabs QHS #DVT ppx: Lovenox 40mg daily Cosigned by Pauline Batista DO at 08/08/2024 8:54 AM EST Associated attestation - Pauline Batista DO - 08/08/2024 8:54 AM EST Agree with progress note, assessment, and plan as documented by PA. 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 Rounding Reason for Visit: Spiritual/Emotional Support and Spiritual Assessment Time Spent: 15 Minutes Location: [address] [place] [address] Sacramental Encounters: Spiritual Distress Assessment: Spiritual Distress Assessment at beginning of visit Meaning - Overall Life Balance: No evidence of unmet spiritual need Transcendence: No evidence of unmet spiritual need Values - Acknowledgement: No evidence of unmet spiritual need Values - Control: No evidence of unmet spiritual need Psycho-Social Identity: No evidence of unmet spiritual need SDAT Beginning of Visit Average Score: 0 Spiritual Distress Assessment at end of visit Meaning - Overall Life Balance: No evidence of unmet spiritual need Transcendence: No evidence of unmet spiritual need Values - Acknowledgement: No evidence of unmet spiritual need Values - Control: No evidence of unmet spiritual need Psycho-Social Identity: No evidence of unmet spiritual need SDAT End of Visit Average Score: 0 Spiritual Assessment/Distress Spiritual Care Assessment: Assessment: Cleve, was awake, alert and resting in bed at the time of visit. Very cheerful as the visit progress. Raised no concern. Voiced family support and love. Voiced hope and with to get better with the help of therapy, return to normal daily activities. Prayed for recovery and good health. Thankful for the visit. Intervention: NE Spiritual Care Interventions : provided support, explored hope, and listened empathically Outcomes: expressed gratitude and expressed peace Plan of Care: Visit as needed *Reference: Spiritual Distress Assessment Tool: The SDAT is a clinical tool used by chaplains to identify unmet spiritual and emotional needs that can impact Goals of Care in the following categories: Spiritual Distress Assessment Legend Spiritual Needs Related Questions Meaning Are you having difficulties coping with what is happening to your now? Does your hospitalization have any repercussions on the way you live usually? Transcendence Do you have a particular nondenominational, karina, or spirituality? Is your nondenominational/spirituality/karina challenged by what is happening to you now? Values Do you think that the health professionals caring for you know you well enough? Do you feel that you are participating in the decisions made about your care? Psycho-Social Identity Do you have any worries or difficulties regarding your family or other persons close to you? Do you feel lonely? Do you have links to your karina community? SCALE 0= no evidence of unmet spiritual needs 1= some evidence of unmet spiritual needs 2= substantial evidence of unmet spiritual needs 3= evidence of severe unmet spiritual needs * Matty Vega OT - 08/07/2024 12:30 PM EST [facility] Occupational Therapy Treatment Note 08/07/24 Patient: Cleve Burns : 1945 Age: 79 y.o. Gender: male Diagnosis: Pubic bone fracture (CMS/HCC) Primary Rehab (Etiologic) Diagnosis: Patient Active Problem List Diagnosis Anemia Essential hypertension Hypercholesteremia Thalamic stroke (CMS/HCC) Tongue cancer (CMS/HCC) Pubic bone fracture (CMS/HCC) PMH: Past Medical History: Diagnosis Date CVA (cerebral vascular accident) (CMS/HCC) Tobacco use DX:Tobacco use Tongue cancer (CMS/HCC) PSH: Past Surgical History: Procedure Laterality Date KNEE SURGERY PROCEDURE: HISTORICAL KNEE SURGERY MOUTH SURGERY PROCEDURE: ORAL SURGERY PROCEDURE; COMMENT: tongue surgery OTHER SURGICAL HISTORY PROCEDURE: LA CLOSURE INTESTINAL CUTANEOUS FISTULA VASECTOMY PROCEDURE: HISTORICAL VASECTOMY Allergies: has No Known Allergies. Precautions: Precautions Medical Precautions: Fall Risk Safety Interventions: Call arevalo within reach, Chair alarm RUE Weight Bearing Status: Full LUE Weight Bearing Status: Full RLE Weight Bearing Status: Toe Touch LLE Weight Bearing Status: Full Vitals: BP: 121/62 Heart Rate: 83 Elevated supine Pain: Pain Assessment Pain Assessment: 0-10 Pain Score: 6 Pain Type: Acute pain Pain Location: (posterio L pelvis) Pain Orientation: Left Subjective: the pain is all in my left leg. Procedures/Interventions: ADLs/IADLs Self Care/Home Management (ADLs) Time Entry: 60 Pt in elevated supine, agreeable to shower. Vitals assessed, see above. Elevated supine>sit EOB S. Pt reporting that pain has decreased since PT session. SPT at RW from bed>w/c partial A, cues for TDWB. Pt backed self into bathroom with appropriate positioning of w/c at toilet. SPT w/c><toilet partial A. Pt able to hike pants down steadying A, with L UE. Pt voided while seated. Verbalcues to hike pants up while seated to avoid bending in stand. In stand partial A to hike on R side due to pain. Pt reporting increased pain on L posterior pelvis in stand. Hand hygiene performed w/c level at sink. Pt propelled self from room><shower stall S. SPT from w/c>shower chair partial A for uplift. In stand to able to hike pants down. Verbal cues for hand placement during sit. Pt bathed entierly seated with use of hand held shower, weight shifting to bathe buttocks. Pt audibly SHORTNESS OF BREATH, pt reporting not SHORTNESS OF BREATH, however due to pain. SPT back to w/c with partial A, cues for UE support on grab bar, partial A for controlled lower. Once back in room seated rest break taken. Pt donned T shirt with ZALDIVAR. Pt able to thread B Les whileseated. Pt dressed LB with steadying A in stand to hike over hips with alternating UE support on walker. Partial A for controlled lower to seated position. Pt propelled self from room><gym no more than S. Once in gym vitals assess, HR 90 and O2 100%. One back in room, pt requesting to return to bed. SPT from w/c>bed at with partial A while transitioning B Ues from arm rest to walker. Pt hiked pants down in stand steadying A. Assist to remove pants from around feet. Sit>Supine partial A for L LE. Bed alarm on, all needs met, and call arevalo in reach. Therapeutic Exercise Therapeutic Exercise Time Entry: 30 Pt engaged in UB there ex to increase UB strength and overall endurance as pt relies greatly on UB for mobility at . Pt performed 10 reps X3 off B shoulder flexion, Elbow flexion, over head press, and alternating punches. Rest breaks taken throughout for energy conservation. During rest break dicussed house set up and plan for light beverage prep during tomorrows session. OT Assessment OT Assessment OT Assessment Results: Decreased ADL status, Decreased safe judgment during ADL, Decreased endurance, Decreased functional mobility, Decreased IADLs Prognosis: Good Evaluation/Treatment Tolerance: Patient tolerated treatment well Comments: (Completed 90 min session, pain present throughout. Pt noted to have increased difficulty transitioning UE to walker during Sit>stand this date. Plan to address w/c mobility in kitchen during tomorrows session). OT Plan Plan Treatment Interventions: ADL retraining, Functional transfer training, UE strengthening/ROM, Endurance training OT Plan: Skilled OT OT Frequency : 5-7 days per week OT Duration of Sessions: 90 min per day OT Treatments per day: 1 time per day OT - Evaluation Status: Complete OT Discharge Recommendations: (TBD at d/c) Equipment Recommended: (TBD at d/c) Goals: Encounter Problems Encounter Problems (Active) Template: Occupational Therapy Problem: OT Chcf Goals Dates: Start: 08/02/24 Goal: Patient will perform toileting at a MODIFIED INDEPENDENT level without adaptive devices as appropriate. Dates: Start: 08/02/24 Expected End: 08/16/24 Goal: Patient will perform bathing at a MODIFIED INDEPENDENT level using adaptive devices as appropriate. Dates: Start: 08/02/24 Expected End: 08/16/24 Goal: Patient will perform Lower body dressing at a MODIFIED INDEPENDENT level using adaptive/assistive devices as appropriate. Dates: Start: 08/02/24 Expected End: 08/16/24 Goal: Patient will complete toilet transfers with at a MODIFIED INDEPENDENT level using least restrictive assistive device Dates: Start: 08/02/24 Expected End: 08/16/24 Goal: Patient will complete Tub Transfer with with SUPERVISION using least restrictive assistive device Dates: Start: 08/02/24 Expected End: 08/16/24 Problem: OT Short Term Goals Dates: Start: 08/02/24 Goal: Patient will perform toileting with STAND BY ASSIST without adaptive devices as appropriate. Dates: Start: 08/02/24 Expected End: 08/09/24 Goal: Patient will perform bathing with STAND BY ASSIST without adaptive devices as appropriate. Dates: Start: 08/02/24 Expected End: 08/09/24 Goal: Patient will perform Lower body dressing with MINIMAL ASSIST using adaptive/assistive devicesas appropriate. Dates: Start: 08/02/24 Expected End: 08/09/24 Goal: Patient will complete toilet transfers with with MINIMAL ASSIST using least restrictive assistive device Dates: Start: 08/02/24 Expected End: 08/09/24 Goal: Patient will complete Tub Transfer with with MODERATE ASSIST using least restrictive assistive device Dates: Start: 08/02/24 Expected End: 08/09/24 Encounter Problems (Resolved) There are no resolved problems. Education Documentation Safe Use of DME, taught by Matty Vega OT at 08/07/2024 2:12 PM. Learner: Patient Readiness: Acceptance Method: Explanation, Demonstration Response: Verbalizes Understanding, Demonstrated Understanding ADL Training, taught by Matty Vega OT at 08/07/2024 2:12 PM. Learner: Patient Readiness: Acceptance Method: Explanation, Demonstration Response: Verbalizes Understanding, Demonstrated Understanding Home Exercise Program, taught by Matty Vega OT at 08/07/2024 2:12 PM. Learner: Patient Readiness: Acceptance Method: Explanation, Demonstration Response: Verbalizes Understanding, Demonstrated Understanding Precautions, taught by Matty Vega OT at 08/07/2024 2:12 PM. Learner: Patient Readiness: Acceptance Method: Explanation, Demonstration Response: Verbalizes Understanding, Demonstrated Understanding Body Mechanics, taught by Matty Vega OT at 08/07/2024 2:12 PM. Learner: Patient Readiness: Acceptance Method: Explanation, Demonstration Response: Verbalizes Understanding, Demonstrated Understanding Education Comments No comments found. Start/Stop Time OT Time Calculation OT Start Time: 1230 OT Stop Time: 1400 OT Time Calculation (min): 90 min Therapy Minutes: Occupational Therapy OT Individual: 90 * JAY Watts - 08/07/2024 12:00 PM EST Images from the original note were not included. PEGGY CONSULT PROGRESS NOTE Date: 08/07/2024 Author: JAY Watts Patient ID: Cleve Burns is a 79 y.o. male : 1945 MR#: [id number] SUBJECTIVE Subjective Staff and pt complaining of muscle spasms in left leg likely from over use and pain left buttock- feels pain is poorly controlled. Has pain with therapy ALL: Patient has no known allergies. REVIEW OF SYSTEMS: Review of Systems ROS: CHEST: no sob, coughing HEART: no chest pain, orthopnea GI: no abd pain, or N/V. : No dysuria or frequency EXT: no leg pain or swelling Current Medications: acetaminophen, 975 mg, oral, q8h NIMCO amLODIPine, 2.5 mg, oral, Nightly aspirin, 81 mg, oral, Nightly atorvastatin, 80 mg, oral, Nightly cyclobenzaprine, 5 mg, oral, TID docusate sodium, 100 mg, oral, BID enoxaparin, 40 mg, subcutaneous, Daily lidocaine, 1 patch, Topical, Daily lisinopriL, 20 mg, oral, Nightly pantoprazole, 40 mg, oral, q AM AC senna, 2 tablet, oral, Nightly PRN medications: bisacodyL, magnesium hydroxide, ondansetron (ZOFRAN-ODT) disintegrating tablet, oxyCODONE OBJECTIVE Objective PHYSICAL EXAM Physical Exam General: conscious alert no acute distress HEENT: pupils are equal round and reactive. extraocular movements are grossly intact lungs clear to auscultation, no wheezing or crackles noted heart regular rate and rhythm, no murmur or rubs abdomen soft nontender nondistended positive bowel sounds Musculoskeletal: No gross deformity to joints extremities without edema, erythema or calf tenderness neuro: non-focal skin: no rashes or lesions. psych: mood stable appearing, good eye contact. Last Recorded Vitals: BP 133/75 (BP Location: Right arm, Patient Position: Lying) Pulse 75 Temp 36.4 ??C (97.5 ??F) (Oral) Resp 16 Wt 83.7 kg (184 lb 9.6 oz) BMI 27.34 kg/m?? Lab Results: LABS HEMATOLOGY Lab Results Component Value Date WBC 9.2 08/07/2024 HGB 11.0 (L) 08/07/2024 HCT 33.3 (L) 08/07/2024 MCV 88.1 08/07/2024 PLT 392 08/07/2024 CHEMISTRY Lab Results Component Value Date GLUCOSE 105 (H) 08/07/2024 NA 138 08/07/2024 K 4.6 08/07/2024 CO2 30 08/07/2024 CL 106 08/07/2024 BUN 17 08/07/2024 CREATININE 1.11 08/07/2024 EGFR 68 08/07/2024 CALCIUM 9.0 08/07/2024 ANIONGAP 2 (L) 08/07/2024 No results found for: TROPONINT Imaging: Last Images reviewed RADIOLOGIC EXAM CHEST 2 VIEWS CHEST, TWO VIEWS HISTORY: Dyspnea on exertion . TECHNIQUE: Frontal and lateral views of the chest. PRIOR: No previous outside images are able to be located. FINDINGS: The lungs are clear. No pleural effusion is seen. No pneumothorax is seen. The cardiac diameter is within normal limits. No aggressive appearing bony abnormalities are seen. There is mild curvature of the spine. There are bridging and partially bridging osteophytes of the thoracic spine. There is moderate wedging of the approximately T12 vertebral body. IMPRESSION: IMPRESSION: No acute pulmonary pathology. Moderate compression fracture of T12 vertebral body of unknown chronicity. ASSESSMENT & PLAN Pelvic fracture Mechanical fall on the ice States pain is well-controlled when not moving He denies any other issues Patient is moving his bowels No further lightheaded and dizziness vital signs stable developing overuse left leg on flexeril Still with discomfort- defer to PMR New onset nausea with pain episode will add Zofran Presume related to constipation as well as tramadol/milk of magnesia on an empty stomach resolved Closed head injury No Headaches dizziness visual impairments Patient is appropriate with staff engaged in therapy Nausea x 1 in the context of pain meds on empty stomach resolved Hypertension Lisinopril 20mg qd Norvasc 2.5mg qd Stable range Hyperlipidemia Continue statin Chronic anemia H/H stable Prerenal azotemia BUN 26 creatinine 1.28 Resolved 1.11 Mild leukocytosis Resolved, WBC 9.2 Likely reactive. Lovenox 40mg sc daily DAILY CARE CHECKLIST VTE Prophylaxis: On Lovenox per PMR Diet: Dietary Orders (From admission, onward) Start Ordered 08/01/241706 Adult diet [facility]; General; Regular Diet effective now Question Answer Comment Location [facility] Diet Type (req) General General Diet Regular 08/01/241706 Resuscitation: Full Code - Default PCP: MD Rosemary Wright PA * Yesenia Vasquez PT - 08/07/2024 11:00 AM EST [facility] Physical Therapy Treatment Note 08/07/2024 Patient: Cleve Burns : 1945 Age: 79 y.o. 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 Precautions: Medical Precautions: Fall Risk Safety Interventions: Call arevalo within reach, Chair alarm RUE Weight Bearing Status: Full LUE Weight Bearing Status: Full RLE Weight Bearing Status: Toe Touch LLE Weight Bearing Status: Full SUBJECTIVE Pt report: I walked to the bathroom earlier and the spasms didn't come back in my leg. Pain: Pain Assessment: 0-10 Pain Score: 6 Pain Location: Buttocks Pain Orientation: Left OBJECTIVE General Observation: Pt in bed, agreeable to PT. Vitals: BP: 115/64 Heart Rate: 89 SpO2: 96 % Procedure/Treatment: Therapeutic Activities: Therapeutic Activity Time Entry: 15 and Pt received in bed, agreeable to PT. Supine > sit supervision. Pt donning left sneaker. Attempted STS from standard bed height, pt unable to come to stand, requesting bed height be elevated. Raised bed height, completed stand partial A, difficulty transitioning hands to RW, LOB with pt WB through RLE. Once standing, pt adhering to TTWB, gait x20' steadying A. Pt taking seated rest break, unable to tolerate further mobility at this time due to pain. Sit > supine supervision, pt using upperextremities to lift lower extremities onto bed. At end of session, pt left in bed with alarm set, call aervalo within reach and all needs met. Therapeutic Exercise: Therapeutic Exercise Time Entry: 15 2x10 supine hip abd/add AROM 2x10 heel slides AROM Education: Education Documentation Precautions, taught by Yesenia Vasquez PT at 08/07/2024 11:23 AM. Learner: Patient Readiness: Acceptance Method: Demonstration, Explanation Response: Verbalizes Understanding, Demonstrated Understanding, Needs Reinforcement Comment: bed mobility, transfers, gait, LE exercises for ROM and strengthening Mobility Training, taught by Yesenia Vasquez, PT at 08/07/2024 11:23 AM. Learner: Patient Readiness: Acceptance Method: Demonstration, Explanation Response: Verbalizes Understanding, Demonstrated Understanding, Needs Reinforcement Comment: bed mobility, transfers, gait, LE exercises for ROM and strengthening Education Comments No comments found. ASSESSMENT PT Assessment PT Assessment Results: Decreased strength, Decreased range of motion, Decreased endurance, Impairedbalance, Decreased mobility, Impaired gait, Orthopedic restrictions, Pain Prognosis: Good Evaluation/Treatment Tolerance: Patient limited by pain Comments: Pt tolerating 1 walk, then needing to return to bed to relieve pain. Equipment: TBD Plan of Care Plan Treatment/Interventions: Functional transfer training, LE strengthening/ROM, Endurance training, Patient/family training, Bed mobility, Gait training, Balance training PT Plan: Skilled PT PT Frequency: 5 days per week PT Duration of Sessions: 90 min per day PT Treatments per day: 1 time per day Problems/Goals Goals: Encounter Problems Encounter Problems (Active) Template: Physical Therapy Problem: PT Chcf Goals Dates: Start: 08/02/24 Goal: Mod I bed mobility Dates: Start: 08/02/24 Expected End: 08/16/24 Outcomes Date/Time User Outcome 08/05/24 1533 Yesenia Vasquez PT Progressing Goal: Mod I transfers LRAD Dates: Start: 08/02/24 Expected End: 08/16/24 Outcomes Date/Time User Outcome 08/05/24 1533 Yesenia Vasquez PT Progressing Goal: Mod I gait x10' with RW Dates: Start: 08/02/24 Expected End: 08/16/24 Outcomes Date/Time User Outcome 08/05/24 1533 Yesenia Vasquez PT Progressing Goal: Mod I wheelchair mobility x150' Dates: Start: 08/02/24 Expected End: 08/16/24 Outcomes Date/Time User Outcome 08/05/24 1533 Yesenia Vasquez PT Progressing Goal: Pt will negotiate x3 stairs no railings partial A Dates: Start: 08/02/24 Expected End: 08/16/24 Outcomes Date/Time User Outcome 08/05/24 1533 Yesenia Vasquez PT Progressing Problem: PT Short Term Goals Dates: Start: 08/02/24 Goal: Supervision bed mobility Dates: Start: 08/02/24 Expected End: 08/09/24 Outcomes Date/Time User Outcome 08/05/24 1533 Yesenia Vasquez PT Progressing Goal: Steadying A transfers LRAD (Resolved) Dates: Start: 08/02/24 Expected End: 08/09/24 Resolved: 08/05/24 Outcomes Date/Time User Outcome 08/05/24 1533 Yesenia Vasquez, PT Completed Goal: Assess gait (Resolved) Dates: Start: 08/02/24 Expected End: 08/09/24 Resolved: 08/05/24 Outcomes Date/Time User Outcome 08/05/24 1533 Yesenia Vasquez PT Completed Goal: Assess stairs (Resolved) Dates: Start: 08/02/24 Expected End: 08/09/24 Resolved: 08/05/24 Outcomes Date/Time User Outcome 08/05/24 1533 Yesenia Vasquez, PT Completed Goal: Supervision transfers LRAD Dates: Start: 08/05/24 Expected End: 08/12/24 Description: Goal: Supervision gait x20' Dates: Start: 08/05/24 Expected End: 08/12/24 Description: Encounter Problems (Resolved) There are no resolved problems. Session Start/Stop Time: 1100 1130 Therapy Minutes Physical Therapy PT Individual: 30 * Yesenia Vasquez PT - 08/07/2024 8:00 AM EST [facility] Physical Therapy Treatment Note 08/07/2024 Patient: Cleve Burns : 1945 Age: 79 y.o. Gender: male Primary Language: Lithuanian Diagnosis: Pubic bone fracture (CMS/HCC) Past Medical History: Diagnosis Date CVA (cerebral vascular accident) (CMS/HCC) Tobacco use DX:Tobacco use Tongue cancer (CMS/HCC) Past Surgical History: Procedure Laterality Date KNEE SURGERY PROCEDURE: HISTORICAL KNEE SURGERY MOUTH SURGERY PROCEDURE: ORAL SURGERY PROCEDURE; COMMENT: tongue surgery OTHER SURGICAL HISTORY PROCEDURE: LA CLOSURE INTESTINAL CUTANEOUS FISTULA VASECTOMY PROCEDURE: HISTORICAL VASECTOMY Allergies: has No Known Allergies. Precautions: Medical Precautions: Fall Risk Safety Interventions: Call arevalo within reach, Chair alarm RUE Weight Bearing Status: Full LUE Weight Bearing Status: Full RLE Weight Bearing Status: Toe Touch LLE Weight Bearing Status: Full SUBJECTIVE Pt report: It's too painful to stand on that left leg. The pain just keeps building up the more I do. Pain: Pain Assessment: 0-10 Pain Score: 6 Pain Location: Buttocks Pain Orientation: Left OBJECTIVE General Observation: Pt in bed, agreeable to PT. Vitals: BP: 115/64 Heart Rate: 89 SpO2: 96 % Procedure/Treatment: Therapeutic Activities: Therapeutic Activity Time Entry: 60 Pt received in bed, agreeable to PT. Supine > sit supervision. STS to RW steadying A, pt with poor adherence to TTWB RLE. Gait with RW to bathroom, poor adherence to TTWB demonstrated by releasingboth upper extremities from RW to pull down pants, cued to keep one hand on RW and maintain TTWB. Pt getting dressed in sitting supervision. STS to hike pants over hips, keeping one hand on arm rest and appearing to maintain TTWB. Partial A SPT no AD to wheelchair, poor eccentric control to sit. Mod I wheelchair mobility to the gym. Pt participating in standing balance and endurance activity, playing game while standing at RW, releasing one UE from RW. Crackers taped to bottom of R foot for external cue for TTWB RLE. Pt standing x1.5 min before needing to sit due to pain in L buttock region, able to briefly release one hand from RW. Crackers intact, pt adhering to TTWB, however poor standing tolerance. Pt getting spasms throughout LLE following activity. Trialed different positioning of LLE and heat pack to leg, nothing improving spasms/pain at this time. Pt propelling wheelchair back to room. Attempted walker transfer, max A to stand to RW, R hand reaching for walker but missing, maxA to lower back down to wheelchair, pt WB through RLE. Transitioned to stand pivot transfer, partial A. Sit > supine partial A for lower extremities. Session ended early due to poor pain tolerance, pt agreeable to this report writer coming by later this morning to finish session. Pt left in bed with alarm set, call arevalo within reach and all needs met. Education: Education Documentation Precautions, taught by Yesenia Vasquez PT at 08/07/2024 9:01 AM. Learner: Patient Readiness: Acceptance Method: Explanation, Demonstration Response: Verbalizes Understanding, Needs Reinforcement, Demonstrated Understanding Comment: TTWB, transfers, standing balance, pain management Mobility Training, taught by Yesenia Vasquez PT at 08/07/2024 9:01 AM. Learner: Patient Readiness: Acceptance Method: Explanation, Demonstration Response: Verbalizes Understanding, Needs Reinforcement, Demonstrated Understanding Comment: TTWB, transfers, standing balance, pain management Education Comments No comments found. ASSESSMENT PT Assessment PT Assessment Results: Decreased strength, Decreased range of motion, Decreased endurance, Impairedbalance, Decreased mobility, Impaired gait, Orthopedic restrictions, Pain Prognosis: Good Evaluation/Treatment Tolerance: Patient limited by pain Comments: Pt only tolerating x60 min session, significant increase in pain with standing, worseningspasms throughout LLE. Equipment: Wheelchair, RW Plan of Care Plan Treatment/Interventions: Functional transfer training, LE strengthening/ROM, Endurance training, Patient/family training, Bed mobility, Gait training, Balance training PT Plan: Skilled PT PT Frequency: 5 days per week PT Duration of Sessions: 90 min per day PT Treatments per day: 1 time per day Problems/Goals Goals: Encounter Problems Encounter Problems (Active) Template: Physical Therapy Problem: PT Chcf Goals Dates: Start: 08/02/24 Goal: Mod I bed mobility Dates: Start: 08/02/24 Expected End: 08/16/24 Outcomes Date/Time User Outcome 08/05/24 John Vasquez PT Progressing Goal: Mod I transfers LRAD Dates: Start: 08/02/24 Expected End: 08/16/24 Outcomes Date/Time User Outcome 08/05/24 153Morgan Vasquez PT Progressing Goal: Mod I gait x10' with RW Dates: Start: 08/02/24 Expected End: 08/16/24 Outcomes Date/Time User Outcome 08/05/24 1533 Yesenia Vasquez PT Progressing Goal: Mod I wheelchair mobility x150' Dates: Start: 08/02/24 Expected End: 08/16/24 Outcomes Date/Time User Outcome 08/05/24 153Morgan Vasquez PT Progressing Goal: Pt will negotiate x3 stairs no railings partial A Dates: Start: 08/02/24 Expected End: 08/16/24 Outcomes Date/Time User Outcome 08/05/24 153Morgan Vasquez PT Progressing Problem: PT Short Term Goals Dates: Start: 08/02/24 Goal: Supervision bed mobility Dates: Start: 08/02/24 Expected End: 08/09/24 Outcomes Date/Time User Outcome 08/05/24 153Morgan Vasquez PT Progressing Goal: Steadying A transfers LRAD (Resolved) Dates: Start: 08/02/24 Expected End: 08/09/24 Resolved: 08/05/24 Outcomes Date/Time User Outcome 08/05/24 153Morgan Vasquez PT Completed Goal: Assess gait (Resolved) Dates: Start: 08/02/24 Expected End: 08/09/24 Resolved: 08/05/24 Outcomes Date/Time User Outcome 08/05/24 153Morgan Vasquez PT Completed Goal: Assess stairs (Resolved) Dates: Start: 08/02/24 Expected End: 08/09/24 Resolved: 08/05/24 Outcomes Date/Time User Outcome 08/05/24 153Morgan Vasquez PT Completed Goal: Supervision transfers LRAD Dates: Start: 08/05/24 Expected End: 08/12/24 Description: Goal: Supervision gait x20' Dates: Start: 08/05/24 Expected End: 08/12/24 Description: Encounter Problems (Resolved) There are no resolved problems. Session Start/Stop Time: 0800 0900 Therapy [facility] PT Individual: 60 * Pauline Batista, DO - 08/06/2024 8:25 PM EST Images from the original note were not included. [facility] Daily Progress Note Patient name: Cleve Burns : 1945 SUBJECTIVE: Patient seen and examined at bedside today. No acute events overnight. Denies headaches, dizziness,shortness of breath, chest pain, nausea, constipation. Reports continued left buttock pain yet continues to make progress in therapies. Started on Flexeril yesterday. TEAM CONFERENCE: I was present and participated in team meeting today. I agree with team conferenceplan as documented in alternate note today. Please refer to team conference note for further details. OBJECTIVE: Vitals: 08/05/24 2211 08/06/24 0548 08/06/24 0718 08/06/24 1521 BP: 117/71 (!) 150/73 116/59 104/68 BP Location: Right arm Right arm Left arm Patient Position: Lying Lying Lying Pulse: 71 67 69 Resp: 17 16 18 Temp: 36.6 ??C (97.9 ??F) 36.5 ??C (97.7 ??F) 36.9 ??C (98.4 ??F) TempSrc: Oral Oral Oral SpO2: 95% 98% 99% Weight: Physical Examination: General: Alert, in no acute cardiopulmonary distress. Mental Status: Oriented to person, place and time. Normal affect. Head: Normocephalic. Eyes: Extraocular muscles grossly intact. Ear, Nose and Throat: Oropharynx clear, mucous membranes moist. Ears and nose without masses, lesions or deformities. Neck: Supple, Trachea midline. Respiratory: Clear to auscultation and percussion. No wheezing, rales or rhonchi. Cardiovascular: Heart sounds normal. No thrills. Regular rate and rhythm, no murmurs, rubs or gallops. Gastrointestinal: Abdomen soft, non-tender, non-distended. Normal bowel sounds. Neurologic: Cranial nerves II-XII grossly intact. Negative clonus bilaterally. Moves all extremities spontaneously. Sensation intact bilaterally. Skin: No rashes or lesions. No petechiae or purpura. No edema. Musculoskeletal: No cyanosis or clubbing. No gross deformities. Normal range of motion. Antigravitystrength all 4 extremities. CURRENT INPATIENT MEDICATIONS: Current Facility-Administered Medications: acetaminophen (TYLENOL) tablet 975 mg, 975 mg, oral, q8h NIMCO, Pauline Batista DO, 975 mg at 08/06/24 1323 amLODIPine (NORVASC) tablet 2.5 mg, 2.5 mg, oral, Nightly, Magdi Torres PA, 2.5 mg at 08/05/24 221 aspirin chewable tablet 81 mg, 81 mg, oral, Nightly, Magdi Torres, PA, 81 mg at 08/05/24 221 atorvastatin (LIPITOR) tablet 80 mg, 80 mg, oral, Nightly, Magdi Torres, PA, 80 mg at 08/05/242209 bisacodyL (DULCOLAX) suppository 10 mg, 10 mg, rectal, Daily PRN, Magdi Torres PA, 10 mg at 08/02/242017 cyclobenzaprine (FLEXERIL) tablet 5 mg, 5 mg, oral, TID, Kymberly Segal, CORE JAVA ENGINEER, 5 mg at 08/06/24 132 docusate sodium (COLACE) capsule 100 mg, 100 mg, oral, BID, Magdi Torres, PA, 100 mg at 842 enoxaparin (LOVENOX) injection 40 mg, 40 mg, subcutaneous, Daily, Magdi Torres, PA, 40 mg at 08/06/24 0842 lidocaine 4 % patch 1 patch, 1 patch, Topical, Daily, Pauline Batista DO, 1 patch at 08/06/24 0842 lisinopriL (PRINIVIL,ZESTRIL) tablet 20 mg, 20 mg, oral, Nightly, Magdi Torres, PA, 20 mg at 08/05/24 221 magnesium hydroxide (MILK OF MAGNESIA) 400 mg/5 mL suspension 30 mL, 30 mL, oral, Daily PRN, Magdi Torres, PA, 30 mL at 08/02/24 0855 ondansetron ODT (ZOFRAN-ODT) disintegrating tablet 4 mg, 4 mg, oral, q8h PRN, Magdi Torres, PA, 4 mg at 08/02/24 1328 oxyCODONE (ROXICODONE) immediate release tablet 5 mg, 5 mg, oral, q6h PRN, Pauline Batista, DO,5 mg at 08/06/24 1223 pantoprazole (PROTONIX) EC tablet 40 mg, 40 mg, oral, q AM AC, Magdi Torres, PA, 40 mg at 08/06/24 0600 senna (SENOKOT) tablet 17.2 mg, 2 tablet, oral, Nightly, Pauline Batista, DO, 17.2 mg at 08/05/24 2210 LABS: Lab Results Component Value Date WBC 11.7 (H) 08/05/2024 RBC 3.80 (L) 08/05/2024 HGB 11.1 (L) 08/05/2024 HCT 34.1 (L) 08/05/2024 MCV 89.0 08/05/2024 MCHC 32.6 08/05/2024 RDW 13.2 08/05/2024 PLT 364 08/05/2024 MPV 10.0 08/05/2024 NRBC 0.0 08/05/2024 DIFF Lab Results Component Value Date LYMPHOPCT 23.7 08/02/2024 NEUTROABS 6.90 08/02/2024 LYMPHSABS 2.91 08/02/2024 MONOABS 1.40 (H) 08/02/2024 EOSABS 0.85 (H) 08/02/2024 BASOSABS 0.09 08/02/2024 IMMGRANABS 0.14 (H) 08/02/2024 RETIC No results found for: RETIC , RETICCTPCT Lab Results Component Value Date NA 140 08/04/2024 K 5.1 08/04/2024 CL 107 08/04/2024 CO2 28 08/04/2024 GLUCOSE 108 (H) 08/04/2024 BUN 23 08/04/2024 CREATININE 1.24 08/04/2024 CALCIUM 8.7 08/04/2024 PROT 6.3 08/02/2024 ALBUMIN 3.1 (L) 08/02/2024 BILITOT 1.2 08/02/2024 AST 21 08/02/2024 ALT 28 08/02/2024 ALKPHOS 75 08/02/2024 EGFR 59 (L) 08/04/2024 IMPRESSION & PLAN: #Impaired mobility and self-care -Secondary to slip and fall and fracture -Continue PT/OT and nursing care #Right pubic body fracture -evaluated by [facility] JAY Wilkerson & Dr Spann -Non surgical management -TTWB to RLE -continue therapies -Follow up with [facility] after discharge #Pain management -Acetaminophen 975mg Q8H -Lidocaine patch daily -Oxycodone 5mg Q6H PRN -Flexeril 5mg TID started 08/05 #Hypertension -ASA 81 mg daily -Amlodipine 2.5 mg nightly -Lisinopril 20 mg nightly #Hyperlipidemia -Atorvastatin 80 mg nightly #GERD -Protonix 40 mg daily #Bowel management -Colace 100mg BID -Senna 2 tabs QHS #DVT ppx: Lovenox 40mg daily * Marquez Yancey LCSW - 08/06/2024 3:22 PM EST Team Meeting: Met with pt and at bedside to review post team recommendations. Discussed 2 week goals to be MOD I with ADLS, partial assist on stairs. Discussed tentative discharge set for Tuesday 08/15. Discussed returning home with VNA for RN PT OT and FISHING VESSEL CAPTAIN services. Pt and in agreement with plan, no preference on VNA. to assist with stair management. Therapy to schedule family training. Pt is cu rrently partial assist with ADLS. Therapy recommending a tub bench and wheel chair for home. Pt andwife in agreement with plan. Pt had no questions or concerns at this time. * Sita Palencia RN - 08/06/2024 2:31 PM EST Goals: Identify possible barriers to meeting goals/advancing plan of care: pain, , weakness in both legs. WB is TDWB RLE Stability of the patient: Moderately Stable - Low risk of patient condition declining or worsening End of Shift Summary: Pt accepting pain med and states pain is tolerable at level 4. Pt fully motivated and states his goal is to keep trying to walk . Pt exhibits safety awareness. * Yesenia Vasquez, PT - 08/06/2024 1:33 PM EST [facility] Physical Therapy Treatment Note 08/06/2024 Patient: Cleve Burns : 1945 Age: 79 y.o. Gender: male Primary Language: Lithuanian Diagnosis: Pubic bone fracture (CMS/HCC) Past Medical History: Diagnosis Date CVA (cerebral vascular accident) ([facility]/HCC) Tobacco use DX:Tobacco use Tongue cancer ([facility]/HCC) Past Surgical History: Procedure Laterality Date KNEE SURGERY PROCEDURE: HISTORICAL KNEE SURGERY MOUTH SURGERY PROCEDURE: ORAL SURGERY PROCEDURE; COMMENT: tongue surgery OTHER SURGICAL HISTORY PROCEDURE: LA CLOSURE INTESTINAL CUTANEOUS FISTULA VASECTOMY PROCEDURE: HISTORICAL VASECTOMY Allergies: has No Known Allergies. Precautions: Medical Precautions: Fall Risk Safety Interventions: Call arevalo within reach, Chair alarm RUE Weight Bearing Status: Full LUE Weight Bearing Status: Full RLE Weight Bearing Status: Toe Touch LLE Weight Bearing Status: Full SUBJECTIVE Pt report: The spasms are better, but I still get pain when I pivot Pain: Pain Assessment: 0-10 Pain Score: 6 Pain Location: Buttocks Pain Orientation: Left OBJECTIVE General Observation: Pt in bed, agreeable to PT. Procedure/Treatment: Therapeutic Activities: Therapeutic Activity Time Entry: 45 Pt received in bed. Supine > sit supervision, pt using upper extremities to assist brining LLE over EOB. Stand pivot transfer wheelchair > bed partial A, pain in L buttock region during pivot. Mod I wheelchair mobility to the gym. Pt's present to observe. Demonstrated anticipated method for stair negotiation: posterior step up with RW to 1st step, sitting on chair on 2nd step, completing stand pivot to wheelchair up through doorway step. Pt's reporting that method will work and will try it out at home to make sure there is enough space. Pt practicing stand pivot transfers no AD both directions, partial A, difficulty transitioning hand to reach across to pivot due to poor balance on LLE. Worsening pain with pivot transfers. Mod I wheelchair mobility back to room. Partial A SPT to bed. Sit > supine partial A for lower extremities. Pt left in bed with alarm set, call arevalo within reach and all needs met. Education: Education Documentation Mobility Training, taught by Yesenia Vasquez PT at 08/06/2024 1:30 PM. Learner: Patient Readiness: Acceptance Method: Explanation, Demonstration Response: Verbalizes Understanding, Demonstrated Understanding Comment: transfers, gait, stairs, balance Education Comments No comments found. ASSESSMENT PT Assessment PT Assessment Results: Decreased strength, Decreased range of motion, Decreased endurance, Impairedbalance, Decreased mobility, Impaired gait, Orthopedic restrictions, Pain Prognosis: Good Evaluation/Treatment Tolerance: Patient limited by pain Comments: Pt with significant increase in pain when completing stand pivot transfers with no AD. Equipment: TBD Plan of Care Plan Treatment/Interventions: Functional transfer training, LE strengthening/ROM, Endurance training, Patient/family training, Bed mobility, Gait training, Balance training PT Plan: Skilled PT PT Frequency: 5 days per week PT Duration of Sessions: 90 min per day PT Treatments per day: 1 time per day Problems/Goals Goals: Encounter Problems Encounter Problems (Active) Template: Physical Therapy Problem: PT Chcf Goals Dates: Start: 08/02/24 Goal: Mod I bed mobility Dates: Start: 08/02/24 Expected End: 08/16/24 Outcomes Date/Time User Outcome 08/05/24 1533 Yesenia Vasquez PT Progressing Goal: Mod I transfers LRAD Dates: Start: 08/02/24 Expected End: 08/16/24 Outcomes Date/Time User Outcome 08/05/24 1533 Yesenia Vasquez PT Progressing Goal: Mod I gait x10' with RW Dates: Start: 08/02/24 Expected End: 08/16/24 Outcomes Date/Time User Outcome 08/05/24 1533 Yesenia Vasquez PT Progressing Goal: Mod I wheelchair mobility x150' Dates: Start: 08/02/24 Expected End: 08/16/24 Outcomes Date/Time User Outcome 08/05/24 1533 Yesenia Vasquez PT Progressing Goal: Pt will negotiate x3 stairs no railings partial A Dates: Start: 08/02/24 Expected End: 08/16/24 Outcomes Date/Time User Outcome 08/05/24 1533 Yesenia Vasquez PT Progressing Problem: PT Short Term Goals Dates: Start: 08/02/24 Goal: Supervision bed mobility Dates: Start: 08/02/24 Expected End: 08/09/24 Outcomes Date/Time User Outcome 08/05/24 1533 Yesenia Vasquez PT Progressing Goal: Steadying A transfers LRAD (Resolved) Dates: Start: 08/02/24 Expected End: 08/09/24 Resolved: 08/05/24 Outcomes Date/Time User Outcome 08/05/24 1533 Yesenia Vasquez PT Completed Goal: Assess gait (Resolved) Dates: Start: 08/02/24 Expected End: 08/09/24 Resolved: 08/05/24 Outcomes Date/Time User Outcome 08/05/24 1533 Yesenia Vasquez PT Completed Goal: Assess stairs (Resolved) Dates: Start: 08/02/24 Expected End: 08/09/24 Resolved: 08/05/24 Outcomes Date/Time User Outcome 08/05/24 1533 Yesenia Vasquez PT Completed Goal: Supervision transfers LRAD Dates: Start: 08/05/24 Expected End: 08/12/24 Description: Goal: Supervision gait x20' Dates: Start: 08/05/24 Expected End: 08/12/24 Description: Encounter Problems (Resolved) There are no resolved problems. Session Start/Stop Time: 1230 1315 Therapy [facility] PT Individual: 45 * Matty Vega OT - 08/06/2024 9:30 AM EST [facility] Occupational Therapy Treatment Note 08/06/24 Patient: Cleve Burns : 1945 Age: 79 y.o. Gender: male Diagnosis: Pubic bone fracture (CMS/HCC) Primary Rehab (Etiologic) Diagnosis: Patient Active Problem List Diagnosis Anemia Essential hypertension Hypercholesteremia Thalamic stroke (CMS/HCC) Tongue cancer (CMS/HCC) Pubic bone fracture (CMS/HCC) PMH: Past Medical History: Diagnosis Date CVA (cerebral vascular accident) (CMS/HCC) Tobacco use DX:Tobacco use Tongue cancer (CMS/HCC) PSH: Past Surgical History: Procedure Laterality Date KNEE SURGERY PROCEDURE: HISTORICAL KNEE SURGERY MOUTH SURGERY PROCEDURE: ORAL SURGERY PROCEDURE; COMMENT: tongue surgery OTHER SURGICAL HISTORY PROCEDURE: LA CLOSURE INTESTINAL CUTANEOUS FISTULA VASECTOMY PROCEDURE: HISTORICAL VASECTOMY Allergies: has No Known Allergies. Precautions: Precautions Medical Precautions: Fall Risk Safety Interventions: Call arevalo within reach, Chair alarm RUE Weight Bearing Status: Full LUE Weight Bearing Status: Full RLE Weight Bearing Status: Toe Touch LLE Weight Bearing Status: Full Subjective: I feel good Procedures/Interventions: ADLs/IADLs Self Care/Home Management (ADLs) Time Entry: 15 Pt seated in w/c upon arrival, pt tasked with performing toilet txfers X2. Pt propelled self into bathroom S. SPT w/c>toilet partial A for uplift, verbal cues for UE placement on grab bar and adjacent commode frame. SPT 2nd trial from w/c><toilet with 3-in-1 commode frame to increase INDEPENDENCE, with steadying A with good carryover of hand placement. Education provided on tub bench for tub txfer for adherence to TDWB. Therapeutic Activity Therapeutic Activity Time Entry: 15 Pt performed functional amb across gym at with good adherence to TDWB, maintaining mostly NWB, Steadying A. Pt slightly SOB, O2 96%, HR 122 post amb. Pt propelled self back to room S. Seated in w/c HR 92. Chair alarm on and call arevalo in reach. OT Assessment OT Assessment OT Assessment Results: Decreased ADL status, Decreased safe judgment during ADL, Decreased endurance, Decreased functional mobility, Decreased IADLs Prognosis: Good Evaluation/Treatment Tolerance: Patient tolerated treatment well. Pt with good adherence to WB restrictions during session. OT Plan Plan Treatment Interventions: ADL retraining, Functional transfer training, UE strengthening/ROM, Endurance training OT Plan: Skilled OT OT Frequency : 5-7 days per week OT Duration of Sessions: 90 min per day OT Treatments per day: 1 time per day OT - Evaluation Status: Complete OT Discharge Recommendations: (TBD at d/c) Equipment Recommended: (TBD at d/c) Goals: Encounter Problems Encounter Problems (Active) Template: Occupational Therapy Problem: OT Chcf Goals Dates: Start: 08/02/24 Goal: Patient will perform toileting at a MODIFIED INDEPENDENT level without adaptive devices as appropriate. Dates: Start: 08/02/24 Expected End: 08/16/24 Goal: Patient will perform bathing at a MODIFIED INDEPENDENT level using adaptive devices as appropriate. Dates: Start: 08/02/24 Expected End: 08/16/24 Goal: Patient will perform Lower body dressing at a MODIFIED INDEPENDENT level using adaptive/assistive devices as appropriate. Dates: Start: 08/02/24 Expected End: 08/16/24 Goal: Patient will complete toilet transfers with at a MODIFIED INDEPENDENT level using least restrictive assistive device Dates: Start: 08/02/24 Expected End: 08/16/24 Goal: Patient will complete Tub Transfer with with SUPERVISION using least restrictive assistive device Dates: Start: 08/02/24 Expected End: 08/16/24 Problem: OT Short Term Goals Dates: Start: 08/02/24 Goal: Patient will perform toileting with STAND BY ASSIST without adaptive devices as appropriate. Dates: Start: 08/02/24 Expected End: 08/09/24 Goal: Patient will perform bathing with STAND BY ASSIST without adaptive devices as appropriate. Dates: Start: 08/02/24 Expected End: 08/09/24 Goal: Patient will perform Lower body dressing with MINIMAL ASSIST using adaptive/assistive devicesas appropriate. Dates: Start: 08/02/24 Expected End: 08/09/24 Goal: Patient will complete toilet transfers with with MINIMAL ASSIST using least restrictive assistive device Dates: Start: 08/02/24 Expected End: 08/09/24 Goal: Patient will complete Tub Transfer with with MODERATE ASSIST using least restrictive assistive device Dates: Start: 08/02/24 Expected End: 08/09/24 Encounter Problems (Resolved) There are no resolved problems. Education Documentation Body Mechanics, taught by Matty Vega OT at 08/06/2024 2:31 PM. Learner: Patient Readiness: Acceptance Method: Explanation, Demonstration Response: Verbalizes Understanding, Demonstrated Understanding Precautions, taught by Matty Vega OT at 08/06/2024 2:31 PM. Learner: Patient Readiness: Acceptance Method: Explanation, Demonstration Response: Verbalizes Understanding, Demonstrated Understanding ADL Training, taught by Matty Vega OT at 08/06/2024 2:31 PM. Learner: Patient Readiness: Acceptance Method: Explanation, Demonstration Response: Verbalizes Understanding, Demonstrated Understanding Education Comments No comments found. Start/Stop Time OT Time Calculation OT Start Time: 0930 OT Stop Time: 1000 OT Time Calculation (min): 30 min Therapy Minutes: Occupational Therapy OT Individual: 30 * SHAWN Figueroa - 08/05/2024 12:49 PM EST [facility] Occupational Therapy Treatment Note 08/05/24 Patient: Cleve Burns : 1945 Age: 79 y.o. Gender: male Diagnosis: Pubic bone fracture (CMS/HCC) Primary Rehab (Etiologic) Diagnosis: Patient Active Problem List Diagnosis Anemia Essential hypertension Hypercholesteremia Thalamic stroke (CMS/HCC) Tongue cancer (CMS/HCC) Pubic bone fracture (CMS/HCC) PMH: Past Medical History: Diagnosis Date CVA (cerebral vascular accident) (CMS/HCC) Tobacco use DX:Tobacco use Tongue cancer (CMS/HCC) PSH: Past Surgical History: Procedure Laterality Date KNEE SURGERY PROCEDURE: HISTORICAL KNEE SURGERY MOUTH SURGERY PROCEDURE: ORAL SURGERY PROCEDURE; COMMENT: tongue surgery OTHER SURGICAL HISTORY PROCEDURE: LA CLOSURE INTESTINAL CUTANEOUS FISTULA VASECTOMY PROCEDURE: HISTORICAL VASECTOMY Allergies: has No Known Allergies. Precautions: Precautions Medical Precautions: Fall Risk Safety Interventions: Call arevalo within reach, Chair alarm RUE Weight Bearing Status: Full LUE Weight Bearing Status: Full RLE Weight Bearing Status: Toe Touch LLE Weight Bearing Status: Full Vitals: BP: 134/74 Heart Rate: 73 SpO2: 96 % Pain: Pain Assessment Pain Assessment: 0-10 Pain Score: 4 Pain Type: Acute pain Pain Location: Buttocks Pain Orientation: Left Pain Descriptors: Sharp Pain Interventions: Medication (See MAR) Subjective: I would like to use the bathroom. Procedures/Interventions: Pt semi-supine at start of session, amenable to therapy at this time. Vitals taken, see above. Pt completed bed mobility with supervision. Pt completed SPT from EOB to w/c with use of RW, mod A and cues for maintaing precautions. Pt completed SPT w/c<>toilet with mod A and use of grab bars. Pt completed toileting and toilet hygiene with supervision, noting some incontinence during transfer.Pt completed oral hygiene and UB bathing sitting sinkside with supervision. Pt dressed UB with supervision, LB with min A for steadying A in standing and pulling up back of pants. Pt wheeled self to gym, able to safely navigate obstacles in hallway. Pt participated in therapeutic activity and there-ex, see details below. Pt wheeled self back to room. Pt completed sit<> stand with RW and modA so that nursing could inspect skin integrity and apply lidocaine patch for pain management. Call arevalo and chair alarm in place at end of session. ADLs/IADLs Self Care/Home Management (ADLs) Time Entry: 30 ADL/ IADL Performed: Grooming, Oral Hygiene, Bathing, Dressing, Toileting, Toilet Transfers Therapeutic Activity Therapeutic Activity Time Entry: 30 Therapeutic Activity 1: Pt participated in [employer] card activity in standing at elevated table, focusing on standing endurance and maintaince of TTWB of R LE. Pt was able to stand twice for approximately 3 minutes each stand. No fatigue reported, rest breaks for pain management. Pain reported on L hip/buttocks area during stand, no pain reported on R side. Pt able to maintain TTWB with no cues. Therapeutic Exercise Therapeutic Exercise Time Entry: 30 Therapeutic Exercise Activity 1: Pt participated in 15 minutes of arm bike, sittiing in w/c at table. No exessice fatigue noted, pt reported slight pulling of R shoulder towards end of activity. Pt participated in SROM of scap after bike, no pain noted. OT Assessment OT Assessment OT Assessment Results: Decreased ADL status, Decreased safe judgment during ADL, Decreased endurance, Decreased functional mobility, Decreased IADLs Prognosis: Good Evaluation/Treatment Tolerance: Patient tolerated treatment well Comments: (Completed 90min session.) Medical Staff Made Aware: Yes Comments: (RICK Chan and CORE JAVA ENGINEER Kymberly present during nausea/vomiting episode. Vitals reassesed, WNL.) OT Plan Plan Treatment Interventions: ADL retraining, Functional transfer training, UE strengthening/ROM, Endurance training OT Plan: Skilled OT OT Frequency : 5-7 days per week OT Duration of Sessions: 90 min per day OT Treatments per day: 1 time per day OT - Evaluation Status: Complete OT Discharge Recommendations: (TBD at d/c) Equipment Recommended: (TBD at d/c) Goals: Encounter Problems Encounter Problems (Active) Template: Occupational Therapy Problem: OT Template Fitter Goals Dates: Start: 08/02/24 Goal: Patient will perform toileting at a MODIFIED INDEPENDENT level without adaptive devices as appropriate. Dates: Start: 08/02/24 Expected End: 08/16/24 Goal: Patient will perform bathing at a MODIFIED INDEPENDENT level using adaptive devices as appropriate. Dates: Start: 08/02/24 Expected End: 08/16/24 Goal: Patient will perform Lower body dressing at a MODIFIED INDEPENDENT level using adaptive/assistive devices as appropriate. Dates: Start: 08/02/24 Expected End: 08/16/24 Goal: Patient will complete toilet transfers with at a MODIFIED INDEPENDENT level using least restrictive assistive device Dates: Start: 08/02/24 Expected End: 08/16/24 Goal: Patient will complete Tub Transfer with with SUPERVISION using least restrictive assistive device Dates: Start: 08/02/24 Expected End: 08/16/24 Problem: OT Short Term Goals Dates: Start: 08/02/24 Goal: Patient will perform toileting with STAND BY ASSIST without adaptive devices as appropriate. Dates: Start: 08/02/24 Expected End: 08/09/24 Goal: Patient will perform bathing with STAND BY ASSIST without adaptive devices as appropriate. Dates: Start: 08/02/24 Expected End: 08/09/24 Goal: Patient will perform Lower body dressing with MINIMAL ASSIST using adaptive/assistive devicesas appropriate. Dates: Start: 08/02/24 Expected End: 08/09/24 Goal: Patient will complete toilet transfers with with MINIMAL ASSIST using least restrictive assistive device Dates: Start: 08/02/24 Expected End: 08/09/24 Goal: Patient will complete Tub Transfer with with MODERATE ASSIST using least restrictive assistive device Dates: Start: 08/02/24 Expected End: 08/09/24 Encounter Problems (Resolved) There are no resolved problems. Education Documentation Body Mechanics, taught by SHAWN Figueroa at 08/05/2024 12:48 PM. Learner: Patient Readiness: Acceptance Method: Explanation, Demonstration Response: Verbalizes Understanding, Demonstrated Understanding Precautions, taught by SHAWN Figueroa at 08/05/2024 12:48 PM. Learner: Patient Readiness: Acceptance Method: Explanation, Demonstration Response: Verbalizes Understanding, Demonstrated Understanding ADL Training, taught by SHAWN Figueroa at 08/05/2024 12:48 PM. Learner: Patient Readiness: Acceptance Method: Explanation, Demonstration Response: Verbalizes Understanding, Demonstrated Understanding Education Comments No comments found. Start/Stop Time OT Time Calculation OT Start Time: 0800 OT Stop Time: 929 OT Time Calculation (min): 90 min Therapy Minutes: Occupational Therapy OT Individual: 90 * Yesenia Vasquez, PT - 08/05/2024 10:00 AM EST [facility] Physical Therapy Treatment Note 08/05/2024 Patient: Cleve Burns : 1945 Age: 79 y.o. Gender: male Primary Language: Lithuanian Diagnosis: Pubic bone fracture (CMS/HCC) Past Medical History: Diagnosis Date CVA (cerebral vascular accident) (CMS/HCC) Tobacco use DX:Tobacco use Tongue cancer ([facility]/HCC) Past Surgical History: Procedure Laterality Date KNEE SURGERY PROCEDURE: HISTORICAL KNEE SURGERY MOUTH SURGERY PROCEDURE: ORAL SURGERY PROCEDURE; COMMENT: tongue surgery OTHER SURGICAL HISTORY PROCEDURE: LA CLOSURE INTESTINAL CUTANEOUS FISTULA VASECTOMY PROCEDURE: HISTORICAL VASECTOMY Allergies: has No Known Allergies. Precautions: Medical Precautions: Fall Risk Safety Interventions: Call arevalo within reach, Chair alarm RUE Weight Bearing Status: Full LUE Weight Bearing Status: Full RLE Weight Bearing Status: Toe Touch LLE Weight Bearing Status: Full SUBJECTIVE Pt report: I didn't have a great night. My left leg kept tightening up and it made the pain in my back worse. Pain: Pain Assessment: 0-10 Pain Score: 4 Pain Type: Acute pain Pain Location: Buttocks Pain Orientation: Left OBJECTIVE General Observation: Pt sitting in wheelchair, eager for PT. Vitals: BP: 115/64 Heart Rate: 89 SpO2: 96 % Procedure/Treatment: Therapeutic Activities: Therapeutic Activity Time Entry: 90 Pt received in wheelchair. Pt dez mace supervision. Assessed vitals, see above. Mod I wheelchair mobility to the gym. STS wheelchair <> RW, steadying A, improved ability to transition hands from wheelchair to RW and adhering to TTWB RLE. Gait with RW 10'x2 steadying A, adhering to TTWB throughout. Pt demonstrating good use of upper extremities to offload to step. Pt completing stepup to 4 step in parallel bars, offloading through upper extremities to bring L foot forward onto step, maintaining TTWB RLE. Completed x2 with partial A. Progressed to completing posterior step up onto 4 step, completed x4 partial A. Transitioned to RW, completed x3 posterior step ups to 4 step,partial A for balance. Made setup of 4 step in front of 8 platform step, demonstrating posterior step up with RW to step, then sitting back on chair no armrests on platform step/landing. Then anticipating pt with turn sideways in chair no armrests, then complete stand pivot no AD to wheelchair upthrough doorway step. Pt in agreement for using that method at home. Pt completing posterior step up to 4 step with RW, then sitting on chair on landing, partial A. Partial A for STS from chair no armrests, then completing step down with UE support on RW. Instructed pt on how to complete stand pivot transfers no AD. Completed SPT to the left partial A, significant increase in L buttock/hip pain,pt with poor ability to reposition foot during transfer and twisting. Educated pt on moving slowly to shift foot slightly while pivoting to decrease twisting motion at hip. Pt completed SPT to the right, partial A, pt able to shift left foot during transfer, improvement in pain noted. Pt with significant muscle spasms in LLE following, increase in pain. Mod I wheelchair mobility back to room. Partial A SPT with RW back to bed. Sit > supine partial A for lower extremities. Discussed pain withRN and PEGGY, discussed trialing muscle relaxer for spasms in LLE. Provided pt with heat pack initially, switched to cold pack. Pt left in bed with alarm set, call arevalo within reach and all needs met. Education: Education Documentation Precautions, taught by Yesenia Vasquez, PT at 08/05/2024 12:18 PM. Learner: Patient Readiness: Acceptance Method: Explanation, Demonstration Response: Verbalizes Understanding, Demonstrated Understanding Comment: transfers, gait, stairs, standing balance, pain management strategies Mobility Training, taught by Yesenia Vasquez PT at 08/05/2024 12:18 PM. Learner: Patient Readiness: Acceptance Method: Explanation, Demonstration Response: Verbalizes Understanding, Demonstrated Understanding Comment: transfers, gait, stairs, standing balance, pain management strategies Education Comments No comments found. ASSESSMENT PT Assessment PT Assessment Results: Decreased strength, Decreased range of motion, Decreased endurance, Impairedbalance, Decreased mobility, Impaired gait, Orthopedic restrictions, Pain Prognosis: Good Evaluation/Treatment Tolerance: Patient tolerated treatment well Comments: Pt progressing transfers and gait, able to initiate stair training. However limited by pain with mobility in left buttocks and spasms throughout LLE. Equipment: TBD Plan of Care Plan Treatment/Interventions: Functional transfer training, LE strengthening/ROM, Endurance training, Patient/family training, Bed mobility, Gait training, Balance training PT Plan: Skilled PT PT Frequency: 5 days per week PT Duration of Sessions: 90 min per day PT Treatments per day: 1 time per day Problems/Goals Goals: Encounter Problems Encounter Problems (Active) Template: Physical Therapy Problem: PT Chcf Goals Dates: Start: 08/02/24 Goal: Mod I bed mobility Dates: Start: 08/02/24 Expected End: 08/16/24 Goal: Mod I transfers LRAD Dates: Start: 08/02/24 Expected End: 08/16/24 Goal: Mod I gait x10' with RW Dates: Start: 08/02/24 Expected End: 08/16/24 Goal: Mod I wheelchair mobility x150' Dates: Start: 08/02/24 Expected End: 08/16/24 Goal: Pt will negotiate x3 stairs no railings partial A Dates: Start: 08/02/24 Expected End: 08/16/24 Problem: PT Short Term Goals Dates: Start: 08/02/24 Goal: Supervision bed mobility Dates: Start: 08/02/24 Expected End: 08/09/24 Goal: Steadying A transfers LRAD Dates: Start: 08/02/24 Expected End: 08/09/24 Goal: Assess gait Dates: Start: 08/02/24 Expected End: 08/09/24 Goal: Assess stairs Dates: Start: 08/02/24 Expected End: 08/09/24 Encounter Problems (Resolved) There are no resolved problems. Session Start/Stop Time: 1000 1130 Therapy Minutes Physical Therapy PT Individual: 90 * Catie Swan, PT - 08/04/2024 3:40 PM EST [facility] Physical Therapy Treatment Note 08/04/2024 Patient: Cleve Burns : 1945 Age: 79 y.o. Gender: male Primary Language: Lithuanian Diagnosis: Pubic bone fracture (CMS/HCC) Past Medical History: Diagnosis Date CVA (cerebral vascular accident) (CMS/HCC) Tobacco use DX:Tobacco use Tongue cancer (CMS/HCC) Past Surgical History: Procedure Laterality Date KNEE SURGERY PROCEDURE: HISTORICAL KNEE SURGERY MOUTH SURGERY PROCEDURE: ORAL SURGERY PROCEDURE; COMMENT: tongue surgery OTHER SURGICAL HISTORY PROCEDURE: LA CLOSURE INTESTINAL CUTANEOUS FISTULA VASECTOMY PROCEDURE: HISTORICAL VASECTOMY Allergies: has No Known Allergies. Precautions: Medical Precautions: Fall Risk Safety Interventions: Call arevalo within reach, Bed alarm RUE Weight Bearing Status: Full LUE Weight Bearing Status: Full RLE Weight Bearing Status: Toe Touch LLE Weight Bearing Status: Full SUBJECTIVE Pt report: N/a Pain: Pain Assessment: No/denies pain Pain Score: (at rest Left hip area 3/10, Right 2/10, with activity L 7/10 and R 5/10) Pain Type: Acute pain Pain Descriptors: Aching OBJECTIVE General Observation: Patient sitting in w/c, agreeable to PT session General/Functional Assessments: Activity Tolerance Endurance: Endurance does not limit participation in activity Procedure/Treatment: Therapeutic Activities: Therapeutic Activity Time Entry: 90 W/c mobility approx 250 feet x 2 on level surfaces Ind, Ind locking/unlocking brakes as approp without cues Transfer sit to insole coverer Parallel bars with patient pulling on bars with min assist, GT in parallelbars approx 5 feet with min assist TTWB R GT with wwalker TTWB R approx 5 feet x 2 with min assist-patient doing well maintain TTWB R Repeated walker pivot transfers to left and right from wc to bedside chair with min assist--patientdoes better with 1 hand on walker for sit to stand-has difficulty advancing hands when both are on wc Bed mobility sit to supine with max assist for Bilateral LE management, patient Ind managing trunk Following session patient in bed, bed alarm senior radiation protection technician arevalo in reach, all needs met, nursing aware patient back in room ASSESSMENT Patient progressing well with functional mobility--not yet Ind and would benefit from continued intensive rehab to return to [facility] Equipment: tbd Plan of Care Plan Treatment/Interventions: Functional transfer training, LE strengthening/ROM, Endurance training, Patient/family training, Bed mobility, Gait training, Balance training PT Plan: Skilled PT PT Frequency: 5 days per week PT Duration of Sessions: 90 min per day PT Treatments per day: 1 time per day Problems/Goals Goals: Encounter Problems Encounter Problems (Active) Template: Physical Therapy Problem: PT Template Fitter Goals Dates: Start: 08/02/24 Goal: Mod I bed mobility Dates: Start: 08/02/24 Expected End: 08/16/24 Goal: Mod I transfers LRAD Dates: Start: 08/02/24 Expected End: 08/16/24 Goal: Mod I gait x10' with RW Dates: Start: 08/02/24 Expected End: 08/16/24 Goal: Mod I wheelchair mobility x150' Dates: Start: 08/02/24 Expected End: 08/16/24 Goal: Pt will negotiate x3 stairs no railings partial A Dates: Start: 08/02/24 Expected End: 08/16/24 Problem: PT Short Term Goals Dates: Start: 08/02/24 Goal: Supervision bed mobility Dates: Start: 08/02/24 Expected End: 08/09/24 Goal: Steadying A transfers LRAD Dates: Start: 08/02/24 Expected End: 08/09/24 Goal: Assess gait Dates: Start: 08/02/24 Expected End: 08/09/24 Goal: Assess stairs Dates: Start: 08/02/24 Expected End: 08/09/24 Encounter Problems (Resolved) There are no resolved problems. Session Start/Stop Time: 1230 1400 Therapy Minutes Physical Therapy PT Individual: 90 * SHAWN Figueroa - 08/04/2024 11:22 AM EST [facility] Occupational Therapy Treatment Note 08/04/24 Patient: Cleve Burns : 1945 Age: 79 y.o. Gender: male Diagnosis: Pubic bone fracture (CMS/HCC) Primary Rehab (Etiologic) Diagnosis: Patient Active Problem List Diagnosis Anemia Essential hypertension Hypercholesteremia Thalamic stroke (CMS/HCC) Tongue cancer (CMS/HCC) Pubic bone fracture (CMS/HCC) PMH: Past Medical History: Diagnosis Date CVA (cerebral vascular accident) (CMS/HCC) Tobacco use DX:Tobacco use Tongue cancer (CMS/HCC) PSH: Past Surgical History: Procedure Laterality Date KNEE SURGERY PROCEDURE: HISTORICAL KNEE SURGERY MOUTH SURGERY PROCEDURE: ORAL SURGERY PROCEDURE; COMMENT: tongue surgery OTHER SURGICAL HISTORY PROCEDURE: LA CLOSURE INTESTINAL CUTANEOUS FISTULA VASECTOMY PROCEDURE: HISTORICAL VASECTOMY Allergies: has No Known Allergies. Precautions: Precautions Medical Precautions: Fall Risk Safety Interventions: Call arevalo within reach, Bed alarm, Chair alarm RUE Weight Bearing Status: Full LUE Weight Bearing Status: Full RLE Weight Bearing Status: Toe Touch LLE Weight Bearing Status: Full Vitals: BP: 134/66 Heart Rate: 90 SpO2: 100 % Pain: Pain Assessment Pain Assessment: No/denies pain Subjective: I am up for anything. Procedures/Interventions: Pt sitting EOB with PCT at start of session, requesting toilet at this time, amenable to therapy atthis time. Pt completed SPT EOB>W/c with min A and use of RW with cues for TTWB for R LE. Pt wheeled to bathroom and completed SPT w/c<>toilet with RW and min A, cues for maintaining precautions and hand placement. Pt completed toileting with supervision, able to complete toilet hygiene seated with supervision. Pt completed hand washing and oral hygiene at sink seated in w/c with supervision. Pt wheeled to tub/shower. Pt completed SPT to tub transfer bench with use of RW and mod A, cues for hand placement. Pt doffed socks with supervision, undressed LB with mod A. Pt undressed UB with supervision. Min A for bringing L LE over lip of tub. Pt completed bathing with supervision, able to clean dom area tilting side to side. Pt completed UB dressing with set-up, LB dressing with mod A for threading LE and touch A for pulling up. Pt educated about use of sock-aid, able to jeannine sockswith touch A with use of sock-aid. Frequent SOB noted, no dizziness reported. Pt wheeled back to room, rest break provided for management of fatigue. Pt participated in UE there-ex in room with use of blue theraband, good demo of carryover from previous there-ex session, see details below. Call arevalo and chair alarm in place at end of session. ADLs/IADLs Self Care/Home Management (ADLs) Time Entry: 75 ADL/ IADL Performed: Grooming, Oral Hygiene, Bathing, Dressing, Toileting, Toilet Transfers, Tub Transfers Therapeutic Exercise Therapeutic Exercise Time Entry: 15 Therapeutic Exercise Activity 1: chest pulls, blue theraband, 10 reps 2 sets Therapeutic Exercise Activity 2: diagonals, blue theraband, 10 reps, 2 sets Therapeutic Exercise Activity 3: bench press, blue theraband, 10 reps, 2 sets OT Assessment OT Assessment OT Assessment Results: Decreased ADL status, Decreased safe judgment during ADL, Decreased endurance, Decreased functional mobility, Decreased IADLs Prognosis: Good Evaluation/Treatment Tolerance: Patient tolerated treatment well Comments: (Completed 90min session.) Medical Staff Made Aware: Yes Comments: (RN Rocio and CORE JAVA ENGINEER Kymberly present during nausea/vomiting episode. Vitals reassesed, WNL.) OT Plan Plan Treatment Interventions: ADL retraining, Functional transfer training, UE strengthening/ROM, Endurance training OT Plan: Skilled OT OT Frequency : 5-7 days per week OT Duration of Sessions: 90 min per day OT Treatments per day: 1 time per day OT - Evaluation Status: Complete OT Discharge Recommendations: (TBD at d/c) Equipment Recommended: (TBD at d/c) Goals: Encounter Problems Encounter Problems (Active) Template: Occupational Therapy Problem: OT Chcf Goals Dates: Start: 08/02/24 Goal: Patient will perform toileting at a MODIFIED INDEPENDENT level without adaptive devices as appropriate. Dates: Start: 08/02/24 Expected End: 08/16/24 Goal: Patient will perform bathing at a MODIFIED INDEPENDENT level using adaptive devices as appropriate. Dates: Start: 08/02/24 Expected End: 08/16/24 Goal: Patient will perform Lower body dressing at a MODIFIED INDEPENDENT level using adaptive/assistive devices as appropriate. Dates: Start: 08/02/24 Expected End: 08/16/24 Goal: Patient will complete toilet transfers with at a MODIFIED INDEPENDENT level using least restrictive assistive device Dates: Start: 08/02/24 Expected End: 08/16/24 Goal: Patient will complete Tub Transfer with with SUPERVISION using least restrictive assistive device Dates: Start: 08/02/24 Expected End: 08/16/24 Problem: OT Short Term Goals Dates: Start: 08/02/24 Goal: Patient will perform toileting with STAND BY ASSIST without adaptive devices as appropriate. Dates: Start: 08/02/24 Expected End: 08/09/24 Goal: Patient will perform bathing with STAND BY ASSIST without adaptive devices as appropriate. Dates: Start: 08/02/24 Expected End: 08/09/24 Goal: Patient will perform Lower body dressing with MINIMAL ASSIST using adaptive/assistive devicesas appropriate. Dates: Start: 08/02/24 Expected End: 08/09/24 Goal: Patient will complete toilet transfers with with MINIMAL ASSIST using least restrictive assistive device Dates: Start: 08/02/24 Expected End: 08/09/24 Goal: Patient will complete Tub Transfer with with MODERATE ASSIST using least restrictive assistive device Dates: Start: 08/02/24 Expected End: 08/09/24 Encounter Problems (Resolved) There are no resolved problems. Education Documentation Body Mechanics, taught by SHAWN Figueroa at 08/04/2024 10:32 AM. Learner: Patient Readiness: Acceptance Method: Explanation, Demonstration Response: Verbalizes Understanding, Demonstrated Understanding Precautions, taught by SHAWN Figueroa at 08/04/2024 10:32 AM. Learner: Patient Readiness: Acceptance Method: Explanation, Demonstration Response: Verbalizes Understanding, Demonstrated Understanding ADL Training, taught by SHAWN Figueroa at 08/04/2024 10:32 AM. Learner: Patient Readiness: Acceptance Method: Explanation, Demonstration Response: Verbalizes Understanding, Demonstrated Understanding Education Comments No comments found. Start/Stop Time OT Time Calculation OT Start Time: 0900 OT Stop Time: 1030 OT Time Calculation (min): 90 min Therapy Minutes: Occupational Therapy OT Individual: 90 * Sita Palencia RN - 08/03/2024 1:07 PM EST Goals: Identify possible barriers to meeting goals/advancing plan of care: pain steady at level 4-5 Stability of the patient: Moderately Stable - Low risk of patient condition declining or worsening End of Shift Summary: Pt accepting oxycodone ( changed from tramadol) and lidocaine patches with consistent pain report but is able to do his therapy as prescribed. Pt is expressing tolerance at current level , smiling and participating . * Pauline Batista DO - 08/03/2024 12:53 PM EST Images from the original note were not included. PHYSICAL MEDICINE AND REHABILITATION Individualized Overall Plan of Care Patient Name: Cleve Burns Date of : 1945 Sex: Male Payor Info: Payor: MEDICARE / Plan: MEDICARE PART A & B / Product Type: Medicare / Admit Date/Time: 08/01/2024 4:15 PM Etiologic Diagnosis: Right pubic body fracture Rehab Impairment Group Code: 08.3 Orthopedic disorders, pelvic fracture Expected LOS/Duration of Therapy: 2 weeks Expected Discharge Destination: Home with home health services Medical Prognosis: Good Medical Issues Actively Being Managed: Right pubic body fracture, Pain management, hypertension, hyperlipidemia, GERD Rehab Plan: Minimum of 180 minutes of therapy 5 out of 7 days per week as follows: 90 minutes of PT daily for 5 days. 90 minutes of OT daily for 5 days. Anticipated Functional Outcomes/Rehab Goals: Goals are for the patient to achieve the highest level of function and independence to allow the patient to return home. The patient and the family will be provided education on the patient's condition, the patient's current barriers, and the goals to overcome or to compensate for barriers. * Pauline Batista DO - 08/03/2024 12:41 PM EST Images from the original note were not included. [facility] Daily Progress Note Patient name: Cleve Burns : 1945 SUBJECTIVE: Patient seen and examined at bedside today. No acute events overnight. Denies headaches, dizziness,shortness of breath, chest pain, nausea, constipation. Reports left buttock pain which has been limiting therapy. Patient agreeable to adding standing Tylenol and lidocaine patch for pain control. BPimproved after receiving IV fluids yesterday. Participating in therapies: Supervision wheelchair mobility 200'x2. OBJECTIVE: Vitals: 08/03/24 0341 08/03/24 0735 08/03/24 0812 08/03/24 0922 BP: 130/80 136/78 120/69 122/71 BP Location: Right arm Right arm Patient Position: Sitting Lying Pulse: 85 82 99 89 Resp: 18 16 Temp: 36.9 ??C (98.4 ??F) 36.9 ??C (98.4 ??F) TempSrc: Oral Oral SpO2: 96% 95% 100% 99% Physical Examination: General: Alert, in no acute cardiopulmonary distress. Mental Status: Oriented to person, place and time. Normal affect. Head: Normocephalic. Eyes: Extraocular muscles grossly intact. Ear, Nose and Throat: Oropharynx clear, mucous membranes moist. Ears and nose without masses, lesions or deformities. Neck: Supple, Trachea midline. Respiratory: Clear to auscultation and percussion. No wheezing, rales or rhonchi. Cardiovascular: Heart sounds normal. No thrills. Regular rate and rhythm, no murmurs, rubs or gallops. Gastrointestinal: Abdomen soft, non-tender, non-distended. Normal bowel sounds. Neurologic: Cranial nerves II-XII grossly intact. Negative clonus bilaterally. Moves all extremities spontaneously. Sensation intact bilaterally. Skin: No rashes or lesions. No petechiae or purpura. No edema. Musculoskeletal: No cyanosis or clubbing. No gross deformities. Normal range of motion. Antigravitystrength all 4 extremities. CURRENT INPATIENT MEDICATIONS: Current Facility-Administered Medications: acetaminophen (TYLENOL) tablet 975 mg, 975 mg, oral, q8h [facility] DO amLODIPine (NORVASC) tablet 2.5 mg, 2.5 mg, oral, Nightly, JAY Sheridan, 2.5 mg at 08/02/242017 aspirin chewable tablet 81 mg, 81 mg, oral, Nightly, Magdi Torres, PA, 81 mg at 08/02/242017 atorvastatin (LIPITOR) tablet 80 mg, 80 mg, oral, Nightly, Magdi Torres, PA, 80 mg at 08/02/242017 bisacodyL (DULCOLAX) suppository 10 mg, 10 mg, rectal, Daily PRN, Magdi Torres, PA, 10 mg at 08/02/242017 docusate sodium (COLACE) capsule 100 mg, 100 mg, oral, BID, Magdi Torres, PA, 100 mg at 838 enoxaparin (LOVENOX) injection 40 mg, 40 mg, subcutaneous, Daily, Magdi Torres, PA, 40 mg at 08/03/24 0838 lidocaine 4 % patch 1 patch, 1 patch, Topical, Daily, Pauline Batista DO, 1 patch at 08/03/24 0945 lisinopriL (PRINIVIL,ZESTRIL) tablet 20 mg, 20 mg, oral, Nightly, Magdi Torres, PA, 20 mg at 08/02/242017 magnesium hydroxide (MILK OF MAGNESIA) 400 mg/5 mL suspension 30 mL, 30 mL, oral, Daily PRN, Magdi Torres, PA, 30 mL at 08/02/24 0855 ondansetron ODT (ZOFRAN-ODT) disintegrating tablet 4 mg, 4 mg, oral, q8h PRN, Magdi Torres, PA, 4 mg at 08/02/24 1328 oxyCODONE (ROXICODONE) immediate release tablet 5 mg, 5 mg, oral, q6h PRN, Magdi Torres, PA, 5 mg at 08/03/24 0837 pantoprazole (PROTONIX) EC tablet 40 mg, 40 mg, oral, q AM AC, Magdi Torres, PA, 40 mg at 08/03/24 0532 senna (SENOKOT) tablet 17.2 mg, 2 tablet, oral, Nightly, Pauline Batista DO, 17.2 mg at 08/02/242016 sodium chloride 0.9 % infusion, 75 mL/hr, intravenous, Continuous, JAY Sheridan, Last Rate: 75 mL/hr at 08/02/242199, 75 mL/hr at 08/02/242199 LABS: Lab Results Component Value Date WBC 12.3 (H) 08/02/2024 RBC 4.00 (L) 08/02/2024 HGB 11.6 (L) 08/02/2024 HCT 35.2 (L) 08/02/2024 MCV 88.0 08/02/2024 MCHC 33.0 08/02/2024 RDW 13.2 08/02/2024 PLT 315 08/02/2024 MPV 9.9 08/02/2024 NRBC 0.0 08/02/2024 DIFF Lab Results Component Value Date LYMPHOPCT 23.7 08/02/2024 NEUTROABS 6.90 08/02/2024 LYMPHSABS 2.91 08/02/2024 MONOABS 1.40 (H) 08/02/2024 EOSABS 0.85 (H) 08/02/2024 BASOSABS 0.09 08/02/2024 IMMGRANABS 0.14 (H) 08/02/2024 RETIC No results found for: RETIC , RETICCTPCT Lab Results Component Value Date NA 137 08/02/2024 K 4.3 08/02/2024 CL 104 08/02/2024 CO2 29 08/02/2024 GLUCOSE 99 08/02/2024 BUN 26 (H) 08/02/2024 CREATININE 1.28 08/02/2024 CALCIUM 8.6 08/02/2024 PROT 6.3 08/02/2024 ALBUMIN 3.1 (L) 08/02/2024 BILITOT 1.2 08/02/2024 AST 21 08/02/2024 ALT 28 08/02/2024 ALKPHOS 75 08/02/2024 EGFR 57 (L) 08/02/2024 IMPRESSION & PLAN: #Impaired mobility and self-care -Secondary to slip and fall and fracture -Continue PT/OT and nursing care #Right pubic body fracture -evaluated by [facility] JAY Wilkerson & Dr Spann -Non surgical management -TTWB to RLE -continue therapies -Follow up with [facility] after discharge #Pain management -Acetaminophen 975mg Q8H -Lidocaine patch daily -Oxycodone 5mg Q6H PRN #Hypertension -ASA 81 mg daily -Amlodipine 2.5 mg nightly -Lisinopril 20 mg nightly #Hyperlipidemia -Atorvastatin 80 mg nightly #GERD -Protonix 40 mg daily #Bowel management -Colace 100mg BID -Senna 2 tabs QHS #DVT ppx: Lovenox 40mg daily * Eri Anne OT - 08/03/2024 12:27 PM EST [facility] Occupational Therapy Treatment Note 08/03/24 Patient: Cleve Burns : 1945 Age: 79 y.o. Gender: male Diagnosis: Pubic bone fracture (CMS/HCC) Primary Rehab (Etiologic) Diagnosis: Patient Active Problem List Diagnosis Anemia Essential hypertension Hypercholesteremia Thalamic stroke (CMS/HCC) Tongue cancer (CMS/HCC) Pubic bone fracture (CMS/HCC) PMH: Past Medical History: Diagnosis Date CVA (cerebral vascular accident) (CMS/HCC) Tobacco use DX:Tobacco use Tongue cancer (CMS/HCC) PSH: Past Surgical History: Procedure Laterality Date KNEE SURGERY PROCEDURE: HISTORICAL KNEE SURGERY MOUTH SURGERY PROCEDURE: ORAL SURGERY PROCEDURE; COMMENT: tongue surgery OTHER SURGICAL HISTORY PROCEDURE: LA CLOSURE INTESTINAL CUTANEOUS FISTULA VASECTOMY PROCEDURE: HISTORICAL VASECTOMY Allergies: has No Known Allergies. Precautions: Precautions Medical Precautions: Fall Risk Safety Interventions: Call arevalo within reach, Bed alarm, Chair alarm RUE Weight Bearing Status: Full LUE Weight Bearing Status: Full RLE Weight Bearing Status: Toe Touch LLE Weight Bearing Status: Full Vitals: BP: 100/63 Heart Rate: 86 SpO2: 100 % Pain: Pain Assessment Pain Assessment: 0-10 Pain Score: 5 - Moderate pain Subjective: This shortness of breath happened before the fall, it's just who I am Procedures/Interventions: Therapeutic Activity Therapeutic Activity Time Entry: 45 Therapeutic Exercise Therapeutic Exercise Time Entry: 45 Pt seated upright in w/c upon arrival, agreeable to participate in therapy. Vitals assessed, see above. Pt declining need for sponge bath/shower/dressing at this time, reports PCT helped prior to this session. Pt agreeable to go to gym, able to self-propel w/c <> gym with overall sup. Upon arrival to gym, pt remained seated in w/c to complete UB exercises with blue theraband to increase overall UB strength needed for func transfers. Pt completed 10reps x3 of horizontal ABD and B sh flex, frequent rest breaks throughout d/t observed SOB. Pt then tasked with standing balance activity, however, required mod A STS to RW, with poor adherence to TTWBing precautions and unable to maintain therefore pt returned to sit in w/c. Pt with observed SOB and tremors noted in UE/LE while seated. Vitals reassessed, 105/68. Pt given increased rest break, agreeable to complete more therapeutic exercise with B armrest removed for increased BUE ROM. Pt performed 10reps x3 of combined overhead/chest press, elbow flex and horizontal ABD with 3# dumbbells in BUE. Rest breaks taken throughout. Pt return ed to room, agreeable to trial toilet transfers to practice with adhering to TTWBing during SPT. Ptrequiring education re: setup of w/c and RW in bathroom. Overall Max A SPT with good adherence to TTWBing precautions, able to keep RLE elevated from floor throughout. Pt returned to w/c with Max A via RW, able to complete x2 trials with no more than Max A for SPT via RW, progressing to mod A. Pt returned to room, requesting to remain in w/c to eat lunch. Call areavlo within reach, w/c alarm on. Allneeds met. OT Assessment OT Assessment OT Assessment Results: Decreased ADL status, Decreased safe judgment during ADL, Decreased endurance, Decreased functional mobility, Decreased IADLs Prognosis: Good Evaluation/Treatment Tolerance: Patient tolerated treatment well Comments: (Completed 90min session.) Medical Staff Made Aware: Yes Comments: (RICK Chan and CORE JAVA ENGINEER Kymberly present during nausea/vomiting episode. Vitals reassesed, WNL.) OT Plan Plan Treatment Interventions: ADL retraining, Functional transfer training, UE strengthening/ROM, Endurance training OT Plan: Skilled OT OT Frequency : 5-7 days per week OT Duration of Sessions: 90 min per day OT Treatments per day: 1 time per day OT - Evaluation Status: Complete OT Discharge Recommendations: (TBD at d/c) Equipment Recommended: (TBD at d/c) Goals: Encounter Problems Encounter Problems (Active) Template: Occupational Therapy Problem: OT Chcf Goals Dates: Start: 08/02/24 Goal: Patient will perform toileting at a MODIFIED INDEPENDENT level without adaptive devices as appropriate. Dates: Start: 08/02/24 Expected End: 08/16/24 Goal: Patient will perform bathing at a MODIFIED INDEPENDENT level using adaptive devices as appropriate. Dates: Start: 08/02/24 Expected End: 08/16/24 Goal: Patient will perform Lower body dressing at a MODIFIED INDEPENDENT level using adaptive/assistive devices as appropriate. Dates: Start: 08/02/24 Expected End: 08/16/24 Goal: Patient will complete toilet transfers with at a MODIFIED INDEPENDENT level using least restrictive assistive device Dates: Start: 08/02/24 Expected End: 08/16/24 Goal: Patient will complete Tub Transfer with with SUPERVISION using least restrictive assistive device Dates: Start: 08/02/24 Expected End: 08/16/24 Problem: OT Short Term Goals Dates: Start: 08/02/24 Goal: Patient will perform toileting with STAND BY ASSIST without adaptive devices as appropriate. Dates: Start: 08/02/24 Expected End: 08/09/24 Goal: Patient will perform bathing with STAND BY ASSIST without adaptive devices as appropriate. Dates: Start: 08/02/24 Expected End: 08/09/24 Goal: Patient will perform Lower body dressing with MINIMAL ASSIST using adaptive/assistive devicesas appropriate. Dates: Start: 08/02/24 Expected End: 08/09/24 Goal: Patient will complete toilet transfers with with MINIMAL ASSIST using least restrictive assistive device Dates: Start: 08/02/24 Expected End: 08/09/24 Goal: Patient will complete Tub Transfer with with MODERATE ASSIST using least restrictive assistive device Dates: Start: 08/02/24 Expected End: 08/09/24 Encounter Problems (Resolved) There are no resolved problems. Education Documentation No documentation found. Education Comments No comments found. Start/Stop Time OT Time Calculation OT Start Time: 1000 OT Stop Time: 1130 OT Time Calculation (min): 90 min Therapy Minutes: Occupational Therapy OT Individual: 90 * Yesenia Vasquez, PT - 08/03/2024 8:00 AM EST [facility] Physical Therapy Treatment Note 08/03/2024 Patient: Cleve Burns : 1945 Age: 79 y.o. Gender: male Primary Language: Lithuanian Diagnosis: Pubic bone fracture (CMS/HCC) Past Medical History: Diagnosis Date CVA (cerebral vascular accident) (CMS/HCC) Tobacco use DX:Tobacco use Tongue cancer (CMS/HCC) Past Surgical History: Procedure Laterality Date KNEE SURGERY PROCEDURE: HISTORICAL KNEE SURGERY MOUTH SURGERY PROCEDURE: ORAL SURGERY PROCEDURE; COMMENT: tongue surgery OTHER SURGICAL HISTORY PROCEDURE: LA CLOSURE INTESTINAL CUTANEOUS FISTULA VASECTOMY PROCEDURE: HISTORICAL VASECTOMY Allergies: has No Known Allergies. Precautions: Medical Precautions: Fall Risk Safety Interventions: Call arevalo within reach, Bed alarm, Chair alarm RUE Weight Bearing Status: Full LUE Weight Bearing Status: Full RLE Weight Bearing Status: Toe Touch LLE Weight Bearing Status: Full SUBJECTIVE: Pt report: My left leg was my bad leg, and now I need to use that leg for everything. Pain: Pain Assessment: 0-10 Pain Score: 7 Pain Location: Pelvis Pain Orientation: Left OBJECTIVE General Observation: Pt sitting in wheelchair, ready for PT. Vitals: BP: 122/71 Heart Rate: 89 SpO2: 99 % Procedure/Treatment: Therapeutic Activities: Therapeutic Activity Time Entry: 90 Pt received in wheelchair, agreeable to PT. Pt's present dropping off clothing, showing this report writer pictures of front stairs. Pt able to fit a chair on second step/landing. Recommending posterior step up to first step, sitting on chair on landing, then pivot to wheelchair through doorway step.Practiced STS to RW, partial A to complete, poor adherence to TTWB RLE. Difficulty transitioning hands from wheelchair <> RW, poor eccentric control noted. Demonstrated how to complete pivot transfer no AD, completed max A, poor ability for uplift without pushing up from armrests. Raised bed height, partial A SPT with RW to wheelchair. Supervision wheelchair mobility to the gym. Mass rep STS in parallel bars, partial A. Practiced various hand placements, pt best with R hand reaching back first to lower to sit. Pt limited by L knee arthritis/pain, sometimes L knee giving out while sitting with uncontrolled descent. Supervision wheelchair mobility back to room. Provided pt with ice packs for L buttock for pain. Discussed pain management with Dr. Batista, adjustments made with pt educated on getting scheduled tylenol and trialing lidocaine patch. At end of session, pt left in wheelchair with alarm set, call arevalo within reach and all needs met. Education: Education Documentation Precautions, taught by Yesenia Vasquez PT at 08/03/2024 9:55 AM. Learner: Patient Readiness: Acceptance Method: Explanation, Demonstration Response: Verbalizes Understanding, Demonstrated Understanding, Needs Reinforcement Comment: transfers, STS, standing balance, wc mobility Mobility Training, taught by Yesenia Vasquez PT at 08/03/2024 9:55 AM. Learner: Patient Readiness: Acceptance Method: Explanation, Demonstration Response: Verbalizes Understanding, Demonstrated Understanding, Needs Reinforcement Comment: transfers, STS, standing balance, wc mobility Education Comments No comments found. ASSESSMENT PT Assessment PT Assessment Results: Decreased strength, Decreased range of motion, Decreased endurance, Impairedbalance, Decreased mobility, Impaired gait, Orthopedic restrictions, Pain Prognosis: Good Evaluation/Treatment Tolerance: Patient limited by pain Comments: Pt tolerating treatment, limited by pain. Pt with difficulty transitioning from STS due to pain/weakness in LLE. Equipment: TBD Plan of Care Plan Treatment/Interventions: Functional transfer training, LE strengthening/ROM, Endurance training, Patient/family training, Bed mobility, Gait training, Balance training PT Plan: Skilled PT PT Frequency: 5 days per week PT Duration of Sessions: 90 min per day PT Treatments per day: 1 time per day Problems/Goals Goals: Encounter Problems Encounter Problems (Active) Template: Physical Therapy Problem: PT Template Fitter Goals Dates: Start: 08/02/24 Goal: Mod I bed mobility Dates: Start: 08/02/24 Expected End: 08/16/24 Goal: Mod I transfers LRAD Dates: Start: 08/02/24 Expected End: 08/16/24 Goal: Mod I gait x10' with RW Dates: Start: 08/02/24 Expected End: 08/16/24 Goal: Mod I wheelchair mobility x150' Dates: Start: 08/02/24 Expected End: 08/16/24 Goal: Pt will negotiate x3 stairs no railings partial A Dates: Start: 08/02/24 Expected End: 08/16/24 Problem: PT Short Term Goals Dates: Start: 08/02/24 Goal: Supervision bed mobility Dates: Start: 08/02/24 Expected End: 08/09/24 Goal: Steadying A transfers LRAD Dates: Start: 08/02/24 Expected End: 08/09/24 Goal: Assess gait Dates: Start: 08/02/24 Expected End: 08/09/24 Goal: Assess stairs Dates: Start: 08/02/24 Expected End: 08/09/24 Encounter Problems (Resolved) There are no resolved problems. Session Start/Stop Time: 0800 0930 Therapy Minutes Physical Therapy PT Individual: 90 * Sita Yancey RN - 08/02/2024 3:01 PM EST HCP completed with patient names and son Alfred.Copy scanned to [facility] and copies given to patient. * Sita Palencia RN - 08/02/2024 2:31 PM EST Goals: Identify possible barriers to meeting goals/advancing plan of care: possible return of N/V, poor appetite today, orthostatic BP Stability of the patient: Moderately Unstable - Medium risk of patient condition declining or worsening End of Shift Summary: Pt did participate in therapies, n/v subsided and pt states he does not need any pain med. Pt very tolerant of discomfort of pelvis and of no BM since Tuesday and of n/v and waiting for med. in to visit pt this afternoon * Sita Yancey RN - 08/02/2024 12:25 PM EST CM Met with patient and his Lana at bedside introduced self explained role in plan of care and discharge planning discussed Avg LOS,Team meeting and IRF level of care. Verified demographics,Ins,PCP not a [facility].Patient lives with his and step son and 3 cats in a 2 level home 3 steps to enter no rail.Patient stays on the 1st level sleeps in a recliner due to severe GERD full bath on 1st level.Patient was independent with his ADLs and IADLS ambulated with no device (walks with a limp at baseline) drives.Laundry in basement. 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 Patient denies any hx of depression or anxiety.Denies Tobacco use quit in 1990 ETOH rarely denies substance use. Discussed discharge plan with patient and plan is to return home agreeable to VNA services on discharge. will provide transport on discharge.CM will follow for discharge planning needs. * Yesenia Vasquez PT - 08/02/2024 12:15 PM EST [facility] Physical Therapy Evaluation Note 08/02/24 Patient: Cleve Burns : 1945 Age: 79 y.o. Gender: male Primary Language: Lithuanian Diagnosis: Pubic bone fracture ([facility]) HPI: see EMR Past Medical History: Diagnosis Date CVA (cerebral vascular accident) ([facility]/HCC) Tobacco use DX:Tobacco use Tongue cancer ([facility]/HCC) Past Surgical History: Procedure Laterality Date KNEE SURGERY PROCEDURE: HISTORICAL KNEE SURGERY MOUTH SURGERY PROCEDURE: ORAL SURGERY PROCEDURE; COMMENT: tongue surgery OTHER SURGICAL HISTORY PROCEDURE: LA CLOSURE INTESTINAL CUTANEOUS FISTULA VASECTOMY PROCEDURE: HISTORICAL VASECTOMY Allergies: has No Known Allergies. 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) Leisure: (pt enjoys housework and [place]; enjoys solitaire) Which is your dominant hand?: Right Understanding of Current Condition: Pt understands Home Living: Type of Home: House Lives With: Spouse, Son (Pts son lives with them part-time (T,W,R) pts son spends other days with his gf) Home Adaptive Equipment: Crutches Home Layout: Two level Home Access: Stairs to enter without rails Entrance Stairs-Rails: None Entrance Stairs-Number of Steps: 3 Bathroom Shower/Tub: Tub/shower unit (on first floor) Bathroom Toilet: Handicapped height Bathroom Equipment: Grab bars in shower Pain: Pain Assessment: 0-10 Pain Score: 3 Pain Type: Acute pain Pain Location: Pelvis Pain Orientation: Left OBJECTIVE General Observation: Pt supine in bed, agreeable to PT. Cognition/Communication: Orientation Level: Oriented X4 Vitals: BP: 96/68 Heart Rate: (!) 126 SpO2: 98 % Skin: Skin intact on feet, defer to nursing documentation for full skin assessment Sensation: Light Touch: No apparent deficits Proprioception: Proprioception: No apparent deficits Perception: Inattention/Neglect: Appears intact Coordination: Coordination: Gross motor impaired Balance: Static Sitting Balance Static Sitting-Level of Assistance: Supervision or touching assistance Dynamic Sitting Balance Dynamic Sitting-Level of Assistance: Supervision or touching assistance Static Standing Balance Static Standing-Level of Assistance: Partial/moderate assistance Dynamic Standing Balance Dynamic Standing-Level of Assistance: Partial/moderate assistance Strength: RLE NT- toe touch WB, Range of Motion: Decreased and painful AROM, bilateral Edema: none QUALITY INDICATORS SCORING: Bed Mobility Roll Left and Right Assistance Needed: Physical assistance Physical Assistance Level: 25% or less CARE Score - Roll Left and Right: 3 Sit to Lying Assistance Needed: Physical assistance Physical Assistance Level: 25% or less CARE Score - Sit to Lyin Lying to Sitting on Side of Bed Assistance Needed: Physical assistance Physical Assistance Level: 25% or less CARE Score - Lying to Sitting on Side of Bed: 3 Transfers Sit to Stand Assistance Needed: Physical assistance Physical Assistance Level: 25% or less CARE Score - Sit to Stand: 3 Chair/[id number]-Zlkkh Transfer Assistance Needed: Physical assistance Physical Assistance Level: 26%-50% Comment: RW CARE Score - Chair/[id number]-Bochk Transfer: 3 Toilet Transfer Assistance Needed: Physical assistance Physical Assistance Level: 26%-50% Comment: RW CARE Score - Toilet Transfer: 3 Car Transfer Reason if not Attempted: Environmental limitations CARE Score - Car Transfer: 10 Ambulation Walk 10 Feet Comment: nausea, orthostatic Reason if not Attempted: Safety concerns CARE Score - Walk 10 Feet: 88 Walk 50 Feet with Two Turns Comment: nausea, orthostatic Reason if not Attempted: Safety concerns CARE Score - Walk 50 Feet with Two Turns: 88 Walk 150 Feet Comment: nausea, orthostatic Reason if not Attempted: Safety concerns CARE Score - Walk 150 Feet: 88 Walking 10 Feet on Uneven Surfaces Comment: nausea, orthostatic Reason if not Attempted: Safety concerns CARE Score - Walking 10 Feet on Uneven Surfaces: 88 Stairs 1 Step (Curb) Comment: nausea, orthostatic Reason if not Attempted: Safety concerns CARE Score - 1 Step (Curb): 88 4 Steps Comment: nausea, orthostatic Reason if not Attempted: Safety concerns CARE Score - 4 Steps: 88 12 Steps Comment: nausea, orthostatic Reason if not Attempted: Safety concerns CARE Score - 12 Steps: 88 Concession Manager Object Picking Up Object Assistance Needed: Physical assistance Physical Assistance Level: Total assistance CARE Score - Picking Up Object: 1 Wheelchair Uses a Wheelchair/Scooter? Uses a Wheelchair/Scooter?: Yes Wheel 50 Feet with Two Turns Assistance Needed: Supervision CARE Score - Wheel 50 Feet with Two Turns: 4 Type of Wheelchair/Scooter: Manual Wheel 150 Feet Assistance Needed: Supervision CARE Score - Wheel 150 Feet: 4 Type of Wheelchair/Scooter: Manual Narrative: Pt received in bed, his present for session. Pt nauseous, however agreeable to therapy. Lookedup picture of pt's stairs, discussed different options for negotiating x3 stairs no railings. Anticipating using shower chair offset on stairs, completing pivot to shower chair and then to wheelchairthrough doorway, pt to trial in therapy when appropriate. Rolling partial A due to pain. Supine > sit supervision with HOB elevated. Donned L sneaker. Partial A SPT to wheelchair with RW, cues forone hand on bed and other on RW. Supervision wheelchair mobility 200'x2. Completed orthostatic vital set, pt positive for orthostasis and symptomatic. Partial A SPT back to bed. Sit > supine partial A for lower extremities. Pt left in bed with alarm set, call arevalo within reach and all needs met. PT ASSESSMENT: PT Assessment Results: Decreased strength, Decreased range of motion, Decreased endurance, Impairedbalance, Decreased mobility, Impaired gait, Orthopedic restrictions, Pain Prognosis: Good Evaluation/Treatment Tolerance: Patient tolerated treatment well Patient to benefit from this level of care to address above impairments to assist patient in returning to prior level of function. Physical therapy plan of care to include gait training, neuromuscular re-education, therapeutic activities, therapeutic exercise, and wheelchair mobility. PT POC for 2 weeks. PT PLAN: Treatment/Interventions: Functional transfer training, LE strengthening/ROM, Endurance training, Patient/family training, Bed mobility, Gait training, Balance training PT Plan: Skilled PT PT Frequency: 5 days per week PT Duration of Sessions: 90 min per day PT Treatments per day: 1 time per day Goals: Encounter Problems Encounter Problems (Active) Template: Physical Therapy Problem: PT Template Fitter Goals Dates: Start: 08/02/24 Goal: Mod I bed mobility Dates: Start: 08/02/24 Expected End: 08/16/24 Goal: Mod I transfers LRAD Dates: Start: 08/02/24 Expected End: 08/16/24 Goal: Mod I gait x10' with RW Dates: Start: 08/02/24 Expected End: 08/16/24 Goal: Mod I wheelchair mobility x150' Dates: Start: 08/02/24 Expected End: 08/16/24 Goal: Pt will negotiate x3 stairs no railings partial A Dates: Start: 08/02/24 Expected End: 08/16/24 Problem: PT Short Term Goals Dates: Start: 08/02/24 Goal: Supervision bed mobility Dates: Start: 08/02/24 Expected End: 08/09/24 Goal: Steadying A transfers LRAD Dates: Start: 08/02/24 Expected End: 08/09/24 Goal: Assess gait Dates: Start: 08/02/24 Expected End: 08/09/24 Goal: Assess stairs Dates: Start: 08/02/24 Expected End: 08/09/24 Encounter Problems (Resolved) There are no resolved problems. Education Documentation Precautions, taught by Yesenia Vasquez, PT at 08/02/2024 1:47 PM. Learner: Patient Readiness: Acceptance Method: Explanation, Demonstration Response: Verbalizes Understanding, Demonstrated Understanding, Needs Reinforcement Comment: bed mobility, transfers, wc mobility, orthostatic vitals, stairs Mobility Training, taught by Yesenia Vasquez PT at 08/02/2024 1:47 PM. Learner: Patient Readiness: Acceptance Method: Explanation, Demonstration Response: Verbalizes Understanding, Demonstrated Understanding, Needs Reinforcement Comment: bed mobility, transfers, wc mobility, orthostatic vitals, stairs Education Comments No comments found. Session Start/Stop Time: 1215 1345 Therapy Minutes Physical Therapy PT Individual: 90 * Eri Anne OT - 08/02/2024 8:20 AM EST [facility] Occupational Therapy Evaluation Note 08/02/24 Patient: Cleve Burns : 1945 Age: 79 y.o. Gender: male Primary Language: Lithuanian Diagnosis: Pubic bone fracture (CMS/HCC) Primary Rehab (Etiologic) Diagnosis: Patient Active Problem List Diagnosis Anemia Essential hypertension Hypercholesteremia Thalamic stroke (CMS/HCC) Tongue cancer (CMS/HCC) Pubic bone fracture (CMS/HCC) PMH: Past Medical History: Diagnosis Date CVA (cerebral vascular accident) (CMS/HCC) Tobacco use DX:Tobacco use Tongue cancer (CMS/HCC) PSH: Past Surgical History: Procedure Laterality Date KNEE SURGERY PROCEDURE: HISTORICAL KNEE SURGERY MOUTH SURGERY PROCEDURE: ORAL SURGERY PROCEDURE; COMMENT: tongue surgery OTHER SURGICAL HISTORY PROCEDURE: LA CLOSURE INTESTINAL CUTANEOUS FISTULA VASECTOMY PROCEDURE: HISTORICAL VASECTOMY Allergies: has No Known Allergies. Precautions: Precautions RLE Weight Bearing Status: Toe Touch NURSING RECOMMENDATIONS ADL Comments: SUBJECTIVE Patient Subjective: I'm not feeling very well, I think I might throw up Home Living: Type of Home: House Lives With: Spouse, Son (Pts son lives with them part-time (T,W,R) pts son spends other days with his gf) Home Adaptive Equipment: Crutches Home Layout: Two level Home Access: Stairs to enter without rails Entrance Stairs-Rails: None Entrance Stairs-Number of Steps: 3 Bathroom Shower/Tub: Tub/shower unit (on first floor) Bathroom Toilet: Handicapped height Bathroom Equipment: Grab bars in shower Pt states pts can be home to provide physical A. 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 OBJECTIVE General Observation: Pt pleasant and willing to participate, no c/o pain upon arrival d/t pt in supine position in bed. Cognition/Communication: Cognition Overall Cognitive Status: Within Functional Limits Arousal/Alertness: Appropriate responses to stimuli Orientation Level: Oriented X4 Following Commands: Follows all commands and directions without difficulty Safety Judgment: Good awareness of safety precautions Awareness of Errors: Good awareness of errors made Deficits: Fully aware of deficits Attention Span: Appears intact Memory: Appears intact Insight: Within function limits Perseveration: Not present Problem Solving: Assistance required to identify errors made Vitals: BP: 130/73 Heart Rate: 91 SpO2: 99 % Pain: Pain Assessment: 0-10 Pain Score: 6 (3/10 seated, 6-7/10 when OOB) Skin: Unremarkable, see Nursing Assessment for details. FUNCTIONAL ASSESSMENTS ADL ASSIST Eating Assistance Needed: Independent Oral Hygiene Oral Hygiene Assistance Needed: Set-up / clean-up CARE Score - Oral Hygiene: 5 Toileting Toileting Hygiene Assistance Needed: Physical assistance Physical Assistance Level: 26%-50% CARE Score - Toileting Hygiene: 3 Bathing Shower/Bathe Self Assistance Needed: Physical assistance Physical Assistance Level: 26%-50% CARE Score - Shower/Bathe Self: 3 UE Dressing Upper Body Dressing Assistance Needed: Set-up / clean-up CARE Score - Upper Body Dressin LE Dressing Lower Body Dressing Assistance Needed: Physical assistance Physical Assistance Level: 51%-75% CARE Score - Lower Body Dressin Footwear Putting On/Taking Off Footwear Assistance Needed: Physical assistance Physical Assistance Level: Total assistance CARE Score - Putting On/Taking Off Footwear: 1 Toilet Transfer Assistance Needed: Physical assistance Tub/Shower Transfer N/A Equipment Provided: TBD at d/c Vision: Pt wears glasses for reading, otherwise unremarkable, WFL. Perception: Perception Inattention/Neglect: Appears intact Initiation: Appears intact Motor Planning: Appears intact Proprioception: Proprioception Proprioception: No apparent deficits Sensation: Sensation Light Touch: No apparent deficits Hand Function: Hand Function Gross Grasp: Functional Coordination: Coordination Coordination: Functional Balance: Static sitting balance Static Sitting Balance Static Sitting-Level of Assistance: Supervision or touching assistance Dynamic sitting balance Dynamic Sitting Balance Dynamic Sitting-Level of Assistance: Supervision or touching assistance Static standing balance Static Standing Balance Static Standing-Level of Assistance: Partial/moderate assistance Dynamic standing balance Dynamic Standing Balance Dynamic Standing-Level of Assistance: Partial/moderate assistance UPPER EXTREMITY ASSESSMENTS RUE Assessment RUE Assessment: Within Functional Limits LUE Assessment LUE Assessment: Within Functional Limits STANDARDIZED TESTS Right Hand Strength - Social Services (lbs) Handle Setting 1: 86 lbs Right Hand Strength - Pinch (lbs) Lateral: 21 lbs Tip (2 point): 12 lbs Left Hand Strength - Social Services (lbs) Handle Setting 1: 93 lbs Left Hand Strength - Pinch (lbs) Lateral: 19 lbs Tip (2 point): 16 lbs Quality Indicators Scoring CAM Scoring Admit: Is there evidence of an acute change in mental status from the patient's baseline?: No (08/02/24819 : Eri Anne OT) Inattention: Behavior not present (08/02/24819 : Eri Anne OT) Disorganized thinking: Behavior not present (08/02/24819 : Eri Anne OT) Altered level of consciousness: Behavior not present (08/02/24819 : Eri Anne OT) BIMS: 15 (08/02/24819 : Eri Anne OT) Hearing, Speech, and Vision: Hearing, Speech, and Vision Ability to Hear: Adequate Ability to See in Adequate Light: Adequate Expression of Ideas and Wants: Without difficulty Understanding Verbal and Non-Verbal Content: Understands Health Literacy: Health Literacy How often do you need to have someone help you when you read instructions, pamphlets, or other written material from your doctor or pharmacy?: Never Procedures/Interventions: Pt supine in bed upon arrival, RN present for med pass. Agreeable to participate in evaluation. Vitals assessed, see above. Pt completed bed mob with overall min A with increased time. Pt able to state proper TTWBing precautions prior to transfer. Mod A SPT via RW to w/c with fair adherence to precautions. Pt seated in w/c, dep mob to edge of sink to complete oral hygiene, overall setup A. Pt remained seated at sink, able to use washcloth to wash face, however, declining to bathe rest of body at this time. Pt remained seated to complete eval assessments. Upon completion, CORE JAVA ENGINEER Kymberly present; pt observed to have tremor in RUE, SOB and c/o dizziness, agreeable to transfer to bed. Mod A SPT via RW, fair adherence to TTWBing. Mod A bed mob to advance BLE into bed. Pt began vomiting into bucket, provided cold wash cloth for comfort. Alleviated symptoms when placed in semi-supine position in bed. Vitals reassessed, WFL. Pt asymptomatic, increased rest break provided. Pt requesting to complete UB exercises in room during downtime. Provided pt with blue theraband and visual demo of sh horizonta l ABD and B sh flex. Pt verbalized understanding of exercises and agreeable to complete in room. Ptremained in bed at end of session with bed alarm on, call arevalo within reach. All needs met. OT Assessment: OT Assessment OT Assessment Results: Decreased ADL status, Decreased safe judgment during ADL, Decreased endurance, Decreased functional mobility, Decreased IADLs Prognosis: Good Evaluation/Treatment Tolerance: Patient tolerated treatment well Comments: (Completed 105min eval. Pt would benefit from this level of intensive inpatient rehab to increase ADL IND and safety with func transfers. Pt with good adherence to TTWBing, few prompts throughout session for reminders. Pt with decreased tolerance sitting upright in w/c, c/o nausea/SOB/dizziness with increased time sitting in w/c. ) OT Plan: Plan Treatment Interventions: ADL retraining, Functional transfer training, UE strengthening/ROM, Endurance training OT Plan: Skilled OT OT Frequency : 5-7 days per week OT Duration of Sessions: 90 min per day OT Treatments per day: 1 time per day OT - Evaluation Status: Complete OT Discharge Recommendations: (TBD at d/c) Equipment Recommended: (TBD at d/c) Goals: Encounter Problems Encounter Problems (Active) Template: Occupational Therapy Problem: OT Template Fitter Goals Dates: Start: 08/02/24 Goal: Patient will perform toileting at a MODIFIED INDEPENDENT level without adaptive devices as appropriate. Dates: Start: 08/02/24 Expected End: 08/16/24 Goal: Patient will perform bathing at a MODIFIED INDEPENDENT level using adaptive devices as appropriate. Dates: Start: 08/02/24 Expected End: 08/16/24 Goal: Patient will perform Lower body dressing at a MODIFIED INDEPENDENT level using adaptive/assistive devices as appropriate. Dates: Start: 08/02/24 Expected End: 08/16/24 Goal: Patient will complete toilet transfers with at a MODIFIED INDEPENDENT level using least restrictive assistive device Dates: Start: 08/02/24 Expected End: 08/16/24 Goal: Patient will complete Tub Transfer with with SUPERVISION using least restrictive assistive device Dates: Start: 08/02/24 Expected End: 08/16/24 Problem: OT Short Term Goals Dates: Start: 08/02/24 Goal: Patient will perform toileting with STAND BY ASSIST without adaptive devices as appropriate. Dates: Start: 08/02/24 Expected End: 08/09/24 Goal: Patient will perform bathing with STAND BY ASSIST without adaptive devices as appropriate. Dates: Start: 08/02/24 Expected End: 08/09/24 Goal: Patient will perform Lower body dressing with MINIMAL ASSIST using adaptive/assistive devicesas appropriate. Dates: Start: 08/02/24 Expected End: 08/09/24 Goal: Patient will complete toilet transfers with with MINIMAL ASSIST using least restrictive assistive device Dates: Start: 08/02/24 Expected End: 08/09/24 Goal: Patient will complete Tub Transfer with with MODERATE ASSIST using least restrictive assistive device Dates: Start: 08/02/24 Expected End: 08/09/24 Encounter Problems (Resolved) There are no resolved problems. Education Documentation Staff Roles, taught by Eri Anne OT at 08/02/2024 11:58 AM. Learner: Patient Readiness: Eager Method: Explanation Response: Needs Reinforcement, Verbalizes Understanding Program, taught by Eri Anne OT at 08/02/2024 11:58 AM. Learner: Patient Readiness: Eager Method: Explanation Response: Needs Reinforcement, Verbalizes Understanding Fall Precautions, taught by Eri Anne OT at 08/02/2024 11:58 AM. Learner: Patient Readiness: Eager Method: Explanation Response: Needs Reinforcement, Verbalizes Understanding Requirements for Being on Rehab Unit, taught by Eri Anne OT at 08/02/2024 11:58 AM. Learner: Patient Readiness: Eager Method: Explanation Response: Needs Reinforcement, Verbalizes Understanding Orientation to Unit, taught by Eri Anne OT at 08/02/2024 11:58 AM. Learner: Patient Readiness: Eager Method: Explanation Response: Needs Reinforcement, Verbalizes Understanding Body Mechanics, taught by Eri Anne OT at 08/02/2024 11:58 AM. Learner: Patient Readiness: Eager Method: Explanation Response: Needs Reinforcement, Verbalizes Understanding Precautions, taught by Eri Anne OT at 08/02/2024 11:58 AM. Learner: Patient Readiness: Eager Method: Explanation Response: Needs Reinforcement, Verbalizes Understanding ADL Training, taught by Eri Anne OT at 08/02/2024 11:58 AM. Learner: Patient Readiness: Eager Method: Explanation Response: Needs Reinforcement, Verbalizes Understanding Education Comments No comments found. Start/Stop Time: OT Time Calculation OT Start Time: 0815 OT Stop Time: 1000 OT Time Calculation (min): 105 min Therapy Minutes: Occupational Therapy OT Individual: 105 * Yulissa Patel RN - 08/02/2024 6:35 AM EST Pt resting in bed quietly throughout night. A+O x3. Voiding in urinal independently. Pt c/o 4/10 right pelvis pain at 0518, med with PRN tylenol, pt states 2/10 after 1 hour. Call arevalo within reach. Bed alarm on. documented in this encounter H&P Notes * JAY Sheridan - 08/02/2024 12:49 PM EST Images from the original note were not included. PHYSICAL MEDICINE AND REHABILITATION History & Physical Exam Patient Name: Cleve Burns Date of : 1945 Sex: Male Admit Date/Time: 08/01/2024 4:15 PM Chief Complaint: Pubic bone fx HPI: This is a 79-year-old male past medical history significant for hypertension, anemia, hyperlipidemia who presented to [facility] emergency department on 07/30/2024 for complaints of right hip pain status post slip and fall on ice prior to arrival. X-ray of the hip without overt fracture but the exam was limited so a CT of the hip was obtained. CT scan of the hip showed acute fracture of the right pubic body extending to the adjacent portion of the superior and inferior pubic rami. Minimal displacement. No other fractures were seen. Case was discussed with orthopedics Dr. Spann who recommended orthopedic evaluation And hospital admission. He was seen by the orthopedic team and was deemed to be a nonsurgical candidate they recommended toe-touch weightbearing to right lower extremityand rehab placement. He was stabilized and sent to this facility on 08/01/2024 for physical therapy,occupational therapy and nursing care. Patient complaining of nausea, vomiting & dizziness w/ positional changes. Reports he vomited once today because of this. Orthostatic vitals ordered. 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[facility]) No Known Allergies Past Surgical History: Procedure Laterality Date KNEE SURGERY PROCEDURE: HISTORICAL KNEE SURGERY MOUTH SURGERY PROCEDURE: ORAL SURGERY PROCEDURE; COMMENT: tongue surgery OTHER SURGICAL HISTORY PROCEDURE: LA CLOSURE INTESTINAL CUTANEOUS FISTULA VASECTOMY PROCEDURE: HISTORICAL VASECTOMY Family History Problem Relation Name Age of Onset Other (Other: bone ca) Mother Heart attack Father from [place] at age 72 Other (Other: kidney disease) Sister on HD Other (Other: heart disease) Sister pace maker Social History Socioeconomic History Marital status: Spouse name: Not on file Number of children: Not on file Years of education: Not on file Highest education level: Not on file Occupational History Not on file Tobacco Use Smoking status: Former Smokeless tobacco: Never Substance and Sexual Activity Alcohol use: Yes Drug use: No Sexual activity: Not on file Other Topics Concern Not on file Social History Narrative Not on file Functional History: Independent prior to fall REVIEW OF SYSTEMS: Constitutional: No weight loss, fever, chills, weakness or fatigue. HEENT: No visual loss, blurred vision, double vision or yellow sclera. No hearing loss, sneezing, congestion, runny nose or sore throat. Skin: No rash or itching. Cardiovascular: No chest pain, chest pressure or chest discomfort. No palpitations or pedal edema. Respiratory: No shortness of breath, cough or sputum production. Gastrointestinal: No anorexia, nausea, vomiting or diarrhea. No abdominal pain or blood in stool. Genitourinary: No burning micturition. No urinary frequency or incontinence. Neurologic: No headache, dizziness, syncope, unilateral weakness, ataxia, numbness or tingling in the extremities. No change in bowel or bladder control. Musculoskeletal: No muscle pain, back pain, joint pain or stiffness. Hematologic: No bleeding or bruising. Psychiatric: No depression or anxiety. PHYSICAL EXAMINATION: Vitals: 08/01/24 2050 08/01/24 2344 08/02/24 0737 08/02/24 0821 BP: 125/73 119/67 125/68 130/73 BP Location: Right arm Right arm Patient Position: Lying Lying Lying Pulse: 81 85 91 Resp: 17 18 Temp: 37.5 ??C (99.5 ??F) 36.9 ??C (98.4 ??F) 36.5 ??C (97.7 ??F) TempSrc: Oral Oral Oral SpO2: 98% 97% 98% 99% General: Alert, in no acute cardiopulmonary distress. Mental Status: Oriented to person, place and time. Normal affect. Head: Normocephalic. Eyes: Pupils are equal, round and reactive to light. Extraocular muscles intact. Ear, Nose and Throat: Oropharynx clear, mucous membranes moist. Ears and nose without masses, lesions or deformities. Neck: Supple, Trachea midline. Respiratory: Clear to auscultation and percussion. No wheezing, rales or rhonchi. Cardiovascular: Heart sounds normal. No thrills. Regular rate and rhythm, no murmurs, rubs or gallops. Gastrointestinal: Abdomen soft, non-tender, non-distended. Normal bowel sounds. Genitourinary: No costovertebral angle tenderness. Neurologic: Cranial nerves II-XII intact. No focal neurological deficits. Deep tendon reflexes +2 bilaterally. Negative Hoffmans sign bilaterally. Flexor plantar response bilaterally. Negative clonusbilaterally. Moves all extremities spontaneously. Sensation intact bilaterally. Skin: No rashes or lesions. No petechiae or purpura. No edema. Musculoskeletal: No cyanosis or clubbing. No gross deformities. Normal range of motion. Strength 5/5 throughout b/l UE and LLE. RLE strength 4/5 limited due to pain. Normal distal sensation to b/l UEand LE. Soft LE compartments. Normal capillary refill < 2 seconds b/l LE. HOME MEDICATIONS: Home Medications acetaminophen (TYLENOL) 325 mg tablet Take 2 tablets (650 mg total) by mouth every 6 (six) hours ifneeded for mild pain. amLODIPine (NORVASC) 2.5 mg tablet Take 1 tablet (2.5 mg total) by mouth at bedtime. aspirin 81 mg chewable tablet Chew 1 tablet (81 mg total) at bedtime. atorvastatin (LIPITOR) 80 mg tablet Take 1 tablet by mouth once daily docusate sodium (COLACE) 100 mg capsule Take 1 capsule (100 mg total) by mouth 2 (two) times a day if needed for constipation. lisinopriL (PRINIVIL,ZESTRIL) 20 mg tablet Take 1 tablet by mouth once daily magnesium hydroxide (MILK OF MAGNESIA) 400 mg/5 mL suspension Take 30 mL by mouth 1 (one) time eachday if needed for constipation. omeprazole OTC (PriLOSEC OTC) 20 mg EC tablet Take 1 tablet (20 mg total) by mouth 2 (two) times a day. Do not crush, chew, or split. traMADoL 25 mg tablet Take 25 mg by mouth every 6 (six) hours if needed (mod pain). Max Daily Amount: 100 mg CURRENT INPATIENT MEDICATIONS: Current Facility-Administered Medications: acetaminophen (TYLENOL) tablet 650 mg, 650 mg, oral, q6h PRN, JAY Sheridan, 650 mg at 08/02/24 05 amLODIPine (NORVASC) tablet 2.5 mg, 2.5 mg, oral, Nightly, JAY Sheridan, 2.5 mg at 08/01/242050 aspirin chewable tablet 81 mg, 81 mg, oral, Nightly, Susanita Melissa, PA, 81 mg at 08/01/242050 atorvastatin (LIPITOR) tablet 80 mg, 80 mg, oral, Nightly, Prestonta Melissa, PA, 80 mg at 08/01/242050 bisacodyL (DULCOLAX) suppository 10 mg, 10 mg, rectal, Daily PRN, Magdi Torres PA docusate sodium (COLACE) capsule 100 mg, 100 mg, oral, BID, Magdi Torres, PA, 100 mg at lisinopriL (PRINIVIL,ZESTRIL) tablet 20 mg, 20 mg, oral, Nightly, Magdi Torres, PA, 20 mg at 08/01/242050 magnesium hydroxide (MILK OF MAGNESIA) 400 mg/5 mL suspension 30 mL, 30 mL, oral, Daily PRN, Magdi Torres, PA, 30 mL at 08/02/24854 ondansetron ODT (ZOFRAN-ODT) disintegrating tablet 4 mg, 4 mg, oral, q8h PRN, Magdi Torres PA pantoprazole (PROTONIX) EC tablet 40 mg, 40 mg, oral, q AM AC, Magdi Torres, PA, 40 mg at 08/02/24 0518 senna (SENOKOT) tablet 17.2 mg, 2 tablet, oral, Nightly, Pauline Batista DO traMADoL (ULTRAM) tablet 25 mg, 25 mg, oral, q6h PRN, Magdi Torres, PA, 25 mg at 08/02/24 0855 LABS: Lab Results Component Value Date WBC 12.3 (H) 08/02/2024 RBC 4.00 (L) 08/02/2024 HGB 11.6 (L) 08/02/2024 HCT 35.2 (L) 08/02/2024 MCV 88.0 08/02/2024 MCHC 33.0 08/02/2024 RDW 13.2 08/02/2024 PLT 315 08/02/2024 MPV 9.9 08/02/2024 NRBC 0.0 08/02/2024 DIFF Lab Results Component Value Date LYMPHOPCT 23.7 08/02/2024 NEUTROABS 6.90 08/02/2024 LYMPHSABS 2.91 08/02/2024 MONOABS 1.40 (H) 08/02/2024 EOSABS 0.85 (H) 08/02/2024 BASOSABS 0.09 08/02/2024 IMMGRANABS 0.14 (H) 08/02/2024 RETIC No results found for: RETIC , RETICCTPCT Lab Results Component Value Date NA 137 08/02/2024 K 4.3 08/02/2024 CL 104 08/02/2024 CO2 29 08/02/2024 GLUCOSE 99 08/02/2024 BUN 26 (H) 08/02/2024 CREATININE 1.28 08/02/2024 CALCIUM 8.6 08/02/2024 PROT 6.3 08/02/2024 ALBUMIN 3.1 (L) 08/02/2024 BILITOT 1.2 08/02/2024 AST 21 08/02/2024 ALT 28 08/02/2024 ALKPHOS 75 08/02/2024 EGFR 57 (L) 08/02/2024 IMPRESSION & PLAN: # Impaired mobility and self-care -Secondary to slip and fall and fracture - Continue PT/OT and nursing care #Right pubic body fracture - Non surgical evaluated by [facility] JAY Wilkerson & Dr. Spann - TTWB to [facility] - Follow up with [facility] after discharge #Pain control -Acetaminophen 650 mg Q6H PRN mild pain -Tramadol 25 mg Q6H PRN moderate pain - Oxycodone 5 mg Q6H severe pain #Hypertension -Amlodipine 2.5 mg nightly -Lisinopril 20 mg nightly -ASA 81 mg daily #Hyperlipidemia -Atorvastatin 80 mg nightly #GERD -Protonix 40 mg Q am DVTP: lovenox 40 mg SQ daily Code status: full code ____ Cleve Burns is being admitted to the inpatient rehab unit in order to participate in an acute rehab program which evokes a multidisciplinary team approach in order to improve their functional mobility and activities of daily living. Physical therapy will be involved in order to provide gait and balance training, improve strength and range of motion and utilize modalities as deemed necessary. Occupational Therapy will assess and educate with activities of daily living which include bathing dressing toileting and basic household activities. Speech therapy will evaluate speech, cognition, and swallowing and continue to follow as needed for any deficits in these areas. Patient will also be followed by internal medicine 24-hour nursing in order to monitor medical status and provide continuous education regarding medical conditions. Case management will start discharge planning and arrange for team conferences. Rehab goals: Increased functional ability, increased muscle strength and conditioning, progress to self-care andADLs. Educate the patient and the family on disease process and discharge back home into the community. Patient's progress will be discussed in weekly multidisciplinary team conferences along with any barriers which may inhibit patient from returning home safely. Rehab potential/prognosis: Patient has good rehab potential and is well motivated. Patient has family support. Disposition: Weekly multidisciplinary team conferences will be held in order to discuss the patient's progress, barriers, and goals regarding their discharge plan. Goals for the patient include returning home to their prior level of functioning with home services for continued rehab and recovery. Estimated length of stay: 2 weeks ____ Cosigned by Pauline Batista DO at 08/02/2024 5:15 PM EST Associated attestation - Pauline Batista DO - 08/02/2024 5:15 PM EST Patient seen and examined at bedside at 8:20AM today. No acute events overnight. Reports sleeping well. Agreeable to therapy evaluations today. Agree with H&P as documented by PA. documented in this encounter Plan of Treatment Upcoming Encounters Date Type Department Care Team (Late st Contact Info) Description 08/27/2024 1:30 PM EDT Office Visit [address] [phone] Jm Hastings MD [address] [place] [address] 12/11/2024 8:30 AM EDT Office Visit [address] [phone] Jm Hastings MD [address] [place] [address] documented as of this encounter Procedures Procedure Name Priority Date/Time Associated Diagnosis Comments CT PELVIS WO CONTRAST STAT 08/08/2024 4:12 PM EST COMPLETE BLOOD COUNT Routine 08/07/2024 6:13 AM EST BASIC METABOLIC PANEL Routine 08/07/2024 6:13 AM EST COMPLETE BLOOD COUNT Routine 08/05/2024 5:45 AM EST SST - GOLD Routine 08/05/2024 5:43 AM EST EXTRA TUBES Routine 08/05/2024 5:43 AM EST COMPLETE BLOOD COUNT Routine 08/04/2024 6:03 AM EST BASIC METABOLIC PANEL Routine 08/04/2024 6:03 AM EST CBC WITH AUTO DIFFERENTIAL Routine 08/02/2024 5:47 AM EST CBC AND DIFFERENTIAL Routine 08/02/2024 5:47 AM EST COMPREHENSIVE METABOLIC PANEL Routine 08/02/2024 5:47 AM EST documented in this encounter Results * CT Pelvis wo Contrast (08/08/2024 4:12 PM EST) Anatomical Region Laterality Modality Body, Pelvis Computed Tomogra phy 08/08/2024 4:27 PM EST Impressions 08/08/2024 4:32 PM EST Impression: 1. Acute, nondisplaced right pubic ramus fractures. 2. No additional pelvic fracture identified. 3. No evidence of hip fracture. Telebatool THOMPSON ([id number]) -------- FINAL REPORT -------- Dictated By: Cece Meade Dictated Date: 08/08/2024 16:27 ET Assigned Physician: Cece Meade Reviewed and Electronically Signed By: Cece Meade Signed Date: 08/08/2024 16:32 ET Workstation ID: [id number] Transcribed By: Self Edit Transcribed Date: 08/08/2024 16:27 ET Narrative 08/08/2024 4:32 PM EST History: Left buttock pain status post fall. Known right pubic fracture. Comparison: There are no comparison images available at this time. Technique: Helical volumetric imaging of the bony pelvis was performed, to include both hips. DLP: 648.85 mGy/cm MediaBo[employer] VCT Iterative reconstruction technique Findings: Acute, nondisplaced fractures of the right superior and inferior pubic rami are noted. The pelvic bones are otherwise intact. No sacral fracture is identified. The sacroiliac joints are well-maintained. There is moderate loss of cartilage space in both hips. The femoral head contours are smooth. There is no evidence of a hip fracture. There is no significant hematoma formation associated with the right pubic ramus fractures. A small bladder diverticulum is noted and there is mild, diffuse thickening of the bladder wall, a finding suggesting chronic bladder outlet obstruction. The prostate is enlarged. Diverticulosis of the partially imaged colon is noted. Procedure Note Cece Meade MD - 08/08/2024 History: Left buttock pain status post fall. Known right pubic fracture. Comparison: There are no comparison images available at this time. Technique: Helical volumetric imaging of the bony pelvis was performed, toinclude both hips. DLP: 648.85 mGy/cm AirDroidspeSonicbids VCT Iterative reconstruction technique Findings: Acute, nondisplaced fractures of the right superior and inferior pubicrami are noted. The pelvic bones are otherwise intact. No sacral fractureis identified. The sacroiliac joints are well-maintained. There is moderate loss of cartilage space in both hips. The femoral headcontours are smooth. There is no evidence of a hip fracture. There is no significant hematoma formation associated with the right pubicramus fractures. A small bladder diverticulum is noted and there is mild,diffuse thickening of the bladder wall, a finding suggesting chronicbladder outlet obstruction. The prostate is enlarged. Diverticulosis ofthe partially imaged colon is noted. IMPRESSION: Impression: 1. Acute, nondisplaced right pubic ramus fractures. 2. No additional pelvic fracture identified. 3. No evidence of hip fracture. Telerad JAY ([id number]) -------- FINAL REPORT -------- Dictated By: Cece Meade Dictated Date: 08/08/2024 16:27 ET Assigned Physician: Cece Meade Reviewed and Electronically Signed By: Cece Meade Signed Date: 08/08/2024 16:32 ET Workstation ID: [id number] Transcribed By: Self Edit Transcribed Date: 08/08/2024 16:27 ET us Pauline Batista DO IMG CT PROCEDURES Final R esult * (ABNORMAL) Basic metabolic panel (08/07/2024 6:13 AM EST) Sodium 138 133 - 145 mmol/L LAB CHEMISTRY METHOD 08/07/2024 7:59 AM EST [facility] Potassium 4.6 3.5 - 5.5 mmol/L LAB CHEMISTRY METHOD 08/07/2024 7:59 AM [facility] Chloride 106 96 - 110 mmol/L LAB CHEMISTRY METHOD 08/07/2024 7:59 AM [facility] CO2 30 21 - 32 mmol/L LAB CHEMISTRY METHOD 08/07/2024 7:59 AM [facility] [facility] Anion Gap 2(L) 3 - 11 LAB CHEMISTRY METHOD 08/07/2024 7:59 AM [facility] Glucose 105(H) 70 - 100 mg/dL LAB CHEMISTRY METHOD 08/07/2024 7:59 AM [facility] BUN 17 5 - 25 mg/dL LAB CHEMISTRY METHOD 08/07/2024 7:59 AM [facility] Creatinine 1.11 0.70 - 1.30 mg/dL LAB CHEMISTRY METHOD 08/07/2024 7:59 AM [facility] eGFR 68 >=60 mL/min/1. 73m2 LAB CHEMISTRY METHOD 08/07/2024 7:59 AM [facility] Comment:Calculation based on the??Chronic Kidney Disease Epidemiology Collaboration (CKD-EPI) equation refit??without adjustment for race. BUN/Creatinine Ratio 15.3 LAB CHEMISTRY METHOD 08/07/2024 7:59 AM [facility] Calcium 9.0 8.5 - 10.5 mg/dL LAB CHEMISTRY METHOD 08/07/2024 7:59 AM [facility] Blood Venous blood specimen / Unknown Venipuncture / Unknown 08/07/2024 6:13 AM EST 08/07/2024 7:09 AM EST us Kymberly Sanchez NP LAB BLOOD ORDERABLES Final Result [facility] [address] [place] [address], * (ABNORMAL) Complete blood count (08/07/2024 6:13 AM EST) [facility] WBC 9.2 4.8 - 10.8 K/mcL LAB HEMETOLOGY METHOD 08/07/2024 7:20 AM [facility] RBC 3.80(L) 4.50 - 5.50 M/mcL LAB HEMETOLOGY METHOD 08/07/2024 7:20 AM [facility] Hemoglobin 11.0(L) 13.5 - 17.5 g/dL LAB HEMETOLOGY METHOD 08/07/2024 7:20 AM [facility] Hematocrit 33.3(L) 42.0 - 54.0 % LAB HEMETOLOGY METHOD 08/07/2024 7:20 AM [facility] MCV 88.1 79.0 - 98.0 FL LAB HEMETOLOGY METHOD 08/07/2024 7:20 AM [facility] MCH 29.1 27.0 - 32.0 pcg LAB HEMETOLOGY METHOD 08/07/2024 7:20 AM [facility] MCHC 33.0 32.0 - 37.0 g/dL LAB HEMETOLOGY METHOD 08/07/2024 7:20 AM [facility] RDW 13.2 11.0 - 15.0 % LAB HEMETOLOGY METHOD 08/07/2024 7:20 AM [facility] Platelets 392 130 - 400 K/mcL LAB HEMETOLOGY METHOD 08/07/2024 7:20 AM [facility] MPV 9.5 7.0 - 11.0 FL LAB HEMETOLOGY METHOD 08/07/2024 7:20 AM [facility] NRBC 0.0 <1.0 % LAB HEMETOLOGY METHOD 08/07/2024 7:20 AM [facility] NRBC Absolute 0.00 <0.10 K/mcL LAB HEMETOLOGY METHOD 08/07/2024 7:20 AM [facility] Blood Venous blood specimen / Unknown Venipuncture / Unknown 08/07/2024 6:13 AM EST 08/07/2024 7:09 AM EST Kymberly Sanchez NP LAB BLOOD ORDERABLES Final Result [facility] [address] [place] [address], * (ABNORMAL) Complete blood count (08/05/2024 5:45 AM EST) WBC 11.7(H) 4.8 - 10.8 K/mcL LAB HEMETOLOGY METHOD 08/05/2024 7:47 AM [facility] RBC 3.80(L) 4.50 - 5.50 M/mcL LAB HEMETOLOGY METHOD 08/05/2024 7:47 AM [facility] Hemoglobin 11.1(L) 13.5 - 17.5 g/dL LAB HEMETOLOGY METHOD 08/05/2024 7:47 AM [facility] Hematocrit 34.1(L) 42.0 - 54.0 % LAB HEMETOLOGY METHOD 08/05/2024 7:47 AM [facility] MCV 89.0 79.0 - 98.0 FL LAB HEMETOLOGY METHOD 08/05/2024 7:47 AM [facility] MCH 29.0 27.0 - 32.0 pcg LAB HEMETOLOGY METHOD 08/05/2024 7:47 AM [facility] MCHC 32.6 32.0 - 37.0 g/dL LAB HEMETOLOGY METHOD 08/05/2024 7:47 AM [facility] RDW 13.2 11.0 - 15.0 % LAB HEMETOLOGY METHOD 08/05/2024 7:47 AM [facility] Platelets 364 130 - 400 K/mcL LAB HEMETOLOGY METHOD 08/05/2024 7:47 AM EST [facility] MPV 10.0 7.0 - 11.0 FL LAB HEMETOLOGY METHOD 08/05/2024 7:47 AM EST [facility] NRBC 0.0 <1.0 % LAB HEMETOLOGY METHOD 08/05/2024 7:47 AM EST [facility] NRBC Absolute 0.00 <0.10 K/mcL LAB HEMETOLOGY METHOD 08/05/2024 7:47 AM EST [facility] Blood Venous blood specimen / Unknown Venipuncture / Unknown 08/05/2024 5:45 AM EST 08/05/2024 7:07 AM EST Kymberly Sanchez NP LAB BLOOD ORDERABLES Final Result [facility] [address] [place] [address], [place] [phone] * SST tube (08/05/2024 5:43 AM EST) Extra Tube Hold for add-ons. 08/05/2024 9:01 AM EST [facility] Comment:Auto resulted. Blood Venous blood specimen / Unknown 08/05/2024 5:43 AM EST 08/05/2024 7:08 AM EST us Pauline Batista DO LAB BLOOD ORDERABLES Laine l Result [facility] [address] [place] [address], [place] [phone] * (ABNORMAL) Basic metabolic panel (08/04/2024 6:03 AM EST) Sodium 140 133 - 145 mmol/L LAB CHEMISTRY METHOD 08/04/2024 7:42 AM [facility] Potassium 5.1 3.5 - 5.5 mmol/L LAB CHEMISTRY METHOD 08/04/2024 7:42 AM [facility] Chloride 107 96 - 110 mmol/L LAB CHEMISTRY METHOD 08/04/2024 7:42 AM [facility] CO2 28 21 - 32 mmol/L LAB CHEMISTRY METHOD 08/04/2024 7:42 AM [facility] Anion Gap 5 3 - 11 LAB CHEMISTRY METHOD 08/04/2024 7:42 AM [facility] Glucose 108(H) 70 - 100 mg/dL LAB CHEMISTRY METHOD 08/04/2024 7:42 AM [facility] BUN 23 5 - 25 mg/dL LAB CHEMISTRY METHOD 08/04/2024 7:42 AM [facility] Creatinine 1.24 0.70 - 1.30 mg/dL LAB CHEMISTRY METHOD 08/04/2024 7:42 AM [facility] eGFR 59(L) >=60 mL/min/1. 73m2 LAB CHEMISTRY METHOD 08/04/2024 7:42 AM [facility] Comment:Calculation based on the??Chronic Kidney Disease Epidemiology Collaboration (CKD-EPI) equation refit??without adjustment for race. BUN/Creatinine Ratio 18.5 LAB CHEMISTRY METHOD 08/04/2024 7:42 AM [facility] Calcium 8.7 8.5 - 10.5 mg/dL LAB CHEMISTRY METHOD 08/04/2024 7:42 AM [facility] Blood Venous blood specimen / Unknown Venipuncture / Unknown 08/04/2024 6:03 AM EST 08/04/2024 6:56 AM EST us Kymberly Sanchez NP LAB BLOOD ORDERABLES Final Result [facility] [address] [place] [address], * (ABNORMAL) Complete blood count (08/04/2024 6:03 AM EST) [facility] WBC 11.1(H) 4.8 - 10.8 K/mcL LAB HEMETOLOGY METHOD 08/04/2024 7:16 AM [facility] RBC 3.60(L) 4.50 - 5.50 M/mcL LAB HEMETOLOGY METHOD 08/04/2024 7:16 AM [facility] Hemoglobin 10.5(L) 13.5 - 17.5 g/dL LAB HEMETOLOGY METHOD 08/04/2024 7:16 AM [facility] Hematocrit 32.0(L) 42.0 - 54.0 % LAB HEMETOLOGY METHOD 08/04/2024 7:16 AM [facility] MCV 87.9 79.0 - 98.0 FL LAB HEMETOLOGY METHOD 08/04/2024 7:16 AM [facility] MCH 28.8 27.0 - 32.0 pcg LAB HEMETOLOGY METHOD 08/04/2024 7:16 AM [facility] MCHC 32.8 32.0 - 37.0 g/dL LAB HEMETOLOGY METHOD 08/04/2024 7:16 AM [facility] RDW 13.2 11.0 - 15.0 % LAB HEMETOLOGY METHOD 08/04/2024 7:16 AM [facility] Platelets 312 130 - 400 K/mcL LAB HEMETOLOGY METHOD 08/04/2024 7:16 AM [facility] MPV 9.8 7.0 - 11.0 FL LAB HEMETOLOGY METHOD 08/04/2024 7:16 AM [facility] NRBC 0.0 <1.0 % LAB HEMETOLOGY METHOD 08/04/2024 7:16 AM EST [facility] NRBC Absolute 0.00 <0.10 K/mcL LAB HEMETOLOGY METHOD 08/04/2024 7:16 AM [facility] Blood Venous blood specimen / Unknown Venipuncture / Unknown 08/04/2024 6:03 AM EST 08/04/2024 6:59 AM EST Kymberly Sanchez NP LAB BLOOD ORDERABLES Final Result [facility] [address] [place] [address], * (ABNORMAL) CBC auto differential (08/02/2024 5:47 AM EST) WBC 12.3(H) 4.8 - 10.8 K/mcL LAB HEMETOLOGY METHOD 08/02/2024 6:47 AM [facility] RBC 4.00(L) 4.50 - 5.50 M/mcL LAB HEMETOLOGY METHOD 08/02/2024 6:47 AM [facility] Hemoglobin 11.6(L) 13.5 - 17.5 g/dL LAB HEMETOLOGY METHOD 08/02/2024 6:47 AM [facility] Hematocrit 35.2(L) 42.0 - 54.0 % LAB HEMETOLOGY METHOD 08/02/2024 6:47 AM [facility] MCV 88.0 79.0 - 98.0 FL LAB HEMETOLOGY METHOD 08/02/2024 6:47 AM [facility] MCH 29.0 27.0 - 32.0 pcg LAB HEMETOLOGY METHOD 08/02/2024 6:47 AM [facility] MCHC 33.0 32.0 - 37.0 g/dL LAB HEMETOLOGY METHOD 08/02/2024 6:47 AM [facility] RDW 13.2 11.0 - 15.0 % LAB HEMETOLOGY METHOD 08/02/2024 6:47 AM [facility] Platelets 315 130 - 400 K/mcL LAB HEMETOLOGY METHOD 08/02/2024 6:47 AM [facility] MPV 9.9 7.0 - 11.0 FL LAB HEMETOLOGY METHOD 08/02/2024 6:47 AM [facility] NRBC 0.0 <1.0 % LAB HEMETOLOGY METHOD 08/02/2024 6:47 AM [facility] NRBC Absolute 0.00 <0.10 K/mcL LAB HEMETOLOGY METHOD 08/02/2024 6:47 AM [facility] Neutrophils Relative 56.2 % LAB HEMETOLOGY METHOD 08/02/2024 6:47 AM [facility] Lymphocytes Relative 23.7 % LAB HEMETOLOGY METHOD 08/02/2024 6:47 AM [facility] Monocytes Relative 11.4 % LAB HEMETOLOGY METHOD 08/02/2024 6:47 AM [facility] Eosinophils Relative 6.9 % LAB HEMETOLOGY METHOD 08/02/2024 6:47 AM [facility] Basophils Relative 0.7 % LAB HEMETOLOGY METHOD 08/02/2024 6:47 AM [facility] Immature Granulocytes Relative 1.1 % LAB HEMETOLOGY METHOD 08/02/2024 6:47 AM [facility] Neutrophils Absolute 6.90 1.50 - 7.00 K/mcL LAB HEMETOLOGY METHOD 08/02/2024 6:47 AM [facility] Lymphocytes Absolute 2.91 1.00 - 5.00 K/mcL LAB HEMETOLOGY METHOD 08/02/2024 6:47 AM [facility] Monocytes Absolute 1.40(H) 0.20 - 1.00 K/mcL LAB HEMETOLOGY METHOD 08/02/2024 6:47 AM EST [facility] Eosinophils Absolute 0.85(H) 0.00 - 0.50 K/mcL LAB HEMETOLOGY METHOD 08/02/2024 6:47 AM EST [facility] Basophils Absolute 0.09 0.00 - 0.20 K/[facility] HEMETOLOGY METHOD 08/02/2024 6:47 AM EST [facility] Immature Granulocytes Absolute 0.14(H) 0.00 - 0.03 K/[facility] HEMETOLOGY METHOD 08/02/2024 6:47 AM [facility] Blood Venous blood specimen / Unknown Venipuncture / Unknown 08/02/2024 5:47 AM EST 08/02/2024 6:08 AM EST Magdi THOMPSON LAB BLOOD ORDERABLES Final Re sult [facility] [address] [place] [address], * (ABNORMAL) Comprehensive metabolic panel (08/02/2024 5:47 AM EST) Sodium 137 133 - 145 mmol/L LAB CHEMISTRY METHOD 08/02/2024 6:38 AM EST [facility] Potassium 4.3 3.5 - 5.5 mmol/L LAB CHEMISTRY METHOD 08/02/2024 6:38 AM [facility] Chloride 104 96 - 110 mmol/L LAB CHEMISTRY METHOD 08/02/2024 6:38 AM EST [facility] CO2 29 21 - 32 mmol/L LAB CHEMISTRY METHOD 08/02/2024 6:38 AM EST [facility] Anion Gap 4 3 - 11 LAB CHEMISTRY METHOD 08/02/2024 6:38 AM EST [facility] Glucose 99 70 - 100 mg/dL LAB CHEMISTRY METHOD 08/02/2024 6:38 AM [facility] BUN 26(H) 5 - 25 mg/dL LAB CHEMISTRY METHOD 08/02/2024 6:38 AM [facility] Creatinine 1.28 0.70 - 1.30 mg/dL LAB CHEMISTRY METHOD 08/02/2024 6:38 AM [facility] eGFR 57(L) >=60 mL/min/1. 73m2 LAB CHEMISTRY METHOD 08/02/2024 6:38 AM [facility] Comment:Calculation based on the??Chronic Kidney Disease Epidemiology Collaboration (CKD-EPI) equation refit??without adjustment for race. BUN/Creatinine Ratio 20.3 LAB CHEMISTRY METHOD 08/02/2024 6:38 AM [facility] Calcium 8.6 8.5 - 10.5 mg/dL LAB CHEMISTRY METHOD 08/02/2024 6:38 AM [facility] AST (SGOT) 21 10 - 42 unit/L LAB CHEMISTRY METHOD 08/02/2024 6:38 AM [facility] ALT (SGPT) 28 10 - 60 unit/L LAB CHEMISTRY METHOD 08/02/2024 6:38 AM [facility] Alkaline Phosphatase 75 42 - 121 unit/L LAB CHEMISTRY METHOD 08/02/2024 6:38 AM [facility] Total Protein 6.3 6.0 - 8.0 g/dL LAB CHEMISTRY METHOD 08/02/2024 6:38 AM [facility] Albumin 3.1(L) 3.2 - 5.0 g/dL LAB CHEMISTRY METHOD 08/02/2024 6:38 AM [facility] Total Bilirubin 1.2 0.0 - 1.4 mg/dL LAB CHEMISTRY METHOD 08/02/2024 6:38 AM [facility] Blood Venous blood specimen / Unknown Venipuncture / Unknown 08/02/2024 5:47 AM EST 08/02/2024 6:08 AM EST us Magdi THOMPSON LAB BLOOD ORDERABLES Final Re sult [facility] ([facility] [address] [place] [address], [place] [phone] documented in this encounter Visit Diagnoses Diagnosis Pubic bone fracture (CMS/HCC)- Primary Essential hypertension Unspecified essential hypertension Hypercholesteremia Pure hypercholesterolemia Thalamic stroke (CMS/HCC) Tongue cancer (CMS/HCC) Malignant neoplasm of tongue, unspecified site Anemia Unspecified anemia documented in this encounter Admitting Diagnoses Diagnosis Pubic bone fracture (CMS/HCC) documented in this encounter Administered Medications Inactive Administered Medications - up to 3 most recent administrations Medication Order MAR Action Action Date Dose Rate Site acetaminophen (TYLENOL) tablet 650 mg 650 mg, oral, Every 6 hours PRN, mild pain, fever - temperature GREATER than 38 C (100.4 F), Starting on Tue08/01/24 at 1706 Given 08/02/2024 5:18 AM EST 650 mg acetaminophen (TYLENOL) tablet 975 mg 975 mg, oral, Every 8 hours scheduled, First dose (after last modification) on Tue08/03/24 at 1400 Given 08/15/2024 5:37 AM EST 975 mg Given 08/14/2024 8:03 PM EST 975 mg Given 08/14/2024 2:30 PM EST 975 mg amLODIPine (NORVASC) tablet 2.5 mg 2.5 mg, oral, Nightly, First dose (after last modification) on Tue08/01/24 at 2100 Given 08/12/2024 10:00 PM EST 2 .5 mg Given 08/11/2024 9:12 PM EST 2.5 mg Given 08/10/2024 8:41 PM EST 2.5 mg aspirin chewable tablet 81 mg 81 mg, oral, Nightly, First dose (after last modification) on Tue08/01/24 at 2100, Indications: prevention of cerebrovascular accidentIndications:prevention of cerebrovascular accident Given 08/14/2024 8:03 PM EST 81 mg Given 08/13/2024 9:56 PM EST 81 mg Given 08/12/2024 10:01 PM EST 81 mg atorvastatin (LIPITOR) tablet 80 mg 80 mg, oral, Nightly, First dose (after last modification) on Tue08/01/24 at 2100 Given 08/14/2024 8:04 PM EST 80 mg Given 08/13/2024 9:56 PM EST 80 mg Given 08/12/2024 9:59 PM EST 80 mg bisacodyL (DULCOLAX) suppository 10 mg 10 mg, rectal, Daily PRN, constipation, Starting on Tue08/01/24 at 1706 Given 08/02/2024 8:18 PM EST 10 mg cyclobenzaprine (FLEXERIL) tablet 5 mg 5 mg, oral, 3 times daily, First dose on Tue08/05/24 at 1400 Given 08/15/2024 9:14 AM EST 5 mg Given 08/14/2024 8:04 PM EST 5 mg Given 08/14/2024 2:30 PM EST 5 mg docusate sodium (COLACE) capsule 100 mg 100 mg, oral, 2 times daily, First dose on Tue08/01/24 at 2100 Given 08/15/2024 9:14 AM EST 100 mg Given 08/14/2024 8:04 PM EST 100 mg Given 08/14/2024 8:48 AM EST 100 mg enoxaparin (LOVENOX) injection 40 mg 40 mg, subcutaneous, Daily, First dose on Erika 08/02/24 at 1415, Indication: VTE/PE Prophylaxis Given 08/15/2024 9:15 AM EST 40 mg Left Lower Abdomen Given 08/14/2024 8:48 AM EST 40 mg Ri ght Upper Abdomen Given 08/13/2024 8:03 AM EST 40 mg Ri ght Lower Abdomen ferrous sulfate tablet 325 mg 325 mg, oral, 2 times daily, First dose on 08/04/24 at 1045, Take on an empty stomach with a full glass of water, at least 1 hour before or 2 hours after a meal. May be taken with food if causes an upset stomach. Avoid taking antacids or antibiotics within 2 hours before or after. Ordered as ferrous sulfate. 325 mg ferrous sulfate = 65 mg elemental iron. Given 08/05/2024 9:26 AM EST 325 mg Given 08/04/2024 8:59 PM EST 325 mg Given 08/04/2024 11:20 AM EST 325 mg gabapentin (NEURONTIN) capsule 200 mg 200 mg, oral, 2 times daily, First dose on Tue08/09/24 at 1315 Given 08/15/2024 9:14 AM EST 200 mg Given 08/14/2024 8:04 PM EST 200 mg Given 08/14/2024 8:48 AM EST 200 mg lidocaine 4 % patch 1 patch 1 patch, Topical, Administer over 12 Hours, Daily, First dose on Tue08/03/24 at 0945, Apply to left buttock. Patch Applied 08/15/2024 9:14 AM EST 1 patch Left Upper Hip Patch Applied 08/14/2024 8:49 AM EST 1 patch Other Patch Applied 08/13/2024 8:03 AM EST 1 patch Other lisinopriL (PRINIVIL,ZESTRIL) tablet 20 mg 20 mg, oral, Nightly, First dose (after last modification) on Tue08/01/24 at 2100 Given 08/14/2024 8:04 PM EST 20 mg Given 08/13/2024 9:57 PM EST 20 mg Given 08/12/2024 9:59 PM EST 20 mg magnesium hydroxide (MILK OF MAGNESIA) 400 mg/5 mL suspension 30 mL 30 mL, oral, Daily PRN, constipation, Starting on Tue08/01/24 at 1708, Follow dose with 8 oz of water. Given 08/02/2024 8:55 AM EST 30 mL ondansetron ODT (ZOFRAN-ODT) disintegrating tablet 4 mg 4 mg, oral, Every 8 hours PRN, nausea, vomiting, Starting on Tue08/02/24 at 1248 Given 08/02/2024 1:28 PM EST 4 mg oxyCODONE (ROXICODONE) immediate release tablet 5 mg 5 mg, oral, Every 6 hours PRN, severe pain, Starting on Tue08/02/24 at 1347 Given 08/03/2024 8:37 AM EST 5 mg oxyCODONE (ROXICODONE) immediate release tablet 5 mg 5 mg, oral, Every 6 hours PRN, severe pain, moderate pain, Starting on Tue08/03/24 at 1252 Given 08/07/2024 8: 08 AM EST 5 mg Given 08/06/2024 12:23 PM EST 5 mg Given 08/06/2024 5:54 AM EST 5 mg oxyCODONE (ROXICODONE) immediate release tablet 5 mg 5 mg, oral, Every 4 hours PRN, severe pain, moderate pain, Starting on Tue08/07/24 at 1343 Given 08/14/2024 8: 48 AM EST 5 mg Given 08/13/2024 8:03 AM EST 5 mg Given 08/10/2024 9:32 AM EST 5 mg pantoprazole (PROTONIX) EC tablet 40 mg 40 mg, oral, Every morning before breakfast, First dose on Tue08/02/24 at 0700, Do not crush, chew, or split. Given 08/15/2024 5:37 AM EST 40 mg Given 08/14/2024 5:37 AM EST 40 mg Given 08/13/2024 5:34 AM EST 40 mg senna (SENOKOT) tablet 17.2 mg 17.2 mg (2 tablet), oral, Nightly, First dose on Tue08/02/24 at 2100 Given 08/14/2024 8:04 PM EST 17.2 mg Given 08/13/2024 9:58 PM EST 17.2 mg Given 08/12/2024 10:02 PM EST 17.2 mg sodium chloride 0.9 % infusion 75 mL/hr, intravenous, Continuous, Starting on Tue08/02/24 at 1530 Rate/Dose Verify 08/02/2024 10:00 PM EST 75 mL/hr 75 mL/hr New Bag 08/02/2024 3:16 PM EST 75 mL/hr 75 mL/hr traMADoL (ULTRAM) tablet 25 mg 25 mg, oral, Every 6 hours PRN, mod pain, Starting on Tue08/01/24 at 1708 Given 08/02/2024 8:55 AM EST 25 mg Given 08/01/2024 8:12 PM EST 25 mg documented in this encounter Discontinued Medications Medication Sig Discontinue Reason Start Date End Da te aspirin 81 mg chewable tablet Chew 1 tablet (81 mg total) at bedtime. 08/14/2024 amLODIPine (NORVASC) 2.5 mg tablet Take 1 tablet (2.5 mg total) by mouth at bedtime. Stop Taking at Discharge 01/05/2024 08/15/2024 lisinopriL (PRINIVIL,ZESTRIL) 20 mg tablet Take 1 tablet by mouth once daily Stop Taking at Discharge 05/21/2024 08/15/2024 atorvastatin (LIPITOR) 80 mg tablet Take 1 tablet by mouth once daily Stop Taking at Discharge 07/19/2024 08/15/2024 traMADoL 25 mg tablet Take 25 mg by mouth every 6 (six) hours if needed (mod pain). Max Daily Amount: 100 mg Stop Taking at Discharge 08/15/2024 acetaminophen (TYLENOL) 325 mg tablet Take 2 tablets (650 mg total) by mouth every 6 (six) hours if needed for mild pain. Stop Taking at Discharge 08/15/2024 magnesium hydroxide (MILK OF MAGNESIA) 400 mg/5 mL suspension Take 30 mL by mouth 1 (one) time each day if needed for constipation. Stop Taking at Discharge 08/15/2024 omeprazole OTC (PriLOSEC OTC) 20 mg EC tablet Take 1 tablet (20 mg total) by mouth 2 (two) times a day. Do not crush, chew, or split. Stop Taking at Discharge 08/15/2024 docusate sodium (COLACE) 100 mg capsule Take 1 capsule (100 mg total) by mouth 2 (two) times a day if needed for constipation. Stop Taking at Discharge 08/15/2024 documented as of this encounter Historical Medications * This list may reflect changes made after this encounter. docusate sodium (COLACE) 100 mg capsule Take 1 capsule (100 mg total) by mouth 2 (two) times a day if needed for constipation. 08/15/2024 omeprazole OTC (PriLOSEC OTC) 20 mg EC tablet Take 1 tablet (20 mg total) by mouth 2 (two) times a day. Do not crush, chew, or split. 08/15/2024 magnesium hydroxide (MILK OF MAGNESIA) 400 mg/5 mL suspension Take 30 mL by mouth 1 (one) time each day if needed for constipation. 08/15/2024 acetaminophen (TYLENOL) 325 mg tablet Take 2 tablets (650 mg total) by mouth every 6 (six) hours if needed for mild pain. 08/15/2024 traMADoL 25 mg tablet Take 25 mg by mouth every 6 (six) hours if needed (mod pain). Max Daily Amount: 100 mg 08/15/2024 added in this encounter Active and Recently Administered Medications Times are shown in EST. Scheduled Medication Order 08/13/2024 08/14/2024 08/15/2024 acetaminophen (TYLENOL) tablet 975 mg 975 mg, oral, Every 8 hours scheduled, First dose (after last modification) on Tue08/03/24 at 1400 0534 (Given - Provider: Hannah Lott RN)1427 (Given - Provider: Johanna Jovel, RN)220 (Given - Provider: Eusebia Spencer RN) 0537 (Given - Provider: Mily Olson, RN)1430 (Given - Provider: Johanna Jovel RN)2002 (Given - Provider: Angelia Patterson, RN) 0537 (Given - Provider: Mily Olson, RN) aspirin chewable tablet 81 mg 81 mg, oral, Nightly, First dose (after last modification) on Tue08/01/24 at 2100, Indications: prevention of cerebrovascular accident 2155 (Given - Provider: Eusebia Spencer RN) 2002 (Given - Provider: Angelia Patterson, RN) atorvastatin (LIPITOR) tablet 80 mg 80 mg, oral, Nightly, First dose (after last modification) on Tue08/01/24 at 2100 215 (Given - Provider: Eusebia Spencer RN) 2003 (Given - Provider: Angelia Patterson RN) cyclobenzaprine (FLEXERIL) tablet 5 mg 5 mg, oral, 3 times daily, First dose on Tue08/05/24 at 1400 0803 (Given - Provider: Johanna Jovel RN)1427 (Given - Provider: Johanna Jovel RN)215 (Given - Provider: Eusebia Spencer RN) 0848 (Given - Provider: Johanna Jovel RN)1430 (Given - Provider: Johanna Jovel, RN)2003 (Given - Provider: Angelia Patterson RN) 0914 (Given - Provider: Guru Fierro, RICK) docusate sodium (COLACE) capsule 100 mg 100 mg, oral, 2 times daily, First dose on Tue08/01/24 at 2100 0803 (Given - Provider: Johanna Jovel RN)2157 (Given - Provider: Eusebia Spencer RN) 0848 (Given - Provider: Johanna Jovel, RN)2003 (Given - Provider: Angelia Patterson RN) 0914 (Given - Provider: Guru Fierro RN) enoxaparin (LOVENOX) injection 40 mg 40 mg, subcutaneous, Daily, First dose on Tue08/02/24 at 1415, Indication: VTE/PE Prophylaxis 0803 (Given - Provider: Johanna Jovel RN) 0848 (Given - Provider: Johanna Jovel RN) 0915 (Given - Provider: Guru Fierro RN) gabapentin (NEURONTIN) capsule 200 mg 200 mg, oral, 2 times daily, First dose on Tue08/09/24 at 1315 0803 (Given - Provider: Johanna Jovel RN)2157 (Given - Provider: Eusebia Spencer, RICK) 0848 (Given - Provider: Johanna Jovel, RN)2003 (Given - Provider: Angelia Patterson RN) 0914 (Given - Provider: Guru Fierro RN) lidocaine 4 % patch 1 patch 1 patch, Topical, Administer over 12 Hours, Daily, First dose on Tue08/03/24 at 0945, Apply to left buttock. 0803 (Patch Applied - Provider: Johanna Jovel RN - Comment: Left Buttock)2154 (Patch Removed - Provider: Eusebia Spencer RN) 0849 (Patch Applied - Provider: Johanna Jovel RN - Comment: Left Buttock)2006 (Patch Removed - Provider: Angelia Patterson RN) 0914 (Patch Applied - Provider: Guru Fierro RN)1100 (Due: Patch Removed - Provider: Automatic Discharge Provider - Comment: Time automatically adjusted from order being discontinued) lisinopriL (PRINIVIL,ZESTRIL) tablet 20 mg 20 mg, oral, Nightly, First dose (after last modification) on Tue08/01/24 at 2100 2157 (Given - Provider: Eusebia Spencer RN) 2003 (Given - Provider: Angelia Patterson RN) pantoprazole (PROTONIX) EC tablet 40 mg 40 mg, oral, Every morning before breakfast, First dose on Tue08/02/24 at 0700, Do not crush, chew, or split. 0534 (Given - Provider: Hannah Lott RN) 0537 (Given - Provider: Mily Olson, RICK) 0537 (Given - Provider: Mily Olson, RICK) senna (SENOKOT) tablet 17.2 mg 17.2 mg (2 tablet), oral, Nightly, First dose on Tue08/02/24 at 2100 2158 (Given - Provider: Eusebia Spencer, RN) 2003 (Given - Provider: Angelia Patterson RN) PRN Medication Order 08/13/2024 08/14/2024 08/15/2024 bisacodyL (DULCOLAX) suppository 10 mg 10 mg, rectal, Daily PRN, constipation, Starting on Tue08/01/24 at 1706 magnesium hydroxide (MILK OF MAGNESIA) 400 mg/5 mL suspension 30 mL 30 mL, oral, Daily PRN, constipation, Starting on Tue08/01/24 at 1708, Follow dose with 8 oz of water. ondansetron ODT (ZOFRAN-ODT) disintegrating tablet 4 mg 4 mg, oral, Every 8 hours PRN, nausea, vomiting, Starting on Tue08/02/24 at 1248 oxyCODONE (ROXICODONE) immediate release tablet 5 mg 5 mg, oral, Every 4 hours PRN, severe pain, moderate pain, Starting on Tue08/07/24 at 1343 0803 (Given - Provider: Johanna Jovel RN) 0848 (Given - Provider: Johanna Jovel RN) documented in this encounter Orders Medications Ordered That [place] ht Not Have Been Administered Count Last Ordered Date First Ordered Date lidocaine 4 % patch 1 patch 1 08/05/2024 sodium chloride 0.9 % bolus 1,000 mL 1 07/15 amLODIPine (NORVASC) tablet 2.5 mg 1 2024 aspirin chewable tablet 81 mg 1 08/01/2024 atorvastatin (LIPITOR) tablet 80 mg 1 08/01 lisinopriL (PRINIVIL,ZESTRIL) tablet 20 mg 1 08/01/2024 Admission Count Last Ordered Date First Orde red Date ADMIT TO INPATIENT REHAB 1 08/01/2024 Discharge Count Last Ordered Date First Orde red Date DISCHARGE PATIENT 1 08/14/2024 documented in this encounter Additional Health Concerns Assessment Noted Time PHQ-9 Depression Total Score: 0 08/15/19 12:08 PM EST documented as of this encounter Care Teams Master Rigger Relationship Specialty Start Date End Date Jm Hastings MD [address] [place] [id number] PCP - General Internal Medicine 06/28/17 documented as of this encounter
--- OUTSIDE RECORDS SUMMARY | 2024-08-17 13:54 | XMS_ITS | Encounter Summary ---
Author Organization [facility] [place] [address] Care Team Providers Care Wire Coating Operator Metal Name Role Phone Jm Hastings MD Primary Care Provider [phone] Encounter Details Date Type Department Care Team (Late st Contact Info) Description 08/06/2024 Plan of Care Documentation [facility] [address] [place] [phone] Social History Tobacco Use Types Packs/Day Years Used Date Smoking Tobacco: Former Smokeless Tobacco: Never Alcohol Use Standard Drinks/Week Comments Yes 0 (1 standard drink = 0.6 oz pur e alcohol) Health Literacy Answer Date Recorded How often do you need to hav e someone help you when you read instructions, pamphlets, or other written material from your doctor or pharmacy? Never 08/02/2024 Caregiver: How often do you need to have someone help you when you read instructions, pamphlets, or other written material from your doctor or pharmacy? Not on file 08/02/2024 Transportation Answer Date Recorded Has the lack of transportati on kept you from meetings, work, or from getting things needed for daily living? No Has the lack of transportati on kept you from medical appointments or from getting medications? No 08/02/2024 Social Isolation Answer Date Recorded How often do you feel lonely or isolated from th ose around you? Never 08/02/2024 Interpersonal Safety Answer Date Record ed Physical Abuse 08/01/2024 Verbal Abuse 08/01/2024 Sex and Gender Information Value Date Recorded Sex Assigned at Male 07/31/2024 3:08 PM EST Legal Sex Male 7:37 PM EST Gender Identity Male 07/31/2024 3:08 PM EST Sexual Orientation Straight 07/31/2024 3: 08 PM EST documented as of this encounter Progress Notes * Selma Alves, OTR/L - 08/06/2024 11:54 AM EST Physical Medicine and Rehabilitation Team Conference Interdisciplinary Team Meeting Patient Name: Cleve Burns Date of : 1945 Sex: Male Payor Info: Payor: MEDICARE / Plan: MEDICARE PART A & B / Product Type: Medicare / Admitting Diagnosis: Pubic bone fracture (CMS/HCC) [S32.509A] Admit Date/Time: 08/01/2024 4:15 PM Primary Rehab (Etiologic) Diagnosis: Patient Active Problem List Diagnosis Anemia Essential hypertension Hypercholesteremia Thalamic stroke (CMS/HCC) Tongue cancer (CMS/HCC) Pubic bone fracture (CMS/HCC) Team Discussion UPDATES: Physician: HPI: This is a 79-year-old male past medical history significant for hypertension, anemia, hyperlipidemia who presented to [facility] emergency department on 07/30/2024 for complaints of [...] for physical therapy,occupational therapy and nursing care. MD: meds for spazms started RN Received fluids last week. Will do lovanox teaching if needed. Pain in buttocks. No more vomiting. PT: Waking 10 feet. Started stair training. Pain with mobility. OT: Partial assist. Will need shower DME SW: will follow for support. CM: Verified demographics,Ins,PCP not a .Patient lives with his and step son and 3 catsin a 2 level home 3 steps to enter no rail.Patient stays on the 1st level sleeps in a recliner due to severe GERD full bath on 1st level.Patient was independent with his ADLs and IADLS ambulated withno device (walks with a limp at baseline) drives.Laundry in basement. 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 Patient denies any hx of depression or anxiety.Denies Tobacco use quit in 1990 ETOH rarely denies substance use. Discussed discharge plan with patient and plan is to return home agreeable to VNA services on discharge. will provide transport on discharge.CM will follow for discharge planning needs. Expected Discharge Date: 08/15/24 Risk Adjusted Scores: OT Current: 25 OT Goal: PT Current: 36 PT Goal: Follow-up Services: [facility] RN/PT/OT/SQL ARCHITECT Equipment Needed: w/c to be ordered. Barriers to Achieving Rehab Goals: Pain limiting mobility. Occupational Therapy Assessment Overall Cognitive Status Overall Cognitive Status: Within Functional Limits Precautions Precautions Medical Precautions: Fall Risk Safety Interventions: Call arevalo within reach, Chair alarm RUE Weight Bearing Status: Full LUE Weight Bearing Status: Full RLE Weight Bearing Status: Toe Touch LLE Weight Bearing Status: Full ADL Assessment Eating Assistance Needed: Independent CARE Score - Eatin Oral Hygiene Assistance Needed: Set-up / clean-up CARE Score - Oral Hygiene: 5 Toileting Hygiene Assistance Needed: Physical assistance Physical Assistance Level: 26%-50% CARE Score - Toileting Hygiene: 3 Shower/Bathe Self Assistance Needed: Physical assistance Physical Assistance Level: 26%-50% CARE Score - Shower/Bathe Self: 3 Upper Body Dressing Assistance Needed: Set-up / clean-up CARE Score - Upper Body Dressin Lower Body Dressing Assistance Needed: Physical assistance Physical Assistance Level: 51%-75% CARE Score - Lower Body Dressin Putting On/Taking Off Footwear Assistance Needed: Physical assistance Physical Assistance Level: Total assistance CARE Score - Putting On/Taking Off Footwear: 1 Functional Transfers Toilet Transfer Assistance Needed: Incidental touching Physical Assistance Level: 26%-50% Comment: RW CARE Score - Toilet Transfer: 4 OT Assessment Results: OT Assessment Results: Decreased ADL status, Decreased safe judgment during ADL, Decreasedendurance, Decreased functional mobility, Decreased IADLs Evaluation/Treatment Tolerance: Evaluation/Treatment Tolerance: Patient tolerated treatment well Comments: Comments: (Completed 90min session.) Plan Treatment/Interventions: Treatment Interventions: ADL retraining, Functional transfer training, UE strengthening/ROM, Endurance training OT Plan: OT Plan: Skilled OT Discharge Recommendations: OT Discharge Recommendations: (TBD at d/c) Equipment Recommended: Equipment Recommended: (TBD at d/c) Barriers to Discharge: Physical Therapy Assessment Bed Mobility Roll Left and Right Assistance [...] 3 Transfers Sit to Stand Assistance Needed: Incidental touching Physical Assistance Level: 25% or less CARE Score - Sit to Stand: 4 Chair/Oah-ef-Bfage Transfer Assistance Needed: Incidental touching Physical Assistance Level: 26%-50% Comment: RW CARE Score - Chair/Uxx-fw-Yxbyt Transfer: 4 Car Transfer Reason if not Attempted: Environmental limitations CARE Score - Car Transfer: 10 Picking Up Object Assistance Needed: Physical assistance Physical Assistance Level: 51%-75% Comment: brick carrier CARE Score - Picking Up Object: 2 Wheelchair Wheel 50 Feet with Two Turns Assistance Needed: Independent CARE Score - Wheel 50 Feet with Two Turns: 6 Type of Wheelchair/Scooter: Manual Wheel 150 Feet Assistance Needed: Independent CARE Score - Wheel 150 Feet: 6 Type of Wheelchair/Scooter: Manual Ambulation Walk 10 Feet Assistance Needed: Incidental touching Comment: RW Reason if not Attempted: Safety concerns CARE Score - Walk 10 Feet: 4 Walk 50 Feet with Two Turns Comment: pain, decreased endurance Reason if not Attempted: Safety concerns CARE Score - Walk 50 Feet with Two Turns: 88 Walk 150 Feet Comment: nausea, orthostatic Reason if not Attempted: Safety concerns CARE Score - Walk 150 Feet: 88 Walking 10 Feet on Uneven Surfaces Comment: nausea, orthostatic Reason if not Attempted: Safety concerns CARE Score - Walking 10 Feet on Uneven Surfaces: 88 Stairs/Curb step 1 Step (Curb) Assistance Needed: Physical assistance Physical Assistance Level: 26%-50% Comment: RW Reason if not Attempted: Safety concerns CARE Score - 1 Step (Curb): 3 4 Steps Comment: nausea, orthostatic Reason if not Attempted: Safety concerns CARE Score - 4 Steps: 88 12 Steps Comment: nausea, orthostatic Reason if not Attempted: Safety concerns CARE Score - 12 Steps: 88 Precautions Precautions Medical Precautions: Fall Risk Safety Interventions: Call arevalo within reach, Chair alarm RUE Weight Bearing Status: Full LUE Weight Bearing Status: Full RLE Weight Bearing Status: Toe Touch LLE Weight Bearing Status: Full PT Assessment Results: Evaluation/Treatment Tolerance: Evaluation/Treatment Tolerance: Patient tolerated treatment well Comments: Comments: Pt progressing transfers and gait, able to initiate stair training. However limited by pain with mobility in left buttocks and spasms throughout LLE. Plan Treatment/Interventions: Treatment/Interventions: Functional transfer training, LE strengthening/ROM, Endurance training, Patient/family training, Bed mobility, Gait training, Balance training PT Plan: PT Plan: Skilled PT Discharge Recommendations: Equipment Recommended: Barriers to Discharge: Nurse's Assessment Fall Risk Assessment Last Known Fall: Within the last month Mobility: Immobilized/requires assist of one person Toileting Needs: Use of assistive device (Bedside commode, bedpan, urinal) Mental Status/LOC/Awareness: Awake, alert, and oriented to date, place, and person Communication/Sensory: Visual (Glasses)/hearing deficit Behavior: Appropriate behavior Medications: Cardiovascular or central nervous system meds Volume/Electrolyte Status: No problems Abbey Herbert Fall Risk Total: 12 Skin Assessment Sensory Perceptions: Slightly limited Moisture: Rarely moist Activity: Chairfast Mobility: Slightly limited Nutrition: Adequate Friction and Shear: Problem David Scale Score: 16 Pain Assessment Pain Assessment: 0-10 Pain Score: 3 Pain Type: Acute pain Pain Location: Leg Pain Orientation: Left Pain Descriptors: Nagging Pain Interventions: Medication (See MAR) Bowel Management Bowel Program/Regime: Bowel Continence Status: No movement Last BM Date: 08/05/24 Bladder Management Bladder Scan Protocol: Bladder Continence Status: Continent void Toileting Physical Therapy Assessment Orthopedic Precautions Braces/Prosthesis/Orthotics Bed Mobility Transfers Wheelchair Activites Ambulation Stairs Picking Up Object PT Assessment Results: Decreased strength, Decreased range of motion, Decreased endurance, Impaired balance, Decreased mobility, Impaired gait, Orthopedic restrictions, Pain Prognosis: Good Evaluation/Treatment Tolerance: Patient tolerated treatment well Comments: Pt progressing transfers and gait, able to initiate stair training. However limited by pain with mobility in left buttocks and spasms throughout LLE. Plan Treatment/Interventions: Functional transfer training, LE strengthening/ROM, Endurance training, Patient/family training, Bed mobility, Gait training, Balance training PT Plan: Skilled PT Discharge Recommendations: Equipment Recommended: Barriers to Discharge: Occupational Therapy Assessment ADLs Evaluation Deficits: OT Assessment Results: Decreased ADL status, Decreased safe judgment during ADL, Decreased endurance, Decreased functional mobility, Decreased IADLs Prognosis: Good Evaluation/Treatment Tolerance: Patient tolerated treatment well Comments: (Completed 90min session.) Plan Treatment/Interventions: ADL retraining, Functional transfer training, UE strengthening/ROM, Endurance training OT Plan: Skilled OT Discharge Recommendations: (TBD at d/c) Equipment Recommended: (TBD at d/c) Barriers to Discharge: Principal Quality Engineer's Assessment [facility]; General; Regular Physician Attestation: Pauline Gordon DO, have led the team conference and agree with the results, findings, and decisions made by the interdisciplinary team. documented in this encounter Plan of Treatment Upcoming Encounters Date Type Department Care Team (Late st Contact Info) Description 08/27/2024 1:30 PM EDT Office Visit [address] [phone] Jm Hastings MD [address] [place] [id number] 12/11/2024 8:30 AM EDT Office Visit [address] [phone] Jm Hastings MD [address] [place] [id number] documented as of this encounter Visit Diagnoses Not on filedocumented in this encounter Additional Health Concerns Assessment Noted Time PHQ-9 Depression Total Score: 0 08/02/19 25 12:23 PM EST documented as of this encounter Care Teams Wire Coating Operator Metal Relationship Specialty Start Date End Date Jm Hastings MD [address] [place] [address] PCP - General Internal Medicine 06/28/17 documented as of this encounter
--- OUTSIDE RECORDS SUMMARY | 2024-08-17 13:54 | XMS_ITS | Clinical Summary ---
Author Organization [address] Address [address] [place] [phone] Phone Care Team Providers Care Air Car[employer] Operations Inspector Name Role Phone Jm Hastings MD Primary Care Provider [phone] Allergies No known active allergies Medications acetaminophen (TYLENOL) 325 mg tablet Take 3 tablets (975 mg total) by mouth every 8 (eight) hours for 10 days. 30 tablet 025 2024 Active aspirin 81 mg chewable tabletIndications: prevention of cerebrovascular accident Chew 1 tablet (81 mg total) at bedtime. 30 each 025 2024 Active atorvastatin (LIPITOR) 80 mg tablet Take 1 tablet (80 mg total) by mouth at bedtime. 30 each 025 2024 Active docusate sodium (COLACE) 100 mg capsule Take 1 capsule (100 mg total) by mouth 2 (two) times a day. 60 each 025 2024 Active lisinopriL (PRINIVIL,ZESTRIL) 20 mg tablet Take 1 tablet (20 mg total) by mouth at bedtime. 30 each 025 2024 Active pantoprazole (PROTONIX) 40 mg EC tablet Take 1 tablet (40 mg total) by mouth 1 (one) time each day before breakfast. Do not crush, chew, or split. 30 each 025 2024 Active cyclobenzaprine (FLEXERIL) 5 mg tablet Take 1 tablet (5 mg total) by mouth 3 (three) times a day. 30 tablet 025 2024 Active enoxaparin (LOVENOX) 40 mg/0.4 mL syringeIndications :deep vein thrombosis prevention Inject 0.4 mL (40 mg total) under the skin 1 (one) time each day for 2 days. 2 each 025 2024 Active gabapentin (NEURONTIN) 100 mg capsule Take 2 capsules (200 mg total) by mouth 2 (two) times a day. 120 each 2025 Active lidocaine 4 % patch Apply 1 patch topically 1 (one) time each day. 30 each 2024 Active oxyCODONE (ROXICODONE) 5 mg immediate release tablet Take 1 tablet (5 mg total) by mouth every 4 (four) hours if needed for severe pain or moderate pain for up to 5 days. Max Daily Amount: 30 mg 15 tablet 2024 Active senna (SENOKOT) 8.6 mg tablet Take 2 tablets (17.2 mg total) by mouth at bedtime. 60 each 2025 Active amLODIPine (NORVASC) 2.5 mg tablet Take 1 tablet (2.5 mg total) by mouth at bedtime. 2024 Discontinued(S top Taking at Discharge) aspirin 81 mg chewable tablet Chew 1 tablet (81 mg total) at bedtime. 2024 Discontinued atorvastatin (LIPITOR) 80 mg tablet Take 1 tablet (80 mg total) by mouth 1 (one) time each day. 2024 Discontinued lisinopriL (PRINIVIL,ZESTRIL) 20 mg tablet Take 1 tablet by mouth once daily 90 tablet 1 024 2024 Discontinued(S top Taking at Discharge) atorvastatin (LIPITOR) 80 mg tablet Take 1 tablet by mouth once daily 90 tablet 1 025 2024 Discontinued(S top Taking at Discharge) traMADoL 25 mg tablet Take 25 mg by mouth every 6 (six) hours if needed (mod pain). Max Daily Amount: 100 mg 03/05/ 2025 Discontinued(S top Taking at Discharge) acetaminophen (TYLENOL) 325 mg tablet Take 2 tablets (650 mg total) by mouth every 6 (six) hours if needed for mild pain. 2024 Discontinued(S top Taking at Discharge) magnesium hydroxide (MILK OF MAGNESIA) 400 mg/5 mL suspension Take 30 mL by mouth 1 (one) time each day if needed for constipation . 2024 Discontinued(S top Taking at Discharge) omeprazole OTC (PriLOSEC OTC) 20 mg EC tablet Take 1 tablet (20 mg total) by mouth 2 (two) times a day. Do not crush, chew, or split. 2024 Discontinued(S top Taking at Discharge) docusate sodium (COLACE) 100 mg capsule Take 1 capsule (100 mg total) by mouth 2 (two) times a day if needed for constipation . 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 09/20/2017 Encounters Date Type Department Care Team Description 08/16/2024 Telephone Adult Medicine [address] [phone] Leia Corrigan MA vna 08/13/2024 Plan of Care Documentation [facility] [address] [place] [phone] 08/09/2024 Telephone Adult Medicine [address] [phone] Jm Hastings MD Hospital Follow-up 08/06/2024 Plan of Care Documentation [facility] [address] [place] [address] 08/01/2024 4:15 PM EST - 08/15/2024 11:00 AM EST Hospital Encounter [facility] [address] [place] [address] Lynne, Pauline A, DO Discharge Disposition: [place] [facility] [place]07[place] 9:30 AM EST Office Visit Adult Medicine [address] [phone] Jm Hastings MD Essential hypertension (Primary Dx); [...] HISTORICAL KNEE SURGERY OTHER SURGICAL HISTORY PROCEDURE: LA CLOSURE INTESTINAL CUTANEOUS FISTULA MOUTH SURGERY PROCEDURE: ORAL SURGERY PROCEDURE; COMMENT: tongue surgery VASECTOMY PROCEDURE: HISTORICAL VASECTOMY Medical History Medical History Date Comments Tobacco use DX:Tobacco use CVA (cerebral vascular accident) (CMS/HCC) Tongue cancer (CMS/HCC) Family History Medical History Relation Name Comments Heart attack Father from [place] at age 72 Other: bone ca Mother [...] Orientation Straight 07/31/2024 3: 08 PM EST Obstetrics History Last Filed Vital Signs Vital [...] 12.8 oz) 08/11/2024 9:15 AM EST Height 175 cm (5' 8.9 ) 08/01/2024 11:1 4 AM EST Body Mass Index 26.63 08/01/2024 11:14 AM EST Plan of Treatment Upcoming Encounters Date Type Department Care Team (Late st Contact Info) Description 08/27/2024 1:30 PM EDT Office Visit Adult Medicine [address] [phone] Jm Hastings MD [address] [place] [address] 12/11/2024 8:30 AM EDT Office Visit Adult Medicine [address] [phone] Jm Hastings MD [address] [place] [address] Health Maintenance Due Date Last Done Comments Hepatitis C Screening 05/22/2022 Medicare Annual Wellness Visit 01/04/2025 01/05/2024 Hypertension/CHF/CAD Annual BMP Blood Test 08/07/2025 08/07/2024, 08/04/2024, 08/02/2024, Additional history exists Depression Screening 08/14/2025 08/14/2024, 01/05/20 24 Social Influencers of Health Screening 08/14/2025 08/14/2024 Falls Risk Assessment 08/15/2025 08/15/2024, 024 Cholesterol Screening (Lipid Panel) 08/02/2028 08/02/2023 DTaP,Tdap,and [...] WO CONTRAST STAT 08/08/2024 4:12 PM EST BASIC METABOLIC PANEL Routine 08/07/2024 6:13 AM EST COMPLETE BLOOD COUNT Routine 08/07/2024 6:13 AM EST COMPLETE BLOOD COUNT Routine 08/05/2024 5:45 AM EST SST - GOLD Routine 08/05/2024 5:43 AM EST EXTRA TUBES Routine 08/05/2024 5:43 AM EST BASIC METABOLIC PANEL Routine 08/04/2024 6:03 AM EST COMPLETE BLOOD COUNT Routine 08/04/2024 6:03 AM EST CBC WITH AUTO DIFFERENTIAL Routine 08/02/2024 5:47 AM EST CBC AND DIFFERENTIAL Routine 08/02/2024 5:47 AM EST COMPREHENSIVE METABOLIC PANEL Routine 08/02/2024 5:47 AM EST CBC WITH AUTO DIFFERENTIAL Routine 06/07/2024 10:19 AM EST Anemia, unspecified type BASIC METABOLIC PANEL Routine 06/07/2024 10:19 AM EST Essential hypertension Chronic kidney disease, unspecified CKD stage Hyperglycemia HEMOGLOBIN A1C Routine 06/07/2024 10:19 AM EST Hyperglycemia CBC AND DIFFERENTIAL Routine 06/07/2024 10:19 AM EST Anemia, unspecified type HM DEPRESSION SCREENING Routine 01/05/2024 FALLS RISK ASSESSMENT Routine 01/05/2024 LIPID PANEL Routine 08/02/2023 from Last 3 Months or Most Recently Relevant to Health Maintenance Results * CT Pelvis wo Contrast (08/08/2024 4:12 PM EST) Anatomical Region Laterality Modality Body, Pelvis Computed Tomogra phy 08/08/2024 4:27 PM EST Impressions 08/08/2024 4:32 PM EST Impression: 1. Acute, nondisplaced right pubic ramus fractures. 2. No additional pelvic fracture identified. 3. No evidence of hip fracture. Telerad JAY ([id number]) -------- FINAL REPORT -------- Dictated By: Cece Meade Dictated Date: 08/08/2024 16:27 ET Assigned Physician: Cece Meade Reviewed and Electronically Signed By: Cece Meade Signed Date: 08/08/2024 16:32 ET Workstation ID: [id number] Transcribed By: Self Edit Transcribed Date: 08/08/2024 16:27 ET Narrative 08/08/2024 4:32 PM EST History: Left buttock pain status post fall. Known right pubic fracture. Comparison: There are no comparison images available at this time. Technique: Helical volumetric imaging of the bony pelvis was performed, to include both hips. DLP: 648.85 mGy/cm Rufus Buck [employer] VCT Iterative reconstruction technique Findings: Acute, nondisplaced [...] performed, toinclude both hips. DLP: 648.85 mGy/cm Rufus Buck Productionpe[employer]ebly VCT Iterative reconstruction technique Findings: Acute, nondisplaced [...] No evidence of hip fracture. Telerad JAY ([id number]) -------- FINAL REPORT -------- Dictated By: Cece Meade Dictated Date: 08/08/2024 16:27 ET Assigned Physician: Cece Meade Reviewed and Electronically Signed By: Cece Meade Signed Date: 08/08/2024 16:32 ET Workstation ID: [id number] Transcribed By: Self Edit Transcribed Date: 08/08/2024 16:27 ET us Pauline Batista DO IMG CT PROCEDURES Final R esult * (ABNORMAL) Complete blood count (08/07/2024 6:13 AM EST) Only the most recent of3 resultswithin the time period is included. WBC 9.2 4.8 - 10.8 K/[facility] HEMETOLOGY METHOD 08/07/2024 7:[address] [facility] RBC 3.80(L) 4.50 - 5.50 M/[facility] LAB HEMETOLOGY METHOD 08/07/2024 7:[address] [facility] Hemoglobin 11.0(L) 13.5 - 17.5 g/dL LAB HEMETOLOGY METHOD 08/07/2024 7:20 AM [facility] Hematocrit 33.3(L) 42.0 - 54.0 % LAB HEMETOLOGY METHOD 08/07/2024 7:20 AM [facility] MCV 88.1 79.0 - 98.0 FL LAB HEMETOLOGY METHOD 08/07/2024 7:20 AM [facility] MCH 29.1 27.0 - 32.0 pcg LAB HEMETOLOGY METHOD 08/07/2024 7:20 AM [facility] MCHC 33.0 32.0 - 37.0 g/dL LAB HEMETOLOGY METHOD 08/07/2024 7:20 AM [facility] RDW 13.2 11.0 - 15.0 % LAB HEMETOLOGY METHOD 08/07/2024 7:20 AM [facility] Platelets 392 130 - 400 K/mcL LAB HEMETOLOGY METHOD 08/07/2024 7:20 AM [facility] MPV 9.5 7.0 - 11.0 FL LAB HEMETOLOGY METHOD 08/07/2024 7:20 AM [facility] NRBC 0.0 <1.0 % LAB HEMETOLOGY METHOD 08/07/2024 7:20 AM [facility] NRBC Absolute 0.00 <0.10 K/mcL LAB HEMETOLOGY METHOD 08/07/2024 7:20 AM [facility] Blood Venous blood specimen / Unknown Venipuncture / Unknown 08/07/2024 6:13 AM EST 08/07/2024 7:09 AM EST Kymberly Sanchez NP LAB BLOOD ORDERABLES Final Result [facility] [address] [place] [address], * (ABNORMAL) Basic metabolic panel (08/07/2024 6:13 AM EST) Only the most recent of3 resultswithin the time period is included. Sodium 138 133 - 145 mmol/L LAB CHEMISTRY METHOD 08/07/2024 7:59 AM [facility] Potassium 4.6 3.5 - 5.5 mmol/L LAB CHEMISTRY METHOD 08/07/2024 7:59 AM [facility] Chloride 106 96 - 110 mmol/L LAB CHEMISTRY METHOD 08/07/2024 7:59 AM [facility] CO2 30 21 - 32 mmol/L LAB CHEMISTRY METHOD 08/07/2024 7:59 AM [facility] Anion Gap 2(L) 3 - 11 LAB CHEMISTRY METHOD 08/07/2024 7:59 AM [facility] Glucose 105(H) 70 - 100 mg/dL LAB CHEMISTRY METHOD 08/07/2024 7:59 AM [facility] BUN 17 5 - 25 mg/dL LAB CHEMISTRY METHOD 08/07/2024 7:59 AM [facility] Creatinine 1.11 0.70 - 1.30 mg/dL LAB CHEMISTRY METHOD 08/07/2024 7:59 AM [facility] eGFR 68 >=60 mL/min/1. 73m2 LAB CHEMISTRY METHOD 08/07/2024 7:59 AM [facility] Comment:Calculation based on the??Chronic Kidney Disease Epidemiology Collaboration (CKD-EPI) equation refit??without adjustment for race. BUN/Creatinine Ratio 15.3 LAB CHEMISTRY METHOD 08/07/2024 7:59 AM [facility] Calcium 9.0 8.5 - 10.5 mg/dL LAB CHEMISTRY METHOD 08/07/2024 7:59 AM [facility] Blood Venous blood specimen / Unknown Venipuncture / Unknown 08/07/2024 6:13 AM EST 08/07/2024 7:09 AM EST Kymberly Sanchez [employer] LAB BLOOD ORDERABLES Final Result Performing Organization Address [facility]/ZIP Co de Phone Number [facility] [address] [place] [address], [place] [phone] * SST tube (08/05/2024 5:43 AM EST) Pathologist [facility] Extra Tube Hold for add-ons. 08/05/2024 9:[address] [facility] Comment:Auto resulted. Blood Venous blood specimen / Unknown 08/05/2024 5:43 AM EST 08/05/2024 7:08 AM EST Pauline Batista DO LAB BLOOD ORDERABLES Laine l Result Performing Organization Address [facility] Co de Phone Number [facility] [address] [place] [address], [place] [phone] * (ABNORMAL) CBC auto differential (08/02/2024 5:47 AM EST) Only the most recent of2 resultswithin the time period is included. WBC 12.3(H) 4.8 - 10.8 K/mcL LAB HEMETOLOGY METHOD 08/02/2024 6:47 AM [facility] RBC 4.00(L) 4.50 - 5.50 M/mcL LAB HEMETOLOGY METHOD 08/02/2024 6:[address] [facility] Hemoglobin 11.6(L) 13.5 - 17.5 g/dL LAB HEMETOLOGY METHOD 08/02/2024 6:47 AM [facility] Hematocrit 35.2(L) 42.0 - 54.0 % LAB HEMETOLOGY METHOD 08/02/2024 6:47 AM [facility] MCV 88.0 79.0 - 98.0 FL LAB HEMETOLOGY METHOD 08/02/2024 6:47 AM [facility] MCH 29.0 27.0 - 32.0 pcg LAB HEMETOLOGY METHOD 08/02/2024 6:47 AM [facility] MCHC 33.0 32.0 - 37.0 g/dL LAB HEMETOLOGY METHOD 08/02/2024 6:47 AM [facility] RDW 13.2 11.0 - 15.0 % LAB HEMETOLOGY METHOD 08/02/2024 6:47 AM [facility] Platelets 315 130 - 400 K/mcL LAB HEMETOLOGY METHOD 08/02/2024 6:47 AM [facility] MPV 9.9 7.0 - 11.0 FL LAB HEMETOLOGY METHOD 08/02/2024 6:47 AM [facility] NRBC 0.0 <1.0 % LAB HEMETOLOGY METHOD 08/02/2024 6:47 AM [facility] NRBC Absolute 0.00 <0.10 K/mcL LAB HEMETOLOGY METHOD 08/02/2024 6:47 AM [facility] Neutrophils Relative 56.2 % LAB HEMETOLOGY METHOD 08/02/2024 6:47 AM [facility] Lymphocytes Relative 23.7 % LAB HEMETOLOGY METHOD 08/02/2024 6:47 AM [facility] Monocytes Relative 11.4 % LAB HEMETOLOGY METHOD 08/02/2024 6:47 AM [facility] Eosinophils Relative 6.9 % LAB HEMETOLOGY METHOD 08/02/2024 6:47 AM [facility] Basophils Relative 0.7 % LAB HEMETOLOGY METHOD 08/02/2024 6:47 AM [facility] Immature Granulocytes Relative 1.1 % LAB HEMETOLOGY METHOD 08/02/2024 6:[address] [facility] Neutrophils Absolute 6.90 1.50 - 7.00 K/[facility] LAB HEMETOLOGY METHOD 08/02/2024 6:[address] [facility] Lymphocytes Absolute 2.91 1.00 - 5.00 K/mcL LAB HEMETOLOGY METHOD 08/02/2024 6:[address] [facility] Monocytes Absolute 1.40(H) 0.20 - 1.00 K/mcL LAB HEMETOLOGY METHOD 08/02/2024 6:[address] [facility] Eosinophils Absolute 0.85(H) 0.00 - 0.50 K/mcL LAB HEMETOLOGY METHOD 08/02/2024 6:[address] [facility] Basophils Absolute 0.09 0.00 - 0.20 K/mcL LAB HEMETOLOGY METHOD 08/02/2024 6:[address] [facility] Immature Granulocytes Absolute 0.14(H) 0.00 - 0.03 K/mcL LAB HEMETOLOGY METHOD 08/02/2024 6:[address] [facility] Blood Venous blood specimen / Unknown Venipuncture / Unknown 08/02/2024 5:47 AM EST 08/02/2024 6:08 AM EST us Magdi THOMPSON LAB BLOOD ORDERABLES Final Re sult [facility] [address] [place] [address], * (ABNORMAL) Comprehensive metabolic panel (08/02/2024 5:47 AM EST) Sodium 137 133 - 145 mmol/L LAB CHEMISTRY METHOD 08/02/2024 6:[address] [facility] Potassium 4.3 3.5 - 5.5 mmol/L LAB CHEMISTRY METHOD 08/02/2024 6:38 AM [facility] Chloride 104 96 - 110 mmol/L LAB CHEMISTRY METHOD 08/02/2024 6:38 AM [facility] CO2 29 21 - 32 mmol/L LAB CHEMISTRY METHOD 08/02/2024 6:38 AM [facility] Anion Gap 4 3 - 11 LAB CHEMISTRY METHOD 08/02/2024 6:38 AM [facility] Glucose 99 70 - 100 mg/dL LAB CHEMISTRY METHOD 08/02/2024 6:38 AM [facility] BUN 26(H) 5 - 25 mg/dL LAB CHEMISTRY METHOD 08/02/2024 6:38 AM [facility] Creatinine 1.28 0.70 - 1.30 mg/dL LAB CHEMISTRY METHOD 08/02/2024 6:38 AM [facility] eGFR 57(L) >=60 mL/min/1. 73m2 LAB CHEMISTRY METHOD 08/02/2024 6:38 AM [facility] Comment:Calculation based on the??Chronic Kidney Disease Epidemiology Collaboration (CKD-EPI) equation refit??without adjustment for race. BUN/Creatinine Ratio 20.3 LAB CHEMISTRY METHOD 08/02/2024 6:38 AM [facility] Calcium 8.6 8.5 - 10.5 mg/dL LAB CHEMISTRY METHOD 08/02/2024 6:38 AM [facility] AST (SGOT) 21 10 - 42 unit/L LAB CHEMISTRY METHOD 08/02/2024 6:38 AM [facility] ALT (SGPT) 28 10 - 60 unit/L LAB CHEMISTRY METHOD 08/02/2024 6:38 AM [facility] Alkaline Phosphatase 75 42 - 121 unit/L LAB CHEMISTRY METHOD 08/02/2024 6:38 AM [facility] Total Protein 6.3 6.0 - 8.0 g/dL LAB CHEMISTRY METHOD 08/02/2024 6:[address] [facility] Albumin 3.1(L) 3.2 - 5.0 g/dL LAB CHEMISTRY METHOD 08/02/2024 6:[address] [facility] Total Bilirubin 1.2 0.0 - 1.4 mg/dL LAB CHEMISTRY METHOD 08/02/2024 6:[address] [facility] Blood Venous blood specimen / Unknown Venipuncture / Unknown 08/02/2024 5:47 AM EST 08/02/2024 6:08 AM EST Magdi THOMPSON LAB BLOOD ORDERABLES Final Re sult [facility] [address] [place] [address], [place] [phone] * Hemoglobin A1c (06/07/2024 10:19 AM EST) Hemoglobin A1C 6.2 <6.5 % LAB CHEMISTRY METHOD 06/07/2024 2:[address] [facility] Mean Bld Glu Estim. 131 mg/dL LAB CHEMISTRY METHOD 06/07/2024 2:[address] [facility] Blood Venous blood specimen / Unknown Venipuncture / Unknown 06/07/2024 10:19 AM EST 06/07/2024 10:19 AM EST Jm Hastings MD LAB BLOOD ORDERABLES Final Resul t [facility] [address] [place] [address], [place] [phone] * Falls Risk Assessment (01/05/2024) Falls Risk Assessment abstracted [facility] MD HEALTH MAINTENANCE Final Result * Depression Screening (01/05/2024) Depression Screening abstracted Historical Provider HEALTH MAINTENANCE Final Result * Lipid panel (08/02/2023) mAelie Coto LDL/HDL Ratio 3 0 - 4 Triglycerides 72 0 - 150 mg/dL Cholesterol 138 0 - 200 mg/dL HDL 51 >=40 mg/dL LDL Cholesterol 73 0 - 100 mg/dL Blood Venous blood specimen / Unknown Historical Provider LAB BLOOD ORDERABLES Laine l Result from Last 3 Months or Most Recently Relevant to Health Maintenance Insurance MEDICARE [facility] Advance Directives Documents on File Type Date Recorded Patient White Kid Buffer Expl anation Advance Directives and Living Will 08/02/2024 3:42 PM HEALTH CARE PROXY * Full Code - Default (Latest Code Status on File) Date Activated Date Inactivated Comments 08/01/2024 5:07 PM 08/15/2024 1:16 PM This is order is used when code status has not been discussed with the patient, or code status is otherwise unknown/unconfirmed To update the patient's code status, place a code status order. Do not modify or discontinue any currently active code status orders. Care Teams [employer] Operations Inspector Relationship Specialty Start Date End Date Jm Hastings MD [address] [place] [id number] PCP - General Internal Medicine 06/28/17
--- OUTSIDE RECORDS SUMMARY | 2024-08-17 13:54 | XMS_ITS | Encounter Summary ---
Author Organization [place] [address] Care Team Providers Care Parts Room Associate Name Role Phone Jm Hastings MD Primary Care Provider [phone] Encounter Details Date Type Department Care Team (Late st Contact Info) Description 08/13/2024 Plan of Care Documentation [facility] [address] [place] [phone] Social History Tobacco Use Types Packs/Day [...] of this encounter Progress Notes * Selma Alves OTR/L - 08/13/2024 11:32 AM EST Physical Medicine and Rehabilitation Team Conference Interdisciplinary Team Meeting Patient Name: Cleve Burns Date of : 1945 Sex: Male Payor Info: Payor: MEDICARE / Plan: MEDICARE PART A & B / Product Type: Medicare / Admitting Diagnosis: Pubic bone fracture ([facility]) [S32.509A] Admit Date/Time: 08/01/2024 4:15 PM Primary Rehab (Etiologic) Diagnosis: Patient Active Problem List Diagnosis Anemia Essential hypertension Hypercholesteremia Thalamic stroke ([facility]) Tongue cancer ([facility]) Pubic bone fracture ([facility]) Team Discussion UPDATES: Physician: Episode of hypotension this am. Treating conservatively - fluids. RN: ANDREW 08/13. Skin intact. Lidocaine patch on buttocks for pain. Lovanox teaching completed. OT: approaching mod I. Family working on DME. PT: Family put in ramp. Teaching with for car transfers. W/C on order to be delivered to home. SW: stable. No issues. CM: [facility] set up. D/C this Tue. Expected Discharge Date: 08/15/2024 Risk Adjusted Scores: OT Current: 35 OT Goal: 40 PT Current: 46 PT Goal: 70 Follow-up Services: [facility] - are set up. Equipment Needed: W/C ordered. Ramp installed. obtaining other recommended DME Barriers to Achieving Rehab Goals: resolved. Occupational Therapy Assessment Overall Cognitive Status Overall Cognitive Status: Within Functional Limits Precautions Precautions Medical Precautions: Fall Risk Safety Interventions: Call arevalo within reach RUE Weight Bearing Status: Full LUE Weight Bearing Status: Full RLE Weight Bearing Status: Toe Touch LLE Weight Bearing Status: Full ADL Assessment Eating Assistance Needed: Independent CARE Score - Eatin Oral Hygiene Assistance Needed: Independent CARE Score - Oral Hygiene: 6 Toileting Hygiene Assistance Needed: Supervision Physical Assistance Level: No physical assistance Comment: safety frame CARE Score - Toileting Hygiene: 4 Shower/Bathe Self Assistance Needed: Supervision Physical Assistance Level: No physical assistance Comment: entierly seated CARE Score - Shower/Bathe Self: 4 Upper Body Dressing Assistance Needed: Independent CARE Score - Upper Body Dressin Lower Body Dressing Assistance Needed: Supervision Physical Assistance Level: No physical assistance CARE Score - Lower Body Dressin Putting On/Taking Off Footwear Assistance Needed: Set-up / clean-up Physical Assistance Level: No physical assistance CARE Score - Putting On/Taking Off Footwear: 5 Functional Transfers Toilet Transfer Assistance Needed: Independent Physical Assistance Level: No physical assistance Comment: RW CARE Score - Toilet Transfer: 6 OT Assessment Results: OT Assessment Results: Decreased ADL status, Decreased endurance, Decreased IADLs, Decreased functional mobility Evaluation/Treatment Tolerance: Evaluation/Treatment Tolerance: Patient tolerated treatment well Comments: Comments: Pt progressing to mod I with ADLs. pt reports that looking to obtain toilet safety frame today. Pt reports plan to wait to obtain tub bench and do sponge bathing, and can obtain if he changes his mind. initial cues for maintaining TDWB during STS. Plan Treatment/Interventions: Treatment Interventions: ADL retraining, Functional [...] CARE Score - Sit to Stand: 6 Chair/Lzx-sj-Nlqkd Transfer Assistance Needed: Independent Physical Assistance Level: No physical assistance Comment: RW CARE Score - Chair/Edr-ix-Cvnqv Transfer: 6 Car Transfer Assistance Needed: Independent Comment: RW Reason if not Attempted: Environmental limitations CARE Score - Car Transfer: 6 Picking Up Object Assistance Needed: Independent Physical Assistance Level: No physical assistance Comment: disk sharpener CARE Score - Picking Up Object: 6 Wheelchair Wheel 50 Feet with Two Turns Assistance Needed: Independent CARE Score - Wheel 50 Feet with Two Turns: 6 Type of Wheelchair/Scooter: Manual Wheel 150 Feet Assistance Needed: Independent CARE Score - Wheel 150 Feet: 6 Type of Wheelchair/Scooter: Manual Ambulation Walk 10 Feet Assistance Needed: Independent [...] Walking 10 Feet on Uneven Surfaces: 6 Stairs/Curb step 1 Step (Curb) Assistance Needed: Physical assistance Physical Assistance Level: 25% or less Comment: RW Reason if not Attempted: Safety [...] Patient tolerated treatment well Comments: Comments: Pt with improved pain tolerance today, however towards end of session pt orthostatic. Plan Treatment/Interventions: Treatment/Interventions: Functional transfer training, LE [...] Perceptions: Slightly limited Moisture: Rarely moist Activity: Walks occasionally Mobility: Slightly limited Nutrition: Adequate Friction and Shear: Potential problem David Scale Score: 18 Pain Assessment Pain Assessment: 0-10 Pain Score: 3 FACES Pain Scale - Revised: 0 Pain Type: Acute pain Pain Location: Buttocks Pain Orientation: Left Pain Descriptors: Aching, Throbbing Pain Onset: (with activity;therapy) Pain Interventions: Medication (See MAR) Activities/Procedures Causing Pain: Therapy Bowel Management Bowel Program/Regime: Bowel Continence Status: Continent movement Last BM Date: 08/12/24 Bladder Management Bladder Scan Protocol: Bladder Continence Status: Continent void Toileting Physical Therapy Assessment Orthopedic Precautions Braces/Prosthesis/Orthotics Bed Mobility Transfers Wheelchair Ambulation Stairs Curb PT Assessment Results: Decreased strength, Decreased range of motion, Decreased endurance, Impaired balance, Decreased mobility, Impaired gait, Orthopedic restrictions, Pain Prognosis: Good Evaluation/Treatment Tolerance: Patient tolerated treatment well Comments: Pt with improved pain tolerance today, however towards end of session pt orthostatic. Plan Treatment/Interventions: Functional transfer training, LE strengthening/ROM, Endurance training, Patient/family training, Bed mobility, Gait training, Balance training PT Plan: Skilled PT Discharge Recommendations: Equipment Recommended: Barriers to Discharge: Occupational Therapy Assessment Overall Cognitive Status Within Functional Limits Vision ADL Assessment IADL Assessment Functional Transfers OT Assessment Results: Decreased ADL status, Decreased [...] initial cues for maintaining TDWB during STS. Plan Treatment/Interventions: ADL retraining, Functional transfer training, UE strengthening/ROM, Endurance training OT Plan: Skilled OT Discharge Recommendations: (TBD at d/c) Equipment Recommended: (TBD at d/c) Barriers to Discharge: Cattle Sorter's Assessment Adult diet [facility]; General; Regular Assessment Diet Experience Previous Diet / Nutrition Education / Counseling: Pt reports fair appetite and intake at home. Usually eats 2 meals per day and grazes later at night. Does not follow therapeutic diet restrictions. No reported food allergies. Denies issues with chewing/swallowing. States weight has been stable at ~183 lb. Appetite CHAIN REPAIRER: Good Intake CHAIN REPAIRER: Stable Nutrition Diagnosis Status: New Diagnosis: No Acute Nutrition Dx Nutrition Interventions: Diet Order, Meals/Snacks Monitoring/Evaluation: Fluid/Beverage Intake, Food Intake, Weight, Diet Order, Gastrointestinal Profile Physician Attestation: Pauline Gordon, DO, have led the team conference and agree with the results, findings, and decisions made by the interdisciplinary team. documented in this encounter Plan of Treatment Upcoming Encounters Date Type Department Care Team (Late st Contact Info) Description 08/27/2024 1:30 PM EDT Office Visit [address] [phone] Jm Hastings MD [address] [place] [address] 12/11/2024 8:30 AM EDT Office Visit [address] [phone] Jm Hastings MD [address] [place] [address] documented as of this encounter Visit Diagnoses Not on filedocumented in this encounter Additional Health Concerns Assessment Noted Time PHQ-9 Depression Total Score: 0 08/02/19 25 12:23 PM EST documented as of this encounter Care Teams Parts Room Associate Relationship Specialty Start Date End Date Jm Hastings MD [address] [place] [address] PCP - General Internal Medicine 06/28/17 documented as of this encounter
--- OUTSIDE RECORDS SUMMARY | 2024-08-17 13:54 | XMS_ITS | Encounter Summary ---
Author Organization [facility] [place] [address] Care Team Providers Care Residency Coordinator Name Role Phone Jm Hastings MD Primary Care Provider [phone] Reason for Visit * Reason Onset Date Comments Hospital Follow-up 08/09/2024 Encounter Details Date Type Department Care Team (Late st Contact Info) Description 08/09/2024 Telephone Adult Medicine [facility] [address] [place] [address] Jm Hastings MD [address] [place] [address] Hospital Follow-up Social History Tobacco Use Types Packs/Day Years [...] as of this encounter Progress Notes * Jessica Gill RN - 08/09/2024 9:28 AM EST Pt booked for 08/27 at 1:30 * Nano Stephens - 08/09/2024 9:12 AM EST Hospital/ER follow up appointment needed Hospital patient was treated at: [facility] Was this only an ER visit or was the patient admitted to the hospital? Admitted to the hospital/kept overnight Date of visit if ER visit only: If patient was admitted what was the date of discharge? 08/15/24 Reason/diagnosis for visit or stay: Pubic Rami fracture When was the patient told to follow up? 7-10 days Was visit or stay related to an injury? If yes, what was the date of injury (DOI)? Yes. Patinet fell If yes, was the injury due to: Not 3rd libertarian related documented in this encounter Plan of Treatment Upcoming Encounters Date Type Department Care Team (Late st Contact Info) Description 08/27/2024 1:30 PM EDT Office Visit [address] [phone] Jm Hastings MD [place], [place] 12/11/2024 8:30 AM EDT Office Visit [address] [phone] Jm Hastings MD [address] [place] [address] documented as of this encounter Visit Diagnoses Not on filedocumented in this encounter Additional Health Concerns Assessment Noted Time PHQ-9 Depression Total Score: 0 08/02/19 25 12:23 PM EST documented as of this encounter Care Teams Residency Coordinator Relationship Specialty Start Date End Date Jm Hastings MD [address] [place] [address] PCP - General Internal Medicine 06/28/17 documented as of this encounter
--- OUTSIDE RECORDS SUMMARY | 2024-08-17 13:54 | XMS_ITS | Clinical Summary ---
Author Organization [facility] Address [address] [place] [address] Care Team Providers Care Drawing Machine Operator Name Role Phone Jm Hastings MD Primary Care Provider [phone] Allergies No known active allergies Medications No [...] age to complete this topic Care Teams Drawing Machine Operator Relationship Specialty Start Date End Date Jm Hastings MD PCP - General Internal Medicine 08/19/17
== END 2024-08-17 13:12 | disposition home or self-care (01) ==
LOC: HO.HOS 12:10
PROVIDERS: PCP Internal Medicine; Visit Provider Physician Assistant
DX: S32.591A Other specified fracture of right pubis, initial encounter for closed fracture (principal)
CPT/HCPCS: 99203; G2211

== ENCOUNTER → 2024-08-17 12:33 | Outpatient (BNV) | payer MEDICARE, SELFPAY | PROVIDERS: Visit Provider Radiology Diagnostic Radiology | DX: M25.551 Pain in right hip (principal) | CPT/HCPCS: 72170 ==

== ENCOUNTER 2024-08-30 14:43 | Emergency (ER) | payer MEDICARE, SELFPAY ==
--- NOTE | ~2024-08-30 | CT_ITS ---
CLINICAL HISTORY: tachycardia, low oxygen yogi, elevated D-dimer CT angiography chest with contrast. 3D Postprocessing. Comparison: None Findings: The heart size is normal. RV/LV ratio is normal. Unremarkable thoracic aorta and great vessels. No aneurysm. Left lower lobe pulmonary embolus. There is a sliding-type hiatal hernia. The visualized thyroid and mediastinum are otherwise unremarkable. No consolidation or effusion. The upper abdomen is unremarkable. The bones are intact. IMPRESSION: 1. Positive for left lower lobe pulmonary embolus. This document has been electronically signed by: Alfred Mahoney MD on 08/30/2024 18:57:47
--- NOTE | ~2024-08-30 | XR_ITS ---
EXAMINATION: XR CHEST CLINICAL INFORMATION: hypoxia COMPARISON: None available. TECHNIQUE: Frontal view of the chest was obtained. FINDINGS: The lungs are well-expanded and clear acute process. The heart size and pulmonary vascularity is normal. No gross bony abnormality seen. XR/XR chest 1V IMPRESSION: Unremarkable chest examination Electronically signed by: Mehdi Redding MD 08/30/2024 04:19 PM EDT RP
--- NOTE | 2024-08-30 14:48 | ECG_ITS ---
Test Reason : palpitations Blood Pressure : */* mmHG Vent. Rate : 108 BPM Atrial Rate : 108 BPM P-R Int : 154 ms QRS Dur : 76 ms QT Int : 318 ms P-R-T Axes : 51 -25 56 degrees QTcB Int : 426 ms Sinus tachycardia Cannot rule out Anterior infarct , age undetermined Abnormal ECG When compared with ECG of 04-Dec-2020 10:26, Minimal criteria for Anterior infarct are now Present Nonspecific T wave abnormality now evident in Anterior leads Referred By: Generic ED Physician Electronically Signed By: Angel Ag
[2024-08-30 14:55] VITALS: BP 131/74; PULSE 117; RESP 16; TEMP 36.9; O2SAT 95; BMI 26.1
--- NOTE | 2024-08-30 14:56 | ED_ITS ---
HPI - General Adult General Chief complaint: General Medical Stated complaint: heart rate elevated high Time Seen by Provider: 08/30/24 16:08 History of Present Illness ED Provider: Ceferino GONZALEZ narrative: The patient is a 79-year-old male who sustained a pelvic fracture 5 weeks ago. He was seen here in the emergency room. He was discharged from the emergency room to go to a rehab facility at [place] for 2 weeks. He has been home for 3 weeks. He feels that he has been recovering well. He followed up with Orthopedics and had x-rays and was told that the fractures seemed to be healing well. Today a visiting nurse came and felt that he was tachycardic. They did a trial of ambulation with a pulse oximeter and apparently his oxygenation went to 84% although the patient had no symptoms associated with this. The patient says he did not feel short of breath. He had no chest pain. He had no pleuritic pain. He has not had a fever, sweats, chills. He has not been ill otherwise. He does not feel he has had any pain or swelling in his legs or calves. It is not clear how fast his heart rate made has been going at the time that the nurse became concerned. The patient takes a baby aspirin daily. Related Data Home Medications ?Medication ?Instructions ?Recorded ?Confirmed acetaminophen 500 mg tablet 1,000 mg PO Q6H PRN Pain (Scale 07/30/24 07/30/24 Score 1-3) amlodipine 2.5 mg tablet 2.5 mg PO BEDTIME 07/30/24 07/30/24 aspirin 81 mg chewable tablet 81 mg PO BEDTIME 07/30/24 07/30/24 lisinopril 20 mg tablet 20 mg PO BEDTIME 07/30/24 07/30/24 Previous Rx's ?Medication ?Instructions ?Recorded atorvastatin 80 mg tablet 80 mg PO BEDTIME #30 tabs 12/05/20 acetaminophen 325 mg tablet 650 mg (2 x 325 mg) PO Q6H PRN 08/01/24 Pain, Mild 1-3,Fever,Headache #1 tab docusate sodium 100 mg capsule 100 mg PO BID PRN constipation #1 08/01/24 (Colace) cap magnesium hydroxide 400 mg/5 mL 30 ml PO DAILY PRN Constipation #1 08/01/24 oral suspension (Milk of Magnesia) mL omeprazole 20 mg capsule,delayed 20 mg PO BID@0630,1630 #1 cap 08/01/24 release tramadol 50 mg tablet 25 mg (1/2 x 50 mg) PO Q6H PRN 08/01/24 Pain, Moderate(Pain Scale 4-6) #20 tabs apixaban 5 mg (74 tabs) tablets in 5 mg PO BID #74 ea 08/30/24 a dose pack (Eliquis DVT-PE Treat 30D Start) Allergies Allergy/AdvReac Type Severity Reaction Status Date / Time No Known Allergies Allergy Mild N/A Verified 08/30/24 15:00 Review of Systems 2 Review of Systems: Yes all other systems are reviewed and are negative [facility] Past Medical History Medical History Essential hypertension Stroke Numbness Tongue cancer Surgical History History of cancer surgery Social History Social History Household Members: Spouse and Children Alcohol intake: never Patient Tobacco Use Status: Former Tobacco user Smoked in Last 30 Days: No Use of substances other than those prescribed or required for medical reasons: No Advance Directives: Yes Advance Directives Information Provided: Yes Advance Directives on File: No service: No Current occupational status: employed Physical Exam ED Vital Signs: Vital Signs - 24 hr 08/30/24 14:55 08/30/24 15:35 08/30/24 16:20 Temperature 98.4 F 98.2 F Pulse Rate 117 H 104 H 98 Respiratory Rate 16 15 20 Blood Pressure 131/74 130/81 135/85 Pulse Oximetry 95 95 98 Oxygen Delivery Method Room Air Room Air Room Air 08/30/24 18:03 08/30/24 18:59 08/30/24 19:47 Temperature 98.3 F 98.4 F 98.4 F Pulse Rate 89 88 88 Respiratory Rate 15 20 20 Blood Pressure 112/66 112/65 112/65 Pulse Oximetry 94 96 96 Oxygen Delivery Method Room Air Room Air Room Air BMI result Body Mass Index 26.1 Const Other: The patient is an older man who was awake and alert, pleasant cooperative. He does not appear in acute distress. He is quite cheerful. HENMT Other: Face is symmetrical. Mucous membranes moist. Eyes Other: Pupils are round equal, conjunctivae are clear, extraocular movements intact Neck Neck: Yes full ROM and Yes no JVD Resp Effort & Inspection: normal respiratory effort Auscultation: clear to auscultation bilaterally Cardio Rate: regular rate Rhythm: regular rhythm Heart sounds: S1 normal heart sound present and S2 normal heart sound present GI Other: Abdomen is soft and nontender Course Course Course Narrative: This is an RME: Additional HPI, ROS, PE not included below will be deferred to primary provider. RME assessment and note performed by: Samira Marvin PA-C This is a [id number], with a hx of HTN, CVA who presents to the ER with concerns for tachycardia and hypoxia. Patient was seen by a visiting nurse this morning and was found to have patient's oxygen saturation was 83%, tachy in the 110s. Pt 97% on RA. He is well appearing, under no acute distress. Plan: labs, ekg, cxr, further Er eval needed Medications Administered Discontinued Medications Generic Name Dose Route Start Last Admin Trade Name Freq PRN Reason Stop Dose Admin Enoxaparin Sodium 80 mg 08/30/24 19:21 08/30/24 19:38 Enoxaparin Sodium 80 Mg/0.8 Ml Syringe SUBCUT 08/30/24 19:22 80 mg ONCE ONE Administration Iohexol 100 ml 08/30/24 18:19 08/30/24 18:22 Iohexol 350 Mg/Ml 100 Ml Infus..Btl IV 08/30/24 18:20 65 ml ONCE ONE Administration Medical Decision Making Medical Decision Making [facility] Narrative: The patient is a 79-year-old male who does not appear acutely ill. He apparently had some tachycardia earlier and some transient low oxygen saturations when he was walking. At rest here he looks quite well and comfortable and is asymptomatic. His oxygen saturation on room air is excellent. Given the description of the issues that had him sent to the emergency room I felt we needed to rule out a pulmonary embolism. He has been relatively less mobile over the last few weeks since his pelvic fracture. A D-dimer was quite elevated. A CT pulmonary angiogram shows a left lower lobe pulmonary embolism. There was no sign of right heart strain on the CT scan. He has an undetectable troponin and an undetectable BNP. He has no signs of a DVT on his physical exam. Given that he looks as well I think he can probably be treated as an outpatient. He was given an injection of enoxaparin here in the emergency room. He will be discharged with a starter pack for apixaban for pulmonary embolism treatment. Lab Data 08/30/24 15:26 08/30/24 15:26 Labs: Lab Results 08/30/24 08/30/24 08/30/24 Range/Units 15:14 15:25 15:26 WBC 12.3 H (4.8-10.8) X10*3/uL RBC 4.95 (4.60-5.80) X10*6/uL Hgb 14.4 (14.0-18.0) g/dl Hct 42.4 (42.0-52.0) % MCV 85.7 (80.0-98.0) fL MCH 29.1 (27.0-33.0) pg MCHC 34.0 (31.0-36.0) g/dl RDW 13.4 (11.0-16.0) % Plt Count 483 H D (160-400) X10*3/uL MPV 8.9 L (9.4-12.4) fL Immature Gran % (Auto) 0.6 H (0.0-0.4) % Neut % (Auto) 66.7 (45-73) % Lymph % (Auto) 19.2 L (20-40) % [place] % (Auto) 8.2 (2-11) % Eos % (Auto) 4.7 H (0-4) % Baso % (Auto) 0.6 (0-2) % Lymph # (Auto) 2.4 (1.2-4.9) X10*3/uL [place] # (Auto) 1.0 (0.1-1.2) X10*3/uL Eos # (Auto) 0.6 H (0.0-0.4) X10*3/uL Baso # (Auto) 0.1 (0.0-0.2) X10*3/uL Abs Immat Gran (auto) 0.08 H (0.00-0.03) X10*3/uL Absolute Neuts (auto) 8.2 (2.0-8.3) x10*3/uL Absolute Nucleated RBC 0.000 (0.0-0.012) X10*3/uL Nucleated RBC % (auto) 0.0 (0.0-0.2) /100WBC D-Dimer High Sensitivty NG/ML VBG pH (7.32-7.43) VBG pCO2 mmHg VBG pO2 mmHg VBG HCO3 (22-26) mmol/L VBG O2 Saturation % VBG Base Excess mmol/L Sodium 140 (135-145) mmol/L Potassium 4.1 (3.3-5.1) mmol/L Chloride 107 (96-108) mmol/L Carbon Dioxide 25 (22-29) mmol/L Anion Gap 12 (12-20) BUN 25 H (9-16) mg/dL Creatinine 1.11 (0.5-1.4) mg/dL Estim Creat Clear Calc 53.9 Estimated GFR > 60 Random Glucose 144 H (60-115) mg/dL Lactic Acid 2.2 H* (0.5-2.0) mmol/L Lactic Acid F/U @ 2Hr (0.5-2.0) mmol/L Calcium 9.2 (8.4-10.2) mg/dL Magnesium 2.0 (1.6-2.6) mg/dL Total Bilirubin 0.3 (0.0-1.0) mg/dL Direct Bilirubin 0.1 (0.0-0.5) mg/dL AST 28 (5-37) U/L ALT 30 (0-40) U/L Alkaline Phosphatase 197 H (39-117) U/L Troponin I High Sens < 2.7 (<3.5-35.0) ng/L B-Natriuretic Peptide < 10 (<100) pg/mL Total Protein 7.9 (6.5-8.0) g/dL Albumin 3.9 (3.5-5.0) g/dL Influenza Type A (PCR) NEGATIVE (Negative) Influenza Type B (PCR) NEGATIVE (Negative) RSV RNA Qual (PCR) NEGATIVE (Negative) SARS-CoV-2 RNA (RT-PCR) NEGATIVE (Negative) 08/30/24 08/30/24 08/30/24 Range/Units 15:38 16:38 17:56 WBC (4.8-10.8) X10*3/uL RBC (4.60-5.80) X10*6/uL Hgb (14.0-18.0) g/dl Hct (42.0-52.0) % MCV (80.0-98.0) fL MCH (27.0-33.0) pg MCHC (31.0-36.0) g/dl RDW (11.0-16.0) % Plt Count (160-400) X10*3/uL MPV (9.4-12.4) fL Immature Gran % (Auto) (0.0-0.4) % Neut % (Auto) (45-73) % Lymph % (Auto) (20-40) % [place] % (Auto) (2-11) % Eos % (Auto) (0-4) % Baso % (Auto) (0-2) % Lymph # (Auto) (1.2-4.9) X10*3/uL [place] # (Auto) (0.1-1.2) X10*3/uL Eos # (Auto) (0.0-0.4) X10*3/uL Baso # (Auto) (0.0-0.2) X10*3/uL Abs Immat Gran (auto) (0.00-0.03) X10*3/uL Absolute Neuts (auto) (2.0-8.3) x10*3/uL Absolute Nucleated RBC (0.0-0.012) X10*3/uL Nucleated RBC % (auto) (0.0-0.2) /100WBC D-Dimer High Sensitivty 1987 NG/ML VBG pH 7.36 (7.32-7.43) VBG pCO2 45 mmHg VBG pO2 44 mmHg VBG HCO3 25 (22-26) mmol/L VBG O2 Saturation 70.0 % VBG Base Excess 0.1 mmol/L Sodium (135-145) mmol/L Potassium (3.3-5.1) mmol/L Chloride (96-108) mmol/L Carbon Dioxide (22-29) mmol/L Anion Gap (12-20) BUN (9-16) mg/dL Creatinine (0.5-1.4) mg/dL Estim Creat Clear Calc Estimated GFR Random Glucose (60-115) mg/dL Lactic Acid (0.5-2.0) mmol/L Lactic Acid F/U @ 2Hr 1.0 (0.5-2.0) mmol/L Calcium (8.4-10.2) mg/dL Magnesium (1.6-2.6) mg/dL Total Bilirubin (0.0-1.0) mg/dL Direct Bilirubin (0.0-0.5) mg/dL AST (5-37) U/L ALT (0-40) U/L Alkaline Phosphatase (39-117) U/L Troponin I High Sens (<3.5-35.0) ng/L B-Natriuretic Peptide (<100) pg/mL Total Protein (6.5-8.0) g/dL Albumin (3.5-5.0) g/dL Influenza Type A (PCR) (Negative) Influenza Type B (PCR) (Negative) RSV RNA Qual (PCR) (Negative) SARS-CoV-2 RNA (RT-PCR) (Negative) Discharge Plan Discharge Clinical Impression: Pulmonary embolism on left Patient Disposition: Home, Self-Care Instructions: Blood Thinners (ED) Additional Instructions: The CT scan shows that you have a pulmonary embolism in your left lower lung. Fortunately this seems to be an isolated blood clot and there is no sign of any change in your heart function. You received an injection of an anticoagulant medication in the emergency room here this evening. I have sent a prescription for anticoagulant pills to your pharmacy. Please garbage pick up man this prescription 1st thing tomorrow morning and start taking the pills as prescribed. You will take 2 pills 2 times a day for 7 days and then you will take 1 pill 2 times a day thereafter. Please contact your regular doctor's office tomorrow to make a prompt follow up appointment to discuss this further and to maintain ongoing anticoagulation for at least the next few months. Return to the emergency room if you feel significantly worse. Prescriptions: Memo Multani DVT-PE Treat 30D Start 5 mg (74 tabs) tablets,dose pack 5 mg PO BID Qty: 74 0RF No Action atorvastatin 80 mg tablet 80 mg PO BEDTIME Qty: 30 0RF lisinopril 20 mg tablet 20 mg PO BEDTIME amlodipine 2.5 mg tablet 2.5 mg PO BEDTIME acetaminophen 500 mg Tablet 1,000 mg PO Q6H PRN (Reason: Pain (Scale Score 1-3)) aspirin 81 mg tablet,chewable 81 mg PO BEDTIME acetaminophen 325 mg Tablet 650 mg PO Q6H PRN (Reason: Pain, Mild 1-3,Fever,Headache) Qty: 1 0RF tramadol 50 mg Tablet 25 mg PO Q6H PRN (Reason: Pain, Moderate(Pain Scale 4-6)) Qty: 20 0RF magnesium hydroxide [Milk of Magnesia] 400 mg/5 mL Suspension 30 ml PO DAILY PRN (Reason: Constipation) Qty: 1 0RF omeprazole 20 mg Capsule,Delayed Release(Dr/Ec) 20 mg PO BID@0630,1630 Qty: 1 0RF docusate sodium [Colace] 100 mg capsule 100 mg PO BID PRN (Reason: constipation) Qty: 1 0RF Interventions: ED Discharge Assessment Last Done: 08/30/24 19:47 Discharge Date/Time: 08/30/24 19:48 Print Language: Nigerian
--- NOTE | 2024-08-30 15:00 | ECG_ITS ---
Test Reason : tachycardia Blood Pressure : */* mmHG Vent. Rate : 52 BPM Atrial Rate : 52 BPM P-R Int : 240 ms QRS Dur : 86 ms QT Int : 462 ms P-R-T Axes : 29 -16 52 degrees QTcB Int : 429 ms Sinus bradycardia with marked sinus arrhythmia with 1st degree A-V block Otherwise normal ECG When compared with ECG of 30-Aug-2024 14:49, DE interval has increased Vent. rate has decreased by 56 bpm Nonspecific T wave abnormality no longer evident in Anterior leads Referred By: Samira Marvin Electronically Signed By:
[2024-08-30 15:35] VITALS: BP 130/81; PULSE 104; RESP 15; TEMP 36.8; O2SAT 95
--- NOTE | 2024-08-30 15:36 | MHC.EDTECH ---
Pt cvhanged into a hospital gown and placed on a youth nutritional monitor
[2024-08-30 15:38] LABS: MANUAL DIFF FLAG NO
[2024-08-30 15:41] LABS: Venous Blood Gas Refer to POC result
[2024-08-30 15:42] LABS: VBG Base Excess 0.1 mmol/L; VBG HCO3 25 mmol/L (22-26); VBG pCO2 45 mmHg; VBG pH 7.36 (7.32-7.43); VBG pO2 44 mmHg
[2024-08-30 15:43] LABS: Basophils Absolute Auto 0.1 X10*3/uL (0.0-0.2); Basophils Percent Auto 0.6 % (0-2); Eosinophils Absolute Auto 0.6 X10*3/uL (0.0-0.4); Eosinophils Percent Auto 4.7 % (0-4); Hematocrit 42.4 % (42.0-52.0); Hemoglobin 14.4 g/dl (14.0-18.0); Imm Gran Abs Auto 0.08 X10*3/uL (0.00-0.03); Imm Gran Pct Auto 0.6 % (0.0-0.4); Lymphocytes Absolute Auto 2.4 X10*3/uL (1.2-4.9); Lymphocytes Percent Auto 19.2 % (20-40); Mean Corpuscular Hemoglobin 29.1 pg (27.0-33.0); Mean Corpuscular Volume 85.7 fL (80.0-98.0); Mean Platelet Volume 8.9 fL (9.4-12.4); Monocytes Percent Auto 8.2 % (2-11); Neutrophils Absolute Auto 8.2 x10*3/uL (2.0-8.3); Neutrophils Percent Auto 66.7 % (45-73); Platelet Count 483 X10*3/uL (160-400); Red Blood Count 4.95 X10*6/uL (4.60-5.80); Red Cell Distribution Width 13.4 % (11.0-16.0); White Blood Count 12.3 X10*3/uL (4.8-10.8)
[2024-08-30 15:58] LABS: Alanine Aminotransferase 30 U/L (0-40); Albumin Level 3.9 g/dL (3.5-5.0); Alkaline Phosphatase 197 U/L (39-117); Anion Gap 12 (12-20); Aspartate Amino Transferase 28 U/L (5-37); Bilirubin Direct 0.1 mg/dL (0.0-0.5); Bilirubin Total 0.3 mg/dL (0.0-1.0); Blood Urea Nitrogen 25 mg/dL (9-16); Calcium 9.2 mg/dL (8.4-10.2); Carbon Dioxide 25 mmol/L (22-29); Chloride 107 mmol/L (96-108); Creatinine Clr Calc Pharmacy 53.9; Estimated Glomerular Filt Rate > 60; Glucose Random 144 mg/dL (60-115); Potassium 4.1 mmol/L (3.3-5.1); Sodium 140 mmol/L (135-145); Total Protein 7.9 g/dL (6.5-8.0)
[2024-08-30 16:02] LABS: Lactic Acid 2.2 mmol/L (0.5-2.0)
[2024-08-30 16:03] LABS: B Type Natriuretic Peptide < 10 pg/mL (<100)
[2024-08-30 16:07] LABS: Troponin-I High Sensitivity < 2.7 ng/L (<3.5-35.0)
[2024-08-30 16:20] VITALS: BP 135/85; PULSE 98; RESP 20; O2SAT 98
[2024-08-30 16:22] LABS: Influenza A PCR NEGATIVE (Negative); Influenza B PCR NEGATIVE (Negative); Resp Syncy Virus RNA Qual PCR NEGATIVE (Negative); SARS COV2 PCR INHOUSE NEGATIVE (Negative)
[2024-08-30 16:51] LABS: D Dimer High Sensitivity 1987 NG/ML
[2024-08-30 17:37] LABS: Reflex Lactate? Lactic Acid Added
--- NOTE | 2024-08-30 17:53 | PC.NURSE ---
Asked MD about lactic acid, stated not a priority at this time. Stated was not him that ordered it.
[2024-08-30 18:03] VITALS: BP 112/66; PULSE 89; RESP 15; TEMP 36.8; O2SAT 94
[2024-08-30] MEDS: iohexoL 350 MG/ML 100 ML INFUS..BTL IV (18:22)
[2024-08-30 18:59] VITALS: BP 112/65; PULSE 88; RESP 20; TEMP 36.9; O2SAT 96
[2024-08-30] MEDS: Enoxaparin Sodium 80 MG/0.8 ML SYRINGE SUBCUT (19:38)
[2024-08-30 19:47] VITALS: BP 112/65; PULSE 88; RESP 20; TEMP 36.9; O2SAT 96
== END 2024-08-30 19:48 | disposition home or self-care (01) ==
PROVIDERS: Physician Assistant Medical; Emergency Provider Emergency Medicine; PCP Internal Medicine
DX: I26.99 Other pulmonary embolism without acute cor pulmonale (principal); R00.0 Tachycardia, unspecified; I10 Essential (primary) hypertension; E78.5 Hyperlipidemia, unspecified; Z79.82 Long term (current) use of aspirin; Z79.899 Other long term (current) drug therapy; Z79.02 Long term (current) use of antithrombotics/antiplatelets; Z87.891 Personal history of nicotine dependence; Z86.73 Personal history of transient ischemic attack (TIA), and cerebral infarction without residual deficits; Z03.818 Encounter for observation for suspected exposure to other biological agents ruled out
CPT/HCPCS: 0241U; 36415; 71045; 71275; 80048; 80076; 82803; 83605; 83735; 83880; 84484; 85025; 85379; 87040; 93005; 96372; 99284; 99285; J1650; Q9967

== ENCOUNTER → 2024-08-30 14:48 | Outpatient (BNV) | payer MEDICARE, SELFPAY | PROVIDERS: Emergency Provider Emergency Medicine; PCP Internal Medicine; Visit Provider Internal Medicine Cardiovascular Disease | DX: I44.0 Atrioventricular block, first degree (principal); I49.9 Cardiac arrhythmia, unspecified | CPT/HCPCS: 93010 ==

== ENCOUNTER → 2024-08-30 15:01 | Outpatient (BNV) | payer MEDICARE, SELFPAY | PROVIDERS: Emergency Provider Emergency Medicine; PCP Internal Medicine; Visit Provider Radiology Diagnostic Radiology | DX: I26.99 Other pulmonary embolism without acute cor pulmonale (principal) | CPT/HCPCS: 71045 ==

== ENCOUNTER 2024-10-19 08:31 | Outpatient (AMB) | payer MEDICARE, SELFPAY ==
--- OUTSIDE RECORDS SUMMARY | 2024-10-19 08:44 | XMS_ITS | Encounter Summary ---
Author Organization [facility] Address [address] [place] [address] Care Team Providers Care Tire Servicer Name Role Phone Jm Hastings MD Primary Care Provider [phone] Reason for Visit * Reason Comments E-prescribe Rx Request Encounter Details Date Type Department Care Team Description 08/29/2023 Refill Adult Medicine [address] [id number] Jm Hastings MD [address] [place] [address] [id number] E-prescribe Rx Request Social History Tobacco Use Types Packs/Day Years Used Date Smoking Tobacco: Former Smokeless Tobacco: Never Comments:quit 1990, unsure o f exact date Alcohol Use Standard Drinks/Week Comments Yes 0 (1 standard drink = 0.6 oz pur e alcohol) liquor once a month Sex Assigned at Date Recorded Not on file Job Start Date Occupation Industry Not on file Not on file Not on file documented as of this encounter Miscellaneous Notes * Telephone Encounter - Thalia Simental M.A. - 08/29/2023 12:44 PM EDT Lab Results Component Value Date NA 144 08/02/2023 K 4.5 08/02/2023 CO2 28 08/02/2023 CL 108 08/02/2023 BUN 27 08/02/2023 CREAT 1.22 08/02/2023 GLU 132 08/02/2023 CA 10.1 08/02/2023 GFR 61 08/02/2023 Pending appt 01/05/24 Last appt 08/04/23 documented in this encounter Plan of Treatment Not on file documented as of this encounter Visit Diagnoses Not on filedocumented in this encounter Care Teams Tire Servicer Relationship Specialty Start Date End Date Jm Hastings MD [address] [place] [id number] PCP - General Internal Medicine 06/28/17 documented as of this encounter
--- OUTSIDE RECORDS SUMMARY | 2024-10-19 08:44 | XMS_ITS | Clinical Summary ---
Author Organization [facility] Address [address] [place] [address] Care Team Providers Care Evp Strategy Name Role Phone Jm Hastings MD Primary Care Provider [phone] Allergies No known active allergies Medications No [...] age to complete this topic Care Teams Evp Strategy Relationship Specialty Start Date End Date Jm Hastings MD PCP - General Internal Medicine 08/19/17
--- OUTSIDE RECORDS SUMMARY | 2024-10-19 08:44 | XMS_ITS | Encounter Summary ---
Author Organization [facility] Address [address] [place] [address] Care Team Providers Care Rehabilitation Specialist Name Role Phone Jm Hastings MD Primary Care Provider [phone] Reason for Visit * Reason Comments E-prescribe Rx Request Encounter Details Date Type Department Care Team Description 02/18/2024 Refill Adult Medicine [address] [id number] Jm Hastings MD [address] [place] [address] [id number] E-prescribe Rx Request Social History Tobacco Use [...] encounter Miscellaneous Notes * Telephone Encounter - Pamela Forrester M.A. - 02/18/2024 8:24 AM EDT Lab Results Component Value Date NA 143 01/03/2024 K 4.5 01/03/2024 CO2 29 01/03/2024 CL 109 01/03/2024 BUN 30 01/03/2024 CREAT 1.36 01/03/2024 GLU 104 01/03/2024 CA 9.1 01/03/2024 GFR 53 01/03/2024 AMANDA 01/05/24 - PCP NOV 06/07/24 - PCP documented in this encounter Plan of Treatment Not on file documented as of this encounter Visit Diagnoses Not on filedocumented in this encounter Care Teams Rehabilitation Specialist Relationship Specialty Start Date End Date Jm Hastings MD [address] [place] [id number] PCP - General Internal Medicine 06/28/17 documented as of this encounter
--- OUTSIDE RECORDS SUMMARY | 2024-10-19 08:44 | XMS_ITS | Clinical Summary ---
Author Organization Unknown Care Team Providers Care Finished Cloth Examiner Name Role Phone ETELVINA GUTIERREZ ACTIVE UNTIL 12/10/2022, ZHONGPAPI Unavailable Unavailable GIANNA RN, ARACELIS Unavailable Unavailab penny SIDDIQUI PT, DEBORAH Unavailable Unavailable DICK AUTOCAD DESIGNER, OSIEL Unavailable Unavailable READING OT, KODAK Unavailable Unavailable CONDINO CREPE SOLE WIRE BRUSHER/ESCOBAR, RUDOLPH Unavailable Unav ailable Payers Payer Name Policy Type Policy Number Effective Date Expira tion Date MEDICARE.NGS.PDGM [id number] Problems Condition Name Condition Details Condition Category Status Onset Date Resolution Date Last Treatment Date Treating Clinician Comments FX SUPERIOR RIM OF RIGHT PUBIS, SUBS FOR FX W ROUTN HEAL Active 08-01 00:00: 00 OTH FRACTURE OF RIGHT PUBIS, SUBS FOR FX W ROUTN HEAL Active 08-01 00:00: 00 ESSENTIAL (PRIMARY) HYPERTENSION Active 08-01 00:00: 00 ANEMIA, UNSPECIFIED Active 06-13 00:00: 00 DIVERTICULUM OF BLADDER Active 08-01 00:00: 00 PURE HYPERCHOLEST EROLEMIA, UNSPECIFIED Active 06-13 00:00: 00 GASTRO-ESOPH AGEAL REFLUX DISEASE WITHOUT ESOPHAGITIS Active 06-13 00:00: 00 PERSONAL HISTORY OF MALIGNANT NEOPLASM OF TONGUE Active 06-13 00:00: 00 PRSNL HX OF TIA (TIA), AND CEREB INFRC W/O RESID DEFICITS Active 06-13 00:00: 00 PERSONAL HISTORY OF NICOTINE DEPENDENCE Active 06-13 00:00: 00 Allergies, Adverse Reactions, Alerts Allergy Name Allergy Type Status Severity Reaction(s) Onset Date Inactive Date Treating Clinician Comments NO KNOWN ALLERGIES Propensity to adverse reactions Active 3-06 12:30: 03 Medications Ordered Medication Name Filled Medication Name Start Date Stop Date Current Medication? Ordering Clinician Indication Dosage Frequency Signature (SIG) Comments Components cyclobenzap rine 5 mg tablet 08-16 00:00: 00 09-26 23:59 :00 No [id number] MUSCLE SPASMS 1 tablet 3 TIMES DAILY 1 tablet 3 TIMES DAILY (route: oral) Med Classific ation: Locomotor System enoxaparin 40 mg/0.4 mL subcutaneou s syringe 08-16 00:00: 00 08-17 23:59 :00 No [id number] PREVENT CLOTTING 40 mg DAILY 40 mg DAILY (route: subcutaneo us) Med Classific ation: Hematolog ical Agents gabapentin 100 mg capsule 08-16 00:00: 00 09-26 23:59 :00 No [id number] NERVE PAIN LEFT LEG 2 capsule 2 TIMES DAILY 2 capsule 2 TIMES DAILY (route: oral) Med Classific ation: Central Nervous System Agents oxycodone 5 mg tablet 08-16 00:00: 00 Yes [id number] MODERATE TO SEVERE PAIN 1 tablet EVERY 4 HOURS 1 tablet EVERY 4 HOURS (route: oral) Med Classific ation: Analgesic , Anti-infl ammatory or Antipyret ic pantoprazol e 40 mg tablet,keiry yed release 08-16 00:00: 00 09-26 23:59 :00 No [id number] GI PROTECTION 1 tablet EVERY AM 1 tablet EVERY AM (route: oral) Med Classific ation: Gastroint estinal Therapy Agents atorvastati n 80 mg tablet 08-16 00:00: 00 Yes [id number] HIGH LIPIDS 1 tablet BEDTIME 1 tablet BEDTIME (route: oral) Med Classific ation: Cardiovas cular Therapy Agents acetaminoph en 325 mg tablet 08-16 00:00: 00 Yes [id number] MILD PAIN, FEVER 2 tablet EVERY 6 HOURS 2 tablet EVERY 6 HOURS (route: oral) Med Classific ation: Analgesic , Anti-infl ammatory or Antipyret ic Aspirin Childrens 81 mg chewable tablet 08-16 00:00: 00 09-26 23:59 :00 No [id number] HIGH CHOLESTEROL 1 tablet DAILY 1 tablet DAILY (route: oral) Med Classific ation: Hematolog ical Agents Colace 100 mg capsule -06 00:00: 00 09-26 23:59 :00 No [id number] CONSTIPATIO N 1 capsule 2 TIMES DAILY 1 capsule 2 TIMES DAILY (route: oral) Med Classific ation: Gastroint estinal Therapy Agents lisinopril 10 mg tablet -06 00:00: 00 09-26 23:59 :00 No [id number] HIGH BLOOD PRESSURE 1 tablet DAILY 1 tablet DAILY (route: oral) Med Classific ation: Cardiovas cular Therapy Agents Eliquis 5 mg tablet 09-13 00:00: 00 Yes [id number] BLOOD THINNER 1 tablet 2 TIMES DAILY 1 tablet 2 TIMES DAILY (route: oral) Med Classific ation: Hematolog ical Agents amlodipine 2.5 mg tablet 09-26 00:00: 00 Yes [id number] HIGH BLOOD PRESSURE 1 tablet DAILY 1 tablet DAILY (route: oral) Med Classific ation: Cardiovas cular Therapy Agents gabapentin 100 mg capsule 09-26 00:00: 00 Yes [id number] NERVE PAIN 1 capsule BEDTIME 1 capsule BEDTIME (route: oral) Med Classific ation: Central Nervous System Agents lisinopril 20 mg tablet 09-26 00:00: 00 Yes [id number] HIGH BP 1 tablet DAILY 1 tablet DAILY (route: oral) Med Classific ation: Cardiovas cular Therapy Agents Vital Signs Vital Name Observation Time Observation Value Commen ts Temperature 2024-10-11 15:06:00.000 98.2 [degF] Temperature 2024-10-03 12:15:00.000 97.8 [degF] Temperature 2024-09-26 09:26:00.000 98 [degF] Temperature 2024-09-17 15:01:00.000 98.6 [degF] Temperature 2024-09-13 14:50:00.000 97.5 [degF] Temperature 2024-09-11 12:22:00.000 97.5 [degF] Temperature 2024-09-04 14:56:00.000 98.2 [degF] Temperature 2024-08-30 13:36:00.000 97 [degF] Temperature 2024-08-27 15:57:00.000 97.7 [degF] Temperature 2024-08-23 10:20:00.000 97.9 [degF] Temperature 2024-08-21 14:36:00.000 97.5 [degF] Temperature 2024-08-16 13:15:00.000 98 [degF] BMI (%) 2024-08-16 12:54:08.000 26 kg/m2 Height 2024-08-16 12:53:52.000 69 [in_us] Pulse 2024-10-11 15:06:00.000 89 /min Pulse 2024-10-03 12:15:00.000 84 /min Pulse 2024-09-26 09:26:00.000 87 /min Pulse 2024-09-17 15:01:00.000 100 /min Pulse 2024-09-13 14:50:00.000 76 /min Pulse 2024-09-11 12:22:00.000 82 /min Pulse 2024-09-04 14:56:00.000 91 /min Pulse 2024-08-30 13:36:00.000 104 /min Pulse 2024-08-23 10:20:00.000 68 /min Pulse 2024-08-21 14:36:00.000 96 /min Pulse 2024-08-16 13:15:00.000 78 /min O2 Saturation (%) 2024-10-11 15:06:00.000 93 % O2 Saturation (%) 2024-09-26 09:26:00.000 96 % O2 Saturation (%) 2024-09-13 14:50:00.000 96 % O2 Saturation (%) 2024-09-11 12:22:00.000 97 % O2 Saturation (%) 2024-08-21 14:36:00.000 94 % O2 Saturation (%) 2024-08-16 13:15:00.000 96 % Respirations 2024-10-11 15:06:00.000 18 /min Respirations 2024-10-03 12:15:00.000 18 /min Respirations 2024-09-26 09:26:00.000 18 /min Respirations 2024-09-17 15:01:00.000 18 /min Respirations 2024-09-13 14:50:00.000 16 /min Respirations 2024-09-11 12:22:00.000 18 /min Respirations 2024-09-04 14:56:00.000 18 /min Respirations 2024-08-30 13:36:00.000 18 /min Respirations 2024-08-27 15:57:00.000 17 /min Respirations 2024-08-23 10:20:00.000 17 /min Respirations 2024-08-21 14:36:00.000 18 /min Respirations 2024-08-16 13:15:00.000 18 /min Weight (lbs) 2024-08-23 10:21:00.000 183 [lb_av] Weight (lbs) 2024-08-16 12:54:08.000 179 [lb_av] Systolic Blood Pressure 2024-10-11 15:06:00.000 122 mm [Hg] Systolic Blood Pressure 2024-10-03 12:15:00.000 138 mm [Hg] Systolic Blood Pressure 2024-09-26 09:26:00.000 140 mm [Hg] Systolic Blood Pressure 2024-09-17 15:01:00.000 142 mm [Hg] Systolic Blood Pressure 2024-09-13 14:50:00.000 128 mm [Hg] Systolic Blood Pressure 2024-09-11 12:22:00.000 142 mm [Hg] Systolic Blood Pressure 2024-09-04 14:56:00.000 130 mm [Hg] Systolic Blood Pressure 2024-08-30 13:36:00.000 136 mm [Hg] Systolic Blood Pressure 2024-08-27 15:57:00.000 140 mm [Hg] Systolic Blood Pressure 2024-08-23 10:20:00.000 120 mm [Hg] Systolic Blood Pressure 2024-08-21 14:36:00.000 118 mm [Hg] Systolic Blood Pressure 2024-08-16 13:15:00.000 104 mm [Hg] Diastolic Blood Pressure 2024-10-11 15:06:00.000 64 mm [Hg] Diastolic Blood Pressure 2024-10-03 12:15:00.000 72 mm [Hg] Diastolic Blood Pressure 2024-09-26 09:26:00.000 74 mm [Hg] Diastolic Blood Pressure 2024-09-17 15:01:00.000 80 mm [Hg] Diastolic Blood Pressure 2024-09-13 14:50:00.000 78 mm [Hg] Diastolic Blood Pressure 2024-09-11 12:22:00.000 80 mm [Hg] Diastolic Blood Pressure 2024-09-04 14:56:00.000 80 mm [Hg] Diastolic Blood Pressure 2024-08-30 13:36:00.000 76 mm [Hg] Diastolic Blood Pressure 2024-08-27 15:57:00.000 80 mm [Hg] Diastolic Blood Pressure 2024-08-23 10:20:00.000 66 mm [Hg] Diastolic Blood Pressure 2024-08-21 14:36:00.000 70 mm [Hg] Diastolic Blood Pressure 2024-08-16 13:15:00.000 60 mm [Hg] Plan of Treatment Planned Activity Planned Date Details Comments Future Scheduled Test RN TO OBSE RVE, ASSESS, EVALUATE, AND DEVELOP AN INDIVIDUALIZED PLAN OF CARE. AGENCY MAY ACCEPT ORDERS FROM CONSULTING PHYSICIANS. RN TO OBSERVE AND ASSESS, AIRPLANE RENTAL CLERK/ASSEMBLER MUSICAL EQUIPMENT TO OBSERVE FOR RISK FOR FALLS AND INSTRUCT IN FALL PREVENTION, HOME SAFETY, MEDICATION MANAGEMENT, INFECTION PREVENTION, AND NUTRITION MANAGEMENT. RN/AIRPLANE RENTAL CLERK/ASSEMBLER MUSICAL EQUIPMENT NURSE MAY PERFORM O2 SATURATION LEVEL ON ADMISSION AND PRN FOR RN TO ASSESS/AIRPLANE RENTAL CLERK TO OBSERVE PATIENT, WITH NOTIFICATION TO THE PHYSICIAN IF SATURATION IS 90% IN THE ABSENCE OF MORE SPECIFIC PARAMETERS FROM THE PHYSICIAN. AGENCY MAY PERFORM A RESUMPTION OF CARE VISIT FOLLOWING ANY HOSPITAL ADMISSION. RN/AIRPLANE RENTAL CLERK/ASSEMBLER MUSICAL EQUIPMENT TO MONITOR CO-MORBID CONDITIONS LISTED ON THE PLAN OF CARE AND ANY NEW CONDITIONS THAT PRESENT THEMSELVES DURING THIS EPISODE TO IDENTIFY CHANGES AND INTERVENE TO MINIMIZE COMPLICATIONS. [code = RN TO OBSERVE, ASSESS, EVALUATE, AND DEVELOP AN INDIVIDUALIZED PLAN OF CARE. AGENCY MAY ACCEPT ORDERS FROM CONSULTING PHYSICIANS. RN TO OBSERVE AND ASSESS, AIRPLANE RENTAL CLERK/ASSEMBLER MUSICAL EQUIPMENT TO OBSERVE FOR RISK FOR FALLS AND INSTRUCT IN FALL PREVENTION, HOME SAFETY, MEDICATION MANAGEMENT, INFECTION PREVENTION, AND NUTRITION MANAGEMENT. RN/AIRPLANE RENTAL CLERK/ASSEMBLER MUSICAL EQUIPMENT NURSE MAY PERFORM O2 SATURATION LEVEL ON ADMISSION AND PRN FOR RN TO ASSESS/AIRPLANE RENTAL CLERK TO OBSERVE PATIENT, WITH NOTIFICATION TO THE PHYSICIAN IF SATURATION IS 90% IN THE ABSENCE OF MORE SPECIFIC PARAMETERS FROM THE PHYSICIAN. AGENCY MAY PERFORM A RESUMPTION OF CARE VISIT FOLLOWING ANY HOSPITAL ADMISSION. RN/AIRPLANE RENTAL CLERK/ASSEMBLER MUSICAL EQUIPMENT TO MONITOR CO-MORBID CONDITIONS LISTED ON THE PLAN OF CARE AND ANY NEW CONDITIONS THAT PRESENT THEMSELVES DURING THIS EPISODE TO IDENTIFY CHANGES AND INTERVENE TO MINIMIZE COMPLICATIONS.] Future Scheduled Test MEDICATION MANAGEMENT; RN/AIRPLANE RENTAL CLERK/ASSEMBLER MUSICAL EQUIPMENT TO REVIEW MEDICATIONS FOR INTERACTIONS, EFFECTIVENESS OF DRUG THERAPY, AND SIGNS/SYMPTOMS OF ADVERSE REACTIONS. MAY INSTRUCT AND REINFORCE MEDICATION TEACHING RELATED TO THE USE OF MEDICATIONS, DOSAGE, FREQUENCY, PURPOSE, SIDE EFFECTS, AND TO REPORT COMPLICATIONS. [code = MEDICATION MANAGEMENT; RN/AIRPLANE RENTAL CLERK/ASSEMBLER MUSICAL EQUIPMENT TO REVIEW MEDICATIONS FOR INTERACTIONS, EFFECTIVENESS OF DRUG THERAPY, AND SIGNS/SYMPTOMS OF ADVERSE REACTIONS. MAY INSTRUCT AND REINFORCE MEDICATION TEACHING RELATED TO THE USE OF MEDICATIONS, DOSAGE, FREQUENCY, PURPOSE, SIDE EFFECTS, AND TO REPORT COMPLICATIONS.] Future Scheduled Test RISK FOR H OSPITALIZATION; RN TO ASSESS/TEACH, ASSEMBLER MUSICAL EQUIPMENT/AIRPLANE RENTAL CLERK TO OBSERVE/TEACH PATIENT/CAREGIVER ON RISK FOR HOSPITALIZATION/EMERGENCY ROOM VISITS, TEACH SIGNS AND SYMPTOMS THAT PUT PATIENT AT RISK, WHEN TO NOTIFY NURSE/PHYSICIAN OF COMPLICATIONS/DECLINE, AND WHEN TO CALL 911. [code = RISK FOR HOSPITALIZATION; RN TO ASSESS/TEACH, ASSEMBLER MUSICAL EQUIPMENT/AIRPLANE RENTAL CLERK TO OBSERVE/TEACH PATIENT/CAREGIVER ON RISK FOR HOSPITALIZATION/EMERGENCY ROOM VISITS, TEACH SIGNS AND SYMPTOMS THAT PUT PATIENT AT RISK, WHEN TO NOTIFY NURSE/PHYSICIAN OF COMPLICATIONS/DECLINE, AND WHEN TO CALL 911.] Future Scheduled Test CARDIOVASC ULAR SYSTEM; RN TO ASSESS/TEACH, AIRPLANE RENTAL CLERK/ASSEMBLER MUSICAL EQUIPMENT TO OBSERVE/TEACH RELATED TO ALTERED CARDIOVASCULAR STATUS TO MINIMIZE COMPLICATIONS AND REDUCE HOSPITALIZATION. [code = CARDIOVASCULAR SYSTEM; RN TO ASSESS/TEACH, AIRPLANE RENTAL CLERK/ASSEMBLER MUSICAL EQUIPMENT TO OBSERVE/TEACH RELATED TO ALTERED CARDIOVASCULAR STATUS TO MINIMIZE COMPLICATIONS AND REDUCE HOSPITALIZATION.] Future Scheduled Test HYPERTENSI ON MANAGEMENT; RN TO ASSESS AND TEACH, AIRPLANE RENTAL CLERK/ASSEMBLER MUSICAL EQUIPMENT TO OBSERVE AND TEACH WARNING SIGNS AND SYMPTOMS TO AVOID HOSPITALIZATION. [code = HYPERTENSION MANAGEMENT; RN TO ASSESS AND TEACH, AIRPLANE RENTAL CLERK/ASSEMBLER MUSICAL EQUIPMENT TO OBSERVE AND TEACH WARNING SIGNS AND SYMPTOMS TO AVOID HOSPITALIZATION.] Future Scheduled Test SKIN INTEG RITY RN TO ASSESS AND TEACH, AIRPLANE RENTAL CLERK/ASSEMBLER MUSICAL EQUIPMENT TO OBSERVE AND TEACH INTEGUMENTARY STATUS TO IDENTIFY CHANGES AND INTERVENE TO MINIMIZE COMPLICATIONS. PROVIDE SKILLED TEACHING OF GENERAL WOUND AND SKIN CARE AND PREVENTION RELATED TO ACTUAL ALTERED SKIN INTEGRITY [code = SKIN INTEGRITY RN TO ASSESS AND TEACH, AIRPLANE RENTAL CLERK/ASSEMBLER MUSICAL EQUIPMENT TO OBSERVE AND TEACH INTEGUMENTARY STATUS TO IDENTIFY CHANGES AND INTERVENE TO MINIMIZE COMPLICATIONS. PROVIDE SKILLED TEACHING OF GENERAL WOUND AND SKIN CARE AND PREVENTION RELATED TO ACTUAL ALTERED SKIN INTEGRITY ] Future Scheduled Test PAIN MANAG EMENT; RN TO ASSESS AND TEACH, ASSEMBLER MUSICAL EQUIPMENT/AIRPLANE RENTAL CLERK TO OBSERVE AND TEACH AND PROVIDE EDUCATION ON PAIN MANAGEMENT TECHNIQUES. [code = PAIN MANAGEMENT; RN TO ASSESS AND TEACH, ASSEMBLER MUSICAL EQUIPMENT/AIRPLANE RENTAL CLERK TO OBSERVE AND TEACH AND PROVIDE EDUCATION ON PAIN MANAGEMENT TECHNIQUES.] Future Scheduled Test FALL REDUC TION MANAGEMENT; RN TO ASSESS AND OBSERVE, AIRPLANE RENTAL CLERK/ASSEMBLER MUSICAL EQUIPMENT TO OBSERVE FALL RISK FACTORS AND EDUCATE PATIENT/CAREGIVER ON STRATEGIES TO MINIMIZE THE RISK OF FALLING. [code = FALL REDUCTION MANAGEMENT; RN TO ASSESS AND OBSERVE, AIRPLANE RENTAL CLERK/ASSEMBLER MUSICAL EQUIPMENT TO OBSERVE FALL RISK FACTORS AND EDUCATE PATIENT/CAREGIVER ON STRATEGIES TO MINIMIZE THE RISK OF FALLING.] Future Scheduled Test AGENCY MAY PERFORM A RESUMPTION OF CARE VISIT FOLLOWING ANY HOSPITAL ADMISSION. PT TO EVALUATE, OBSERVE / ASSESS, AND MONITOR, AUTOCAD DESIGNER TO OBSERVE AND MONITOR, PROVIDE SKILLED THERAPEUTIC INTERVENTION, ACTIVITY, EDUCATION, AND TRAINING TO ADDRESS; PT/AUTOCAD DESIGNER TO PROVIDE GAIT TRAINING FOR IMPROVED MOBILITY AND /OR TO NORMALIZE GAIT PATTERN NEUROMUSCULAR RE-EDUCATION / BALANCE / POSTURAL CONTROL (PT) THERAPEUTIC EXERCISES AND ESTABLISHING A HOME EXERCISE PROGRAM (PT/AUTOCAD DESIGNER) PT/AUTOCAD DESIGNER TO PROVIDE STAIR TRAINING PT / AUTOCAD DESIGNER TO MONITOR AND EDUCATE ON OXYGEN SATURATION DURING ADLS/IADLS, NOTIFY PHYSICIAN AND/OR THE RN CLINICAL HOSIERY MENDER FOR PHYSICIAN NOTIFICATION AND IF O2 SATS BELOW PHYSICIAN ORDERED PARAMETERS AFTER 10 MIN OF REST PT/AUTOCAD DESIGNER TO EDUCATE ON PELVIC FRACTURE SELF-MANAGEMENT PT/AUTOCAD DESIGNER MAY TEACH PATIENT HOW TO USE CRYOTHERAPY/HEAT AT RIGHT HIP/LEFT KNEE FOR PAIN UP TO 20 MIN AT A TIME 3 TIMES A DAY PT/AUTOCAD DESIGNER TO IDENTIFY FALL RISK FACTORS; EDUCATE THE PATIENT/CAREGIVER ON WAYS TO REDUCE FALL RISK FACTORS AND ESTABLISH HOME EXERCISE PROGRAM TO MINIMIZE FALL RISK. MAY TEACH THE PATIENT FLOOR RECOVERY WHEN CLINICALLY APPROPRIATE PT / AUTOCAD DESIGNER MAY EDUCATE ON PAIN MANAGEMENT CLINICALLY INDICATED, INCLUDING NON-PHARMACOLOGICAL PAIN REDUCTION TECHNIQUES [code = AGENCY MAY PERFORM A RESUMPTION OF CARE VISIT FOLLOWING ANY HOSPITAL ADMISSION. PT TO EVALUATE, OBSERVE / ASSESS, AND MONITOR, AUTOCAD DESIGNER TO OBSERVE AND MONITOR, PROVIDE SKILLED THERAPEUTIC INTERVENTION, ACTIVITY, EDUCATION, AND TRAINING TO ADDRESS; PT/AUTOCAD DESIGNER TO PROVIDE GAIT TRAINING FOR IMPROVED MOBILITY AND /OR TO NORMALIZE GAIT PATTERN NEUROMUSCULAR RE-EDUCATION / BALANCE / POSTURAL CONTROL (PT) THERAPEUTIC EXERCISES AND ESTABLISHING A HOME EXERCISE PROGRAM (PT/AUTOCAD DESIGNER) PT/AUTOCAD DESIGNER TO PROVIDE STAIR TRAINING PT / AUTOCAD DESIGNER TO MONITOR AND EDUCATE ON OXYGEN SATURATION DURING ADLS/IADLS, NOTIFY PHYSICIAN AND/OR THE RN CLINICAL HOSIERY MENDER FOR PHYSICIAN NOTIFICATION AND IF O2 SATS BELOW PHYSICIAN ORDERED PARAMETERS AFTER 10 MIN OF REST PT/AUTOCAD DESIGNER TO EDUCATE ON PELVIC FRACTURE SELF-MANAGEMENT PT/AUTOCAD DESIGNER MAY TEACH PATIENT HOW TO USE CRYOTHERAPY/HEAT AT RIGHT HIP/LEFT KNEE FOR PAIN UP TO 20 MIN AT A TIME 3 TIMES A DAY PT/AUTOCAD DESIGNER TO IDENTIFY FALL RISK FACTORS; EDUCATE THE PATIENT/CAREGIVER ON WAYS TO REDUCE FALL RISK FACTORS AND ESTABLISH HOME EXERCISE PROGRAM TO MINIMIZE FALL RISK. MAY TEACH THE PATIENT FLOOR RECOVERY WHEN CLINICALLY APPROPRIATE PT / AUTOCAD DESIGNER MAY EDUCATE ON PAIN MANAGEMENT CLINICALLY INDICATED, INCLUDING NON-PHARMACOLOGICAL PAIN REDUCTION TECHNIQUES ] Goal 2024-10-11 Patient Goal - G ET BACK TO BEING INDEPENDENT Goal Patient Goal - G ET BACK [...] REDUCTION SELF-MANAGEMENT AND LIFE-STYLE CHANGES BY EOE Goal Provider Goal - PT LTG: PATIENT WILL DEMONSTRATE REDUCED GAIT DEVIATIONS TO REDUCE THE RISK FOR FALLING AND MINIMIZE STRAIN ON KNEES/HIPS AND BACK EVIDENCED BY IMPROVED HEEL STRIKE, ADEQUATE STEP LENGTH AND CONSISTENT FOOT CLEARANCE BILATERALLY USING LRAD TO WALK INDEPENDENTLY IN ORDER TO ACCESS ALL AREAS OF THE HOME AND TRANSPORTATION WITHIN 7 WEEKS PT LTG: PATIENT WILL DEMONSTRATE REDUCED FALL RISK EVIDENCED BY IMPROVED SELF- SELECTED WALKING SPEED (SSWS CUT SCORE 0.6 TO 0.9 INDICATES MODERATE FALL RISK, 0.6 M/S INDICATES HIGH FALL RISK) FROM 0.8M/SEC TO 1.1M/SEC WITHIN 7 WEEKS PT LTG: PATIENT WILL DEMONSTRATE REDUCED FALL RISK EVIDENCED BY TUG TEST (CUT SCORE >11 SECONDS INDICATES INCREASED FALL RISK) IMPROVING FROM 22 SECONDS TO 11 SECONDS WITHIN 7 WEEKS PT LTG: PATIENT WILL DEMONSTRATE IMPROVED FUNCTIONAL STRENGTH EVIDENCED BY FIVE TIMES SIT TO STAND TEST (CUT SCORE >12 SECONDS INDICATES AN INCREASED FALL RISK) IMPROVING FROM 15 SECONDS TO 12 SECONDS WITHIN 7 WEEKS PT LTG: PATIENT WILL DEMONSTRATE INCREASED STRENGTH OF BILATERAL LES FROM 3/5 TO 4/5 WITHIN 7 WEEKS IN ORDER TO IMPROVE SAFETY AND STABILITY WITH GAIT AND STAIRS PT LTG: PATIENT WILL DEMONSTRATE IMPROVED ABILITY TO SAFELY NEGOTIATE STAIRS FROM CGA TO INDEPENDENT WITH LRAD IN ORDER TO SAFELY ENTER AND EXIT HOME AND ACCESS BASEMENT LAUNDRY WITHIN 7 WEEKS PT LTG: PATIENT WILL MAINTAIN OXYGEN SATURATION WITHIN PHYSICIAN ORDERED PARAMETERS THROUGHOUT EPISODE OF CARE. PT GOAL: PATIENT WILL DEMONSTRATE OPTIMAL OUTCOMES INCLUDING DECREASED PAIN WITH NO COMPLICATIONS FOLLOWING PELVIC FRACTURE BY END OF EPISODE. PT LTG: PATIENT/CAREGIVER WILL DEMONSTRATE ADHERENCE TO FALL REDUCTION SELF-MANAGEMENT AND REDUCING FALL RISK FACTORS TO MINIMIZE FALL RISK BY END OF EPISODE. PT LTG: PATIENT WILL BE INDEPENDENT WITH IMPLEMENTATION OF HEP WITHIN 4 WEEKS PT GOAL: PATIENT WILL DEMONSTRATE UNDERSTANDING OF PAIN MANAGEMENT TECHNIQUES EVIDENCED BY REDUCED PAIN Encounters Start Date/Time End Date/Time Encounter Type Admission Type Attending [facility] Care Facility Care Department Encounter ID Discharge Date Discharge Status Discharge Condition Discharge Reason Percent Goals Met 2024-08-16 00:00:00 2024-10-14 00:00:00 Outpatient NEW ADMISSION ARACEL[facility] [id number] 65.22
--- OUTSIDE RECORDS SUMMARY | 2024-10-19 08:44 | XMS_ITS | Encounter Summary ---
Author Organization [facility] [employer] Address [address] [place] [address] Care Team Providers Care Patient Accounts Coordinator Name Role Phone Jm Hastings MD Primary Care Provider [phone] Encounter Details Date Type Department Care Team Description 08/15/2017 Release of Information Medical Records [address] [place] [id number] Abstract, Provider Social History Tobacco Use Types Packs/Day Years [...] on file documented as of this encounter Plan of Treatment Not on file documented as of this encounter Visit Diagnoses Not on filedocumented in this encounter Care Teams Patient Accounts Coordinator Relationship Specialty Start Date End Date Jm Hastings MD [address] [place] [address] [phone] PCP - General Internal Medicine 06/28/17 documented as of this encounter
--- OUTSIDE RECORDS SUMMARY | 2024-10-19 08:44 | XMS_ITS | Clinical Summary ---
Author Organization Unknown Care Team Providers Care Special Procedure Technologist Name Role Phone ETELVINA GUTIERREZ ACTIVE UNTIL 12/10/2022, ZHONGPAPI Unavailable Unavailable GIANNA RN, ARACELIS Unavailable Unavailab penny SIDDIQUI PT, DEBORAH Unavailable Unavailable DICK COKE WORKER, OSILE Unavailable Unavailable READING OT, KODAK Unavailable Unavailable CONDINO DECISION SUPPORT ANALYST/ESCOBAR, RUDOLPH Unavailable Unav ailable Payers Payer Name Policy Type Policy Number Effective Date Expira tion Date MEDICARE.NGS.PDGM [id number] Problems Condition Name Condition Details Condition Category [...] 08-16 00:00: 00 09-26 23:59 :00 No [id number] MUSCLE SPASMS 1 tablet 3 TIMES DAILY 1 tablet 3 TIMES DAILY (route: oral) Med Classific ation: Locomotor System enoxaparin 40 mg/0.4 mL subcutaneou s syringe 08-16 00:00: 00 08-17 23:59 :00 No [id number] PREVENT CLOTTING 40 mg DAILY 40 mg DAILY (route: subcutaneo us) Med Classific ation: Hematolog ical Agents gabapentin 100 mg capsule 08-16 00:00: 00 09-26 23:59 :00 No [id number] NERVE PAIN LEFT LEG 2 capsule 2 TIMES DAILY 2 capsule 2 TIMES DAILY (route: oral) Med Classific ation: Central Nervous System Agents oxycodone 5 mg tablet 08-16 00:00: 00 Yes [id number] MODERATE TO SEVERE PAIN 1 tablet EVERY 4 HOURS 1 tablet EVERY 4 HOURS (route: oral) Med Classific ation: Analgesic , Anti-infl ammatory or Antipyret ic pantoprazol e 40 mg tablet,keiry yed release 08-16 00:00: 00 09-26 23:59 :00 No [id number] GI PROTECTION 1 tablet EVERY AM 1 tablet EVERY AM (route: oral) Med Classific ation: Gastroint estinal Therapy Agents atorvastati n 80 mg tablet 08-16 00:00: 00 Yes [id number] HIGH LIPIDS 1 tablet BEDTIME 1 tablet BEDTIME (route: oral) Med Classific ation: Cardiovas cular Therapy Agents acetaminoph en 325 mg tablet 08-16 00:00: 00 Yes [id number] MILD PAIN, FEVER 2 tablet EVERY 6 HOURS 2 tablet EVERY 6 HOURS (route: oral) Med Classific ation: Analgesic , Anti-infl ammatory or Antipyret ic Aspirin Childrens 81 mg chewable tablet 08-16 00:00: 00 09-26 23:59 :00 No [id number] HIGH CHOLESTEROL 1 tablet DAILY 1 tablet DAILY (route: oral) Med Classific ation: Hematolog ical Agents Colace 100 mg capsule -06 00:00: 00 09-26 23:59 :00 No [id number] CONSTIPATIO N 1 capsule 2 TIMES DAILY 1 capsule 2 TIMES DAILY (route: oral) Med Classific ation: Gastroint estinal Therapy Agents lisinopril 10 mg tablet -06 00:00: 00 09-26 23:59 :00 No [id number] HIGH BLOOD PRESSURE 1 tablet DAILY 1 tablet DAILY (route: oral) Med Classific ation: Cardiovas cular Therapy Agents Eliquis 5 mg tablet 09-13 00:00: 00 Yes [id number] BLOOD THINNER 1 tablet 2 TIMES DAILY 1 tablet 2 TIMES DAILY (route: oral) Med Classific ation: Hematolog ical Agents amlodipine 2.5 mg tablet 09-26 00:00: 00 Yes [id number] HIGH BLOOD PRESSURE 1 tablet DAILY 1 tablet DAILY (route: oral) Med Classific ation: Cardiovas cular Therapy Agents gabapentin 100 mg capsule 09-26 00:00: 00 Yes [id number] NERVE PAIN 1 capsule BEDTIME 1 capsule BEDTIME (route: oral) Med Classific ation: Central Nervous System Agents lisinopril 20 mg tablet 09-26 00:00: 00 Yes [id number] HIGH BP 1 tablet DAILY 1 tablet [...] CONSULTING PHYSICIANS. RN TO OBSERVE AND ASSESS, TUBING MACHINE TENDER/LOSS PREVENTION DETECTIVE TO OBSERVE FOR RISK FOR FALLS AND INSTRUCT IN FALL PREVENTION, HOME SAFETY, MEDICATION MANAGEMENT, INFECTION PREVENTION, AND NUTRITION MANAGEMENT. RN/TUBING MACHINE TENDER/LOSS PREVENTION DETECTIVE NURSE MAY PERFORM O2 SATURATION LEVEL ON ADMISSION AND PRN FOR RN TO ASSESS/TUBING MACHINE TENDER TO OBSERVE PATIENT, WITH NOTIFICATION TO THE PHYSICIAN IF SATURATION IS 90% IN THE ABSENCE OF MORE SPECIFIC PARAMETERS FROM THE PHYSICIAN. AGENCY MAY PERFORM A RESUMPTION OF CARE VISIT FOLLOWING ANY HOSPITAL ADMISSION. RN/TUBING MACHINE TENDER/LOSS PREVENTION DETECTIVE TO MONITOR CO-MORBID CONDITIONS LISTED ON THE PLAN OF CARE AND ANY NEW CONDITIONS THAT PRESENT THEMSELVES DURING THIS EPISODE TO IDENTIFY CHANGES AND INTERVENE TO MINIMIZE COMPLICATIONS. [code = RN TO OBSERVE, ASSESS, EVALUATE, AND DEVELOP AN INDIVIDUALIZED PLAN OF CARE. AGENCY MAY ACCEPT ORDERS FROM CONSULTING PHYSICIANS. RN TO OBSERVE AND ASSESS, TUBING MACHINE TENDER/LOSS PREVENTION DETECTIVE TO OBSERVE FOR RISK FOR FALLS AND INSTRUCT IN FALL PREVENTION, HOME SAFETY, MEDICATION MANAGEMENT, INFECTION PREVENTION, AND NUTRITION MANAGEMENT. RN/TUBING MACHINE TENDER/LOSS PREVENTION DETECTIVE NURSE MAY PERFORM O2 SATURATION LEVEL ON ADMISSION AND PRN FOR RN TO ASSESS/TUBING MACHINE TENDER TO OBSERVE PATIENT, WITH NOTIFICATION TO THE PHYSICIAN IF SATURATION IS 90% IN THE ABSENCE OF MORE SPECIFIC PARAMETERS FROM THE PHYSICIAN. AGENCY MAY PERFORM A RESUMPTION OF CARE VISIT FOLLOWING ANY HOSPITAL ADMISSION. RN/TUBING MACHINE TENDER/LOSS PREVENTION DETECTIVE TO MONITOR CO-MORBID CONDITIONS LISTED ON THE PLAN OF CARE AND ANY NEW CONDITIONS THAT PRESENT THEMSELVES DURING THIS EPISODE TO IDENTIFY CHANGES AND INTERVENE TO MINIMIZE COMPLICATIONS.] Future Scheduled Test MEDICATION MANAGEMENT; RN/TUBING MACHINE TENDER/LOSS PREVENTION DETECTIVE TO REVIEW MEDICATIONS FOR INTERACTIONS, EFFECTIVENESS OF DRUG THERAPY, AND SIGNS/SYMPTOMS OF ADVERSE REACTIONS. MAY INSTRUCT AND REINFORCE MEDICATION TEACHING RELATED TO THE USE OF MEDICATIONS, DOSAGE, FREQUENCY, PURPOSE, SIDE EFFECTS, AND TO REPORT COMPLICATIONS. [code = MEDICATION MANAGEMENT; RN/TUBING MACHINE TENDER/LOSS PREVENTION DETECTIVE TO REVIEW MEDICATIONS FOR INTERACTIONS, EFFECTIVENESS OF DRUG THERAPY, AND SIGNS/SYMPTOMS OF ADVERSE REACTIONS. MAY INSTRUCT AND REINFORCE MEDICATION TEACHING RELATED TO THE USE OF MEDICATIONS, DOSAGE, FREQUENCY, PURPOSE, SIDE EFFECTS, AND TO REPORT COMPLICATIONS.] Future Scheduled Test RISK FOR H OSPITALIZATION; RN TO ASSESS/TEACH, LOSS PREVENTION DETECTIVE/TUBING MACHINE TENDER TO OBSERVE/TEACH PATIENT/CAREGIVER ON RISK FOR HOSPITALIZATION/EMERGENCY ROOM VISITS, TEACH SIGNS AND SYMPTOMS THAT PUT PATIENT AT RISK, WHEN TO NOTIFY NURSE/PHYSICIAN OF COMPLICATIONS/DECLINE, AND WHEN TO CALL 911. [code = RISK FOR HOSPITALIZATION; RN TO ASSESS/TEACH, LOSS PREVENTION DETECTIVE/TUBING MACHINE TENDER TO OBSERVE/TEACH PATIENT/CAREGIVER ON RISK FOR HOSPITALIZATION/EMERGENCY ROOM VISITS, TEACH SIGNS AND SYMPTOMS THAT PUT PATIENT AT RISK, WHEN TO NOTIFY NURSE/PHYSICIAN OF COMPLICATIONS/DECLINE, AND WHEN TO CALL 911.] Future Scheduled Test CARDIOVASC ULAR SYSTEM; RN TO ASSESS/TEACH, TUBING MACHINE TENDER/LOSS PREVENTION DETECTIVE TO OBSERVE/TEACH RELATED TO ALTERED CARDIOVASCULAR STATUS TO MINIMIZE COMPLICATIONS AND REDUCE HOSPITALIZATION. [code = CARDIOVASCULAR SYSTEM; RN TO ASSESS/TEACH, TUBING MACHINE TENDER/LOSS PREVENTION DETECTIVE TO OBSERVE/TEACH RELATED TO ALTERED CARDIOVASCULAR STATUS TO MINIMIZE COMPLICATIONS AND REDUCE HOSPITALIZATION.] Future Scheduled Test HYPERTENSI ON MANAGEMENT; RN TO ASSESS AND TEACH, TUBING MACHINE TENDER/LOSS PREVENTION DETECTIVE TO OBSERVE AND TEACH WARNING SIGNS AND SYMPTOMS TO AVOID HOSPITALIZATION. [code = HYPERTENSION MANAGEMENT; RN TO ASSESS AND TEACH, TUBING MACHINE TENDER/LOSS PREVENTION DETECTIVE TO OBSERVE AND TEACH WARNING SIGNS AND SYMPTOMS TO AVOID HOSPITALIZATION.] Future Scheduled Test SKIN INTEG RITY RN TO ASSESS AND TEACH, TUBING MACHINE TENDER/LOSS PREVENTION DETECTIVE TO OBSERVE AND TEACH INTEGUMENTARY STATUS TO IDENTIFY CHANGES AND INTERVENE TO MINIMIZE COMPLICATIONS. PROVIDE SKILLED TEACHING OF GENERAL WOUND AND SKIN CARE AND PREVENTION RELATED TO ACTUAL ALTERED SKIN INTEGRITY [code = SKIN INTEGRITY RN TO ASSESS AND TEACH, TUBING MACHINE TENDER/LOSS PREVENTION DETECTIVE TO OBSERVE AND TEACH INTEGUMENTARY STATUS TO IDENTIFY CHANGES AND INTERVENE TO MINIMIZE COMPLICATIONS. PROVIDE SKILLED TEACHING OF GENERAL WOUND AND SKIN CARE AND PREVENTION RELATED TO ACTUAL ALTERED SKIN INTEGRITY ] Future Scheduled Test PAIN MANAG EMENT; RN TO ASSESS AND TEACH, LOSS PREVENTION DETECTIVE/TUBING MACHINE TENDER TO OBSERVE AND TEACH AND PROVIDE EDUCATION ON PAIN MANAGEMENT TECHNIQUES. [code = PAIN MANAGEMENT; RN TO ASSESS AND TEACH, LOSS PREVENTION DETECTIVE/TUBING MACHINE TENDER TO OBSERVE AND TEACH AND PROVIDE EDUCATION ON PAIN MANAGEMENT TECHNIQUES.] Future Scheduled Test FALL REDUC TION MANAGEMENT; RN TO ASSESS AND OBSERVE, TUBING MACHINE TENDER/LOSS PREVENTION DETECTIVE TO OBSERVE FALL RISK FACTORS AND EDUCATE PATIENT/CAREGIVER ON STRATEGIES TO MINIMIZE THE RISK OF FALLING. [code = FALL REDUCTION MANAGEMENT; RN TO ASSESS AND OBSERVE, TUBING MACHINE TENDER/LOSS PREVENTION DETECTIVE TO OBSERVE FALL RISK FACTORS AND EDUCATE PATIENT/CAREGIVER ON STRATEGIES TO MINIMIZE THE RISK OF FALLING.] Future Scheduled Test AGENCY MAY PERFORM A RESUMPTION OF CARE VISIT FOLLOWING ANY HOSPITAL ADMISSION. PT TO EVALUATE, OBSERVE / ASSESS, AND MONITOR, COKE WORKER TO OBSERVE AND MONITOR, PROVIDE SKILLED THERAPEUTIC INTERVENTION, ACTIVITY, EDUCATION, AND TRAINING TO ADDRESS; PT/COKE WORKER TO PROVIDE GAIT TRAINING FOR IMPROVED MOBILITY AND /OR TO NORMALIZE GAIT PATTERN NEUROMUSCULAR RE-EDUCATION / BALANCE / POSTURAL CONTROL (PT) THERAPEUTIC EXERCISES AND ESTABLISHING A HOME EXERCISE PROGRAM (PT/COKE WORKER) PT/COKE WORKER TO PROVIDE STAIR TRAINING PT / COKE WORKER TO MONITOR AND EDUCATE ON OXYGEN SATURATION DURING ADLS/IADLS, NOTIFY PHYSICIAN AND/OR THE RN CLINICAL WEB CONTENT EXECUTIVE FOR PHYSICIAN NOTIFICATION AND IF O2 SATS BELOW PHYSICIAN ORDERED PARAMETERS AFTER 10 MIN OF REST PT/COKE WORKER TO EDUCATE ON PELVIC FRACTURE SELF-MANAGEMENT PT/COKE WORKER MAY TEACH PATIENT HOW TO USE CRYOTHERAPY/HEAT AT RIGHT HIP/LEFT KNEE FOR PAIN UP TO 20 MIN AT A TIME 3 TIMES A DAY PT/COKE WORKER TO IDENTIFY FALL RISK FACTORS; EDUCATE THE PATIENT/CAREGIVER ON WAYS TO REDUCE FALL RISK FACTORS AND ESTABLISH HOME EXERCISE PROGRAM TO MINIMIZE FALL RISK. MAY TEACH THE PATIENT FLOOR RECOVERY WHEN CLINICALLY APPROPRIATE PT / COKE WORKER MAY EDUCATE ON PAIN MANAGEMENT CLINICALLY INDICATED, INCLUDING NON-PHARMACOLOGICAL PAIN REDUCTION TECHNIQUES [code = AGENCY MAY PERFORM A RESUMPTION OF CARE VISIT FOLLOWING ANY HOSPITAL ADMISSION. PT TO EVALUATE, OBSERVE / ASSESS, AND MONITOR, COKE WORKER TO OBSERVE AND MONITOR, PROVIDE SKILLED THERAPEUTIC INTERVENTION, ACTIVITY, EDUCATION, AND TRAINING TO ADDRESS; PT/COKE WORKER TO PROVIDE GAIT TRAINING FOR IMPROVED MOBILITY AND /OR TO NORMALIZE GAIT PATTERN NEUROMUSCULAR RE-EDUCATION / BALANCE / POSTURAL CONTROL (PT) THERAPEUTIC EXERCISES AND ESTABLISHING A HOME EXERCISE PROGRAM (PT/COKE WORKER) PT/COKE WORKER TO PROVIDE STAIR TRAINING PT / COKE WORKER TO MONITOR AND EDUCATE ON OXYGEN SATURATION DURING ADLS/IADLS, NOTIFY PHYSICIAN AND/OR THE RN CLINICAL WEB CONTENT EXECUTIVE FOR PHYSICIAN NOTIFICATION AND IF O2 SATS BELOW PHYSICIAN ORDERED PARAMETERS AFTER 10 MIN OF REST PT/COKE WORKER TO EDUCATE ON PELVIC FRACTURE SELF-MANAGEMENT PT/COKE WORKER MAY TEACH PATIENT HOW TO USE CRYOTHERAPY/HEAT AT RIGHT HIP/LEFT KNEE FOR PAIN UP TO 20 MIN AT A TIME 3 TIMES A DAY PT/COKE WORKER TO IDENTIFY FALL RISK FACTORS; EDUCATE THE PATIENT/CAREGIVER ON WAYS TO REDUCE FALL RISK FACTORS AND ESTABLISH HOME EXERCISE PROGRAM TO MINIMIZE FALL RISK. MAY TEACH THE PATIENT FLOOR RECOVERY WHEN CLINICALLY APPROPRIATE PT / COKE WORKER MAY EDUCATE ON PAIN MANAGEMENT CLINICALLY INDICATED, [...] End Date/Time Encounter Type Admission Type Attending [facility] Care Facility Care Department Encounter ID Discharge Date Discharge Status Discharge Condition Discharge Reason Percent Goals Met 2024-08-16 00:00:00 2024-10-14 00:00:00 Outpatient NEW ADMISSION ARACELIS KATZ [facility] [id number] 65.22
--- OUTSIDE RECORDS SUMMARY | 2024-10-19 08:44 | XMS_ITS | Encounter Summary ---
Author Organization [facility] Address [address] [place] [address] Care Team Providers Care Electroplater Helper Name Role Phone Jm Hastings MD Primary Care Provider [phone] Encounter Details Date Type Department Care Team Description 12/05/2020 Hospital Medical Records [address] [place] [address] Jessica Garrido MD Social History Tobacco Use Types Packs/Day Years [...] on filedocumented in this encounter Care Teams Electroplater Helper Relationship Specialty Start Date End Date Jm Hastings MD [address] [place] [address] [phone] PCP - General Internal Medicine 06/28/17 documented as of this encounter
--- OUTSIDE RECORDS SUMMARY | 2024-10-19 08:44 | XMS_ITS | Encounter Summary ---
Author Organization [facility] Address [address] [place] [address] Care Team Providers Care Horser Up Name Role Phone Jm Hastings MD Primary Care Provider [phone] Reason for Visit * Reason Comments E-prescribe Rx Request Encounter Details Date Type Department Care Team Description 12/27/2022 Refill Adult Medicine [address] [phone] Jm Hastings MD [address] [place] [address] [phone] E-prescribe Rx Request Social History Tobacco Use [...] file Not on file Not on file COVID-19 Exposure Response Date Recorded In the last 10 days, have yo u been in contact with someone who was confirmed or suspected to have Coronavirus/COVID-19? No / Unsure 12/23/2022 8:32 AM EDT documented as of this encounter Miscellaneous Notes * Telephone Encounter - Shelly Yin M.A. - 01/04/2023 9:58 AM EDT Last office visit 12/23/22 Next office visit 02/23/23 Lab Results Component Value Date CHOL 164 06/22/2022 LDL 86 06/22/2022 HDL 66 06/22/2022 TRIG 62 06/22/2022 SGOT 23 06/22/2022 SGPT 40 06/22/2022 documented in this encounter Plan of Treatment Not on file documented as of this encounter Visit Diagnoses Not on filedocumented in this encounter Care Teams Horser Up Relationship Specialty Start Date End Date Jm Hastings MD [address] [place] [id number] PCP - General Internal Medicine 06/28/17 documented as of this encounter
--- OUTSIDE RECORDS SUMMARY | 2024-10-19 08:44 | XMS_ITS | Encounter Summary ---
Author Organization [facility] Address [address] [place] [address] Care Team Providers Care Forensic Science Examiner Name Role Phone Jm Hastings MD Primary Care Provider [phone] Encounter Details Date Type Department Care Team Description 09/01/2017 Bus Girl Report Medical Records [address] [place] [id number] Blu Montenegro MD Social History Tobacco Use Types Packs/Day [...] on filedocumented in this encounter Care Teams Forensic Science Examiner Relationship Specialty Start Date End Date Jm Hastings MD [address] [place] [address] [phone] PCP - General Internal Medicine 06/28/17 documented as of this encounter
--- OUTSIDE RECORDS SUMMARY | 2024-10-19 08:44 | XMS_ITS | Encounter Summary ---
Author Organization [facility] Address [address] [place] [address] Care Team Providers Care Straightening Press Operator Helper Name Role Phone Jm Hastings MD Primary Care Provider [phone] Encounter Details Date Type Department Care Team Description 09/22/2017 Patient Case Manager Report Medical Records [address] [place] [id number] Mitchell Celeste Social History Tobacco Use Types Packs/Day Years [...] on filedocumented in this encounter Care Teams Straightening Press Operator Helper Relationship Specialty Start Date End Date Jm Hastings MD [address] [place] [address] [phone] PCP - General Internal Medicine 06/28/17 documented as of this encounter
--- OUTSIDE RECORDS SUMMARY | 2024-10-19 08:44 | XMS_ITS | Clinical Summary ---
Author Organization [facility] [address] [place] [address] [place] [address] Phone Care Team Providers Care Network Design Architect Name Role Phone Jm Hastings MD Primary Care Provider [phone] Allergies No known active allergies Medications atorvastatin (LIPITOR) 80 mg tablet Take 1 tablet (80 mg total) by mouth at bedtime. 30 each 5 Active gabapentin (NEURONTIN) 100 mg capsule Take 2 capsules (200 mg total) by mouth 2 (two) times a day. 120 each 11 5 08/15/19 26 Active senna (SENOKOT) 8.6 mg tablet Take 2 tablets (17.2 mg total) by mouth at bedtime. 60 each 11 5 08/15/19 26 Active Additional Information Patient not taking.Reported on 10/08/2024 apixaban (ELIQUIS) 5 mg tablet Take 1 tablet (5 mg total) by mouth 2 (two) times a day. 180 tablet 1 5 Active amLODIPine (NORVASC) 2.5 mg tablet Take 1 tablet by mouth once daily 90 tablet 1 5 Active lisinopriL (PRINIVIL,ZEST RIL) 20 mg tablet Take 1 tablet (20 mg total) by mouth at bedtime. 90 each 1 5 Active lisinopriL (PRINIVIL,ZEST RIL) 20 mg tablet Take 1 tablet (20 mg total) by mouth at bedtime. 30 each 5 10/19/19 25 Discontin ued(Reord er) apixaban (ELIQUIS) 5 mg tablet Take 1 tablet (5 mg total) by mouth 2 (two) times a day. 09/25/19 25 Discontin ued(Reord er) Active Problems Problem Noted Date Diagnosed Date Pre-diabetes 08/27/2024 Accidental fall 08/27/2024 Overview (08/27/2024): Slipped on ice in July 30, 2024 leading to right pubic fracture Bladder diverticulum 08/27/2024 Overview (08/27/2024): Accidental finding on CT of the pelvis for evaluation of right pubic bone fracture July 30 in August 15, 2024. Refer to urology Pubic bone fracture ([facility] V24, [facility] V28) 0 08/01/2024 Hypercholesteremia 12/23/2022 Anemia 12/30/2020 Essential hypertension 12/30/2020 Thalamic stroke ([facility] V24, [facility] V28) 12/30 Tongue cancer ([facility] V24, [facility] V28) 018 Encounters Date Type Department Care Team Description 10/12/2024 1:00 PM EDT Office Visit [facility] Hematology Oncology [address] [place] [address] [phone] Rosemary Bentley, Other acute pulmonary embolism without acute cor pulmonale ([facility] V24, [facility] V28) 10/08/2024 10:00 AM EDT Office Visit Adult Medicine [address] [phone] Sav Miranda PA Pulmonary embolism, other, unspecified chronicity, unspecified whether acute cor pulmonale present ([facility] V24, [facility] V28) (Primary Dx); History of tongue cancer 10/03/2024 Telephone Adult Medicine [address] [phone] Jm Hastings MD faxed order ([facility] [id number]) 09/19/2024 9:44 AM EDT - 09/19/2024 11:59 PM EDT Hospital Encounter Radiology Department - [address] [phone] Other acute pulmonary embolism without acute cor pulmonale (CMS/HCC V24, CMS/HCC V28); Thalamic stroke ([facility]/HCC V24, CMS/HCC V28); Tachycardia Discharge Disposition: Home or Self Care 09/05/2024 10:30 AM EDT Office Visit Adult [address] [phone] Jm Hastings MD Other acute pulmonary embolism without acute cor pulmonale ([facility]/HCC V24, [facility]/HCC V28) (Primary Dx); Thalamic stroke ([facility] V24, CMS/HCC V28); Tachycardia 09/05/2024 Telephone Adult [address] [phone] Jm Hastings MD 09/04/2024 Billing Patient Not Present Adult [address] [phone] Jm Hastings MD 08/31/[address] [phone] Kamila Eubanks MA home health certification [id number] 08/31/[address] [phone] Jm Hastings MD pulmonary embolism 08/30/2024 Telephone Adult [address] [phone] Jm Hastings MD vna 08/27/2024 1:30 PM EDT Office Visit [address] [phone] Jm Hastings MD Open fracture of right pubis with routine healing, unspecified portion of pubis, subsequent encounter (Primary Dx); Anemia due to other cause, not classified; Essential hypertension; Accidental fall, subsequent encounter; Constipation, unspecified constipation type; Pre-diabetes; Bladder diverticulum 08/27/2024 Telephone Adult Medicine [address] [phone] Jm Hastings MD faxed orders ([facility] [id number], [id number] ) 08/16/2024 Telephone Adult [address] [phone] Leia Corrigan MA vna 08/13/2024 Plan of Care Documentation [facility] [address] [place] [phone] 08/09/2024 Telephone Adult [address] [phone] Jm Hastings MD Hospital Follow-up 08/06/2024 Plan of Care Documentation [facility] [address] [place] [phone] 08/01/2024 4:15 PM EST - 08/15/2024 11:00 AM EST Hospital Encounter [facility] [address] [place] [phone] Pauline Batista DO Discharge Disposition: Home-Health Care Svc from Last 3 Months Immunizations Name Administration [...] HISTORICAL KNEE SURGERY OTHER SURGICAL HISTORY PROCEDURE: NE CLOSURE INTESTINAL CUTANEOUS FISTULA MOUTH SURGERY PROCEDURE: ORAL SURGERY PROCEDURE; COMMENT: tongue surgery VASECTOMY PROCEDURE: HISTORICAL VASECTOMY Medical History Medical History Date Comments Tobacco use DX:Tobacco use CVA (cerebral vascular accident) (CMS/[facility] V24, C [place]/[facility] V28) Tongue cancer ([facility] V24, CMS/[facility] V28) Family History Medical History Relation Name Comments Heart attack Father from [place] at age 72 Other: bone ca Mother Other: heart disease Sister pace ma ker Other: kidney disease Sister on HD Relation [...] Sign Reading Time Taken Comments Blood Pressure 105/56 10/12/2024 1:10 PM EDT Pulse 113 10/12/2024 1:10 PM EDT Temperature 36.9 ??C (98.4 ??F) 10/12/2024 1:10 PM ED T Respiratory Rate 14 10/08/2024 9:43 AM EDT Oxygen Saturation 98% 10/12/2024 1:10 PM EDT Inhaled Oxygen Concentration - - Weight 83.9 kg (185 lb) 10/12/2024 1:10 PM EDT Height 172.7 cm (5' 8 ) 10/12/2024 1:10 PM EDT Body Mass Index 28.13 10/12/2024 1:10 PM EDT Plan of Treatment Upcoming Encounters Date Type Department Care Team (Late st Contact Info) Description 11/22/2024 1:30 PM EDT Ancillary Procedure [facility] [address] [place] [phone] 12/11/2024 8:30 AM EDT Office Visit Adult Medicine [facility] [address] [place] [phone] Jm Hastings MD [address] [place] [address] Health Maintenance Due Date Last Done Comments Hepatitis C Screening 05/22/2022 COVID-19 Vaccine (8 - Pfizer risk 2023- season) 2024 03/14/2024, 03/30/2023, 03/19/2022, Additional history exists Medicare Annual Wellness Visit 01/04/2025 01/05/2024 Hypertension/CHF/CAD [...] 09/22/2022, 09/29/2017 Zoster Vaccines Completed 11/24/2022, 09/22/2022 Influenza Vaccine Completed 03/14/2024, , 03/19/2022, Additional history exists RSV Immunization Adult Patients Completed 03/14/2024 HIB Vaccines Aged Out No [...] age to complete this topic Meningococcal B Vaccine Aged Out No l onger eligible based on patient's age to complete this topic RSV Immunization Patients Under 20 months Aged Out No longer eligible based on patient's age to complete this topic Varicella Vaccines Aged Out No longer eligible based on patient's age to complete this topic Procedures Procedure Name Priority Date/Time Associated Diagnosis Comments CBC WITH AUTO DIFFERENTIAL Routine 10/03/2024 9:01 AM EDT Other acute pulmonary embolism without acute cor pulmonale (CMS/HCC V24, CMS/HCC V28) CBC AND DIFFERENTIAL Routine 10/03/2024 9:01 AM EDT Other acute pulmonary embolism without acute cor pulmonale (CMS/HCC V24, CMS/HCC V28) VAS US DUPLEX CAROTID BILATERAL Routine 09/19/2024 10:40 AM EDT Other acute pulmonary embolism without acute cor pulmonale (CMS/HCC V24, CMS/HCC V28) Thalamic stroke (CMS/HCC V24, CMS/HCC V28) Tachycardia CT PELVIS WO CONTRAST STAT 08/08/2024 4:12 [...] METABOLIC PANEL Routine 08/02/2024 5:47 AM EST HM DEPRESSION SCREENING Routine 01/05/2024 HM FALLS RISK ASSESSMENT Routine 01/05/2024 LIPID PANEL Routine 08/02/2023 from Last 3 Months or Most Recently Relevant to Health Maintenance Results * (ABNORMAL) CBC auto differential (10/03/2024 9:01 AM EDT) Only the most recent of2 resultswithin the time period is included. WBC 11.8(H) 4.8 - 10.8 K/mcL LAB HEMETOLOGY METHOD 10/03/2024 10:20 AM EDT [facility] RBC 4.60 4.50 - 5.50 M/mcL LAB HEMETOLOGY METHOD 10/03/2024 10:20 AM EDT [facility] Hemoglobin 13.5 13.5 - 17.5 g/dL LAB HEMETOLOGY METHOD 10/03/2024 10:20 AM EDT [facility] Hematocrit 42.1 42.0 - 54.0 % LAB HEMETOLOGY METHOD 10/03/2024 10:20 AM [facility] MCV 91.1 79.0 - 98.0 FL LAB HEMETOLOGY METHOD 10/03/2024 10:20 AM [facility] MCH 29.2 27.0 - 32.0 pcg LAB HEMETOLOGY METHOD 10/03/2024 10:20 AM [facility] MCHC 32.1 32.0 - 37.0 g/dL LAB HEMETOLOGY METHOD 10/03/2024 10:20 AM [facility] RDW 12.9 11.0 - 15.0 % LAB HEMETOLOGY METHOD 10/03/2024 10:20 AM [facility] Platelets 516(H) 130 - 400 K/mcL LAB HEMETOLOGY METHOD 10/03/2024 10:20 AM [facility] MPV 9.8 7.0 - 11.0 FL LAB HEMETOLOGY METHOD 10/03/2024 10:20 AM [facility] NRBC 0.0 <1.0 % LAB HEMETOLOGY METHOD 10/03/2024 10:20 AM [facility] NRBC Absolute 0.00 <0.10 K/mcL LAB HEMETOLOGY METHOD 10/03/2024 10:20 AM [facility] Neutrophils Relative 56.2 % LAB HEMETOLOGY METHOD 10/03/2024 10:20 AM [facility] Lymphocytes Relative 28.4 % LAB HEMETOLOGY METHOD 10/03/2024 10:20 AM [facility] Monocytes Relative 11.3 % LAB HEMETOLOGY METHOD 10/03/2024 10:20 AM [facility] Eosinophils Relative 2.8 % LAB HEMETOLOGY METHOD 10/03/2024 10:20 AM EDT [facility] Basophils Relative 0.8 % LAB HEMETOLOGY METHOD 10/03/2024 10:20 AM EDT [facility] Immature Granulocytes Relative 0.5 % LAB HEMETOLOGY METHOD 10/03/2024 10:20 AM EDT [facility] Neutrophils Absolute 6.64 1.50 - 7.00 K/mcL LAB HEMETOLOGY METHOD 10/03/2024 10:20 AM EDT [facility] Lymphocytes Absolute 3.36 1.00 - 5.00 K/mcL LAB HEMETOLOGY METHOD 10/03/2024 10:20 AM EDT [facility] Monocytes Absolute 1.33(H) 0.20 - 1.00 K/mcL LAB HEMETOLOGY METHOD 10/03/2024 10:20 AM EDT [facility] Eosinophils Absolute 0.33 0.00 - 0.50 K/mcL LAB HEMETOLOGY METHOD 10/03/2024 10:20 AM EDT [facility] Basophils Absolute 0.10 0.00 - 0.20 K/mcL LAB HEMETOLOGY METHOD 10/03/2024 10:20 AM EDT [facility] Immature Granulocytes Absolute 0.06(H) 0.00 - 0.03 K/mcL LAB HEMETOLOGY METHOD 10/03/2024 10:20 AM EDT [facility] Blood Venous blood specimen / Unknown Venipuncture / Unknown 10/03/2024 9:01 AM EDT 10/03/2024 9:01 AM EDT us Jm Hastings MD LAB BLOOD ORDERABLES Final Resul t [facility] [address] [place] [address], * Vascular US duplex carotid bilateral (09/19/2024 10:40 AM EDT) Anatomical Region Laterality Modality Vascular, Abdomen Ultrasound 09/19/2024 3:58 PM EDT Impressions 09/19/2024 4:00 PM EDT 0-49% stenosis of the internal carotid arteries. Analysis is based on grayscale and velocity measurements which have been correlated with the NASCET criteria for measuring internal carotid artery stenosis. -------- FINAL REPORT -------- Dictated By: Mei Bolanos Dictated Date: 09/19/2024 15:58 ET Assigned Physician: Mei Bolanos Reviewed and Electronically Signed By: Mei Bolanos Signed Date: 09/19/2024 16:00 ET Workstation ID: [id number] Transcribed By: Self Edit Transcribed Date: 09/19/2024 15:58 ET Narrative 09/19/2024 4:00 PM EDT VAS US DUPLEX CAROTID BILATERAL BILATERAL CAROTID ARTERIAL ULTRASOUND Clinical History: PE. Recent diagnosis by CTPA. New PE suspected. Comparison: None. Technique and Findings: Ball scale, color and pulsed Doppler imaging were utilized. ?? Echogenic shadowing and nonshadowing plaques are seen in the bilateral internal carotid arteries, bilateral carotid bulbs, and bilateral common carotid arteries, with less than 50% stenoses on visual inspection bilaterally. ??Both carotid systems demonstrate normal waveforms with brisk systolic upstrokes. Measured peak systolic velocities are as follows: Right ICA: 101 cm/s. Right ICA/CCA ratio: 1.3. Left ICA: 104 cm/s. Left ICA/CCA ratio: 1.4. Both vertebral arteries demonstrate normal antegrade flow. ? Procedure Note Mei Bolanos MD - 09/19/2024 VAS US DUPLEX CAROTID BILATERAL BILATERAL CAROTID ARTERIAL ULTRASOUND Clinical History: PE. Recent diagnosis by CTPA. New PE suspected. Comparison: None. Technique and Findings: Ball scale, color and pulsed Doppler imaging wereutilized. Echogenic shadowing and nonshadowing plaques are seen in the bilateralinternal carotid arteries, bilateral carotid bulbs, and bilateral commoncarotid arteries, with less than 50% stenoses on visual inspectionbilaterally. Both carotid systems demonstrate normal waveforms with brisksystolic upstrokes. Measured peak systolic velocities are as follows: Right ICA: 101 cm/s. Right ICA/CCA ratio: 1.3. Left ICA: 104 cm/s. Left ICA/CCA ratio: 1.4. Both vertebral arteries demonstrate normal antegrade flow. IMPRESSION: 0-49% stenosis of the internal carotid arteries. Analysis is based on grayscale and velocity measurements which have beencorrelated with the NASCET criteria for measuring internal carotid arterystenosis. -------- FINAL REPORT -------- Dictated By: Mei Bolanos Dictated Date: 09/19/2024 15:58 ET Assigned Physician: Mei Bolanos Reviewed and Electronically Signed By: Mei Bolanos Signed Date: 09/19/2024 16:00 ET Workstation ID: [id number] Transcribed By: Self Edit Transcribed Date: 09/19/2024 15:58 ET Jm Hastings MD CV VASCULAR PROCEDURES Final Res ult * CT Pelvis wo Contrast (08/08/2024 4:12 PM EST) Anatomical Region Laterality Modality Body, Pelvis Computed Tomogra phy 08/08/2024 4:27 PM EST Impressions 08/08/2024 4:32 PM EST Impression: 1. Acute, nondisplaced right pubic ramus fractures. 2. No additional pelvic fracture identified. 3. No evidence of hip fracture. [place] ([id number]) -------- FINAL REPORT -------- Dictated By: Cece Meade Dictated Date: 08/08/2024 16:27 ET Assigned Physician: Cece Meade Reviewed and Electronically Signed By: Cece Meade Signed Date: 08/08/2024 16:32 ET Workstation ID: [id number] Transcribed By: Self Edit Transcribed Date: 08/08/2024 16:27 ET Narrative 08/08/2024 4:32 PM EST History: Left buttock pain status post fall. Known right pubic fracture. Comparison: There are no comparison images available at this time. Technique: Helical volumetric imaging of the bony pelvis was performed, to include both hips. DLP: 648.85 mGy/cm Who is Undercover Spy VCT Iterative reconstruction technique Findings: Acute, nondisplaced [...] performed, toinclude both hips. DLP: 648.85 mGy/cm Who is Undercover Spy VCT Iterative reconstruction technique Findings: Acute, nondisplaced [...] identified. 3. No evidence of hip fracture. Ripple Labsrad JAY ([id number]) -------- FINAL REPORT -------- Dictated By: Cece Meade Dictated Date: 08/08/2024 16:27 ET Assigned Physician: Cece Meaed Reviewed and Electronically Signed By: Cece Meade Signed Date: 08/08/2024 16:32 ET Workstation ID: [id number] Transcribed By: Self Edit Transcribed Date: 08/08/2024 16:27 ET us Pauline Batista DO IMG CT PROCEDURES Final R esult * (ABNORMAL) Complete blood count (08/07/2024 6:13 AM EST) Only the most recent of3 resultswithin the time period is included. WBC 9.2 4.8 - 10.8 K/mcL LAB HEMETOLOGY METHOD 08/07/2024 7:20 AM [facility] RBC 3.80(L) 4.50 - 5.50 M/mcL LAB HEMETOLOGY METHOD 08/07/2024 7:20 AM [facility] Hemoglobin 11.0(L) 13.5 - 17.5 g/dL LAB HEMETOLOGY METHOD 08/07/2024 7:20 AM [facility] Hematocrit 33.3(L) 42.0 - 54.0 % LAB HEMETOLOGY METHOD 08/07/2024 7:20 AM [facility] MCV 88.1 79.0 - 98.0 FL LAB HEMETOLOGY METHOD 08/07/2024 7:20 AM [facility] MCH 29.1 27.0 - 32.0 pcg LAB HEMETOLOGY METHOD 08/07/2024 7:20 AM [facility] MCHC 33.0 32.0 - 37.0 g/dL LAB HEMETOLOGY METHOD 08/07/2024 7:20 AM [facility] RDW 13.2 11.0 - 15.0 % LAB HEMETOLOGY METHOD 08/07/2024 7:20 AM [facility] Platelets 392 130 - 400 K/mcL LAB HEMETOLOGY METHOD 08/07/2024 7:20 AM [facility] MPV 9.5 7.0 - 11.0 FL LAB HEMETOLOGY METHOD 08/07/2024 7:20 AM [facility] NRBC 0.0 <1.0 % LAB HEMETOLOGY METHOD 08/07/2024 7:20 AM [facility] NRBC Absolute 0.00 <0.10 K/mcL LAB HEMETOLOGY METHOD 08/07/2024 7:20 AM [facility] Blood Venous blood specimen / Unknown Venipuncture / Unknown 08/07/2024 6:13 AM EST 08/07/2024 7:09 AM EST Kymberly Sanchez NP LAB BLOOD ORDERABLES Final Result [facility] [address] [place] [address], * (ABNORMAL) Basic metabolic panel (08/07/2024 6:13 AM EST) Only the most recent of2 resultswithin the time period is included. Sodium 138 133 - 145 mmol/L LAB CHEMISTRY METHOD 08/07/2024 7:59 AM [facility] Potassium 4.6 3.5 - 5.5 mmol/L LAB CHEMISTRY METHOD 08/07/2024 7:59 AM [facility] Chloride 106 96 - 110 mmol/L LAB CHEMISTRY METHOD 08/07/2024 7:59 AM [facility] CO2 30 21 - 32 mmol/L LAB CHEMISTRY METHOD 08/07/2024 7:59 AM [facility] Anion Gap 2(L) 3 - 11 LAB CHEMISTRY METHOD 08/07/2024 7:59 AM [facility] Glucose 105(H) 70 - 100 mg/dL LAB CHEMISTRY METHOD 08/07/2024 7:59 AM [facility] BUN 17 5 - 25 mg/dL LAB CHEMISTRY METHOD 08/07/2024 7:59 AM [facility] Creatinine 1.11 0.70 - 1.30 mg/dL LAB CHEMISTRY METHOD 08/07/2024 7:59 AM EST [facility] eGFR 68 >=60 mL/min/1. 73m2 LAB CHEMISTRY METHOD 08/07/2024 7:59 AM [facility] Comment:Calculation based on the??Chronic Kidney Disease Epidemiology Collaboration (CKD-EPI) equation refit??without adjustment for race. BUN/Creatinine Ratio 15.3 LAB CHEMISTRY METHOD 08/07/2024 7:59 AM [facility] Calcium 9.0 8.5 - 10.5 mg/dL LAB CHEMISTRY METHOD 08/07/2024 7:59 AM [facility] Blood Venous blood specimen / Unknown Venipuncture / Unknown 08/07/2024 6:13 AM EST 08/07/2024 7:09 AM EST Kymberly Sanchez NP LAB BLOOD ORDERABLES Final Result Performing Organization Address City/[facility]/ZIP Co de Phone Number [facility] [address] [place] [address], [place] [phone] * SST tube (08/05/2024 5:43 AM EST) Pathologist [facility] Extra Tube Hold for add-ons. 08/05/2024 9:01 AM EST [facility] Comment:Auto resulted. Blood Venous blood specimen / Unknown 08/05/2024 5:43 AM EST 08/05/2024 7:08 AM EST Pauline Batista DO LAB BLOOD ORDERABLES Laine l Result [facility] [address] [place] [address], [place] [phone] * (ABNORMAL) Comprehensive metabolic panel (08/02/2024 5:47 AM EST) Sodium 137 133 - 145 mmol/L LAB CHEMISTRY METHOD 08/02/2024 6:38 AM [facility] Potassium 4.3 3.5 - 5.5 mmol/L LAB CHEMISTRY METHOD 08/02/2024 6:38 AM [facility] Chloride 104 96 - 110 mmol/L LAB CHEMISTRY METHOD 08/02/2024 6:38 AM [facility] CO2 29 21 - 32 mmol/L LAB CHEMISTRY METHOD 08/02/2024 6:38 AM [facility] Anion Gap 4 3 - 11 LAB CHEMISTRY METHOD 08/02/2024 6:38 AM [facility] Glucose 99 70 - 100 mg/dL LAB CHEMISTRY METHOD 08/02/2024 6:38 AM [facility] BUN 26(H) 5 - 25 mg/dL LAB CHEMISTRY METHOD 08/02/2024 6:38 AM [facility] Creatinine 1.28 0.70 - 1.30 mg/dL LAB CHEMISTRY METHOD 08/02/2024 6:38 AM [facility] eGFR 57(L) >=60 mL/min/1. 73m2 LAB CHEMISTRY METHOD 08/02/2024 6:38 AM [facility] Comment:Calculation based on the??Chronic Kidney Disease Epidemiology Collaboration (CKD-EPI) equation refit??without adjustment for race. BUN/Creatinine Ratio 20.3 LAB CHEMISTRY METHOD 08/02/2024 6:38 AM [facility] Calcium 8.6 8.5 - 10.5 mg/dL LAB CHEMISTRY METHOD 08/02/2024 6:38 AM [facility] AST (SGOT) 21 10 - 42 unit/L LAB CHEMISTRY METHOD 08/02/2024 6:38 AM [facility] ALT (SGPT) 28 10 - 60 unit/L LAB CHEMISTRY METHOD 08/02/2024 6:38 AM [facility] Alkaline Phosphatase 75 42 - 121 unit/L LAB CHEMISTRY METHOD 08/02/2024 6:38 AM [facility] Total Protein 6.3 6.0 - 8.0 g/dL LAB CHEMISTRY METHOD 08/02/2024 6:38 AM EST [facility] Albumin 3.1(L) 3.2 - 5.0 g/dL LAB CHEMISTRY METHOD 08/02/2024 6:38 AM EST [facility] Total Bilirubin 1.2 0.0 - 1.4 mg/dL LAB CHEMISTRY METHOD 08/02/2024 6:38 AM EST [facility] Blood Venous blood specimen / Unknown Venipuncture / Unknown 08/02/2024 5:47 AM EST 08/02/2024 6:08 AM EST Magdi THOMPSON LAB BLOOD ORDERABLES Final Re sult [facility] [address] [place] [address], * Falls Risk Assessment (01/05/2024) Falls Risk Assessment abstracted Historical Provider HEALTH MAINTENANCE Final Result * Depression Screening [...] Recently Relevant to Health Maintenance Insurance [facility] Advance Directives Documents on File Type Date Recorded Patient Logistics Account Manager Expl anation Advance Directives and Living Will 08/20/2024 4:53 PM PROXY Advance Directives and Living Will 08/02/2024 3:42 [...] currently active code status orders. Care Teams Network Design Architect Relationship Specialty Start Date End Date Jm Hastings MD [address] [place] [id number] PCP - General Internal Medicine 06/28/17
--- OUTSIDE RECORDS SUMMARY | 2024-10-19 08:44 | XMS_ITS | Encounter Summary ---
Author Organization [facility] Address [address] [place] [address] Care Team Providers Care Hospital Personnel Director Name Role Phone Jm Hastings MD Primary Care Provider [phone] Encounter Details Date Type Department Care Team Description 08/15/2017 Business Doc Medical Records [address] [place] [id number] Abstract, Provider Social History Tobacco Use Types [...] on filedocumented in this encounter Care Teams Hospital Personnel Director Relationship Specialty Start Date End Date Jm Hastings MD [address] [place] [address] [phone] PCP - General Internal Medicine 06/28/17 documented as of this encounter
--- OUTSIDE RECORDS SUMMARY | 2024-10-19 08:45 | XMS_ITS | Encounter Summary ---
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 Social History Tobacco Use Types Packs/Day Years [...] on file documented as of this encounter Results * URINE, CULTURE (09/23/2017 7:45 AM EDT) Urine (Urine) 09/23/2017 7:4 5 AM EDT 09/23/2017 7:45 AM EDT Narrative [facility] - 09/24/2017 9:41 AM EDT No growth Jm Hastings MD LAB [facility] [employer] * (ABNORMAL) URINALYSIS, COMPLETE (09/23/2017 7:45 AM EDT) SPECIFIC GRAVITY, URINE 1.031(H) 1.005 - 1.030 09/23/2017 8:33 AM [facility] PH, URINE 5.5 5 - 8 09/23/2017 8:25 AM [facility] PROTEIN, URINE NEGATIVE <=TRACE mg/dL 09/23/2017 8:25 AM [facility] GLUCOSE, URINE (UA) NEGATIVE NEGATIVE mg/dL 09/23/2017 8:25 AM [facility] KETONE, URINE NEGATIVE NEGATIVE mg/dL 09/23/2017 8:25 AM [facility] BILIRUBIN URINE NEGATIVE NEGATIVE 09/23/2017 8:25 AM [facility] UROBILINOGEN, URINE 0.2 0.2 - 1.0 E.U./dL 09/23/2017 8:25 AM [facility] BLOOD, URINE LARGE(A) NEGATIVE 09/23/2017 8:25 AM [facility] NITRITE,URINE NEGATIVE NEGATIVE 09/23/2017 8:25 AM [facility] LEUKOCYTE ESTERASE, URINE NEGATIVE NEGATIVE 09/23/2017 8:25 AM [facility] RBC-Urine 30-40(A) 0 - 4 /hpf 09/23/2017 8:44 AM [facility] WBC, URINE 0-1 0 - 4 /hpf 09/23/2017 8:44 AM [facility] MUCUS, URINE LIGHT 09/23/2017 8:44 AM [facility] 09/23/2017 7:45 AM EDT 09/23/2017 7:45 AM EDT Jm Hastings MD LAB Performing Organization Address City/State/[facility] Co de Phone Number [place] [phone] [facility] * THROMBOPLASTIN TIME, PARTIAL (09/23/2017 7:45 AM EDT) PTT 25.0 20.6 - 33.6 SEC 09/23/2017 8:55 AM [facility] Comment: Please note adjusted APTT (sec) reference range ?? effective 12/12/2015. 09/23/2017 7:45 AM EDT 09/23/2017 7:45 AM EDT Jm Hastings MD LAB Performing Organization Address [facility] de Phone Number [address] * PROTHROMBIN TIME (09/23/2017 7:45 AM EDT) PT 13.5 11.6 - 15.6 SEC 09/23/2017 9:08 AM [facility] Comment: Please note adjusted PT(sec)normal reference range ?? effective 02/11/15. INR 1.02 09/23/2017 9:08 AM [facility] 09/23/2017 7:45 AM EDT 09/23/2017 7:45 AM EDT Jm Hastings MD LAB Performing Organization Address [facility] Number [address] * (ABNORMAL) BASIC METABOLIC PANEL (09/23/2017 7:45 AM EDT) GLUCOSE 110(H) 70 - 100 mg/dL 09/23/2017 11:28 AM [facility] Comment: Reference range applicable to fasting specimens only Based on recommendations from the ADA and AACE, the fasting glucose reference range has been changed to 70-100 mg/dL. ??This change is effective October 27, 2009 BUN 27(H) 5 - 25 mg/dL 09/23/2017 11:28 AM [facility] CREAT 0.8 0.7 - 1.5 mg/dL 09/23/2017 11:28 AM [facility] GFR > 60 >60 09/23/2017 11:28 AM [facility] Comment: If patient is -[place], multiply result by 1.21 Chronic Kidney Disease: < 60 ml/min/1.73 square meters Kidney Failure: < 15 ml/min/1.73 square meters Sodium 144 133 - 145 mEq/L 09/23/2017 11:28 AM EDT [facility] Potassium 4.1 3.5 - 5.5 mEq/L 09/23/2017 11:28 AM EDT [facility] Chloride 103 96 - 108 mEq/L 09/23/2017 11:28 AM EDT [facility] CO2 28.4 21.0 - 32.0 mEq/L 09/23/2017 11:28 AM EDT [facility] CALCIUM 9.3 8.5 - 10.5 mg/dL 09/23/2017 11:28 AM EDT [facility] 09/23/2017 7:45 AM EDT 09/23/2017 7:45 AM EDT Jm Hastings MD LAB Performing Organization Address City/State/[facility] Co de Phone Number [facility] [address] [facility] * (ABNORMAL) CBC (AUTO DIFF PLATELET) (09/23/2017 7:45 AM EDT) WBC 6.8 4.8 - 10.8 x10-3 09/23/2017 8:16 AM EDT [facility] RBC 4.7 4.5 - 5.5 x10-6 09/23/2017 8:16 AM EDT [facility] HGB 13.5 13.5 - 17.5 g/dl 09/23/2017 8:16 AM EDT [facility] HCT 41.3(L) 42 - 54 % 09/23/2017 8:16 AM EDT [facility] MCV 87.3 79 - 98 fl 09/23/2017 8:16 AM EDT [facility] MCH 28.5 27 - 32 pg 09/23/2017 8:16 AM EDT [facility] MCHC 32.7 32 - 37 g/dl 09/23/2017 8:16 AM EDT [facility] RDW 12.9 11 - 15 % 09/23/2017 8:16 AM EDT [facility] PLT COUNT 392 130 - 400 x10-3 09/23/2017 8:16 AM EDT [facility] MEAN PLATELET VOLUME 9.5 7 - 11 fl 09/23/2017 8:16 AM EDT [facility] NEUT % 51.7 41 - 85 % 09/23/2017 8:16 AM EDT [facility] LYMPH % 34.2 15 - 48 % 09/23/2017 8:16 AM EDT [facility] MONO % 9.3 0 - 12 % 09/23/2017 8:16 AM EDT [facility] EOS % 4.1 0 - 5 % 09/23/2017 8:16 AM EDT [facility] BASO % 0.7 0 - 2 % 09/23/2017 8:16 AM EDT [facility] 09/23/2017 7:45 AM EDT 09/23/2017 7:45 AM EDT Jm Hastings MD LAB Performing Organization Address City/State/[facility] Co de Phone Number [facility] [address] [place] [address] documented in this encounter Visit Diagnoses Diagnosis Preoperative examination Preoperative examination, unspecified Screening for deficiency anemia Screening for other and unspecified deficiency 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
--- OUTSIDE RECORDS SUMMARY | 2024-10-19 08:45 | XMS_ITS | Encounter Summary ---
Author Organization [facility] Address [address] [place] [address] Care Team Providers Care Nurse Outreach Case Manager Name Role Phone Jm Hastings MD Primary Care Provider Encounter Details Date Type Department Care Team Description 10/09/2018 [facility] Hand Report Medical Records [address] [place] [id number] Imer Walker MD Social History Tobacco Use Types Packs/Day [...] on filedocumented in this encounter Care Teams Nurse Outreach Case Manager Relationship Specialty Start Date End Date Jm Hastings MD [address] [place] [address] [phone] PCP - General Internal Medicine 06/28/17 documented as of this encounter
[2024-10-19 08:47] VITALS: BMI 26.0
--- NOTE | 2024-10-19 08:47 | MHC.OFFVIS ---
Vital Signs 10/19/24 08:47 Height 5 ft 9 in Weight 176 lb BMI 26.0 Intake Visit Reasons: ov- pubic ramus fx, DOI 07/31/24 Intake Note: Cleve is a 79 year old male who presents today for a follow up of right pubic ramus fracture, DOI 07/30/24. At his last visit he was instructed to weight bear as tolerated with a walker, work on gait training and strengthening exercises. Today patient reports he is doing well, walking much better. Patient is taking Tylenol PRN. Allergies No Known Allergies Allergy (Mild, Verified 10/19/24 08:48) N/A Medication List - Last Reconciled 10/19/24 by Rekha Mcclelland PA-C acetaminophen 1,000 mg PO Q6H PRN acetaminophen 650 mg (2 x 325 mg) PO Q6H PRN amlodipine 2.5 mg PO BEDTIME apixaban (Eliquis DVT-PE Treat 30D Start) 5 mg PO BID aspirin 81 mg PO BEDTIME atorvastatin 80 mg PO BEDTIME docusate sodium (Colace) 100 mg PO BID PRN lisinopril 20 mg PO BEDTIME magnesium hydroxide (Milk of Magnesia) 30 mL PO DAILY PRN omeprazole 20 mg PO BID@0630,1630 tramadol 25 mg (1/2 x 50 mg) PO Q6H PRN HPI HPI ov- pubic ramus fx, DOI 07/31/24: Details: 79-year-old gentleman returns to the office today for a follow-up pubic rami fracture date of injury 07/31/2024. Patient has completed physical therapy and has been advancing activities without difficulties. He has some occasional soreness but otherwise no concerns today. [facility] Medical History Essential hypertension Stroke Numbness Tongue cancer Surgical History History of cancer surgery Social History Household Members: Spouse and Children Alcohol intake: never Patient Tobacco Use Status: Former Tobacco user service: No Current occupational status: employed Review of Systems Const All systems reviewed & are unremarkable except as noted in HPI and below Physical Exam Vital Signs: BMI result Body Mass Index 26.0 Const General: cooperative and no acute distress Orientation/consciousness: patient oriented x3 Resp Effort & Inspection: normal respiratory effort and able to speak in complete sentences Cardio Peripheral pulses: Peripheral pulses 2+ throughout Neuro General: patient oriented x3 Extrem Other: He can perform active and passive range of motion of the right leg without pain. No tenderness to palpation along the groin region. Results Reviewed Results Reviewed: X-rays of the pelvis obtained in the office today and reviewed by me show healing of the right inferior pubic rami Assessment & Plan Assessment & Plan (1) Fracture of pubic ramus: Code(s): S32.599A - Other specified fracture of unspecified pubis, initial encounter for closed fracture Category: Medical Plan: The patient will continue to advance activities as tolerated and maintain his strengthening exercises. If symptoms arise or there is any concerns he will contact our office otherwise follow up as needed. Orders: Orders XR pelvis 1-2V Today M25.559 - Pain in unspecified hip Coding Level of Care Code Global (56187) Diagnoses Fracture of pubic ramus S32.599A
== END 2024-10-19 09:04 | disposition home or self-care (01) ==
LOC: HO.HOS 08:31
PROVIDERS: PCP Internal Medicine; Visit Provider Physician Assistant
DX: S32.591A Other specified fracture of right pubis, initial encounter for closed fracture (principal)
CPT/HCPCS: 99213

== ENCOUNTER → 2024-10-19 08:39 | Outpatient (BNV) | payer MEDICARE, SELFPAY | PROVIDERS: Visit Provider Radiology Diagnostic Radiology | DX: M25.559 Pain in unspecified hip (principal) | CPT/HCPCS: 72170 ==

== ENCOUNTER 2024-10-19 10:15 | Outpatient (REF) | payer MEDICARE, SELFPAY ==
--- NOTE | ~2024-10-19 | XR_ITS ---
EXAMINATION: XR PELVIS CLINICAL INFORMATION: M25.559 - Pain in unspecified hip COMPARISON: August 17, 2024 TECHNIQUE: AP view of the pelvis. FINDINGS: Bony pelvis is intact. Degenerative changes in the testes porus. Old traumatic deformities superior pubic rami bilaterally. Coxofemoral joints are intact with normal alignment. Vascular clips overlapping the lesser trochanter left femur. Vascular clips in the right inguinal scrotal region. XR/XR pelvis 1-2V IMPRESSION: No acute fracture. Stable. Electronically signed by: Umair Galindo MD 10/19/2024 08:56 AM EDT
--- OUTSIDE RECORDS SUMMARY | 2024-10-23 11:20 | XMS_ITS | Clinical Summary ---
Author Organization [facility] [address] [place] [address] [place] [address] Phone Care Team Providers Care Diagnostic Medical Sonographer Name Role Phone Jm Hastings MD Primary Care Provider [phone] Allergies No known active allergies Medications atorvastatin [...] 2024. 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, [facility] V28) 12/30 Tongue cancer ([facility] V24, [facility] V28) 018 Encounters Date Type Department Care Team Description 10/12/2024 1:00 PM EDT Office Visit [facility] Hematology Oncology [address] [place] [address] [phone] Rosemary Bentley, Other acute pulmonary embolism without acute cor pulmonale ([facility] V24, [facility] V28) 10/08/2024 10:00 AM EDT Office Visit Adult Medicine [address] [phone] Sav Miranda PA Pulmonary embolism, other, unspecified chronicity, unspecified whether acute cor pulmonale present ([facility] V24, [facility] V28) (Primary Dx); History of tongue cancer 10/03/2024 Telephone Adult Medicine [address] [phone] Jm Hastings MD faxed order ([email or web address] [facility] [id number]) 09/19/2024 9:44 AM EDT - 09/19/2024 11:59 PM EDT Hospital Encounter Radiology Department - [address] [phone] Other acute pulmonary embolism without acute cor pulmonale (CMS/HCC V24, CMS/HCC V28); Thalamic stroke ([facility]/HCC V24, CMS/HCC V28); Tachycardia Discharge Disposition: Home or Self Care 09/05/2024 10:30 AM EDT Office Visit Adult [address] [phone] Jm Hastings MD Other acute pulmonary embolism without acute cor pulmonale ([facility]/HCC V24, [facility]/HCC V28) (Primary Dx); Thalamic stroke ([facility] V24, CMS/HCC V28); Tachycardia 09/05/2024 Telephone Adult [address] [phone] Jm Hastings MD 09/04/2024 Billing Patient Not Present Adult [address] [phone] Jm Hastings MD 08/31/[address] [phone] Kamila Eubanks MA home health certification [id number] 08/31/[address] [phone] Jm Hastings MD pulmonary embolism 08/30/2024 Telephone Adult [address] [phone] Jm Hastings MD vna 08/27/2024 1:30 PM EDT Office Visit [address] [phone] Jm Hastings MD Open fracture of right pubis with routine healing, unspecified portion of pubis, subsequent encounter (Primary Dx); Anemia due to other cause, not classified; Essential hypertension; Accidental fall, subsequent encounter; Constipation, unspecified constipation type; Pre-diabetes; Bladder diverticulum 08/27/2024 Telephone Adult Medicine [address] [phone] Jm Hastings MD faxed orders ([facility] [id number], [id number] ) 08/16/2024 Telephone Adult [address] [phone] eLia Corrigan MA vna 08/13/2024 Plan of Care Documentation [facility] [address] [place] [phone] 08/09/2024 Telephone Adult [address] [phone] Jm Hastings MD Hospital Follow-up 08/06/2024 Plan of Care Documentation [facility] [address] [place] [phone] 08/01/2024 4:15 PM EST - 08/15/2024 11:00 AM EST Hospital Encounter [facility] [address] [place] [phone] Pauline Batista DO Discharge Disposition: Home-Health Care [...] HISTORICAL KNEE SURGERY OTHER SURGICAL HISTORY PROCEDURE: [place] CLOSURE INTESTINAL CUTANEOUS FISTULA MOUTH SURGERY PROCEDURE: ORAL SURGERY PROCEDURE; COMMENT: tongue surgery VASECTOMY PROCEDURE: HISTORICAL VASECTOMY Medical History Medical History Date Comments Tobacco use DX:Tobacco use CVA (cerebral vascular accident) ([facility] V24, C [facility] V28) Tongue cancer ([facility] V24, CMS/[facility] V28) Family History Medical History Relation Name Comments Heart attack Father from [place] at age 72 Other: bone ca Mother [...] Description 11/22/2024 1:30 PM EDT Ancillary Procedure [facility] [address] [place] [phone] 12/11/2024 8:30 AM EDT Office Visit Adult Medicine [facility] [address] [place] [phone] Jm Hastings MD [address] [place] [address] Health Maintenance Due Date Last Done Comments [...] LAB HEMETOLOGY METHOD 10/03/2024 10:20 AM EDT [facility] RBC 4.60 4.50 - 5.50 M/mcL LAB HEMETOLOGY METHOD 10/03/2024 10:20 AM EDT [facility] Hemoglobin 13.5 13.5 - 17.5 g/dL LAB HEMETOLOGY METHOD 10/03/2024 10:20 AM EDT [facility] Hematocrit 42.1 42.0 - 54.0 % LAB HEMETOLOGY METHOD 10/03/2024 10:20 AM [facility] MCV 91.1 79.0 - 98.0 FL LAB HEMETOLOGY METHOD 10/03/2024 10:20 AM [facility] MCH 29.2 27.0 - 32.0 pcg LAB HEMETOLOGY METHOD 10/03/2024 10:20 AM [facility] MCHC 32.1 32.0 - 37.0 g/dL LAB HEMETOLOGY METHOD 10/03/2024 10:20 AM [facility] RDW 12.9 11.0 - 15.0 % LAB HEMETOLOGY METHOD 10/03/2024 10:20 AM [facility] Platelets 516(H) 130 - 400 K/mcL LAB HEMETOLOGY METHOD 10/03/2024 10:20 AM [facility] MPV 9.8 7.0 - 11.0 FL LAB HEMETOLOGY METHOD 10/03/2024 10:20 AM [facility] NRBC 0.0 <1.0 % LAB HEMETOLOGY METHOD 10/03/2024 10:20 AM [facility] NRBC Absolute 0.00 <0.10 K/mcL LAB HEMETOLOGY METHOD 10/03/2024 10:20 AM [facility] Neutrophils Relative 56.2 % LAB HEMETOLOGY METHOD 10/03/2024 10:20 AM [facility] Lymphocytes Relative 28.4 % LAB HEMETOLOGY METHOD 10/03/2024 10:20 AM [facility] Monocytes Relative 11.3 % LAB HEMETOLOGY METHOD 10/03/2024 10:20 AM [facility] Eosinophils Relative 2.8 % LAB HEMETOLOGY METHOD 10/03/2024 10:20 AM EDT [facility] Basophils Relative 0.8 % LAB HEMETOLOGY METHOD 10/03/2024 10:20 AM EDT [facility] Immature Granulocytes Relative 0.5 % LAB HEMETOLOGY METHOD 10/03/2024 10:20 AM EDT [facility] Neutrophils Absolute 6.64 1.50 - 7.00 K/mcL LAB HEMETOLOGY METHOD 10/03/2024 10:20 AM EDT [facility] Lymphocytes Absolute 3.36 1.00 - 5.00 K/mcL LAB HEMETOLOGY METHOD 10/03/2024 10:20 AM EDT [facility] Monocytes Absolute 1.33(H) 0.20 - 1.00 K/mcL LAB HEMETOLOGY METHOD 10/03/2024 10:20 AM EDT [facility] Eosinophils Absolute 0.33 0.00 - 0.50 K/mcL LAB HEMETOLOGY METHOD 10/03/2024 10:20 AM EDT [facility] Basophils Absolute 0.10 0.00 - 0.20 K/mcL LAB HEMETOLOGY METHOD 10/03/2024 10:20 AM EDT [facility] Immature Granulocytes Absolute 0.06(H) 0.00 - 0.03 K/mcL LAB HEMETOLOGY METHOD 10/03/2024 10:20 AM EDT [facility] Blood Venous blood specimen / Unknown Venipuncture / Unknown 10/03/2024 9:01 AM EDT 10/03/2024 9:01 AM EDT us Jm Hastings MD LAB BLOOD ORDERABLES Final Resul t [facility] [address] [place] [address], * Vascular US duplex carotid bilateral (09/19/2024 [...] Signed Date: 09/19/2024 16:00 ET Workstation ID: [id number] Transcribed By: Self Edit Transcribed Date: 09/19/2024 [...] Signed Date: 09/19/2024 16:00 ET Workstation ID: [id number] Transcribed By: Self Edit Transcribed Date: 09/19/2024 [...] No evidence of hip [place] ([id number]) -------- FINAL REPORT -------- Dictated By: Cece Meade Dictated Date: 08/08/2024 16:27 ET Assigned Physician: Cece Meade Reviewed and Electronically Signed By: Cece Meade Signed Date: 08/08/2024 16:32 ET Workstation ID: [id number] Transcribed By: Self Edit Transcribed Date: 08/08/2024 16:27 ET Narrative 08/08/2024 4:32 PM EST History: Left buttock pain status post fall. Known right pubic fracture. Comparison: There are no comparison images available at this time. Technique: Helical volumetric imaging of the bony pelvis was performed, to include both hips. DLP: 648.85 mGy/cm Oesia VCT Iterative reconstruction technique Findings: Acute, nondisplaced [...] performed, toinclude both hips. DLP: 648.85 mGy/cm [place]esia VCT Iterative reconstruction technique Findings: Acute, nondisplaced [...] identified. 3. No evidence of hip fracture. sonarDesignrad JAY ([id number]) -------- FINAL REPORT -------- Dictated By: Cece Meade Dictated Date: 08/08/2024 16:27 ET Assigned Physician: Cece Meade Reviewed and Electronically Signed By: Cece Meade Signed Date: 08/08/2024 16:32 ET Workstation ID: [id number] Transcribed By: Self Edit Transcribed Date: 08/08/2024 16:27 ET us Pauline Batista DO IMG CT PROCEDURES Final R esult * (ABNORMAL) Complete blood count (08/07/2024 6:13 AM EST) Only the most recent of3 resultswithin the time period is included. WBC 9.2 4.8 - 10.8 K/mcL LAB HEMETOLOGY METHOD 08/07/2024 7:20 AM [facility] RBC 3.80(L) 4.50 - 5.50 M/mcL LAB HEMETOLOGY METHOD 08/07/2024 7:20 AM [facility] Hemoglobin 11.0(L) 13.5 - 17.5 g/dL LAB HEMETOLOGY METHOD 08/07/2024 7:20 AM [facility] Hematocrit 33.3(L) 42.0 - 54.0 % LAB HEMETOLOGY METHOD 08/07/2024 7:20 AM [facility] MCV 88.1 79.0 - 98.0 FL LAB HEMETOLOGY METHOD 08/07/2024 7:20 AM [facility] MCH 29.1 27.0 - 32.0 pcg LAB HEMETOLOGY METHOD 08/07/2024 7:20 AM [facility] MCHC 33.0 32.0 - 37.0 g/dL LAB HEMETOLOGY METHOD 08/07/2024 7:20 AM [facility] RDW 13.2 11.0 - 15.0 % LAB HEMETOLOGY METHOD 08/07/2024 7:20 AM [facility] Platelets 392 130 - 400 K/mcL LAB HEMETOLOGY METHOD 08/07/2024 7:20 AM [facility] MPV 9.5 7.0 - 11.0 FL LAB HEMETOLOGY METHOD 08/07/2024 7:20 AM [facility] NRBC 0.0 <1.0 % LAB HEMETOLOGY METHOD 08/07/2024 7:20 AM [facility] NRBC Absolute 0.00 <0.10 K/mcL LAB HEMETOLOGY METHOD 08/07/2024 7:20 AM [facility] Blood Venous blood specimen / Unknown Venipuncture / Unknown 08/07/2024 6:13 AM EST 08/07/2024 7:09 AM EST Kymberly Sanchez NP LAB BLOOD ORDERABLES Final Result [facility] [address] [place] [address], * (ABNORMAL) Basic metabolic panel (08/07/2024 6:13 AM EST) Only the most recent of2 resultswithin the time period is included. Sodium 138 133 - 145 mmol/L LAB CHEMISTRY METHOD 08/07/2024 7:59 AM [facility] Potassium 4.6 3.5 - 5.5 mmol/L LAB CHEMISTRY METHOD 08/07/2024 7:59 AM [facility] Chloride 106 96 - 110 mmol/L LAB CHEMISTRY METHOD 08/07/2024 7:59 AM [facility] CO2 30 21 - 32 mmol/L LAB CHEMISTRY METHOD 08/07/2024 7:59 AM [facility] Anion Gap 2(L) 3 - 11 LAB CHEMISTRY METHOD 08/07/2024 7:59 AM [facility] Glucose 105(H) 70 - 100 mg/dL LAB CHEMISTRY METHOD 08/07/2024 7:59 AM [facility] BUN 17 5 - 25 mg/dL LAB CHEMISTRY METHOD 08/07/2024 7:59 AM [facility] Creatinine 1.11 0.70 - 1.30 mg/dL LAB CHEMISTRY METHOD 08/07/2024 7:59 AM EST [facility] eGFR 68 >=60 mL/min/1. 73m2 LAB CHEMISTRY METHOD 08/07/2024 7:59 AM [facility] Comment:Calculation based on the??Chronic Kidney Disease Epidemiology Collaboration (CKD-EPI) equation refit??without adjustment for race. BUN/Creatinine Ratio 15.3 LAB CHEMISTRY METHOD 08/07/2024 7:59 AM [facility] Calcium 9.0 8.5 - 10.5 mg/dL LAB CHEMISTRY METHOD 08/07/2024 7:59 AM [facility] Blood Venous blood specimen / Unknown Venipuncture / Unknown 08/07/2024 6:13 AM EST 08/07/2024 7:09 AM EST Kymberly Sanchez NP LAB BLOOD ORDERABLES Final Result Performing Organization Address City/[facility]/ZIP Co de Phone Number [facility] [address] [place] [address], [place] [phone] * SST tube (08/05/2024 5:43 AM EST) Pathologist [facility] Extra Tube Hold for add-ons. 08/05/2024 9:01 AM EST [facility] Comment:Auto resulted. Blood Venous blood specimen / Unknown 08/05/2024 5:43 AM EST 08/05/2024 7:08 AM EST Pauline Batista DO LAB BLOOD ORDERABLES Laine l Result [facility] [address] [place] [address], [place] [phone] * (ABNORMAL) Comprehensive metabolic panel (08/02/2024 5:47 AM EST) Sodium 137 133 - 145 mmol/L LAB CHEMISTRY METHOD 08/02/2024 6:38 AM [facility] Potassium 4.3 3.5 - 5.5 mmol/L LAB CHEMISTRY METHOD 08/02/2024 6:38 AM [facility] Chloride 104 96 - 110 mmol/L LAB CHEMISTRY METHOD 08/02/2024 6:38 AM [facility] CO2 29 21 - 32 mmol/L LAB CHEMISTRY METHOD 08/02/2024 6:38 AM [facility] Anion Gap 4 3 - 11 LAB CHEMISTRY METHOD 08/02/2024 6:38 AM [facility] Glucose 99 70 - 100 mg/dL LAB CHEMISTRY METHOD 08/02/2024 6:38 AM [facility] BUN 26(H) 5 - 25 mg/dL LAB CHEMISTRY METHOD 08/02/2024 6:38 AM [facility] Creatinine 1.28 0.70 - 1.30 mg/dL LAB CHEMISTRY METHOD 08/02/2024 6:38 AM [facility] eGFR 57(L) >=60 mL/min/1. 73m2 LAB CHEMISTRY METHOD 08/02/2024 6:38 AM [facility] Comment:Calculation based on the??Chronic Kidney Disease Epidemiology Collaboration (CKD-EPI) equation refit??without adjustment for race. BUN/Creatinine Ratio 20.3 LAB CHEMISTRY METHOD 08/02/2024 6:38 AM [facility] Calcium 8.6 8.5 - 10.5 mg/dL LAB CHEMISTRY METHOD 08/02/2024 6:38 AM [facility] AST (SGOT) 21 10 - 42 unit/L LAB CHEMISTRY METHOD 08/02/2024 6:38 AM [facility] ALT (SGPT) 28 10 - 60 unit/L LAB CHEMISTRY METHOD 08/02/2024 6:38 AM [facility] Alkaline Phosphatase 75 42 - 121 unit/L LAB CHEMISTRY METHOD 08/02/2024 6:38 AM [facility] Total Protein 6.3 6.0 - 8.0 g/dL LAB CHEMISTRY METHOD 08/02/2024 6:38 AM EST [facility] Albumin 3.1(L) 3.2 - 5.0 g/dL LAB CHEMISTRY METHOD 08/02/2024 6:38 AM EST [facility] Total Bilirubin 1.2 0.0 - 1.4 mg/dL LAB CHEMISTRY METHOD 08/02/2024 6:38 AM EST [facility] Blood Venous blood specimen / Unknown Venipuncture / Unknown 08/02/2024 5:47 AM EST 08/02/2024 6:08 AM EST Magdi THOMPSON LAB BLOOD ORDERABLES Final Re sult [facility] [address] [place] [address], * Falls Risk Assessment (01/05/2024) Falls Risk [...] Recently Relevant to Health Maintenance [facility] Advance Directives Documents on File Type Date Recorded Patient Head Loader Expl anation Advance Directives and Living Will [...] currently active code status orders. Care Teams Diagnostic Medical Sonographer Relationship Specialty Start Date End Date Jm Hastings MD [address] [place] [id number] PCP - General Internal Medicine 06/28/17
--- OUTSIDE RECORDS SUMMARY | 2024-10-23 11:20 | XMS_ITS | Encounter Summary ---
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 Social History [...] AM EDT 09/23/2017 7:45 AM EDT Narrative [facility] - 09/24/2017 9:41 AM EDT No growth Jm Hastings MD LAB [facility] * (ABNORMAL) URINALYSIS, COMPLETE (09/23/2017 7:45 AM EDT) SPECIFIC GRAVITY, URINE 1.031(H) 1.005 - 1.030 09/23/2017 8:33 AM [facility] PH, URINE 5.5 5 - 8 09/23/2017 8:25 AM [facility] PROTEIN, URINE NEGATIVE <=TRACE mg/dL 09/23/2017 8:25 AM [facility] GLUCOSE, URINE (UA) NEGATIVE NEGATIVE mg/dL 09/23/2017 8:25 AM [facility] KETONE, URINE NEGATIVE NEGATIVE mg/dL 09/23/2017 8:25 AM [facility] BILIRUBIN URINE NEGATIVE NEGATIVE 09/23/2017 8:25 AM [facility] UROBILINOGEN, URINE 0.2 0.2 - 1.0 E.U./dL 09/23/2017 8:25 AM [facility] BLOOD, URINE LARGE(A) NEGATIVE 09/23/2017 8:25 AM [facility] NITRITE,URINE NEGATIVE NEGATIVE 09/23/2017 8:25 AM [facility] LEUKOCYTE ESTERASE, URINE NEGATIVE NEGATIVE 09/23/2017 8:25 AM [facility] RBC-Urine 30-40(A) 0 - 4 /hpf 09/23/2017 8:44 AM [facility] WBC, URINE 0-1 0 - 4 /hpf 09/23/2017 8:44 AM [facility] MUCUS, URINE LIGHT 09/23/2017 8:44 AM [facility] 09/23/2017 7:45 AM EDT 09/23/2017 7:45 AM EDT Jm Hastings MD LAB Performing Organization Address City/State/[facility] Co de Phone Number [place] [phone] [facility] * THROMBOPLASTIN TIME, PARTIAL (09/23/2017 7:45 AM EDT) PTT 25.0 20.6 - 33.6 SEC 09/23/2017 8:55 AM [facility] Comment: Please note adjusted APTT (sec) reference range ?? effective 12/12/2015. 09/23/2017 7:45 AM EDT 09/23/2017 7:45 AM EDT Jm Hastings MD LAB Performing Organization Address [facility] de Phone Number [address] * PROTHROMBIN TIME (09/23/2017 7:45 AM EDT) PT 13.5 11.6 - 15.6 SEC 09/23/2017 9:08 AM [facility] Comment: Please note adjusted PT(sec)normal reference range ?? effective 02/11/15. INR 1.02 09/23/2017 9:08 AM [facility] 09/23/2017 7:45 AM EDT 09/23/2017 7:45 AM EDT Jm Hastings MD LAB Performing Organization Address [facility] Number [address] * (ABNORMAL) BASIC METABOLIC PANEL (09/23/2017 7:45 AM EDT) GLUCOSE 110(H) 70 - 100 mg/dL 09/23/2017 11:28 AM [facility] Comment: Reference range applicable to fasting specimens only Based on recommendations from the ADA and AACE, the fasting glucose reference range has been changed to 70-100 mg/dL. ??This change is effective October 27, 2009 BUN 27(H) 5 - 25 mg/dL 09/23/2017 11:28 AM [facility] CREAT 0.8 0.7 - 1.5 mg/dL 09/23/2017 11:28 AM [facility] GFR > 60 >60 09/23/2017 11:28 AM [facility] Comment: If patient is -[place], multiply result by 1.21 Chronic Kidney Disease: [...] Jm Hastings MD LAB Performing Organization Address City/State/[facility] Co de Phone Number [facility] [address] [facility] * (ABNORMAL) CBC (AUTO DIFF PLATELET) [...] - 11 fl 09/23/2017 8:16 AM EDT [facility] NEUT % 51.7 41 - 85 % 09/23/2017 8:16 AM EDT [facility] LYMPH % 34.2 15 - 48 % 09/23/2017 8:16 AM EDT [facility] MONO % 9.3 0 - 12 % 09/23/2017 8:16 AM EDT [facility] EOS % 4.1 0 - 5 % 09/23/2017 8:16 AM EDT [facility] BASO % 0.7 0 - 2 % 09/23/2017 8:16 AM EDT [facility] 09/23/2017 7:45 AM EDT 09/23/2017 7:45 AM EDT Jm Hastings MD LAB Performing Organization Address City/State/[facility] Co de Phone Number [facility] [address] [place] [address] documented in this encounter Visit Diagnoses Diagnosis Preoperative examination Preoperative examination, unspecified Screening for deficiency anemia Screening for other and unspecified deficiency anemia prison current use of anticoagulant therapy documented in this encounter Care Teams Mortgage Accounting Clerk Relationship Specialty Start Date End Date Jm Hastings MD [address] [place] [id number] PCP - General Internal Medicine 06/28/17 documented as of this encounter
--- OUTSIDE RECORDS SUMMARY | 2024-10-23 11:20 | XMS_ITS | Encounter Summary ---
Author Organization [facility] Address [address] [place] [address] Care Team Providers Care Duplicating Machine Mechanic Name Role Phone Jm Hastings MD Primary Care Provider [phone] Encounter Details Date Type Department Care Team Description 08/15/2017 Business Doc Medical Records [address] [place] [id number] Abstract, Provider Social History Tobacco Use Types [...] on filedocumented in this encounter Care Teams Duplicating Machine Mechanic Relationship Specialty Start Date End Date Jm Hastings MD [address] [place] [address] [phone] PCP - General Internal Medicine 06/28/17 documented as of this encounter
--- OUTSIDE RECORDS SUMMARY | 2024-10-23 11:20 | XMS_ITS | Clinical Summary ---
Author Organization [facility] Address [address] [place] [address] Care Team Providers Care Tombstone Erector Name Role Phone Jm Hastings MD Primary Care Provider [phone] Allergies No known active allergies Medications No [...] age to complete this topic Care Teams Tombstone Erector Relationship Specialty Start Date End Date Jm Hastings MD PCP - General Internal Medicine 08/19/17
--- OUTSIDE RECORDS SUMMARY | 2024-10-23 11:20 | XMS_ITS | Encounter Summary ---
Author Organization [facility] Address [address] [place] [address] Care Team Providers Care Detective Supervisor Name Role Phone Jm Hastings MD Primary Care Provider Reason for Visit * Reason Comments E-prescribe Rx Request Encounter Details Date Type Department Care Team Description 12/27/2022 Refill Adult Medicine [address] [phone] Jm Hastings MD [address] [place] [address] [phone] E-prescribe Rx Request Social History Tobacco Use [...] on filedocumented in this encounter Care Teams Detective Supervisor Relationship Specialty Start Date End Date Jm Hastings MD [address] [place] [id number] PCP - General Internal Medicine 06/28/17 documented as of this encounter
--- OUTSIDE RECORDS SUMMARY | 2024-10-23 11:20 | XMS_ITS | Encounter Summary ---
Author Organization [facility] Address [address] [place] [address] Care Team Providers Care Parts Salesman Name Role Phone Jm Hastings MD Primary Care Provider [phone] Reason for Visit * Reason Comments E-prescribe Rx Request Encounter Details Date Type Department Care Team Description 07/23/2021 Refill Adult Medicine [address] [phone] Jm Hastings MD [address] [place] [address] [phone] E-prescribe Rx Request Social History Tobacco Use [...] Telephone Encounter - Thalia Simental M.A. - 07/23/2021 2:57 PM EST Refused pharmacy request, pt needs appt pending appt 11/23/21 Last refills 05/2021 should be out of med * Telephone Encounter - Blu Jordi - 07/23/2021 2:21 PM EST Patient would like script to be: E-PRESCRIBED/FAXED TO PHARMACY WHEN WAS THE PATIENT'S LAST APPOINTMENT IN ADULT MEDICINE? 05/29/21 WHEN WAS THE LAST TIME THE PATIENT SAW THEIR PCP? Same as above Does patient have an upcoming appointment? Yes 11/23/21 (THE MEDICATION REQUESTED IS ON THE MED LIST ABOVE) All of the medications requested were on the CURRENT MEDS list Did you check the Pharmacy information above?: YES Patient wants: 30 -day supply Is this a mail order prescription request ? NO If the refill is from a FAXED refill request what is the RX # listed on the fax? N/A Patients current insurance carrier is: [place] / [place] / Product Type: MEDICARE [id number] documented in this encounter Plan of Treatment Not on file documented as of this encounter Visit Diagnoses Not on filedocumented in this encounter Care Teams Parts Salesman Relationship Specialty Start Date End Date Jm Hastings MD [address] [place] [id number] PCP - General Internal Medicine 06/28/17 documented as of this encounter
--- OUTSIDE RECORDS SUMMARY | 2024-10-23 11:20 | XMS_ITS | Encounter Summary ---
Author Organization [facility] Address [address] [place] [address] Care Team Providers Care Roving Winder Name Role Phone Jm Hastings MD Primary Care Provider [phone] Encounter Details Date Type Department Care Team Description 09/22/2017 Children Counselor Report Medical Records [address] [place] [id number] [place] Social History Tobacco Use Types Packs/Day Years [...] on filedocumented in this encounter Care Teams Roving Winder Relationship Specialty Start Date End Date Jm Hastings MD [address] [place] [address] [phone] PCP - General Internal Medicine 06/28/17 documented as of this encounter
--- OUTSIDE RECORDS SUMMARY | 2024-10-23 11:20 | XMS_ITS | Encounter Summary ---
Author Organization [facility] Address [address] [place] [address] Care Team Providers Care Site Director Name Role Phone Jm Hastings MD Primary Care Provider [phone] Reason for Visit * Reason Onset Date Comments Provider Call Back 09/28/2017 Encounter Details Date Type Department Care Team Description 09/28/2017 Telephone Adult Medicine [address] [phone] Jm Hastings MD [address] [place] [address] [phone] Provider Call Back Social History Tobacco Use Types Packs/Day Years [...] encounter Miscellaneous Notes * Telephone Encounter - Shlely Yin M.A. - 09/28/2017 1:[address] Hastings, Your note is not done yet from yesterdays visit and there is no medication ordered. please review and advise * Telephone Encounter - Daniela Kulkarni - 09/28/2017 10:50 AM EDT Patient is calling for patient. Jm Hastings wanted patient to start medication but no script given or sent to Pharmacy. * Telephone Encounter - Kathiher Lindseyjulia - 09/28/2017 9:27 AM EDT Caller requesting call back from provider: Is the caller the patient? NO If caller is not the patient, what is the callers name? Lana Callers relationship to patient? If person calling is not the patient themselves, is there a verbal release in FYI or permanent comments for this person: YES Reason for call back: They forgot to mention yesterday that he needs to get the Pneumonia shot. Would like to know if he can come in and get the shot. Caller offered to speak with the nurse for assistance: YES Response: Patient offered to speak with nurse for assistance and patient agreed. Message forwarded to nurse. documented in this encounter Plan of Treatment Not on file documented as of this encounter Visit Diagnoses Not on filedocumented in this encounter Care Teams Site Director Relationship Specialty Start Date End Date Jm Hastings MD [address] [place] [phone] PCP - General Internal Medicine 06/28/17 documented as of this encounter
--- OUTSIDE RECORDS SUMMARY | 2024-10-23 11:20 | XMS_ITS | Encounter Summary ---
Author Organization [facility] Address [address] [place] [address] Care Team Providers Care Restaurant Line Server Name Role Phone Jm Hastings MD Primary Care Provider [phone] Encounter Details Date Type Department Care Team Description 08/23/2023 SCAN Medical Records [address] [place] [address] [facility] Social History Tobacco Use Types Packs/Day Years [...] on filedocumented in this encounter Care Teams Restaurant Line Server Relationship Specialty Start Date End Date Jm Hastings MD [address] [place] [address] [phone] PCP - General Internal Medicine 06/28/17 documented as of this encounter
--- OUTSIDE RECORDS SUMMARY | 2024-10-23 11:20 | XMS_ITS | Clinical Summary ---
Author Organization [facility] Address [address] [place] [address] Care Team Providers Care Program Management Professional Name Role Phone Jm Hastings MD Primary Care Provider [phone] Allergies No known active allergies Medications Medication Sig Dispensed Refills Start Date End Date Status aspirin 81 MG chewable tablet Take 1 tablet by mouth daily. 0 Active amlodipine (NORVASC) 2.5 MG tablet Take 1 Tablet by mouth daily. 90 Tablet 1 01/05/2024 Active atorvastatin (LIPITOR) 80 MG tablet Take 1 Tablet by mouth daily. 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 Essential hypertension 12/30/2020 Anemia 12/30/2020 Immunizations Name Administration Dates Next Due COVID-19 (Pfizer) 10/30/2021,,09/29/2020,2020 Covid-19 Bivalent (Pfizer) 03/19/2022,03/19/2022 Covid-19 Pfizer Omicron (Pt Reported)-Comirnaty 03/30/2023 Influenza vaccine high dose age 65 and over 03/30/2023,03/19/2022,02/20/2021,2019,05/12/2016 Pneumococcal Conjugate PCV-13 09/29/2017 Pneumococcal Conjugate PCV-20 09/22/2022 Shingrix (Recombinant zoster vaccine) 09/22/2022 TD (STATE SUPPLIED FOR ADULT S AND CHILDREN) 08/11/2017 Tdap 06/21/2022 Tdap (Adacel) 08/11/2017 Family History Medical History Relation Name Comments [place] Father from [place] at age 72 bone ca Mother heart disease Sister pace maker kidney disease Sister on HD Relation Name Status Comments Father Mother Sister Alive Social History Tobacco Use Types Packs/Day Years Used Date Smoking Tobacco: Former Smokeless Tobacco: Never Tobacco Cessation:Counseling Given: Not Answered Comments:quit 1990, unsure of exact date Alcohol Use Standard Drinks/Week Comments Yes 0 (1 standard drink = 0.6 oz pur e alcohol) liquor once a month Sex Assigned at Date Recorded Not on file Job Start Date Occupation Industry Not on file Not on file Not on file Last Filed Vital Signs Vital Sign Reading Time Taken Comments Blood Pressure 126/70 08/23/2023 3:36 PM EDT Pulse 110 08/04/2023 9:16 AM EST Temperature 36.4 ??C (97.6 ??F) 08/04/2023 9:16 AM ES T Respiratory Rate 16 08/04/2023 9:16 AM EST Oxygen Saturation 98% 02/23/2023 7:47 AM EDT Inhaled Oxygen Concentration - - Weight 84.4 kg (186 lb) 08/04/2023 9:16 AM EST Height 175.3 cm (5' 9 ) 01/05/2024 11:15 AM EDT Body Mass Index 27.47 08/04/2023 9:16 AM EST Plan of Treatment Health Maintenance Due Date Last Done Comments SHINGLES VACCINE (2 of 2) 11/17/2022 09/22/2022 Covid-19 Vaccine (2022-2 4 season) 2024 03/30/2023, 03/19/2022, 03/19/2022, Additional history exists BMI CHECK/ADVISE 06/13/2024 01/05/2024, , 06/30/2023, Additional history exists DEPRESSION SCREEN 01/04/2025 01/05/2024, , 12/23/2022, Additional history exists FALL RISK ASSESSMENT 01/04/2025 01/05/2024, 12/23/2022, 12/10/2021, Additional history exists INFLUENZA (Season Ended) 2025 023, 03/19/2022, 02/20/2021, Additional history exists CHOLESTEROL SCREENING 08/02/2028 08/02/2023 , 06/22/2022, 01/23/2021, Additional history exists DTAP/TDAP/TD (3 - Td or Tdap) 06/21/2032, 08/11/2017, 08/11/2017 PNEUMOCOCCAL VACCINE Completed 09/22/2022, 09/30/19 18 Care Teams Program Management Professional Relationship Specialty Start Date End Date Jm Hastings MD [address] [place] [id number] PCP - General Internal Medicine 06/28/17
--- OUTSIDE RECORDS SUMMARY | 2024-10-23 11:20 | XMS_ITS | Encounter Summary ---
Author Organization [facility] Address [address] [place] [address] Care Team Providers Care Licensed Mental Health Counselor Name Role Phone Jm Hastings MD Primary Care Provider [phone] Encounter Details Date Type Department Care Team Description 12/05/2020 Hospital Medical Records [address] [place] [id number] Jessica Garrido MD Social History Tobacco Use [...] on filedocumented in this encounter Care Teams Licensed Mental Health Counselor Relationship Specialty Start Date End Date Jm Hastings MD [address] [place] [address] [phone] PCP - General Internal Medicine 06/28/17 documented as of this encounter
--- OUTSIDE RECORDS SUMMARY | 2024-10-23 11:21 | XMS_ITS | Encounter Summary ---
Author Organization [facility] Address [address] [place] [address] Care Team Providers Care Dinkey Motor Operator Name Role Phone Jm Hastings MD Primary Care Provider [phone] Encounter Details Date Type Department Care Team Description 10/06/2017 Hospital Medical Records [address] [place] [phone] Social History Tobacco Use Types Packs/Day Years [...] on filedocumented in this encounter Care Teams Dinkey Motor Operator Relationship Specialty Start Date End Date Jm Hastings MD [address] [place] [address] [phone] PCP - General Internal Medicine 06/28/17 documented as of this encounter
== END 2024-10-19 10:16 | disposition home or self-care (01) ==
LOC: HO.HOSX 10:15
PROVIDERS: Visit Provider Physician Assistant
DX: M25.559 Pain in unspecified hip (principal); S32.591A Other specified fracture of right pubis, initial encounter for closed fracture
CPT/HCPCS: 72170; 99212